=== PATIENT | male | born 1960 | race Caucasian/White ===

== ENCOUNTER 2017-02-01 05:24 | Inpatient (IN) | payer MEDICARE ==
[~2017-02-01] VITALS: Ht 182.9 cm; Wt 71.3 kg
[2017-02-01] VITALS (21 sets, daily range): BP systolic 111–178; BP diastolic 74–102; PULSE 88–100; RESP 16–30; TEMP 97.1–98.6; O2SAT 94–100
[~2017-02-01 05:24] MED LIST: ALBU0.086 INH; CYCL1PAK PO; DILTCD180 PO; FLUT1SPR9 NASAL; LEVA750T PO; LORA-474 PO; METO50TA PO; NORC10TA2 PO; OMEP20TA39 PO; PRED10 PO; PRED20 PO; ROPI1TAB72 PO; SPIRCAP INH; SYMB160A INH; TRAZ50TA4 PO; VENTAER INH; WARF2.5T40 PO; WARF5TAB PO
[2017-02-01] MEDS ORDERED: LORazepam 2 MG/ML VIAL ONE (05:30)
[2017-02-01] MEDS ORDERED: SODIUM CHLORIDE 0.9% FLUSH 10 ML FLUSH IVF PRN (05:30)
[2017-02-01] MEDS: RESP: ALBUTEROL 2.5 MG/IPRATROPIUM 0.5 MG NEB (SCH) INH ×5 (05:36→23:30)
[2017-02-01] MEDS ORDERED: LORazepam 2 MG/ML VIAL IV PUSH ONE ×2 (05:45→06:00)
[2017-02-01 05:47] LABS: AUTOMATED NEUTROPHIL # 12.5 TH/MM3 (1.8-7.7); BASOPHIL % 0.2 % (0.0-2.0); EOSINOPHIL % 0.2 % (0.0-4.0); HEMATOCRIT 43.1 % (39.0-51.0); HEMO FLAGS DIFF FINAL; LYMPH % 11.9 % (9.0-44.0); LYMPHOCYTE # 1.9 TH/MM3 (1.0-4.8); MEAN CELL VOLUME 92.1 FL (80.0-100.0); MEAN CORPUSCULAR HEMOGLOBIN 31.6 PG (27.0-34.0); MEAN CORPUSCULAR HGB CONC 34.3 % (32.0-36.0); MONO % 11.6 % (0.0-8.0); NEUT % 76.1 % (16.0-70.0); PLATELET COUNT 289 TH/MM3 (150-450); RED BLOOD COUNT 4.69 MIL/MM3 (4.50-5.90); RED CELL DISTRIBUTION WIDTH 13.8 % (11.6-17.2); WHITE BLOOD COUNT 16.4 TH/MM3 (4.0-11.0)
[2017-02-01 05:53] LABS: BLOOD GAS BASE EXCESS 1.1 mmol/L (-2-2); BLOOD GAS CARBOXYHEMOGLOBIN 3.7 % (0-4); BLOOD GAS HCO3 28 mmol/L (22-26); BLOOD GAS METHEMOGLOBIN 0.6 % (0-2); BLOOD GAS O2 HGB SATURATION 93 % (90-100); BLOOD GAS OXYGEN CONTENT 19.3 Vol % (12.0-20.0); BLOOD GAS PCO2 64 mmHg (38-42); BLOOD GAS PO2 102 mmHG (61-120); BLOOD GAS TOTAL HGB 14.6 G/DL (12.0-16.0); TEMP CORR TO 98.6
[2017-02-01 05:54] LABS: CRITICAL VALUE YES; OXYGEN DEVICE VENTILATOR
[2017-02-01 05:55] LABS: DRAW SITE LT RADIAL; LITER FLOW 4 L/M; STAT YES; ULNAR PULSE PRESENT
--- NOTE | 2017-02-01 05:58 | PD ---
HPI Chief Complaint: Respiratory Distress Time Seen by Provider: 05:28 Travel History International Travel<30 days: No Contact w/Intl Traveler<30days: No Traveled to known affect area: No History of Present Illness HPI Patient 56-year-old male presents emergency department for evaluation of shortness of breath worsening over the past week. Patient states he was working outside yesterday and became fairly short of breath. Patient states he has a history of COPD and feeling very anxious. He is brought in by EMS to see 125 mg Solu-Medrol and 3 albuterol treatments during transport. Patient denies any chest pain denies abdominal pain nausea vomiting diarrhea. Patient states this happened to him multiple times in the past and he requests something for his nerves. Denies any fevers. Symptoms are moderate to severe and been progressively worsening. PFSH Past Medical History Hx Anticoagulant Therapy: Yes (COUMADIN) Arthritis: Yes Asthma: Yes Anxiety: Yes Depression: Yes Heart Rhythm Problems: Yes (A-FIB) Cancer: No Cardiac Catheterization: No Cardiovascular Problems: Yes High Cholesterol: No Chest Pain: Yes Congestive Heart Failure: No COPD: Yes Cerebrovascular Accident: Yes (TIA'S X 2) Coronary Artery Disease: Yes (AFIB) Diabetes: No Diminished Hearing: No Endocrine: No Gastrointestinal Disorders: No Headaches: Yes Hiatal Hernia: Yes Hypertension: Yes Immune Disorder: No Implanted Vascular Access Dvce: No Musculoskeletal: Yes (DDD) Neurologic: Yes (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) Psychiatric: Yes Respiratory: Yes (COPD) Migraines: Yes Ulcer: Yes Tetanus Vaccination: < 5 Years Influenza Vaccination: Yes PNEUMOCCOCAL Vaccine (Year): 1 Past Surgical History Abdominal Surgery: Yes (HIATAL HERNIA REPAIR, DEVIATED SEPTUM) AICD: No Arteriovenous Shunt: No Cardiac Surgery: No Coronary Artery Bypass Graft: No Ear Surgery: No Endocrine Surgery: No Eye Surgery: No Genitourinary Surgery: No Insulin Pump: No Joint Replacement: No Neurologic Surgery: No Oral Surgery: Yes Pacemaker: No Thoracic Surgery: No Other Surgery: No Social History Alcohol Use: Yes (PT STATES "BEER EVERY NOW AND THEN") Tobacco Use: Yes (FORMER HEAVY SMOKER) Substance Use: No Allergies-Medications (Allergen,Severity, Reaction): Coded Allergies: Gabapentin (Verified Allergy, Severe, Shortness of Breath, 02/01/17) Pt states he had a bad reaction to Gabapentin. states "my throat swole and it was hard for me to breath." Penicillin (Verified Allergy, Severe, "ALL CILLINS" PER PT, 02/01/17) Amoxicillin (Verified Allergy, Unknown, 02/01/17) Uncoded Allergies: ALL CILLINS (Allergy, Unknown, 06/15/10) Reported Meds & Prescriptions Reported Meds & Active Scripts Active Reported Coumadin (Warfarin) 2.5 Mg Tab 2.5 Mg PO DAILY Coumadin (Warfarin) 5 Mg Tab 5 Mg PO 2XWEEK Trazodone (Trazodone HCl) 50 Mg Tab 50 Mg PO HS Spiriva Handihaler (Tiotropium Inh) 18 Mcg Cap 18 Mcg INH DAILY 1 capsule = 18 mcg Requip (Ropinirole) 1 Mg Tab 1 Mg PO HS Prednisone 5 Mg Tab 5 Mg PO DAILY Omeprazole 20 Mg Tab 20 Mg PO DAILY Metoprolol Tartrate 50 Mg Tab 50 Mg PO BID Ativan (Lorazepam) 1 Mg Tab 1 Mg PO Q6H PRN Cardizem (Diltiazem HCl) 120 Mg Tab 360 Mg PO DAILY Flexeril (Cyclobenzaprine HCl) 10 Mg Tab 10 Mg PO HS Symbicort Inh (Budesonide/Formoterol Fumarate) 80-4.5 Mcg/Act Aero 2 Puff INH Q12HR Ventolin Hfa 18 GM Inh (Albuterol Sulfate) 90 Mcg/Act Aer 2 Puff INH Q4H PRN Review of Systems Except as stated in HPI: all other systems reviewed are Neg Physical Exam Narrative GENERAL: Well-developed, thin tripod position notably short of breath. SKIN: Warm and dry HEAD: Atraumatic. Normocephalic. EYES: Pupils equal and round. No scleral icterus. No injection or drainage. ENT: No nasal bleeding or discharge. Mucous membranes pink and moist. NECK: Trachea midline. No JVD. CARDIOVASCULAR: Minimal tachycardia with regular rhythm. No murmur appreciated. RESPIRATORY: No significant intercostal and subcostal retractions, tripod position. Decreased aeration throughout. Speaks in short phrases only. GASTROINTESTINAL: Abdomen soft, non-tender, nondistended. Hepatic and splenic margins not palpable. MUSCULOSKELETAL: No obvious deformities. No clubbing. No cyanosis. No edema. NEUROLOGICAL: Awake and alert. No obvious cranial nerve deficits. Motor grossly within normal limits. Normal speech. PSYCHIATRIC: Appears very anxious. Data Data Last Documented VS Vital Signs Date Time Temp Pulse Resp B/P Pulse Ox O2 Delivery O2 Flow Rate FiO2 02/01/17 07:00 94 16 111/79 95 BiPAP 02/01/17 06:11 35 02/01/17 06:00 4 02/01/17 05:28 97.1 Orders Electrocardiogram (02/01/17 05:28) Arterial Blood Gas (Abg) (02/01/17 05:28) Complete Blood Count With Diff (02/01/17 05:28) Comprehensive Metabolic Panel (02/01/17 05:28) Chest, Single Ap (02/01/17 05:28) Ecg Monitoring (02/01/17 05:28) Iv Access Insert/Monitor (02/01/17 05:28) Oximetry (02/01/17 05:28) Oxygen Administration (02/01/17 05:28) Albuterol-Ipratropium Neb (Duoneb Neb) (02/01/17 05:30) Sodium Chloride 0.9% Flush (Ns Flush) (02/01/17 05:30) Troponin I (02/01/17 05:28) Lorazepam Inj (Ativan Inj) (02/01/17 05:30) Lorazepam Inj (Ativan Inj) (02/01/17 05:45) Lorazepam Inj (Ativan Inj) (02/01/17 06:00) Lorazepam Inj (Ativan Inj) (02/01/17 06:15) Arterial Blood Gas (Abg) (02/01/17 ) Admit Order (Ed Use Only) (02/01/17 ) Labs Laboratory Tests Test 02/01/17 02/01/17 05:30 05:41 White Blood Count 16.4 TH/MM3 Red Blood Count 4.69 MIL/MM3 Hemoglobin 14.8 GM/DL Hematocrit 43.1 % Mean Corpuscular Volume 92.1 FL Mean Corpuscular Hemoglobin 31.6 PG Mean Corpuscular Hemoglobin 34.3 % Concent Red Cell Distribution Width 13.8 % Platelet Count 289 TH/MM3 Mean Platelet Volume 9.4 FL Neutrophils (%) (Auto) 76.1 % Lymphocytes (%) (Auto) 11.9 % Monocytes (%) (Auto) 11.6 % Eosinophils (%) (Auto) 0.2 % Basophils (%) (Auto) 0.2 % Neutrophils # (Auto) 12.5 TH/MM3 Lymphocytes # (Auto) 1.9 TH/MM3 Monocytes # (Auto) 1.9 TH/MM3 Eosinophils # (Auto) 0.0 TH/MM3 Basophils # (Auto) 0.0 TH/MM3 CBC Comment DIFF FINAL Differential Comment Sodium Level 140 MEQ/L Potassium Level 4.5 MEQ/L Chloride Level 104 MEQ/L Carbon Dioxide Level 30.5 MEQ/L Anion Gap 6 MEQ/L Blood Urea Nitrogen 18 MG/DL Creatinine 0.88 MG/DL Estimat Glomerular Filtration 90 ML/MIN Rate Random Glucose 133 MG/DL Calcium Level 9.3 MG/DL Total Bilirubin 0.8 MG/DL Aspartate Amino Transf 35 U/L (AST/SGOT) Alanine Aminotransferase 35 U/L (ALT/SGPT) Alkaline Phosphatase 77 U/L Troponin I LESS THAN 0.02 NG/ML Total Protein 7.6 GM/DL Albumin 4.1 GM/DL Blood Gas Puncture Site LT RADIAL Blood Gas Patient Temperature 98.6 Blood Gas HCO3 28 mmol/L Blood Gas Base Excess 1.1 mmol/L Blood Gas Oxygen Saturation 93 % Arterial Blood pH 7.26 Arterial Blood Partial 64 mmHg Pressure CO2 Arterial Blood Partial 102 mmHG Pressure O2 Arterial Blood Oxygen Content 19.3 Vol % Arterial Blood 3.7 % Carboxyhemoglobin Arterial Blood Methemoglobin 0.6 % Blood Gas Hemoglobin 14.6 G/DL Oxygen Delivery Device VENTILATOR Blood Gas Liter Flow 4 L/M [facility] Medical Decision Making Medical Screen Exam Complete: Yes Emergency Medical Condition: Yes Interpretation(s) EKG shows sinus rhythm with a normal axis normal R-wave progression. Significant motion artifact limits ST segment interpretation but no obvious elevations seen. Differential Diagnosis COPD exacerbation, hypercapnia, hypoxia, pneumonia. Narrative Course Patient was roomed in the emergency department, he appears quite short of breath. Was given an additional 3 DuoNeb nebs on arrival. Chest x-ray is clear. His ABG does show acute hyper Respiratory acidosis. PH is 7.26. He was started on BiPAP therapy. He was given Ativan 2 mg IV. Orders for 3 the third milligram was withheld. Patient overall improved significantly in the emergency department. Initial troponin negative. Initial EKG is significantly limited by motion artifact but no obvious ischemia. Patient was discussed with Dr. Shearer for admission who requested a repeat ABG and will see the patient. On my revisit the patient is fairly sedate but is arousable by simple painful stimuli and is fully conversant after aroused. He is tolerating the BiPAP well. Critical Care Narrative Aggregate critical care time was [35 minutes. Time to perform other separately billable procedures was not included in the critical care time. My time did not include minutes spent treating any other patients simultaneously or on activities that did not directly contribute to the patient's treatment. The services I provided to this patient were to treat and/or prevent clinically significant deterioration that could result in: , disability, organ failure. I provided critical care services requiring my management, as noted below: Chart data review, documentation time, medication orders and management, vital sign assessments/reviewing monitor data, ordering and reviewing lab tests, ordering and interpreting/reviewing x-rays and diagnostic studies, care of the patient and discussion of the patient with the admitting physicians. Diagnosis Primary Impression: Acute hypercapnic respiratory failure Additional Impression: COPD (chronic obstructive pulmonary disease) Admitting Information Admitting Physician Requests: Admit Condition: Stable Mihai Esqueda MD February 01, 2017 05:58
[2017-02-01] MEDS ORDERED: LORazepam 2 MG/ML VIAL IM ONE (06:15)
[2017-02-01 06:19] LABS: ALKALINE PHOSPHATASE 77 U/L (45-117); TOTAL BILIRUBIN ADULT 0.8 MG/DL (0.2-1.0)
[2017-02-01 06:21] LABS: ALT (GPT) 35 U/L (12-78); ANION GAP 6 MEQ/L (5-15); AST (GOT) 35 U/L (15-37); BICARBONATE 30.5 MEQ/L (21.0-32.0); BLOOD UREA NITROGEN 18 MG/DL (7-18); CHLORIDE 104 MEQ/L (98-107); GLOMERULAR FILTRATION RATE 90 ML/MIN (>89); POTASSIUM 4.5 MEQ/L (3.5-5.1); SODIUM (NA) 140 MEQ/L (136-145)
--- NOTE | 2017-02-01 06:23 | RADRPT ---
EXAM DATE/TIME: 02/01/2017 06:08 [place] COMPARISON: CHEST SINGLE AP, July 10, 2016, 5:06. INDICATIONS : Shortness of breath. Wheezing.. MEDICAL HISTORY : None. SURGICAL HISTORY : None. ENCOUNTER: Initial ACUITY: 1 day PAIN SCORE: 0/10 LOCATION: Bilateral chest FINDINGS: 2 AP erect views of the chest were obtained again demonstrate hyperinflation of both lungs with bullo us change in the upper lobes. There are no new confluent infiltrates or effusions. The heart size is within normal limits. The bony thorax remains intact with overlying electrocardiogram leads. CONCLUSION: No significant change. Emphysema and bullous change with no evidence of pneumonia. Eduar Vidal MD on February 01, 2017 at 6:21 Board Certified Radiologist. This report was verified electronically.
[2017-02-01] MEDS ORDERED: TRAZ50TA12 PO (06:35)
[2017-02-01] MEDS ORDERED: LORA-474 PO (06:35)
[2017-02-01] MEDS ORDERED: SPIRCAP INH (06:35)
[2017-02-01] MEDS ORDERED: COUM2.5T PO (06:35)
[2017-02-01] MEDS ORDERED: METO50TA PO (06:35)
[2017-02-01] MEDS ORDERED: SYMB80AE INH (06:35)
[2017-02-01] MEDS ORDERED: VENTAER INH (06:35)
[2017-02-01] MEDS ORDERED: CARD120T4 PO (06:35)
[2017-02-01] MEDS ORDERED: PRED5TAB PO (06:35)
[2017-02-01] MEDS ORDERED: COUM5TAB PO (06:35)
[2017-02-01] MEDS ORDERED: CYCL1TAB29 PO (06:35)
[2017-02-01] MEDS ORDERED: ROPI1TAB72 PO (06:35)
[2017-02-01] MEDS ORDERED: OMEP20TA PO (06:35)
[2017-02-01 07:40] LABS: BLOOD GAS BASE EXCESS 2.2 mmol/L (-2-2); BLOOD GAS CARBOXYHEMOGLOBIN 3.4 % (0-4); BLOOD GAS HCO3 29 mmol/L (22-26); BLOOD GAS METHEMOGLOBIN 0.7 % (0-2); BLOOD GAS O2 HGB SATURATION 92 % (90-100); BLOOD GAS OXYGEN CONTENT 18.4 Vol % (12.0-20.0); BLOOD GAS PCO2 66 mmHg (38-42); BLOOD GAS PO2 87 mmHG (61-120); BLOOD GAS TOTAL HGB 14.2 G/DL (12.0-16.0); CRITICAL VALUE YES; DRAW SITE RT RADIAL; FIO2 35 %; NUMBER OF ARTERIAL PUNCTURES 1; OXYGEN DEVICE BIPAP; STAT YES; TEMP CORR TO 98.6; VENT SETTINGS IPAP12/EPAP5
[2017-02-01] MEDS ORDERED: SODIUM CHLORIDE 0.9% FLUSH 10 ML FLUSH IV FLUSH PRN (09:15)
[2017-02-01] MEDS ORDERED: MISCELLANEOUS NURSING INFORMATION XX SCH (09:15)
[2017-02-01] MEDS ORDERED: ONDANSETRON HCL 4 MG/2 ML VIAL IV PRN (09:15)
[2017-02-01] MEDS ORDERED: NALOXONE HCL 0.4 MG/ML AMP IV PRN (09:15)
[2017-02-01] MEDS ORDERED: RESP: ALBUTEROL 2.5 MG/3 ML NEB (PRN) INH (09:15)
[2017-02-01] MEDS ORDERED: CHLORHEXIDINE GLUCONATE 2 % 1 PACK (2 CLOTHS) TOP PRN (09:15)
[2017-02-01] MEDS ORDERED: SENNOSIDES 8.6 MG TAB PO PRN (09:15)
[2017-02-01] MEDS ORDERED: FLUMAZENIL 0.5 MG/5 ML VIAL IV PRN (09:15)
[2017-02-01] MEDS ORDERED: ACETAMINOPHEN 325 MG TAB PO PRN (09:15)
[2017-02-01] MEDS ORDERED: GLUCAGON 1 MG/ML VIAL OTHER PRN (10:00)
[2017-02-01] MEDS ORDERED: DEXTROSE 50% IN WATER 50 ML VIAL(D50) IV PRN (10:00)
[2017-02-01 10:07] LABS: BLOOD GAS BASE EXCESS 2.3 mmol/L (-2-2); BLOOD GAS CARBOXYHEMOGLOBIN 2.9 % (0-4); BLOOD GAS HCO3 28 mmol/L (22-26); BLOOD GAS METHEMOGLOBIN 0.8 % (0-2); BLOOD GAS O2 HGB SATURATION 94 % (90-100); BLOOD GAS OXYGEN CONTENT 18.4 Vol % (12.0-20.0); BLOOD GAS PCO2 57 mmHg (38-42); BLOOD GAS PO2 103 mmHG (61-120); BLOOD GAS TOTAL HGB 13.8 G/DL (12.0-16.0); TEMP CORR TO 98.6
[2017-02-01 10:08] LABS: CRITICAL VALUE YES; DRAW SITE LT RADIAL; FIO2 40 %; NUMBER OF ARTERIAL PUNCTURES 1; OXYGEN DEVICE BIPAP; STAT YES; VENT SETTINGS IPAP15/EPAP8
[2017-02-01] MEDS: methylPREDNISolone SOD SUCC 125 MG/2 ML VIAL IVP SCH ×3 (10:23→21:51)
--- NOTE | 2017-02-01 10:23 | EKG ---
Date Performed: 02/01/2017 Time Performed: 05:34:40 PTAGE: 56 years EKG: Sinus rhythm POSSIBLE ANTERIOR MYOCARDIAL INFARCTION ABNORMAL ECG NO PREVIOUS TRACING DOCTOR: Nicola Moy Interpretating Date/Time 02/01/2017 10:18:56
[2017-02-01] MEDS: INSULIN NovoLIN REGULAR SUPPLEMENTAL SCALE SQ SCH ×3 (10:29→21:51)
--- NOTE | 2017-02-01 11:04 | MH ---
cc: GABRIELA ENCINAS M.D. DATE OF ADMISSION 02/01/2017 DATE OF 07/01/1961 HISTORY The patient is a 56 year-old male with a past medical history of COPD, chronic atrial fibrillation on Coumadin, TIA, hypertension, anxiety and depression. The patient presented to [facility] ED for worsening shortness of breath in the last one week. The patient was given Solu-Medrol 125 mg IV and Albuterol treatments times three en route by ER. The patient denies any chest pain, cough, fever or any constitutional symptoms. In addition, he denies any abdominal pain, nausea, vomiting or diarrhea. On arrival, he was hypertension with a blood pressure 178/102, tachycardic. His initial blood gas showed acute hypercapnic respiratory acidosis with a pH of 7.26, CO2 64, paO2 102, bicarb 28. He was subsequently placed on BiPAP with two additional blood gases performed in the ER. His last ABG from 10:00 a.m. showed improvement of is respiratory acidosis with a pH of 7.31, CO2 57, paO2 103, bicarb 28 on BiPAP 15/8 with 40% FIO2. The patient was given Ativan 2 mg IV push for agitation and when seen in the ER, he was lethargic, however, he is able to open up his eyes to questions. A chest x-ray showed COPD changes with no evidence of any pneumonia. PAST MEDICAL HISTORY Significant for: 1. Atrial fibrillation on Coumadin 2. Hypertension 3. TIA 4. Anxiety, depression 5. COPD PAST SURGICAL HISTORY 1. Previous hiatal hernia repair. 2. Previous surgery for a deviated septum. SOCIAL HISTORY The patient is a social drinker, former heavy smoker. No history of substance abuse. ALLERGIES PENICILLIN, AMOXICILLIN AND GABAPENTIN. REPORTED MEDICATIONS Include: 1. Coumadin 2. Trazodone 3. Spiriva 4. Requip 5. Prednisone 6. Omeprazole 7. Lopressor 8. Ativan 9. Cardizem 10. Symbicort 11. Ventolin FAMILY HISTORY Noncontributory REVIEW OF SYSTEMS As per HPI. The rest of the review of systems is unremarkable. PHYSICAL EXAMINATION GENERAL: A [id number] lying in bed in no acute distress. VITAL SIGNS: Temperature of 97.1, blood pressure 123/85, pulse 89, saturation 100% on BiPAP 5/8 with 40% FIO2. HEENT: Atraumatic, normocephalic. Pupils equal, round, reactive to light and accommodation. Extraocular muscles intact. Conjunctivae pink. Nonicteric sclerae. Oral mucosa within normal. NECK: Supple. No JVD, adenopathy or thyromegaly. Trachea in the midline. CARDIOVASCULAR: Regular rate and rhythm. Normal S1, S2. No murmurs, rubs or gallops noted. PULMONARY: Bilateral equal air entry. No crackles or wheezing. ABDOMEN: Soft, nontender. No distention. Positive bowel sounds. EXTREMITIES: No cyanosis, clubbing or edema. NEUROLOGIC: No focal sensory deficit. LABORATORY DATA Sodium 140, potassium 4.5, chloride 104, CO2 30, BUN 18, creatinine 0.88, glucose of 133, troponin less than 0.02. WBC is 16.4, hemoglobin 14.8, hematocrit 43, platelet count is 289. ABG from 10:00 a.m. showed a pH of 7.31, CO2 57, paO2 103, bicarb 28, saturation 94%. RADIOGRAPHIC STUDIES A chest x-ray showed COPD changes. No obvious infiltrates. EKG showed a normal sinus rhythm rate of 92 beats per minute. IMPRESSION 1. Acute hypercapnic respiratory failure 2. COPD exacerbation 3. Leukocytosis 4. Hypertension 5. Atrial fibrillation on Coumadin 6. History of TIA. 7. History of anxiety and depression. RECOMMENDATIONS 1. Monitor neuro status closely and avoid any further sedatives. He was given Ativan 2 mg IV total in the ER. 2. Continue oxygen and maintain sats above 92%. 3. Bronchodilators in the form of DuoNeb q4 plus q2 as needed for shortness of breath. In addition, we will continue with the Symbicort and Spiriva. 4. Solu-Medrol 60 mg IV q6. 5. Continue with noninvasive positive pressure ventilation for respiratory distress. 6. Monitor heart rate and blood pressure closely and maintain MAP greater than [address] on Cardizem 60 mg p.o. q6. 8. Echocardiogram from March 2016 showed an EF of 40-45% with diffuse hypokinesis. 9. Monitor renal function I's and O's and electrolyte replacement as needed. 10. Keep NPO for now until respiratory status and mental status improves. 11. Place on Protonix 40 mg IV daily for GI prophylaxis. 12. Place on empiric antibiotics in the form of Levaquin for COPD exacerbation and monitor for signs of infection which include fever and WBC. Chest x-ray in the ED showed COPD changes without any obvious infiltrates. 13. We will also obtain a urinalysis with culture if indicated. 14. Monitor CBC and check baseline coagulation profile as the patient is on Coumadin at home. 15. Place on sliding scale insulin with Accu-Chek's q6h for glycemic control as the patient will be on IV steroids. 16. GI prophylaxis with Protonix 40 mg daily and DVT prophylaxis with SCD's. Start chemical anticoagulation prophylaxis if INR is subtherapeutic. 17. Further recommendations will be based on hospital course. MD BG Roberto/HIEN /10:26 AM /10:36 AM
[2017-02-01 11:22] LABS: INTERNATIONAL NORMALIZED RATIO 2.9 RATIO; PROTHROMBIN TIME - PATIENT 33.8 SEC (9.8-11.6)
[2017-02-01] MEDS: DILTIAZEM HCL 60 MG TAB PO SCH ×3 (11:36→23:16)
[2017-02-01] MEDS: LEVOFLOXACIN 500 MG PREMIX INJ 100 ML IV SCH (11:36)
[2017-02-01 11:37] LABS: MAGNESIUM 2.5 MG/DL (1.5-2.5)
[2017-02-01 13:54] LABS: BACTERIA, URINE RARE /hpf; BLOOD, URINE NEG (NEG); COMMENT (UR) CATH-CULTURE IND; CULTURE IF INDICATED CATH CULTURE IND; GLUCOSE,URINE NEG (NEG); KETONE, URINE NEG (NEG); MUCUS URINE FEW /lpf (OCC); NITRITE,URINE NEG (NEG); URINE COLOR YELLOW (YELLW/STRAW)
[2017-02-01] MEDS: BUDESONIDE-FORMOTEROL 80/4.5 MCG INHALER INH SCH (19:57)
[2017-02-01] MEDS ORDERED: METOPROLOL TARTRATE 50 MG TAB PO SCH (21:00)
[2017-02-01] MEDS: ACETAMINOPHEN/HYDROcodone 325 MG/10 MG TAB PO PRN (23:17)
[2017-02-02] VITALS (14 sets, daily range): BP systolic 108–127; BP diastolic 76–82; PULSE 72–111; RESP 13–22; TEMP 97.8–98.2; O2SAT 91–97
[2017-02-02] MEDS: RESP: ALBUTEROL 2.5 MG/IPRATROPIUM 0.5 MG NEB (SCH) INH ×5 (03:57→21:26)
[2017-02-02] MEDS: CHLORHEXIDINE GLUCONATE 2 % 1 PACK (2 CLOTHS) TOP SCH (04:00)
[2017-02-02] MEDS: INSULIN NovoLIN REGULAR SUPPLEMENTAL SCALE SQ SCH ×2 (04:00→09:52)
[2017-02-02] MEDS: methylPREDNISolone SOD SUCC 125 MG/2 ML VIAL IVP SCH ×2 (04:24→09:52)
[2017-02-02 06:16] LABS: AUTOMATED NEUTROPHIL # 10.9 TH/MM3 (1.8-7.7); HEMO FLAGS DIFF FINAL; LYMPH % 3.9 % (9.0-44.0); LYMPHOCYTE # 0.5 TH/MM3 (1.0-4.8); MEAN CORPUSCULAR HEMOGLOBIN 30.8 PG (27.0-34.0); MEAN CORPUSCULAR HGB CONC 33.5 % (32.0-36.0); MONO % 5.1 % (0.0-8.0); PLATELET COUNT 221 TH/MM3 (150-450); RED BLOOD COUNT 4.24 MIL/MM3 (4.50-5.90)
[2017-02-02 06:26] LABS: INTERNATIONAL NORMALIZED RATIO 2.8 RATIO; PROTHROMBIN TIME - PATIENT 32.3 SEC (9.8-11.6)
[2017-02-02] MEDS: DILTIAZEM HCL 60 MG TAB PO SCH ×4 (06:37→23:59)
[2017-02-02 06:46] LABS: BICARBONATE 29.1 MEQ/L (21.0-32.0); POTASSIUM 3.9 MEQ/L (3.5-5.1)
[2017-02-02] MEDS: TIOTROPIUM BROMIDE 18 MCG INH INH SCH (07:58)
[2017-02-02] MEDS: BUDESONIDE-FORMOTEROL 80/4.5 MCG INHALER INH SCH ×2 (07:59→20:40)
[2017-02-02] MEDS: PANTOPRAZOLE SOD 20 MG DELAYED RELEASE TAB PO SCH (07:59)
[2017-02-02] MEDS: ACETAMINOPHEN/HYDROcodone 325 MG/10 MG TAB PO PRN ×2 (08:01→17:35)
[2017-02-02] MEDS: LEVOFLOXACIN 500 MG PREMIX INJ 100 ML IV SCH (09:52)
--- NOTE | 2017-02-02 13:23 | HHI.PR ---
Subjective Remarks Patient states sob is much better still coughing denies cp denies fevers/chills Objective Vitals Vital Signs Date Time Temp Pulse Resp B/P Pulse Ox O2 Delivery O2 Flow Rate FiO2 02/02/17 12:00 101 02/02/17 12:00 98.0 101 22 108/76 93 02/02/17 10:00 111 02/02/17 08:00 78 02/02/17 08:00 97.8 93 20 109/82 91 02/02/17 07:53 91 Nasal Cannula 2.00 02/02/17 06:00 84 02/02/17 04:00 76 02/02/17 04:00 98.0 77 13 109/76 94 02/02/17 03:57 94 35 02/02/17 02:00 84 02/02/17 00:00 85 02/02/17 00:00 98.2 85 21 115/77 96 02/01/17 23:31 95 BiPAP 35 02/01/17 23:31 95 35 02/01/17 22:00 89 02/01/17 21:01 96 35 02/01/17 20:00 92 02/01/17 20:00 97.9 92 28 113/83 94 02/01/17 18:00 89 02/01/17 16:00 98.5 92 25 130/92 98 02/01/17 16:00 92 02/01/17 14:04 100 35 02/01/17 14:00 98.6 88 22 117/82 99 02/01/17 14:00 88 I/O 02/01/17 02/01/17 02/01/17 02/02/17 02/02/17 02/02/17 07:00 15:00 23:00 07:00 15:00 23:00 Intake Total 20 ml 20 ml Output Total 750 ml 250 ml Balance -730 ml -230 ml Intake Oral 20 ml 20 ml IV Total 0 ml 0 ml Output Urine Total 750 ml 250 ml # Bowel Movements 0 0 Result Diagram: 02/02/1751302/02/17513 Imaging Last Impressions Chest X-Ray 02/01/1728 Signed Impressions: Service Date/Time: Wednesday, February 01, 2017 06:08 - CONCLUSION: No significant change. Emphysema and bullous change with no evidence of pneumonia. Eduar Vidal MD Objective Remarks GENERAL: Awake and alert, not in respiratory distress. SKIN: Warm and dry. HEAD: Atraumatic. Normocephalic. EYES: Pupils equal and round. No scleral icterus. No injection or drainage. ENT: No nasal bleeding or discharge. Mucous membranes pink and moist. NECK: Trachea midline. No JVD. CARDIOVASCULAR: Regular rate and rhythm. RESPIRATORY: No accessory muscle use. Diffuse bilateral expiratory wheezing. GASTROINTESTINAL: Abdomen soft, non-tender, nondistended. Hepatic and splenic margins not palpable. MUSCULOSKELETAL: Extremities without clubbing, cyanosis, or edema. No obvious deformities. NEUROLOGICAL: Awake and alert. No obvious cranial nerve deficits. Motor grossly within normal limits. Five out of 5 muscle strength in the arms and legs. Normal speech. PSYCHIATRIC: Appropriate mood and affect; insight and judgment normal. Medications and IVs Current Medications Medications (Trade) Dose Ordered Sig/Dusty Route Start Time Stop Time Status Last Admin (NS Flush) 2 ml UNSCH PRN IVF 02/01/17 05:30 (SoluMEDROL INJ) 60 mg Q6H IVP 02/01/17 10:00 02/02/17 09:52 (Tylenol) 650 mg Q6H PRN PO 02/01/17 09:15 02/01/17 19:57 (Zofran Inj) 4 mg Q6H PRN IV 02/01/17 09:15 (Senokot) 17.2 mg Q12H PRN PO 02/01/17 09:15 (Romazicon Inj) 0.2 mg Q1M PRN IV 02/01/17 09:15 (Narcan Inj) 0.4 mg Q3M PRN IV 02/01/17 09:15 Miscellaneous Information 1 Q361D XX 02/01/17 09:15 (Chlorhexidine 2% Cloth) 3 pack Taper DAILY@04 TOP 02/02/17 04:00 01/29/18 03:59 02/02/17 04:00 (Chlorhexidine 2% Cloth) 3 pack UNSCH PRN TOP 02/01/17 09:15 (Symbicort 80-4.5 Mcg Inh) 2 puff Q12HR INH 02/01/17 21:00 02/02/17 07:59 (Spiriva Inh) 18 mcg DAILY INH 02/01/17 09:30 02/02/17 07:58 (Cardizem) 60 mg Q6HR PO 02/01/17 12:00 02/02/17 11:33 Pantoprazole Sodium 20 mg 20 mg DAILY PO 02/02/17 09:00 02/02/17 07:59 (Levaquin 500 Mg Premix Inj) 100 ml @ 100 mls/hr Q24H IV 02/01/17 11:00 02/02/17 09:52 ([place] 10-325 Mg) 1 tab Q6H PRN PO 02/01/17 22:30 02/02/17 08:01 (Ativan) 1 mg Q6H PRN PO 02/01/17 22:30 (Desyrel) 50 mg HS PO 02/02/17 21:00 A/P Problem List: (1) Sepsis ICD Code: A41.9 Status: Resolved Plan: Sepsis secondary to COPD exacerbation. The patient presented with leukocytosis and tachypnea. Sepsis improving with improvement on a study failure and WBC trending down. Continue IV Levaquin, will decrease Solu Medrol to 40 g IV every 8 hours, continue duo nebs and supplemental oxygen to keep an oxygen saturation more than 92%. (2) COPD exacerbation ICD Code: J44.1 Status: Acute Plan: Continue IV antibiotics, IV steroids, DuoNeb's aunt, and oxygen. COPD exacerbation improving. (3) Acute hypercapnic respiratory failure ICD Code: J96.02 Status: Acute Plan: Patient admitted to intensive care unit and and of the care of global clinical leader initially. Patient placed on BiPAP for acute hypercapnic respiratory failure. ABG on admission showed a pH of 7.26 with a PCO2 of 64 and a PO2 of 102. Recheck ABG shows a pH of 7.48 PCO2 of 35, PO2 of 69 on 2 L nasal cannula. (4) Atrial fibrillation ICD Code: I48.91 Status: Chronic Plan: EKG on admission showed sinus rhythm, reviewed by me. Patient is currently on Coumadin with a therapeutic INR. We'll continue Coumadin. (5) Leukocytosis ICD Code: D72.829 Status: Acute Plan: Leukocytosis likely secondary to sepsis secondary to COPD exacerbation. WBCs trending down from 16.4 K to 12.0 K. Continue to monitor CBC with differential Assessment and Plan GI prophylaxis: EPI. DVT prophylaxis: On Coumadin. Discharge Planning Possible discharge in 1-2 days. Problem Qualifiers (1) Sepsis: Qualified Code: A41.9 - Sepsis, due to unspecified organism (2) Atrial fibrillation: Qualified Code: I48.0 - Paroxysmal atrial fibrillation (3) Leukocytosis: Qualified Code: D72.829 - Leukocytosis, unspecified type Mook Tesfaye MD February 02, 2017 13:23
[2017-02-02 13:45] LABS: BLOOD GAS BASE EXCESS 1.9 mmol/L (-2-2); BLOOD GAS CARBOXYHEMOGLOBIN 1.3 % (0-4); BLOOD GAS HCO3 25 mmol/L (22-26); BLOOD GAS METHEMOGLOBIN 1.3 % (0-2); BLOOD GAS O2 HGB SATURATION 92 % (90-100); BLOOD GAS OXYGEN CONTENT 17.7 Vol % (12.0-20.0); BLOOD GAS PCO2 35 mmHg (38-42); BLOOD GAS PO2 69 mmHg (61-120); BLOOD GAS TOTAL HGB 13.8 G/DL (12.0-16.0); CRITICAL VALUE NO; DRAW SITE RT RADIAL; LITER FLOW 4 L/M; NUMBER OF ARTERIAL PUNCTURES 1; OXYGEN DEVICE NASAL CANNULA; STAT NO; TEMP CORR TO 98.6; ULNAR PULSE PRESENT
[2017-02-02 14:05] LABS: HEMOGLOBIN A1a 1.2 %; HEMOGLOBIN A1b 1.6 %; HEMOGLOBIN Ao 84.8 %; HEMOGLOBIN LA1C 2.3 %; HEMOGLOBIN P3 3.9 %
[2017-02-02] MEDS: methylPREDNISolone SOD SUCC 40 MG/1 ML VIAL IV PUSH SCH (20:40)
[2017-02-02] MEDS: traZODone HCL 50 MG TAB PO SCH (20:40)
[2017-02-02] MEDS ORDERED: PANTOPRAZOLE SODIUM 40 MG VIAL IV PUSH ONE (22:15)
[2017-02-03] VITALS (10 sets, daily range): BP systolic 109–128; BP diastolic 60–76; PULSE 77–96; RESP 16–20; TEMP 97.5–97.8; O2SAT 92–97
[2017-02-03] MEDS: RESP: ALBUTEROL 2.5 MG/IPRATROPIUM 0.5 MG NEB (SCH) INH ×6 (00:28→19:17)
[2017-02-03] MEDS: CHLORHEXIDINE GLUCONATE 2 % 1 PACK (2 CLOTHS) TOP SCH (03:18)
[2017-02-03] MEDS: methylPREDNISolone SOD SUCC 40 MG/1 ML VIAL IV PUSH SCH ×3 (05:19→21:27)
[2017-02-03] MEDS: DILTIAZEM HCL 60 MG TAB PO SCH ×3 (05:19→17:30)
[2017-02-03] MEDS: PANTOPRAZOLE SOD 20 MG DELAYED RELEASE TAB PO SCH (07:53)
[2017-02-03] MEDS: TIOTROPIUM BROMIDE 18 MCG INH INH SCH (07:54)
[2017-02-03] MEDS: BUDESONIDE-FORMOTEROL 80/4.5 MCG INHALER INH SCH ×2 (07:54→21:26)
[2017-02-03] MEDS: ACETAMINOPHEN/HYDROcodone 325 MG/10 MG TAB PO PRN ×3 (08:00→21:31)
[2017-02-03 08:04] LABS: AUTOMATED NEUTROPHIL # 11.6 TH/MM3 (1.8-7.7); BASOPHIL % 0.1 % (0.0-2.0); HEMATOCRIT 38.2 % (39.0-51.0); HEMO FLAGS DIFF FINAL; LYMPH % 2.2 % (9.0-44.0); LYMPHOCYTE # 0.3 TH/MM3 (1.0-4.8); MEAN CELL VOLUME 92.6 FL (80.0-100.0); MEAN CORPUSCULAR HEMOGLOBIN 30.2 PG (27.0-34.0); MEAN CORPUSCULAR HGB CONC 32.6 % (32.0-36.0); NEUT % 91.7 % (16.0-70.0); PLATELET COUNT 208 TH/MM3 (150-450); RED BLOOD COUNT 4.12 MIL/MM3 (4.50-5.90); RED CELL DISTRIBUTION WIDTH 14.2 % (11.6-17.2); WHITE BLOOD COUNT 12.7 TH/MM3 (4.0-11.0)
[2017-02-03 08:52] LABS: ALKALINE PHOSPHATASE 56 U/L (45-117); ALT (GPT) 24 U/L (12-78); ANION GAP 6 MEQ/L (5-15); AST (GOT) 23 U/L (15-37); BICARBONATE 28.8 MEQ/L (21.0-32.0); BLOOD UREA NITROGEN 24 MG/DL (7-18); CHLORIDE 105 MEQ/L (98-107); GLOMERULAR FILTRATION RATE 134 ML/MIN (>89); MAGNESIUM 2.8 MG/DL (1.5-2.5); SODIUM (NA) 140 MEQ/L (136-145); TOTAL BILIRUBIN ADULT 0.4 MG/DL (0.2-1.0)
[2017-02-03] MEDS: LEVOFLOXACIN 500 MG PREMIX INJ 100 ML IV SCH (11:39)
--- NOTE | 2017-02-03 16:13 | HHI.PR ---
Subjective Remarks Patient states feels short of breath and does not feel great Denies chest pain Denies fevers or chills Objective Vitals Vital Signs Date Time Temp Pulse Resp B/P Pulse Ox O2 Delivery O2 Flow Rate FiO2 02/03/17 15:34 Nasal Cannula 4.00 02/03/17 15:33 95 Nasal Cannula 3.00 02/03/17 15:28 18 02/03/17 12:15 3.00 02/03/17 12:00 97.6 86 20 120/70 92 02/03/17 08:50 Nasal Cannula 4.00 02/03/17 08:13 92 Nasal Cannula 3.00 02/03/17 08:00 97.5 86 20 115/69 92 02/03/17 04:00 97.7 90 16 111/72 96 02/03/17 03:43 95 Nasal Cannula 4.00 02/03/17 00:30 95 Nasal Cannula 4.00 02/03/17 00:00 97.8 96 20 109/70 97 02/02/17 21:29 96 Nasal Cannula 4.00 02/02/17 20:00 97.8 92 20 127/77 97 02/02/17 20:00 72 02/02/17 20:00 Nasal Cannula 4.00 I/O 02/02/17 02/02/17 02/02/17 02/03/17 02/03/17 02/03/17 07:00 15:00 23:00 07:00 15:00 23:00 Intake Total 20 ml 700 ml 480 ml 360 ml 540 ml Output Total 250 ml 200 ml 350 ml Balance -230 ml 500 ml 130 ml 360 ml 540 ml Intake Oral 20 ml 600 ml 480 ml 360 ml 440 ml IV Total 0 ml 100 ml 100 ml Output Urine Total 250 ml 200 ml 350 ml # Voids 0 # Bowel Movements 0 0 0 Result Diagram: 02/03/17 0731 02/03/1731 Imaging Last Impressions Chest X-Ray 02/01/17527 Signed Impressions: Service Date/Time: Wednesday, February 01, 2017 06:08 - CONCLUSION: No significant change. Emphysema and bullous change with no evidence of pneumonia. Eduar Vidal MD Objective Remarks GENERAL: Awake and alert, not in respiratory distress. SKIN: Warm and dry. HEAD: Atraumatic. Normocephalic. EYES: Pupils equal and round. No scleral icterus. No injection or drainage. ENT: No nasal bleeding or discharge. Mucous membranes pink and moist. NECK: Trachea midline. No JVD. CARDIOVASCULAR: Regular rate and rhythm. RESPIRATORY: No accessory muscle use. Diffuse bilateral expiratory wheezing. GASTROINTESTINAL: Abdomen soft, non-tender, nondistended. Hepatic and splenic margins not palpable. MUSCULOSKELETAL: Extremities without clubbing, cyanosis, or edema. No obvious deformities. NEUROLOGICAL: Awake and alert. No obvious cranial nerve deficits. Motor grossly within normal limits. Five out of 5 muscle strength in the arms and legs. Normal speech. PSYCHIATRIC: Appropriate mood and affect; insight and judgment normal. Procedures None Medications and IVs Current Medications Medications (Trade) Dose Ordered Sig/Dusty Route Start Time Stop Time Status Last Admin (NS Flush) 2 ml UNSCH PRN IVF 02/01/17 05:30 (Tylenol) 650 mg Q6H PRN PO 02/01/17 09:15 02/01/17 19:57 (Zofran Inj) 4 mg Q6H PRN IV 02/01/17 09:15 (Senokot) 17.2 mg Q12H PRN PO 02/01/17 09:15 (Romazicon Inj) 0.2 mg Q1M PRN IV 02/01/17 09:15 (Narcan Inj) 0.4 mg Q3M PRN IV 02/01/17 09:15 Miscellaneous Information 1 Q361D XX 02/01/17 09:15 (Chlorhexidine 2% Cloth) 3 pack Taper DAILY@04 TOP 02/02/17 04:00 01/29/18 03:59 02/02/17 04:00 (Chlorhexidine 2% Cloth) 3 pack UNSCH PRN TOP 02/01/17 09:15 (Symbicort 80-4.5 Mcg Inh) 2 puff Q12HR INH 02/01/17 21:00 02/03/17 07:54 (Spiriva Inh) 18 mcg DAILY INH 02/01/17 09:30 02/03/17 07:54 (Cardizem) 60 mg Q6HR PO 02/01/17 12:00 02/03/17 11:39 Pantoprazole Sodium 20 mg 20 mg DAILY PO 02/02/17 09:00 02/03/17 07:53 (Levaquin 500 Mg Premix Inj) 100 ml @ 100 mls/hr Q24H IV 02/01/17 11:00 02/03/17 11:39 ([place] 10-325 Mg) 1 tab Q6H PRN PO 02/01/17 22:30 02/03/17 14:03 (Ativan) 1 mg Q6H PRN PO 02/01/17 22:30 (Desyrel) 50 mg HS PO 02/02/17 21:00 02/02/17 20:40 (SoluMEDROL INJ) 40 mg Q8HR IV PUSH 02/02/17 22:00 02/03/17 14:03 Urinary Catheter: No Vascular Central Line Catheter: No A/P Problem List: (1) Sepsis ICD Code: A41.9 Status: Resolved Plan: Sepsis secondary to COPD exacerbation. The patient presented with leukocytosis and tachypnea. Sepsis improving with improvement on a study failure and WBC trending down. Patient's WBC stable at 12.7, however patient on steroids. Continue IV Levaquin , DuoNeb's, supplemental oxygen and IV Solu Medrol at same dose. (2) COPD exacerbation ICD Code: J44.1 Status: Acute Plan: Continue IV antibiotics, IV steroids, DuoNeb's aunt, and oxygen. COPD exacerbation improving. (3) Acute hypercapnic respiratory failure ICD Code: J96.02 Status: Acute Plan: Patient admitted to intensive care unit and and of the care of medical office assistant initially. Patient placed on BiPAP for acute hypercapnic respiratory failure. ABG on admission showed a pH of 7.26 with a PCO2 of 64 and a PO2 of 102. Recheck ABG shows a pH of 7.48 PCO2 of 35, PO2 of 69 on 2 L nasal cannula. (4) Atrial fibrillation ICD Code: I48.91 Status: Chronic Plan: EKG on admission showed sinus rhythm, reviewed by me. Patient is currently on Coumadin with a therapeutic INR. We'll continue Coumadin. (5) Leukocytosis ICD Code: D72.829 Status: Acute Assessment and Plan GI prophylaxis: EPI. DVT prophylaxis: On Coumadin. Discharge Planning Possible discharge in 1-2 days. Problem Qualifiers (1) Sepsis: Qualified Code: A41.9 - Sepsis, due to unspecified organism (2) Atrial fibrillation: Qualified Code: I48.0 - Paroxysmal atrial fibrillation (3) Leukocytosis: Qualified Code: D72.829 - Leukocytosis, unspecified type Mook Tesfaye MD February 03, 2017 16:13
[2017-02-03] MEDS: traZODone HCL 50 MG TAB PO SCH (21:31)
[2017-02-04] VITALS (10 sets, daily range): BP systolic 108–151; BP diastolic 58–82; PULSE 60–89; RESP 18–20; TEMP 97.2–98.1; O2SAT 93–99
[2017-02-04] MEDS: RESP: ALBUTEROL 2.5 MG/IPRATROPIUM 0.5 MG NEB (SCH) INH ×6 (00:36→20:45)
[2017-02-04] MEDS: DILTIAZEM HCL 60 MG TAB PO SCH ×5 (00:57→23:48)
[2017-02-04] MEDS: LORazepam 1 MG TAB PO PRN ×2 (00:58→21:13)
[2017-02-04] MEDS: CHLORHEXIDINE GLUCONATE 2 % 1 PACK (2 CLOTHS) TOP SCH (01:52)
[2017-02-04] MEDS: methylPREDNISolone SOD SUCC 40 MG/1 ML VIAL IV PUSH SCH ×3 (05:56→21:13)
[2017-02-04] MEDS: ACETAMINOPHEN/HYDROcodone 325 MG/10 MG TAB PO PRN ×3 (05:57→23:48)
[2017-02-04] MEDS: PANTOPRAZOLE SOD 20 MG DELAYED RELEASE TAB PO SCH (08:56)
[2017-02-04] MEDS: BUDESONIDE-FORMOTEROL 80/4.5 MCG INHALER INH SCH ×2 (08:57→21:12)
[2017-02-04] MEDS: TIOTROPIUM BROMIDE 18 MCG INH INH SCH (08:57)
[2017-02-04] MEDS: LEVOFLOXACIN 500 MG PREMIX INJ 100 ML IV SCH (11:42)
--- NOTE | 2017-02-04 13:52 | HHI.PR ---
Subjective Remarks sob is better however as per patient still present denies cp stable vital signs failed 02 walk test afebrile Objective Vitals Vital Signs Date Time Temp Pulse Resp B/P Pulse Ox O2 Delivery O2 Flow Rate FiO2 02/04/17 11:50 97.4 89 20 137/80 95 02/04/17 09:00 Nasal Cannula 2.50 02/04/17 08:00 65 02/04/17 08:00 Nasal Cannula 3.00 02/04/17 07:50 97.3 72 20 124/82 96 02/04/17 07:48 96 Nasal Cannula 3.00 02/04/17 04:00 97.2 72 20 127/79 97 02/04/17 04:00 Nasal Cannula 3.00 02/04/17 00:06 97.4 81 20 108/58 97 02/04/17 00:00 Nasal Cannula 3.00 02/03/17 20:00 Nasal Cannula 3.00 02/03/17 20:00 97.7 77 20 128/76 95 02/03/17 16:00 97.5 82 18 116/60 96 02/03/17 15:34 Nasal Cannula 4.00 02/03/17 15:33 95 Nasal Cannula 3.00 02/03/17 15:28 18 I/O 02/03/17 02/03/17 02/03/17 02/04/17 02/04/17 02/04/17 06:59 14:59 22:59 06:59 14:59 22:59 Intake Total 360 ml 1500 ml 240 ml 580 ml Output Total 1100 ml 300 ml 400 ml Balance 360 ml 400 ml -60 ml 180 ml Intake Oral 360 ml 1400 ml 240 ml 580 ml IV Total 100 ml Output Urine Total 1100 ml 300 ml 400 ml # Voids 0 # Bowel Movements 0 0 0 Result Diagram: 02/03/17 0731 02/03/1731 Imaging Last Impressions Chest X-Ray 02/01/1728 Signed Impressions: Service Date/Time: Wednesday, February 01, 2017 06:08 - CONCLUSION: No significant change. Emphysema and bullous change with no evidence of pneumonia. Eduar Vidal MD Objective Remarks GENERAL: Awake and alert, not in respiratory distress. SKIN: Warm and dry. HEAD: Atraumatic. Normocephalic. EYES: Pupils equal and round. No scleral icterus. No injection or drainage. ENT: No nasal bleeding or discharge. Mucous membranes pink and moist. NECK: Trachea midline. No JVD. CARDIOVASCULAR: Regular rate and rhythm. RESPIRATORY: No accessory muscle use. Clear to auscultation bilaterally with decreased breath sounds in bilateral lung pederson. No wheezing or rhonchi auscultated. GASTROINTESTINAL: Abdomen soft, non-tender, nondistended. Hepatic and splenic margins not palpable. MUSCULOSKELETAL: Extremities without clubbing, cyanosis, or edema. No obvious deformities. NEUROLOGICAL: Awake and alert. No obvious cranial nerve deficits. Motor grossly within normal limits. Five out of 5 muscle strength in the arms and legs. Normal speech. PSYCHIATRIC: Appropriate mood and affect; insight and judgment normal. Procedures None Medications and IVs Current Medications Medications (Trade) Dose Ordered Sig/Dusty Route Start Time Stop Time Status Last Admin (NS Flush) 2 ml UNSCH PRN IVF 02/01/17 05:30 (Tylenol) 650 mg Q6H PRN PO 02/01/17 09:15 02/01/17 19:57 (Zofran Inj) 4 mg Q6H PRN IV 02/01/17 09:15 (Senokot) 17.2 mg Q12H PRN PO 02/01/17 09:15 (Romazicon Inj) 0.2 mg Q1M PRN IV 02/01/17 09:15 (Narcan Inj) 0.4 mg Q3M PRN IV 02/01/17 09:15 Miscellaneous Information 1 Q361D XX 02/01/17 09:15 (Chlorhexidine 2% Cloth) 3 pack Taper DAILY@04 TOP 02/02/17 04:00 01/29/18 03:59 02/02/17 04:00 (Chlorhexidine 2% Cloth) 3 pack UNSCH PRN TOP 02/01/17 09:15 (Symbicort 80-4.5 Mcg Inh) 2 puff Q12HR INH 02/01/17 21:00 02/04/17 08:57 (Spiriva Inh) 18 mcg DAILY INH 02/01/17 09:30 02/04/17 08:57 (Cardizem) 60 mg Q6HR PO 02/01/17 12:00 02/04/17 11:42 Pantoprazole Sodium 20 mg 20 mg DAILY PO 02/02/17 09:00 02/04/17 08:56 (Levaquin 500 Mg Premix Inj) 100 ml @ 100 mls/hr Q24H IV 02/01/17 11:00 02/04/17 11:42 ([place] 10-325 Mg) 1 tab Q6H PRN PO 02/01/17 22:30 02/04/17 05:57 (Ativan) 1 mg Q6H PRN PO 02/01/17 22:30 02/04/17 00:58 (Desyrel) 50 mg HS PO 02/02/17 21:00 02/03/17 21:31 (SoluMEDROL INJ) 40 mg Q8HR IV PUSH 02/02/17 22:00 02/04/17 05:56 Urinary Catheter: No Vascular Central Line Catheter: No A/P Problem List: (1) Sepsis ICD Code: A41.9 Status: Resolved Plan: Sepsis secondary to COPD exacerbation. The patient presented with leukocytosis and tachypnea. Sepsis improving with improvement on a study failure and WBC trending down. Patient's WBC stable at 12.7, however patient on steroids. Continue IV Levaquin , DuoNeb's, supplemental oxygen and IV Solu Medrol - taper dose to every 12 hours. (2) COPD exacerbation ICD Code: J44.1 Status: Acute Plan: Continue IV antibiotics, IV steroids, DuoNeb's aunt, and oxygen. COPD exacerbation improving. (3) Acute hypercapnic respiratory failure ICD Code: J96.02 Status: Resolved Plan: Patient admitted to intensive care unit and and of the care of local company tanker driver initially. Patient placed on BiPAP for acute hypercapnic respiratory failure. ABG on admission showed a pH of 7.26 with a PCO2 of 64 and a PO2 of 102. Recheck ABG shows a pH of 7.48 PCO2 of 35, PO2 of 69 on 2 L nasal cannula. (4) Atrial fibrillation ICD Code: I48.91 Status: Chronic Plan: EKG on admission showed sinus rhythm, reviewed by me. Patient is currently on Coumadin with a therapeutic INR. Continue melena monitor INR. (5) Leukocytosis ICD Code: D72.829 Status: Acute Plan: WBC still elevated, however patient is on steroids and is currently afebrile. Continue to monitor CBC with differential. Assessment and Plan GI prophylaxis: EPI. DVT prophylaxis: On Coumadin. Discharge Planning Discharge in a.m. Will need home O2. Problem Qualifiers (1) Sepsis: Qualified Code: A41.9 - Sepsis, due to unspecified organism (2) Atrial fibrillation: Qualified Code: I48.0 - Paroxysmal atrial fibrillation (3) Leukocytosis: Qualified Code: D72.829 - Leukocytosis, unspecified type Mook Tesfaye MD February 04, 2017 13:52
[2017-02-04] MEDS ORDERED: OXYGENTANK NAS.CANULA (13:53)
[2017-02-04 15:28] LABS: INTERNATIONAL NORMALIZED RATIO 1.2 RATIO
[2017-02-04] MEDS: traZODone HCL 50 MG TAB PO SCH (21:13)
[2017-02-05] VITALS (9 sets, daily range): BP systolic 117–146; BP diastolic 74–93; PULSE 77–91; RESP 18–20; TEMP 97.3–98.2; O2SAT 92–96
[2017-02-05] MEDS: RESP: ALBUTEROL 2.5 MG/IPRATROPIUM 0.5 MG NEB (SCH) INH ×3 (00:59→09:13)
[2017-02-05] MEDS: CHLORHEXIDINE GLUCONATE 2 % 1 PACK (2 CLOTHS) TOP SCH (04:00)
[2017-02-05] MEDS: DILTIAZEM HCL 60 MG TAB PO SCH ×4 (05:30→23:32)
[2017-02-05] MEDS: ACETAMINOPHEN/HYDROcodone 325 MG/10 MG TAB PO PRN ×4 (05:30→23:32)
[2017-02-05 08:54] LABS: AUTOMATED NEUTROPHIL # 10.2 TH/MM3 (1.8-7.7); HEMATOCRIT 41.5 % (39.0-51.0); LYMPH % 3.4 % (9.0-44.0); LYMPHOCYTE # 0.4 TH/MM3 (1.0-4.8); MEAN CELL VOLUME 91.9 FL (80.0-100.0); MEAN CORPUSCULAR HEMOGLOBIN 31.5 PG (27.0-34.0); MEAN CORPUSCULAR HGB CONC 34.2 % (32.0-36.0); MONO % 6.6 % (0.0-8.0); PLATELET COUNT 213 TH/MM3 (150-450); RED BLOOD COUNT 4.51 MIL/MM3 (4.50-5.90); RED CELL DISTRIBUTION WIDTH 13.7 % (11.6-17.2); WHITE BLOOD COUNT 11.3 TH/MM3 (4.0-11.0)
[2017-02-05] MEDS: TIOTROPIUM BROMIDE 18 MCG INH INH SCH (09:00)
[2017-02-05] MEDS: BUDESONIDE-FORMOTEROL 80/4.5 MCG INHALER INH SCH ×2 (09:00→21:31)
[2017-02-05 09:01] LABS: HEMO FLAGS AUTO DIFF
[2017-02-05 09:05] LABS: PROTHROMBIN TIME - PATIENT 11.6 SEC (9.8-11.6)
[2017-02-05 09:26] LABS: ALKALINE PHOSPHATASE 62 U/L (45-117); ALT (GPT) 41 U/L (12-78); ANION GAP 8 MEQ/L (5-15); AST (GOT) 26 U/L (15-37); BICARBONATE 29.2 MEQ/L (21.0-32.0); BLOOD UREA NITROGEN 20 MG/DL (7-18); CHLORIDE 103 MEQ/L (98-107); GLOMERULAR FILTRATION RATE 127 ML/MIN (>89); POTASSIUM 4.6 MEQ/L (3.5-5.1); SODIUM (NA) 140 MEQ/L (136-145); TOTAL BILIRUBIN ADULT 0.5 MG/DL (0.2-1.0)
[2017-02-05] MEDS: PANTOPRAZOLE SOD 20 MG DELAYED RELEASE TAB PO SCH (09:33)
[2017-02-05] MEDS: methylPREDNISolone SOD SUCC 40 MG/1 ML VIAL IV PUSH SCH ×2 (09:33→21:30)
[2017-02-05 10:57] LABS: BANDS 7 % (0-6); MYELOCYTES 4 % (0-0); NEUTROPHIL # MANUAL DIFF 9.7 TH/MM3 (1.8-7.7); POLYS (SEG NEUTROPHILS) 75 % (16-70); WBC DIFF SAMPLE 100
[2017-02-05 10:58] LABS: PLATELET ESTIMATE SMEAR NORMAL (NORMAL); PLATELET MORPHOLOGY NORMAL (NORMAL); SCAN/DIFF FINAL DIFF MANUAL
[2017-02-05] MEDS: LEVOFLOXACIN 500 MG PREMIX INJ 100 ML IV SCH (11:17)
--- NOTE | 2017-02-05 18:23 | HHI.PR ---
Subjective Remarks sob improving still coughing denies fevers/chills denies cp Objective Vitals Vital Signs Date Time Temp Pulse Resp B/P Pulse Ox O2 Delivery O2 Flow Rate FiO2 02/05/17 16:00 97.6 84 18 141/89 95 02/05/17 12:00 97.3 88 20 117/76 96 02/05/17 09:13 94 Nasal Cannula 2.00 02/05/17 09:00 88 02/05/17 08:00 97.3 91 18 142/91 92 Manual Cuff/Palpation 02/05/17 08:00 Nasal Cannula 2.00 02/05/17 06:00 98.2 77 18 134/82 92 02/05/17 00:00 97.5 82 18 124/74 92 02/04/17 20:45 94 Nasal Cannula 2.00 02/04/17 20:15 Nasal Cannula 2.00 02/04/17 20:05 87 02/04/17 20:00 97.4 80 18 130/79 93 142/78 I/O 02/04/17 02/04/17 02/04/17 02/05/17 02/05/17 02/05/17 07:00 15:00 23:00 07:00 15:00 23:00 Intake Total 580 ml 938 ml 122 ml 2 ml 580 ml Output Total 400 ml 500 ml 450 ml 200 ml Balance 180 ml 438 ml 122 ml -448 ml 380 ml Intake Oral 580 ml 938 ml 120 ml 480 ml IV Total 2 ml 2 ml 100 ml Output Urine Total 400 ml 500 ml 450 ml 200 ml # Voids 2 3 # Bowel Movements 0 0 1 0 Result Diagram: 02/05/1781102/05/17816 Imaging Last Impressions Chest X-Ray 02/01/1728 Signed Impressions: Service Date/Time: Wednesday, February 01, 2017 06:08 - CONCLUSION: No significant change. Emphysema and bullous change with no evidence of pneumonia. Eduar Vidal MD Objective Remarks GENERAL: Awake and alert, not in respiratory distress. SKIN: Warm and dry. HEAD: Atraumatic. Normocephalic. EYES: Pupils equal and round. No scleral icterus. No injection or drainage. ENT: No nasal bleeding or discharge. Mucous membranes pink and moist. NECK: Trachea midline. No JVD. CARDIOVASCULAR: Regular rate and rhythm. RESPIRATORY: No accessory muscle use. Clear to auscultation bilaterally with decreased breath sounds in bilateral lung pederson. No wheezing or rhonchi auscultated. GASTROINTESTINAL: Abdomen soft, non-tender, nondistended. Hepatic and splenic margins not palpable. MUSCULOSKELETAL: Extremities without clubbing, cyanosis, or edema. No obvious deformities. NEUROLOGICAL: Awake and alert. No obvious cranial nerve deficits. Motor grossly within normal limits. Five out of 5 muscle strength in the arms and legs. Normal speech. PSYCHIATRIC: Appropriate mood and affect; insight and judgment normal. Procedures None Medications and IVs Current Medications Medications (Trade) Dose Ordered Sig/Dusty Route Start Time Stop Time Status Last Admin (NS Flush) 2 ml UNSCH PRN IVF 02/01/17 05:30 (Tylenol) 650 mg Q6H PRN PO 02/01/17 09:15 02/01/17 19:57 (Zofran Inj) 4 mg Q6H PRN IV 02/01/17 09:15 (Senokot) 17.2 mg Q12H PRN PO 02/01/17 09:15 (Romazicon Inj) 0.2 mg Q1M PRN IV 02/01/17 09:15 (Narcan Inj) 0.4 mg Q3M PRN IV 02/01/17 09:15 Miscellaneous Information 1 Q361D XX 02/01/17 09:15 (Chlorhexidine 2% Cloth) 3 pack Taper DAILY@04 TOP 02/02/17 04:00 01/29/18 03:59 02/02/17 04:00 (Chlorhexidine 2% Cloth) 3 pack UNSCH PRN TOP 02/01/17 09:15 (Symbicort 80-4.5 Mcg Inh) 2 puff Q12HR INH 02/01/17 21:00 02/05/17 09:00 (Spiriva Inh) 18 mcg DAILY INH 02/01/17 09:30 02/05/17 09:00 (Cardizem) 60 mg Q6HR PO 02/01/17 12:00 02/05/17 17:47 Pantoprazole Sodium 20 mg 20 mg DAILY PO 02/02/17 09:00 02/05/17 09:33 (Levaquin 500 Mg Premix Inj) 100 ml @ 100 mls/hr Q24H IV 02/01/17 11:00 02/05/17 11:17 ([place] 10-325 Mg) 1 tab Q6H PRN PO 02/01/17 22:30 02/05/17 17:47 (Ativan) 1 mg Q6H PRN PO 02/01/17 22:30 02/04/17 21:13 (Desyrel) 50 mg HS PO 02/02/17 21:00 02/04/17 21:13 (SoluMEDROL INJ) 40 mg Q12HR IV PUSH 02/04/17 21:00 02/05/17 09:33 A/P Problem List: (1) Sepsis ICD Code: A41.9 Status: Resolved Plan: Sepsis secondary to COPD exacerbation. The patient presented with leukocytosis and tachypnea. Sepsis improving with improvement on a study failure and WBC trending down. WBC trending down. Continue IV Levaquin, DuoNeb's, supplemental oxygen and IV Solu Medrol (2) COPD exacerbation ICD Code: J44.1 Status: Acute Plan: Continue IV antibiotics, IV steroids, DuoNeb's aunt, and oxygen. COPD exacerbation improving. Failed o2 walk test ---> needs home oxygen. (3) Acute hypercapnic respiratory failure ICD Code: J96.02 Status: Resolved Plan: Patient admitted to intensive care unit and and of the care of drawbridge operator initially. Patient placed on BiPAP for acute hypercapnic respiratory failure. ABG on admission showed a pH of 7.26 with a PCO2 of 64 and a PO2 of 102. Recheck ABG shows a pH of 7.48 PCO2 of 35, PO2 of 69 on 2 L nasal cannula. (4) Atrial fibrillation ICD Code: I48.91 Status: Chronic Plan: EKG on admission showed sinus rhythm, reviewed by me. Patient is currently on Coumadin with a therapeutic INR. Continue melena monitor INR. (5) Leukocytosis ICD Code: D72.829 Status: Acute Plan: WBC still elevated, however patient is on steroids and is currently afebrile. Continue to monitor CBC with differential. Assessment and Plan GI prophylaxis: EPI. DVT prophylaxis: On Coumadin. Discharge Planning Discharge in am once home o2 arranged. Problem Qualifiers (1) Sepsis: Qualified Code: A41.9 - Sepsis, due to unspecified organism (2) Atrial fibrillation: Qualified Code: I48.0 - Paroxysmal atrial fibrillation (3) Leukocytosis: Qualified Code: D72.829 - Leukocytosis, unspecified type Mook Tesfaye MD February 05, 2017 18:23
[2017-02-05] MEDS: traZODone HCL 50 MG TAB PO SCH (21:30)
[2017-02-05] MEDS: LORazepam 1 MG TAB PO PRN (21:30)
[2017-02-06] VITALS: BP 129/83; PULSE 71; RESP 18; TEMP 97.7; O2SAT 96
[2017-02-06] MEDS: CHLORHEXIDINE GLUCONATE 2 % 1 PACK (2 CLOTHS) TOP SCH (03:22)
[2017-02-06 04:00] VITALS: BP 152/92; PULSE 79; RESP 18; TEMP 97.5; O2SAT 92
[2017-02-06] MEDS: DILTIAZEM HCL 60 MG TAB PO SCH ×2 (04:46→12:32)
[2017-02-06] MEDS: LORazepam 1 MG TAB PO PRN (04:46)
[2017-02-06] MEDS: ACETAMINOPHEN/HYDROcodone 325 MG/10 MG TAB PO PRN (04:47)
[2017-02-06 07:16] LABS: NUMBER OF ARTERIAL PUNCTURES 1
[2017-02-06 08:00] VITALS: PULSE 75; O2SAT 94
[2017-02-06 08:03] VITALS: BP 153/84; PULSE 78; RESP 20; TEMP 97.1; O2SAT 92
[2017-02-06] MEDS: PANTOPRAZOLE SOD 20 MG DELAYED RELEASE TAB PO SCH (08:46)
[2017-02-06] MEDS: methylPREDNISolone SOD SUCC 40 MG/1 ML VIAL IV PUSH SCH (08:47)
[2017-02-06] MEDS: BUDESONIDE-FORMOTEROL 80/4.5 MCG INHALER INH SCH (08:49)
[2017-02-06] MEDS: TIOTROPIUM BROMIDE 18 MCG INH INH SCH (08:49)
[2017-02-06] MEDS ORDERED: VENTAER INH (10:26)
[2017-02-06] MEDS ORDERED: SYMB80AE INH (10:26)
[2017-02-06] MEDS ORDERED: PRED20 PO (10:26)
[2017-02-06] MEDS ORDERED: LEVO500T3 PO (10:26)
[2017-02-06] MEDS ORDERED: CARD120T4 PO (10:26)
[2017-02-06] MEDS ORDERED: SPIRCAP INH (10:26)
--- NOTE | 2017-02-06 10:26 | HHI.DCPOC ---
Discharge Care Plan Diagnosis: (1) COPD (chronic obstructive pulmonary disease) (2) Chest pain (3) History of atrial fibrillation (4) Chronic back pain (5) Anxiety (6) Acute hypercapnic respiratory failure Goals to Promote Your Health * To prevent worsening of your condition and complications * To maintain your health at the optimal level Directions to Meet Your Goals Take your medications as prescribed Follow your dietary instruction Follow activity as directed Keep your appointments as scheduled Take your immunizations and boosters as scheduled If your symptoms worsen call your PCP, if no PCP go to Urgent Care Center or Emergency Room Smoking is Dangerous to Your Health. Avoid second hand smoke Call the 24-hour hour crisis hotline for domestic abuse at Mook Tesfaye MD February 06, 2017 10:26
[2017-02-06] MEDS ORDERED: LEVOFLOXACIN 500 MG TAB PO SCH (10:30)
[2017-02-06 12:07] VITALS: BP 138/82; PULSE 90; RESP 18; TEMP 97.6; O2SAT 96
--- NOTE | 2017-02-06 12:33 | HHI.FF ---
Face to Face Verification Diagnosis: (1) Acute hypercapnic respiratory failure (2) COPD exacerbation (3) Severe sepsis (4) Chest pain (5) History of atrial fibrillation (6) Chronic back pain (7) Anxiety Physical Therapy Order: Improve ambulation, Strength and gait training Home Health Nursing Order: Nursing assessment with vital signs I have seen patient Som Goss on 02/06/17. My clinical findings support the need for the requested home health care services because: Patient has SOB Need for psychosocial assistance I certify that my clinical findings support that this patient is homebound because: Hx COPD- exertion dyspnea/weakness Unsafe to leave home unassisted Unable to use public transportation Mook Tesfaye MD February 06, 2017 12:33
--- NOTE | 2017-02-06 12:34 | HHI.DS ---
Discharge Summary Admission Date February 01, 2017 at 07:22 Discharge Date: February 06, 2017 Admitting Diagnosis Hypercapenic Respiratory failure, COPD exacerbation. (1) Sepsis ICD Code: A41.9 Diagnosis: Principal (2) COPD exacerbation ICD Code: J44.1 Diagnosis: Principal (3) Acute hypercapnic respiratory failure ICD Code: J96.02 Diagnosis: Principal (4) Atrial fibrillation ICD Code: I48.91 Diagnosis: Principal (5) Leukocytosis ICD Code: D72.829 Diagnosis: Principal Procedures None Brief History - From Admission The patient is a 56 year-old male with a past medical history of COPD, chronic atrial fibrillation on Coumadin, TIA, hypertension, anxiety and depression. The patient presented to [facility] ED for worsening shortness of breath in the last one week. The patient was given Solu-Medrol 125 mg IV and Albuterol treatments times three en route by ER. The patient denies any chest pain, cough, fever or any constitutional symptoms. In addition, he denies any abdominal pain, nausea, vomiting or diarrhea. On arrival, he was hypertension with a blood pressure 178/102, tachycardic. His initial blood gas showed acute hypercapnic respiratory acidosis with a pH of 7.26, CO2 64, paO2 102, bicarb 28. He was subsequently placed on BiPAP with two additional blood gases performed in the ER. His last ABG from 10:00 a.m. showed improvement of is respiratory acidosis with a pH of 7.31, CO2 57, paO2 103, bicarb 28 on BiPAP 15/8 with 40% FIO2. The patient was given Ativan 2 mg IV push for agitation and when seen in the ER, he was lethargic, however, he is able to open up his eyes to questions. A chest x-ray showed COPD changes with no evidence of any pneumonia. CBC/BMP: 02/05/17 0812 02/05/17 0817 Significant Findings Laboratory Tests Test 02/04/17 02/05/17 02/05/17 14:28 08:12 08:17 Prothrombin Time 13.0 SEC (9.8-11.6) White Blood Count 11.3 TH/MM3 (4.0-11.0) Neutrophils (%) (Auto) 90.0 % (16.0-70.0) Lymphocytes (%) (Auto) 3.4 % (9.0-44.0) Neutrophils # (Auto) 10.2 TH/MM3 (1.8-7.7) Lymphocytes # (Auto) 0.4 TH/MM3 (1.0-4.8) Neutrophils % (Manual) 75 % (16-70) Band Neutrophils % 7 % (0-6) Lymphocytes % 7 % (9-44) Neutrophils # (Manual) 9.7 TH/MM3 (1.8-7.7) Myelocytes 4 % (0-0) Blood Urea Nitrogen 20 MG/DL (7-18) Albumin 3.2 GM/DL (3.4-5.0) Imaging Last Impressions Chest X-Ray 02/01/17 0528 Signed Impressions: Service Date/Time: Wednesday, February 01, 2017 06:08 - CONCLUSION: No significant change. Emphysema and bullous change with no evidence of pneumonia. Eduar Vidal MD PE at Discharge GENERAL: Awake and alert, not in respiratory distress. SKIN: Warm and dry. HEAD: Atraumatic. Normocephalic. EYES: Pupils equal and round. No scleral icterus. No injection or drainage. ENT: No nasal bleeding or discharge. Mucous membranes pink and moist. NECK: Trachea midline. No JVD. CARDIOVASCULAR: Regular rate and rhythm. RESPIRATORY: No accessory muscle use. Clear to auscultation bilaterally with decreased breath sounds in bilateral lung pederson. No wheezing or rhonchi auscultated. GASTROINTESTINAL: Abdomen soft, non-tender, nondistended. Hepatic and splenic margins not palpable. MUSCULOSKELETAL: Extremities without clubbing, cyanosis, or edema. No obvious deformities. NEUROLOGICAL: Awake and alert. No obvious cranial nerve deficits. Motor grossly within normal limits. Five out of 5 muscle strength in the arms and legs. Normal speech. PSYCHIATRIC: Appropriate mood and affect; insight and judgment normal. Pt update on day of discharge patient denies cp, sob at baseline. Hospital Course (1) Sepsis Sepsis secondary to COPD exacerbation. The patient presented with leukocytosis and tachypnea. Treated with IV Levaquin, Duoneb nebs, O2 and IV steroids tapered to oral. Sepsis improving with improvement on a study failure and WBC trending down. Continue IV Levaquin, DuoNeb's, supplemental oxygen and IV Solu Medrol WBC and vital signs monitored. (2) COPD exacerbation Continue IV antibiotics, IV steroids, DuoNeb's nebulizer treatments, and oxygen. COPD exacerbation improving. Failed o2 walk test ---> needs home oxygen. (3) Acute hypercapnic respiratory failure Patient admitted to intensive care unit and and of the care of merchandise planning manager initially. Patient placed on BiPAP for acute hypercapnic respiratory failure. ABG on admission showed a pH of 7.26 with a PCO2 of 64 and a PO2 of 102. Recheck ABG shows a pH of 7.48 PCO2 of 35, PO2 of 69 on 2 L nasal cannula. (4) Atrial fibrillation EKG on admission showed sinus rhythm, reviewed by me. Patient is currently on Coumadin with a therapeutic INR. Continue to monitor INR. (5) Leukocytosis WBC still elevated at the time of DC, however patient is on steroids and is currently afebrile. No other evidence of infection - patient afebrile and stable. GI prophylaxis: EPI. DVT prophylaxis: On Coumadin. Pt Condition on Discharge: Stable Discharge Disposition: Disch w/ Home Health Serv Discharge Time: > 30 minutes Discharge Instructions DIET: Follow Instructions for: Heart Healthy Diet Activities you can perform: Regular-No Restrictions Activities to Avoid: Strenuous Activity Follow up Referrals: PCP Follow-up - 1 Week Pulmonology - 2 Weeks with Ankush Gupta MD New Medications: Levofloxacin (Levofloxacin) 500 Mg Tab 500 MG PO DAILY Infection #5 Ref 0 TAB Oxygen tank (Oxygen tank) 1 Ea Tank 2 LITER FRANK.CANULA CONTINUOUS Oxygen Concentrator Portable Gaseous 2 L/min via Nasal Cannula Continuous For 99 months HYPOXEMIA PREVENTION #2 CYLINDER Prednisone (Prednisone) 20 Mg Tab 40 MG PO DAILY Take 40 mg (2 tablets) daily for 5 days Shortness of Breath #10 Ref 0 TAB Continued Medications: Albuterol 18 GM Inh (Ventolin Hfa 18 GM Inh) 90 Mcg/Act Aer 2 PUFF INH Q4H PRN SHORTNESS OF BREATH #1 Ref 0 INHALER (This prescription has been renewed) Budesonide-Formoterol Inh (Symbicort Inh) 80-4.5 Mcg/Act Aero 2 PUFF INH Q12HR Asthma Management #1 Ref 0 INHALER (This prescription has been renewed) Cyclobenzaprine (Flexeril) 10 Mg Tab 10 MG PO HS Muscle Spasm #90 Ref 0 TAB Diltiazem (Cardizem) 120 Mg Tab 360 MG PO DAILY Angina #120 Ref 0 TAB (This prescription has been renewed) Lorazepam (Ativan) 1 Mg Tab 1 MG PO Q6H PRN ANXIETY AND/OR AGITATION Ref 0 TAB Omeprazole (Omeprazole) 20 Mg Tab 20 MG PO DAILY #30 Ref 0 TAB Ropinirole (Requip) 1 Mg Tab 1 MG PO HS #30 Ref 0 TAB Tiotropium Inh (Spiriva Handihaler) 18 Mcg Cap 18 MCG INH DAILY 1 capsule = 18 mcg COPD #30 Ref 0 CAP (This prescription has been renewed) Trazodone (Trazodone) 50 Mg Tab 50 MG PO HS Control Depression #30 Ref 0 TAB Warfarin (Coumadin) 5 Mg Tab 5 MG PO 2XWEEK Blood Clot Prevention #30 Ref 0 TAB Warfarin (Coumadin) 2.5 Mg Tab 2.5 MG PO DAILY Prevent Blood Clot #30 Ref 0 TAB Discontinued Medications: Prednisone (Prednisone) 5 Mg Tab 5 MG PO DAILY Ref 0 TAB Mook Tesfaye MD February 06, 2017 12:34
[2017-02-06] MEDS ORDERED: WARFARIN SOD 5 MG TAB PO ONE (16:00)
== END 2017-02-06 14:51 | disposition home or self-care (01) | DRG 189 ==
LOC: NEPC 05:24 → NEDA 07:22 → NEDH 11:33 → HIME 14:00 → N04B 02-02 15:18
PROVIDERS: ADMIT Hospitalist; ATTEND Hospitalist
DX: J96.02 Acute respiratory failure with hypercapnia (principal); R65.11 Systemic inflammatory response syndrome (SIRS) of non-infectious origin with acute organ dysfunction; J44.1 Chronic obstructive pulmonary disease with (acute) exacerbation; F17.210 Nicotine dependence, cigarettes, uncomplicated; I10 Essential (primary) hypertension; F41.9 Anxiety disorder, unspecified; F32.9 Major depressive disorder, single episode, unspecified; I48.0 Paroxysmal atrial fibrillation; Z79.01 Long term (current) use of anticoagulants
CPT/HCPCS: 36600; 71010; 80048; 80053; 81001; 82805; 82948; 83036; 83605; 83735; 84100; 84484; 85007; 85025; 85027; 85610; 87086; 87641; 93005; 94002; 94003; 94620; 94640; 94664; 96374; C9113; J1956; J2060; J2920; J2930

== ENCOUNTER 2017-03-04 04:38 | Inpatient (IN) | payer MEDICARE ==
[2017-03-04] VITALS (42 sets, daily range): BP systolic 77–165; BP diastolic 50–99; PULSE 63–105; RESP 16–26; TEMP 97–98.4; O2SAT 91–100
[~2017-03-04] VITALS: Ht 185.4 cm; Wt 73.1 kg
[~2017-03-04 04:38] MED LIST changes: -ALBU0.086 INH; +CARD120T4 PO; +COUM2.5T PO; +COUM5TAB PO; -CYCL1PAK PO; +CYCL1TAB29 PO; -DILTCD180 PO; -FLUT1SPR9 NASAL; -LEVA750T PO; +LEVO500T3 PO; -METO50TA PO; -NORC10TA2 PO; +OMEP20TA PO; -OMEP20TA39 PO; +OXYGENTANK NAS.CANULA; -PRED10 PO; -SYMB160A INH; +SYMB80AE INH; +TRAZ50TA12 PO; -TRAZ50TA4 PO; -WARF2.5T40 PO; -WARF5TAB PO
--- NOTE | 2017-03-04 04:57 | PD ---
HPI Chief Complaint: Respiratory Symptoms Time Seen by Provider: 04:49 Travel History International Travel<30 days: No Contact w/Intl Traveler<30days: No History of Present Illness HPI 56 year-old man, history of COPD on chronic prednisone, A. fib, on warfarin, presents emergent department via EMS for worsening trouble breathing started throughout the day today. He states he's had worsening trouble breathing similar to COPD exacerbations in the past unrelieved with his home bronchodilators. No fevers or chills. No chest pain. History is a little bit limited due to patient's marked respiratory distress. History Past Medical History Narrative Medical COPD, on chronic prednisone A. fib, on warfarin Hypertension TIA Anxiety, depression PNEUMOCCOCAL Vaccine (Year): 1 Social History Alcohol Use: Yes (PT STATES "BEER EVERY NOW AND THEN") Tobacco Use: Yes (FORMER HEAVY SMOKER) Allergies-Medications (Allergen,Severity, Reaction): Coded Allergies: Gabapentin (Verified Allergy, Severe, Shortness of Breath, 02/01/17) Pt states he had a bad reaction to Gabapentin. states "my throat swole and it was hard for me to breath." Penicillin (Verified Allergy, Severe, "ALL CILLINS" PER PT, 02/01/17) Amoxicillin (Verified Allergy, Unknown, 02/01/17) Uncoded Allergies: ALL CILLINS (Allergy, Unknown, 06/15/10) Reported Meds & Prescriptions Reported Meds & Active Scripts Active Levofloxacin 500 Mg Tab 500 Mg PO DAILY Prednisone 20 Mg Tab 40 Mg PO DAILY Take 40 mg (2 tablets) daily for 5 days Spiriva Handihaler (Tiotropium Inh) 18 Mcg Cap 18 Mcg INH DAILY 1 capsule = 18 mcg Cardizem (Diltiazem HCl) 120 Mg Tab 360 Mg PO DAILY Symbicort Inh (Budesonide/Formoterol Fumarate) 80-4.5 Mcg/Act Aero 2 Puff INH Q12HR Ventolin Hfa 18 GM Inh (Albuterol Sulfate) 90 Mcg/Act Aer 2 Puff INH Q4H PRN Oxygen tank (Oxygen) 1 Ea Tank 2 Liter FRANK.CANULA CONTINUOUS Oxygen Concentrator Portable Gaseous 2 L/min via Nasal Cannula Continuous For 99 months Reported Coumadin (Warfarin) 2.5 Mg Tab 2.5 Mg PO DAILY Coumadin (Warfarin) 5 Mg Tab 5 Mg PO 2XWEEK Trazodone (Trazodone HCl) 50 Mg Tab 50 Mg PO HS Requip (Ropinirole) 1 Mg Tab 1 Mg PO HS Omeprazole 20 Mg Tab 20 Mg PO DAILY Ativan (Lorazepam) 1 Mg Tab 1 Mg PO Q6H PRN Flexeril (Cyclobenzaprine HCl) 10 Mg Tab 10 Mg PO HS Review of Systems Except as stated in HPI: all other systems reviewed are Neg Physical Exam Narrative GENERAL: 56-year-old man, anxious appearing, tripoding, respiratory distress. SKIN: Focused skin assessment warm/dry. HEAD: Atraumatic. Normocephalic. EYES: Pupils equal and round. No scleral icterus. No injection or drainage. ENT: No nasal bleeding or discharge. Mucous membranes pink and moist. NECK: Trachea midline. No JVD. CARDIOVASCULAR: Regular rate and rhythm. No murmur appreciated. RESPIRATORY: Moderate respiratory distress. Very anxious. End expiratory wheezing with poor air entry throughout. Speaking in short rushed sentences. GASTROINTESTINAL: Abdomen soft, non-tender, nondistended. Hepatic and splenic margins not palpable. MUSCULOSKELETAL: No obvious deformities. No edema. NEUROLOGICAL: Awake and alert. No obvious cranial nerve deficits. Motor grossly within normal limits. Normal speech. PSYCHIATRIC: Anxious. Data Data Last Documented VS Vital Signs Date Time Temp Pulse Resp B/P Pulse Ox O2 Delivery O2 Flow Rate FiO2 03/04/17 05:12 95 Nasal Cannula 5.00 03/04/17 04:46 98.4 77 26 165/95 Orders Complete Blood Count With Diff (03/04/17 04:50) Comprehensive Metabolic Panel (03/04/17 04:50) B-Type Natriuretic Peptide (03/04/17 04:50) Magnesium (Mg) (03/04/17 04:50) Troponin I (03/04/17 04:50) Arterial Blood Gas (Abg) (03/04/17 04:50) Iv Access Insert/Monitor (03/04/17 04:50) Electrocardiogram (03/04/17 04:50) Ecg Monitoring (03/04/17 04:50) Oximetry (03/04/17 04:50) Oxygen Administration (03/04/17 04:50) Chest, Single Ap (03/04/17 04:50) Sodium Chloride 0.9% Flush (Ns Flush) (03/04/17 05:00) Methylprednisolone So Succ Inj (Solumedr (03/04/17 05:00) Albuterol-Ipratropium Neb (Duoneb Neb) (03/04/17 05:00) Azithromycin Inj (Zithromax Inj) (03/04/17 05:00) Act Partial Throm Time (Ptt) (03/04/17 04:58) Prothrombin Time / Inr (Pt) (03/04/17 04:58) Lorazepam Inj (Ativan Inj) (03/04/17 05:30) Lorazepam Inj (Ativan Inj) (03/04/17 05:45) Resp Bipap / Cpap Non Invas Vt (03/04/17 ) Admit Order (Ed Use Only) (03/04/17 ) Magnesium Sulfate 1 Gm Premix (Magnesium (03/04/17 06:00) Labs Laboratory Tests Test 03/04/17 03/04/17 04:05 05:05 White Blood Count 12.0 TH/MM3 Red Blood Count 4.62 MIL/MM3 Hemoglobin 14.6 GM/DL Hematocrit 42.2 % Mean Corpuscular Volume 91.3 FL Mean Corpuscular Hemoglobin 31.5 PG Mean Corpuscular Hemoglobin 34.5 % Concent Red Cell Distribution Width 13.6 % Platelet Count 328 TH/MM3 Mean Platelet Volume 9.4 FL Neutrophils (%) (Auto) 75.1 % Lymphocytes (%) (Auto) 11.7 % Monocytes (%) (Auto) 12.6 % Eosinophils (%) (Auto) 0.2 % Basophils (%) (Auto) 0.4 % Neutrophils # (Auto) 9.0 TH/MM3 Lymphocytes # (Auto) 1.4 TH/MM3 Monocytes # (Auto) 1.5 TH/MM3 Eosinophils # (Auto) 0.0 TH/MM3 Basophils # (Auto) 0.1 TH/MM3 CBC Comment DIFF FINAL Differential Comment Sodium Level 140 MEQ/L Potassium Level 4.5 MEQ/L Chloride Level 103 MEQ/L Carbon Dioxide Level 32.4 MEQ/L Anion Gap 5 MEQ/L Blood Urea Nitrogen 10 MG/DL Creatinine 0.66 MG/DL Estimat Glomerular Filtration 125 ML/MIN Rate Random Glucose 124 MG/DL Calcium Level 8.6 MG/DL Magnesium Level 2.4 MG/DL Total Bilirubin 0.6 MG/DL Aspartate Amino Transf 26 U/L (AST/SGOT) Alanine Aminotransferase 30 U/L (ALT/SGPT) Alkaline Phosphatase 74 U/L Troponin I LESS THAN 0.02 NG/ML Total Protein 7.3 GM/DL Albumin 3.5 GM/DL Prothrombin Time 41.6 SEC Prothromb Time International 3.6 RATIO Ratio Activated Partial 48.3 SEC Thromboplast Time Blood Gas Puncture Site RT RADIAL Blood Gas Patient Temperature 98.6 Blood Gas HCO3 30 mmol/L Blood Gas Base Excess 3.9 mmol/L Blood Gas Oxygen Saturation 94 % Arterial Blood pH 7.27 Arterial Blood Partial 69 mmHg Pressure CO2 Arterial Blood Partial 158 mmHG Pressure O2 Arterial Blood Oxygen Content 18.9 Vol % Arterial Blood 4.1 % Carboxyhemoglobin Arterial Blood Methemoglobin 0.9 % Blood Gas Hemoglobin 14.1 G/DL Oxygen Delivery Device NASAL CANNULA Blood Gas Liter Flow 5 L/M [facility] Medical Decision Making Medical Screen Exam Complete: Yes Emergency Medical Condition: Yes Interpretation(s) My review of EKG: Rough baseline with artifact, normal sinus rhythm at 77, no definite evidence of acute ischemia. LABS: CBC remarkable for mild leukocytosis. CMP remarkable for mildly elevated bicarbonate Troponin negative Coags: ABG: PH 7.27/69/158/30, base excess 3.9 Differential Diagnosis COPD exacerbation, pneumothorax, pneumonia, other Narrative Course Medical decision making INITIAL: 66-year-old man a moderate to severe respiratory distress with what appears to be COPD exacerbation. Appears to have a significant amount of anxiety compounding his presentation. He has symmetric breath sounds. The bronchodilators, steroids, Ativan, check x-ray, labs, EKG, likely admission. Critical Care Narrative Aggregate critical care time was 20 minutes. Time to perform other separately billable procedures was not included in the critical care time. My time did not include minutes spent treating any other patients simultaneously or on activities that did not directly contribute to the patient's treatment. The services I provided to this patient were to treat and/or prevent clinically significant deterioration that could result in: , disability, respiratory failure. I provided critical care services requiring my management, as noted below: Chart data review, documentation time, medication orders and management, vital sign assessments/reviewing monitor data, ordering and reviewing lab tests, ordering and interpreting/reviewing x-rays and diagnostic studies, care of the patient and discussion of the patient with the admitting physicians. Diagnosis Primary Impression: COPD (chronic obstructive pulmonary disease) Additional Impression: Respiratory failure Nicola Danielle MD Mar 04, 2017 04:57
[2017-03-04] MEDS ORDERED: AZITHROMYCIN INJ 500 MG in SODIUM CHLOR 0.9% 250 ML INJ 250 ML IV ONE (05:00)
[2017-03-04] MEDS ORDERED: SODIUM CHLORIDE 0.9% FLUSH 10 ML FLUSH IVF PRN (05:00)
[2017-03-04] MEDS ORDERED: methylPREDNISolone SOD SUCC 125 MG/2 ML VIAL IVP ONE (05:00)
[2017-03-04] MEDS: RESP: ALBUTEROL 2.5 MG/IPRATROPIUM 0.5 MG NEB (SCH) INH ×6 (05:04→23:39)
[2017-03-04 05:06] LABS: BASOPHIL # 0.1 TH/MM3 (0-0.2); BASOPHIL % 0.4 % (0.0-2.0); EOSINOPHIL % 0.2 % (0.0-4.0); HEMATOCRIT 42.2 % (39.0-51.0); HEMO FLAGS DIFF FINAL; LYMPH % 11.7 % (9.0-44.0); LYMPHOCYTE # 1.4 TH/MM3 (1.0-4.8); MEAN CELL VOLUME 91.3 FL (80.0-100.0); MEAN CORPUSCULAR HEMOGLOBIN 31.5 PG (27.0-34.0); MEAN CORPUSCULAR HGB CONC 34.5 % (32.0-36.0); MONO % 12.6 % (0.0-8.0); NEUT % 75.1 % (16.0-70.0); PLATELET COUNT 328 TH/MM3 (150-450); RED BLOOD COUNT 4.62 MIL/MM3 (4.50-5.90); RED CELL DISTRIBUTION WIDTH 13.6 % (11.6-17.2)
[2017-03-04 05:16] LABS: BLOOD GAS BASE EXCESS 3.9 mmol/L (-2-2); BLOOD GAS CARBOXYHEMOGLOBIN 4.1 % (0-4); BLOOD GAS HCO3 30 mmol/L (22-26); BLOOD GAS METHEMOGLOBIN 0.9 % (0-2); BLOOD GAS O2 HGB SATURATION 94 % (90-100); BLOOD GAS OXYGEN CONTENT 18.9 Vol % (12.0-20.0); BLOOD GAS PCO2 69 mmHg (38-42); BLOOD GAS PO2 158 mmHG (61-120); BLOOD GAS TOTAL HGB 14.1 G/DL (12.0-16.0); TEMP CORR TO 98.6
[2017-03-04 05:17] LABS: CRITICAL VALUE YES; DRAW SITE RT RADIAL; LITER FLOW 5 L/M; NUMBER OF ARTERIAL PUNCTURES 1; OXYGEN DEVICE NASAL CANNULA; STAT YES; ULNAR PULSE PRESENT
--- NOTE | 2017-03-04 05:26 | RADRPT ---
EXAM DATE/TIME: 03/04/2017 04:48 [facility] COMPARISON: CHEST SINGLE AP, February 01, 2017, 6:08. INDICATIONS : Pt short of breath. MEDICAL HISTORY : None. SURGICAL HISTORY : None. ENCOUNTER: Initial ACUITY: 1 day PAIN SCORE: 8/10 LOCATION: Bilateral chest FINDINGS: A single view of the chest demonstrates the lungs to be symmetrically aerated without evidence of mas s, infiltrate or effusion. The cardiomediastinal contours are unremarkable. Osseous structures are intact. CONCLUSION: 1. No acute findings. Emphysema especially in the upper lobes. Ronny Swift MD on March 04, 2017 at 5:24 Board Certified Radiologist. This report was verified electronically.
[2017-03-04 05:30] LABS: ALT (GPT) 30 U/L (12-78)
[2017-03-04] MEDS ORDERED: LORazepam 2 MG/ML VIAL IV PUSH ONE ×2 (05:30→11:15)
[2017-03-04 05:31] LABS: ANION GAP 5 MEQ/L (5-15); AST (GOT) 26 U/L (15-37); BICARBONATE 32.4 MEQ/L (21.0-32.0); BLOOD UREA NITROGEN 10 MG/DL (7-18); CHLORIDE 103 MEQ/L (98-107); GLOMERULAR FILTRATION RATE 125 ML/MIN (>89); MAGNESIUM 2.4 MG/DL (1.5-2.5); POTASSIUM 4.5 MEQ/L (3.5-5.1); SODIUM (NA) 140 MEQ/L (136-145)
[2017-03-04 05:33] LABS: APTT (PATIENT) 48.3 SEC (24.3-30.1); INTERNATIONAL NORMALIZED RATIO 3.6 RATIO; PROTHROMBIN TIME - PATIENT 41.6 SEC (9.8-11.6)
[2017-03-04 05:34] LABS: ALKALINE PHOSPHATASE 74 U/L (45-117); TOTAL BILIRUBIN ADULT 0.6 MG/DL (0.2-1.0)
[2017-03-04] MEDS: LORazepam 2 MG/ML VIAL IV PUSH ONE ×2 (05:45→08:18)
[2017-03-04] MEDS: MAGNESIUM SULFATE 1 GM PREMIX 100 ML IV SCH ×2 (05:57→06:59)
[2017-03-04 06:41] LABS: BLOOD GAS BASE EXCESS 1.3 mmol/L (-2-2); BLOOD GAS CARBOXYHEMOGLOBIN 3.8 % (0-4); BLOOD GAS HCO3 28 mmol/L (22-26); BLOOD GAS METHEMOGLOBIN 0.9 % (0-2); BLOOD GAS O2 HGB SATURATION 87 % (90-100); BLOOD GAS OXYGEN CONTENT 16.3 Vol % (12.0-20.0); BLOOD GAS PCO2 64 mmHg (38-42); BLOOD GAS PO2 66 mmHG (61-120); BLOOD GAS TOTAL HGB 13.4 G/DL (12.0-16.0); CRITICAL VALUE YES; OXYGEN DEVICE BIPAP; TEMP CORR TO 98.6
[2017-03-04 06:42] LABS: DRAW SITE RT RADIAL; FIO2 25 %; NUMBER OF ARTERIAL PUNCTURES 1; STAT YES; ULNAR PULSE PRESENT; VENT SETTINGS IPA=12 EPAP=6
--- NOTE | 2017-03-04 06:54 | HHI.HP ---
[facility] Service Critical Care Medicine Primary Care Physician Unknown Admission Diagnosis COPD exacerbation, hypercarbic respiratory failure Diagnosis: (1) COPD exacerbation Diagnosis: Principal (2) History of atrial fibrillation Diagnosis: Principal (3) Chronic back pain Diagnosis: Principal (4) Anxiety Diagnosis: Principal (5) COPD (chronic obstructive pulmonary disease) Diagnosis: Principal (6) Acute hypercapnic respiratory failure Diagnosis: Principal (7) Leukocytosis Diagnosis: Principal (8) GERD (gastroesophageal reflux disease) Diagnosis: Principal (9) Neuropathy Diagnosis: Principal (10) Cardiomyopathy Diagnosis: Principal (11) Warfarin anticoagulation Diagnosis: Principal (12) Chronic prescription benzodiazepine use Diagnosis: Principal (13) Degenerative globe disease Diagnosis: Principal (14) Arachnoid cyst Diagnosis: Principal (15) History of TIA (transient ischemic attack) Diagnosis: Principal (16) Restless leg syndrome Diagnosis: Principal (17) SIRS (systemic inflammatory response syndrome) (18) On prednisone therapy Diagnosis: Principal Chief Complaint: Shortness of breath Travel History International Travel<30 Days: No Contact w/Intl Traveler <30 Da: No Traveled to Known Affected Are: No Sepsis Criteria SIRS Criteria (2 or more): Heart rate over 90, WBC > 74268, < 4000 or > 10% bands Criteria Outcome: Meets SIRS criteria History of Present Illness 56-year-old male. Date of admission 03/04/2017. 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 Paroxysmal atrial fibrillation, underlying COPD on 2 L nasal cannula chronic, hiatal hernia, degenerative disc disease, chronic benzodiazepine use and chronic warfarin use. He states he has been intubated in the past for his underlying lung disease. He is currently being seen in C pod 25. He is somewhat lethargic after receiving 1 mg of Ativan in the ED while on BiPAP.. He presented to [facility] emergent department via EMS for progressive worsening trouble breathing started throughout the day today. He attempted to use his bronchodilators at home without success. He called EMS for further evaluation. At [facility], initial blood gas revealed significant respiratory acidosis. He is placed on BiPAP 12/6 at 25% FiO2. Not much improvement noted. Chest x-ray showed sinus changes in the upper lobes bilaterally. White cell count 12,000. Troponin 0.02. Rate controlled A. fib. Received 125 mg Solu-Medrol IV and bronchodilator therapy. He is arousable and will intermittently follow commands. Additional information is hard to obtain. He denied tobacco use but past records states he has a 40 year pack history quit 1 year ago. Girlfriend smokes. Review of Systems Constitutional: COMPLAINS OF: Fatigue, Weight loss, DENIES: Fever, Weight gain Endocrine: DENIES: Polyuria Eyes: DENIES: Blurred vision Ears, nose, mouth, throat: DENIES: Tinnitus, Sinus Pain Respiratory: COMPLAINS OF: Shortness of breath, DENIES: Apneas, Hemoptysis, Sputum production Cardiovascular: DENIES: Chest pain Gastrointestinal: DENIES: Abdominal pain Genitourinary: DENIES: Sexual dysfunction, Urgency, Hematuria Musculoskeletal: COMPLAINS OF: Joint pain, Back pain, DENIES: Joint Swelling Integumentary: DENIES: Abnormal pigmentation Hematologic/lymphatic: COMPLAINS OF: Bruising Immunologic/allergic: DENIES: Eczema Neurologic: DENIES: Abnormal gait Psychiatric: DENIES: Anxiety, Confusion Past Family Social History Allergies: Coded Allergies: Gabapentin (Verified Allergy, Severe, Shortness of Breath, 02/01/17) Pt states he had a bad reaction to Gabapentin. states "my throat swole and it was hard for me to breath." Penicillin (Verified Allergy, Severe, "ALL CILLINS" PER PT, 02/01/17) Amoxicillin (Verified Allergy, Unknown, 02/01/17) Uncoded Allergies: ALL CILLINS (Allergy, Unknown, 06/15/10) Past Medical History Restless leg syndrome Left lower extremity neuropathy TIA 2 Arachnoid cyst Gastroesophageal reflux disease Paroxysmal atrial fibrillation COPD Hiatal hernia Degenerative disc disease Chronic benzodiazepine use Chronic warfarin use Chronic prednisone use Insomnia/depression Past Surgical History Umbilical hernia repair Heart catheterization 1999 total with trivial LAD disease and irregularity the RCA. Arachnoid cyst Septal deviation repair Reported Medications Ventolin inhaler 2 puffs every 4 hours as needed Prilosec 20 mg by mouth daily Coumadin 2.5 mill grams 5 times a week. 5 mg 2 times a week. Trazodone 50 mg by mouth at bedtime Prednisone 40 mg by mouth daily Spiriva 18 inhalation daily hours when necessary Cardizem CD 360 mg by mouth daily Flexeril 10 mg by mouth at bedtime Symbicort 80/4.5 2 puffs twice a day Requip 1 mg at night 2 L oxygen Active Ordered Medications Reviewed in EMR Family History Positive for skin cancer, brain cancer and coronary artery disease Social History [id number] tobacco. Quit 1 year ago. Secondary smoke exposure at home. Occasional EtOH. No IV drug use documented Physical Exam Vital Signs Vital Signs Date Time Temp Pulse Resp B/P Pulse Ox O2 Delivery O2 Flow Rate FiO2 03/04/17 06:47 98 25 03/04/17 06:04 96 BiPAP 25 03/04/17 06:01 88 26 165/95 96 BiPAP 25 03/04/17 06:00 25 03/04/17 05:58 26 98 BiPAP 25 03/04/17 05:50 99 25 03/04/17 05:12 95 Nasal Cannula 5.00 03/04/17 04:46 98.4 77 26 165/95 95 Nasal Cannula 3 Physical Exam GENERAL: 56-year-old male, appears stated age currently resting in bed on BiPAP SKIN: Warm and dry. Multiple tattoos upper extremities HEAD: Atraumatic. Normocephalic. EYES: Pupils equal and round about 4 mm bilaterally and reactive to 3 mm. No scleral icterus. No injection or drainage. ENT: No nasal bleeding or discharge. Mucous membranes pink and moist. NECK: Trachea midline. No JVD. CARDIOVASCULAR: IRR. S1, S2. No S4. Without murmur RESPIRATORY: Diminished breath sounds throughout all lung pederson. Positive and extremity wheezing. Symmetrical excursion. GASTROINTESTINAL: Abdomen soft, non-tender, nondistended. I Porter bowel sounds are appreciated. MUSCULOSKELETAL: Extremities without significant peripheral edema. No obvious deformities. NEUROLOGICAL: Awake and arousable. Follows commands with stimulation and moves all 4 extremity spontaneously. Decreased sensation to light touch and pinprick in left lower extremity. Laboratory Laboratory Tests Test 03/04/17 03/04/17 03/04/17 04:05 05:05 06:30 White Blood Count 12.0 Red Blood Count 4.62 Hemoglobin 14.6 Hematocrit 42.2 Mean Corpuscular Volume 91.3 Mean Corpuscular Hemoglobin 31.5 Mean Corpuscular Hemoglobin 34.5 Concent Red Cell Distribution Width 13.6 Platelet Count 328 Mean Platelet Volume 9.4 Neutrophils (%) (Auto) 75.1 Lymphocytes (%) (Auto) 11.7 Monocytes (%) (Auto) 12.6 Eosinophils (%) (Auto) 0.2 Basophils (%) (Auto) 0.4 Neutrophils # (Auto) 9.0 Lymphocytes # (Auto) 1.4 Monocytes # (Auto) 1.5 Eosinophils # (Auto) 0.0 Basophils # (Auto) 0.1 CBC Comment DIFF FINAL Differential Comment Sodium Level 140 Potassium Level 4.5 Chloride Level 103 Carbon Dioxide Level 32.4 Anion Gap 5 Blood Urea Nitrogen 10 Creatinine 0.66 Estimat Glomerular Filtration 125 Rate Random Glucose 124 Calcium Level 8.6 Magnesium Level 2.4 Total Bilirubin 0.6 Aspartate Amino Transf 26 (AST/SGOT) Alanine Aminotransferase 30 (ALT/SGPT) Alkaline Phosphatase 74 Troponin I LESS THAN 0.02 Total Protein 7.3 Albumin 3.5 Prothrombin Time 41.6 Prothromb Time International 3.6 Ratio Activated Partial 48.3 Thromboplast Time Blood Gas Puncture Site RT RADIAL RT RADIAL Blood Gas Patient Temperature 98.6 98.6 Blood Gas HCO3 30 28 Blood Gas Base Excess 3.9 1.3 Blood Gas Oxygen Saturation 94 87 Arterial Blood pH 7.27 7.26 Arterial Blood Partial 69 64 Pressure CO2 Arterial Blood Partial 158 66 Pressure O2 Arterial Blood Oxygen Content 18.9 16.3 Arterial Blood 4.1 3.8 Carboxyhemoglobin Arterial Blood Methemoglobin 0.9 0.9 Blood Gas Hemoglobin 14.1 13.4 Oxygen Delivery Device NASAL CANNULA BIPAP Blood Gas Liter Flow 5 Blood Gas Ventilator Setting IPA=12 EPAP=6 Blood Gas Inspired Oxygen 25 Result Diagram: 03/04/1740403/04/17404 Imaging Last Impressions Chest X-Ray 03/04/17 0450 Signed Impressions: Service Date/Time: Saturday, March 04, 2017 04:48 - CONCLUSION: 1. No acute findings. Emphysema especially in the upper lobes. Ronny Swift MD Assessment and Plan Assessment and Plan Neuro/Psych: Restless leg syndrome Insomnia Depression Chronic benzodiazepine use Acetaminophen for fever [place]/morphine for pain management Home medication trazodone 50 mill grams by mouth discontinued for insomnia/ depression Ativan 1 mg every 6 when necessary will be continued holding Flexeril 10 mg at night for muscle relaxant Continue Requip 1 mg daily at bedtime for restless leg syndrome CV: History of paroxysmal atrial fibrillation Hypertension Chronic systolic heart failure Continue Cardizem CD 360 milligrams by mouth daily for A. fib/hypertension Currently normal saline at 84 cc an hour As needed labetalol for hypertension Troponin less than 0.02. Will check 2-D echocardiogram during this admission. Heart catheterization 2011 Dr. [place] revealed trivial LAD disease and irregular RCA. Echo 04/02 revealed EF 40-45%. Diffuse hypokinesis. Mildly decreased systolic heart failure Resp: Acute Hypercapnic respiratory failure COPD Currently on BiPAP 01/03 with FiO2 25% Chest x-ray revealed bilateral upper lobe emphysematous changes Duo nebs every 4 hours with albuterol every 2 hours when necessary breakthrough Spiriva continued Continue Symbicort 80/4.5 2 puffs twice a day Solu-Medrol 40 mg IV every 8 hours/pulmonary Follow-up chest x-ray in a.m. At high risk for intubation Regimen is Spiriva 18 mg inhalation daily, Ventolin inhaler 2+ every 4 hours as needed and Symbicort 80/4.52 puffs twice a day GI: Gastroesophageal reflux disease History of umbilical hernia repair And carefully advanced diet as tolerated On Protonix for GI prophylaxis/gastroesophageal reflux disease. On Prilosec 20 mg daily at home Flory-Colace for bowel regimen : Ly catheter only if indicated for accurate I's and O's in a critically ill patient Endo: Chronic prednisone use Sliding-scale insulin with Accu-Cheks every before meals and at bedtime to maintain euglycemia while on Solu-Medrol/low regimen On prednisone 40 mg daily at home Renal: Creatinine currently within normal limits Monitor urine output Accurate I's and O's Heme: Leukocytosis - likely steroid related Chronic warfarin use Home medications 2.5 mg 5 times a week and 5 mg 2 times a week. INR currently 3.6 Pharmacy consult to manage while hospitalized ID: Will start azithromycin as needed Noted penicillin allergy FEN: Replace electrolytes as clinically indicated per ICU electrolyte protocol MSK: DDD PT evaluate and treat pain management as above Access - Utilize peripheral IV. Central line if indicated Prophylaxis - GI - Protonix - DVT - SCD/on warfarin therapy with INR 3.6. Supratherapeutic Critical Care: The total critical care time was 55 minutes. Time to perform other separately billable procedures was not included in the critical care time. Code Status Full code Discussed Condition With Dr. GATICA/ED physician. Patient. Care plan discussed all questions answered. Critically ill high risk for oral tracheal intubation Problem Qualifiers (1) Chronic back pain: Qualified Code: M54.5 - Chronic low back pain without sciatica, unspecified back pain laterality (2) COPD (chronic obstructive pulmonary disease): Qualified Code: J44.9 - Chronic obstructive pulmonary disease, unspecified COPD type (3) Leukocytosis: Qualified Code: D72.829 - Leukocytosis, unspecified type (4) GERD (gastroesophageal reflux disease): Qualified Code: K21.9 - Gastroesophageal reflux disease without esophagitis (5) Cardiomyopathy: Qualified Code: I42.9 - Cardiomyopathy, unspecified type Kamaljit Call MD Mar 04, 2017 06:54
[2017-03-04] MEDS ORDERED: LABETALOL HCL 100 MG/20 ML VIAL IV PUSH PRN (07:00)
[2017-03-04] MEDS ORDERED: SODIUM CHLORIDE 0.9% FLUSH 10 ML FLUSH IV FLUSH PRN (07:00)
[2017-03-04] MEDS ORDERED: ONDANSETRON HCL 4 MG/2 ML VIAL IV PRN (07:00)
[2017-03-04] MEDS ORDERED: MORPHINE SULFATE 4 MG/ML INJ IV PRN (07:00)
[2017-03-04] MEDS ORDERED: SENNOSIDES 8.6 MG TAB PO PRN (07:00)
[2017-03-04] MEDS ORDERED: LACTULOSE SYRUP 20 GM/30 ML CUP PO PRN (07:00)
[2017-03-04] MEDS ORDERED: ACETAMINOPHEN 325 MG TAB PO PRN (07:00)
[2017-03-04] MEDS ORDERED: CHLORHEXIDINE GLUCONATE 2 % 1 PACK (2 CLOTHS) TOP PRN (07:00)
[2017-03-04] MEDS ORDERED: MAGNESIUM HYDROXIDE SUSP 30 ML CUP PO PRN (07:00)
[2017-03-04] MEDS ORDERED: MISCELLANEOUS NURSING INFORMATION XX SCH (07:00)
[2017-03-04] MEDS ORDERED: BISACODYL 10 MG SUPP RECTAL PRN (07:00)
[2017-03-04] MEDS: SODIUM CHLOR 0.9% 1000 ML INJ 1,000 ML IV SCH ×3 (07:22→19:55)
[2017-03-04] MEDS ORDERED: DEXTROSE 50% IN WATER 50 ML VIAL(D50) IV PRN (07:30)
[2017-03-04] MEDS ORDERED: GLUCAGON 1 MG/ML VIAL OTHER PRN (07:30)
[2017-03-04] MEDS ORDERED: POTASSIUM CHLORIDE 25 MEQ EFFERVESCENT TAB PO PRN (07:45)
[2017-03-04] MEDS ORDERED: POTASSIUM PHOSPHATE MONOBASIC 500 MG TAB PO/TUBE PRN (07:45)
[2017-03-04] MEDS ORDERED: MAGNESIUM SULFATE INJ 2 GM in SODIUM CHLORIDE 0.9% INJ 96 ML IV PRN (07:45)
[2017-03-04] MEDS ORDERED: POTASSIUM PHOSPHATE MONOBASIC 500 MG TAB PO PRN (07:45)
[2017-03-04] MEDS ORDERED: POTASSIUM CHLOR 20 MEQ PREMIX 100 ML IV PRN ×2 (07:45)
[2017-03-04] MEDS ORDERED: POTASSIUM PHOSPHATE INJ 30 MMOL in SODIUM CHLOR 0.9% 250 ML INJ 250 ML IV PRN (07:45)
[2017-03-04] MEDS ORDERED: MAGNESIUM SULFATE INJ 4 GM in SODIUM CHLORIDE 0.9% INJ 92 ML IV PRN (07:45)
[2017-03-04] MEDS ORDERED: SODIUM PHOSPHATE INJ 30 MMOL in SODIUM CHLOR 0.9% 250 ML INJ 240 ML IV PRN (07:45)
[2017-03-04] MEDS ORDERED: POTASSIUM CHLOR 40 MEQ PREMIX 100 ML IV PRN ×2 (07:45)
[2017-03-04] MEDS ORDERED: MAGNESIUM OXIDE 400 MG TAB PO PRN (07:45)
[2017-03-04] MEDS: BUDESONIDE-FORMOTEROL 80/4.5 MCG INHALER INH SCH ×2 (08:18→21:00)
[2017-03-04] MEDS: TIOTROPIUM BROMIDE 18 MCG INH INH SCH (08:18)
[2017-03-04] MEDS: DILTIAZEM HCL 90 MG TAB PO SCH ×3 (08:19→21:10)
[2017-03-04] MEDS: SODIUM CHLORIDE 0.9% FLUSH 10 ML FLUSH IV FLUSH SCH ×2 (08:19→21:11)
[2017-03-04] MEDS: DOCUSATE SODIUM 50 MG/SENNA 8.6 MG TAB PO SCH ×2 (08:19→21:10)
[2017-03-04] MEDS: PANTOPRAZOLE SOD 20 MG DELAYED RELEASE TAB PO SCH (08:19)
[2017-03-04] MEDS ORDERED: LORazepam 1 MG TAB PO PRN (10:30)
[2017-03-04] MEDS: INSULIN NovoLIN REGULAR SUPPLEMENTAL SCALE SQ SCH ×3 (11:23→21:00)
--- NOTE | 2017-03-04 13:07 | EKG ---
Date Performed: 03/04/2017 Time Performed: 04:54:22 PTAGE: 56 years EKG: Sinus rhythm NORMAL ECG PREVIOUS TRACING : 02/01/2017 05.34 Compared to prior tracing no significant change DOCTOR: Jose Guadalupe Leyva Interpretating Date/Time 03/04/2017 13:05:30
[2017-03-04 13:30] LABS: BLOOD GAS BASE EXCESS 0.8 mmol/L (-2-2); BLOOD GAS CARBOXYHEMOGLOBIN 2.8 % (0-4); BLOOD GAS HCO3 26 mmol/L (22-26); BLOOD GAS METHEMOGLOBIN 1.4 % (0-2); BLOOD GAS O2 HGB SATURATION 90 % (90-100); BLOOD GAS PCO2 54 mmHg (38-42); BLOOD GAS PO2 75 mmHg (61-120); BLOOD GAS TOTAL HGB 13.4 G/DL (12.0-16.0); TEMP CORR TO 98.6
[2017-03-04] MEDS ORDERED: PROPOFOL 1000 MG/100 ML INJ 100 ML IV SCH ×2 (13:30→13:45)
[2017-03-04] MEDS ORDERED: fentaNYL DRIP 250 ML IV SCH (13:30)
[2017-03-04 13:31] LABS: CRITICAL VALUE YES; DRAW SITE RT RADIAL; LITER FLOW 4 L/M; NUMBER OF ARTERIAL PUNCTURES 1; OXYGEN DEVICE NASAL CANNULA; STAT YES
[2017-03-04] MEDS ORDERED: ETOMIDATE 40 MG/20 ML VIAL ONE (13:35)
[2017-03-04] MEDS ORDERED: ROCURONIUM INJ 100 MG/10 ML VIAL IV ONE (13:45)
[2017-03-04] MEDS ORDERED: ETOMIDATE 40 MG/20 ML VIAL IV PUSH ONE (13:45)
[2017-03-04] MEDS ORDERED: SODIUM CHLOR 0.9% 1000 ML INJ 1,000 ML IV ONE (13:45)
--- NOTE | 2017-03-04 14:14 | PD.PROCEDR ---
Procedure Note Procedure DATE: 03/04/2017 PROCEDURE: Orotracheal intubation INDICATION: Acute respiratory failure/inability to protect airway due to altered mental status DETAILS OF PROCEDURE The patient was placed in optimal position and preoxygenated with 100% FiO2 via bag valve mask. At the start oxygen saturation was 95 %. The patient was administered 20 mg etomidate IV and 50 mg rocuronium IV. I entered the oropharynx with a size 4 GVL glidescope blade and obtained a grade 3 view of the airway. On single attempt a size 8.0 cuffed endotracheal tube was passed through the vocal cords. Correct tube location was confirmed with end tidal CO2 detector and by auscultating over bilateral lung pederson. The endotracheal tube was secured with adhesive tape at a depth of 24 cm at the lips. The patient was connected to the ventilator. The patient tolerated the procedure well without any apparent complications. Oxygen saturations were maintained greater than 95% all times. STAT chest x-ray pending at time of dictation. Kamaljit Call MD Mar 04, 2017 14:14
--- NOTE | 2017-03-04 14:16 | RADRPT ---
EXAM DATE/TIME: 03/04/2017 13:52 [facility] COMPARISON: CT THORAX W/O CONTRAST, March 29, 2016, 14:18. CHEST SINGLE AP, March 04, 2017, 4:48. INDICATIONS : Endotracheal tube placement. MEDICAL HISTORY : None. SURGICAL HISTORY : None. ENCOUNTER: Subsequent ACUITY: 2 days PAIN SCORE: Non-responsive. LOCATION: Bilateral upper chest FINDINGS: Portable AP view of the chest demonstrates a normal-sized cardiac silhouette. Endotracheal tube has b een placed with tip at the aortic knob level measuring approximately 5 cm from the rosa. Nasogastri c tube tip is in the proximal stomach the sentinel hole is in the distal esophagus. No effusion, cons olidation, or pneumothorax is visualized. There is mild lucency in the upper lung zones. CONCLUSION: 1. Endotracheal tube tip measures 5 cm from the rosa. Nasogastric tube sentinel hole is in the dist al esophagus and should be advanced. 2. Emphysema. Som Smyth MD on March 04, 2017 at 14:11 Board Certified Radiologist. This report was verified electronically.
[2017-03-04] MEDS: methylPREDNISolone SOD SUCC 40 MG/1 ML VIAL IV PUSH SCH ×2 (15:16→21:10)
[2017-03-04 15:17] LABS: BLOOD GAS BASE EXCESS 0.4 mmol/L (-2-2); BLOOD GAS CARBOXYHEMOGLOBIN 1.9 % (0-4); BLOOD GAS HCO3 26 mmol/L (22-26); BLOOD GAS METHEMOGLOBIN 1.3 % (0-2); BLOOD GAS O2 HGB SATURATION 96 % (90-100); BLOOD GAS OXYGEN CONTENT 17.2 Vol % (12.0-20.0); BLOOD GAS PCO2 51 mmHg (38-42); BLOOD GAS PO2 210 mmHg (61-120); BLOOD GAS TOTAL HGB 12.4 G/DL (12.0-16.0); TEMP CORR TO 98.6
[2017-03-04 15:18] LABS: CRITICAL VALUE YES; DRAW SITE RT RADIAL; FIO2 80 %; NUMBER OF ARTERIAL PUNCTURES 1; OXYGEN DEVICE VENTILATOR; STAT NO; VENT SETTINGS A/C18/550/PEEP5
[2017-03-04] MEDS: AZTREONAM INJ 2,000 MG in SODIUM CHLORIDE 0.9% INJ 100 ML IV SCH (17:30)
[2017-03-04] MEDS ORDERED: LACTULOSE SYRUP 20 GM/30 ML CUP PO ONE (18:15)
[2017-03-04 19:24] LABS: ALT (GPT) 22 U/L (12-78); AST (GOT) 15 U/L (15-37); MAGNESIUM 2.3 MG/DL (1.5-2.5)
[2017-03-04 19:27] LABS: ALKALINE PHOSPHATASE 61 U/L (45-117); CREATINE KINASE 70 U/L (39-308); INDIRECT BILIRUBIN 0.4 MG/DL (0.0-0.8); TOTAL BILIRUBIN ADULT 0.5 MG/DL (0.2-1.0)
[2017-03-04 19:40] LABS: BLOOD, URINE NEG (NEG); COMMENT (UR) CULT NOT INDICATED; CULTURE IF INDICATED CULT NOT INDICATED; GLUCOSE,URINE 70 mg/dL (NEG); KETONE, URINE NEG (NEG); MUCUS URINE FEW /lpf (OCC); NITRITE,URINE NEG (NEG); SQUAMOUS EPITHELIAL CELL URINE 1 /hpf (0-5); URINE COLOR YELLOW (YELLW/STRAW)
[2017-03-04] MEDS: traZODone HCL 50 MG TAB PO SCH (21:11)
[2017-03-04] MEDS: CHLORHEXIDINE 0.12% (ORAL KIT) 15 ML CUP MT SCH (21:13)
[2017-03-05] VITALS (39 sets, daily range): BP systolic 96–118; BP diastolic 62–71; PULSE 82–97; RESP 14–21; TEMP 97.7–98.8; O2SAT 90–97
[2017-03-05] MEDS: DILTIAZEM HCL 90 MG TAB PO SCH ×4 (02:19→20:42)
[2017-03-05] MEDS: RESP: ALBUTEROL 2.5 MG/IPRATROPIUM 0.5 MG NEB (SCH) INH ×6 (03:24→23:09)
[2017-03-05] MEDS: CHLORHEXIDINE GLUCONATE 2 % 1 PACK (2 CLOTHS) TOP SCH (04:00)
[2017-03-05 04:08] LABS: APTT (PATIENT) 54.3 SEC (24.3-30.1)
[2017-03-05 04:09] LABS: AUTOMATED NEUTROPHIL # 9.1 TH/MM3 (1.8-7.7); BASOPHIL % 0.1 % (0.0-2.0); HEMATOCRIT 34.6 % (39.0-51.0); HEMO FLAGS DIFF FINAL; LYMPH % 5.2 % (9.0-44.0); LYMPHOCYTE # 0.5 TH/MM3 (1.0-4.8); MEAN CELL VOLUME 91.5 FL (80.0-100.0); MEAN CORPUSCULAR HEMOGLOBIN 31.4 PG (27.0-34.0); MEAN CORPUSCULAR HGB CONC 34.3 % (32.0-36.0); MONO % 4.1 % (0.0-8.0); NEUT % 90.6 % (16.0-70.0); PLATELET COUNT 252 TH/MM3 (150-450); RED BLOOD COUNT 3.78 MIL/MM3 (4.50-5.90); RED CELL DISTRIBUTION WIDTH 13.9 % (11.6-17.2)
[2017-03-05 04:18] LABS: ALT (GPT) 22 U/L (12-78); ANION GAP 5 MEQ/L (5-15); AST (GOT) 14 U/L (15-37); BICARBONATE 29.8 MEQ/L (21.0-32.0); BLOOD UREA NITROGEN 15 MG/DL (7-18); CHLORIDE 106 MEQ/L (98-107); GLOMERULAR FILTRATION RATE 154 ML/MIN (>89); MAGNESIUM 2.5 MG/DL (1.5-2.5); POTASSIUM 4.1 MEQ/L (3.5-5.1); SODIUM (NA) 141 MEQ/L (136-145)
[2017-03-05 04:20] LABS: ALKALINE PHOSPHATASE 57 U/L (45-117); TOTAL BILIRUBIN ADULT 0.4 MG/DL (0.2-1.0)
--- NOTE | 2017-03-05 04:50 | RADRPT ---
EXAM DATE/TIME: 03/05/2017 03:07 [facility] COMPARISON: CHEST SINGLE AP, March 04, 2017, 13:52. INDICATIONS : Evaluate COPD, Respiratory failure. MEDICAL HISTORY : None. SURGICAL HISTORY : None. ENCOUNTER: Subsequent ACUITY: 3 days PAIN SCORE: Non-responsive. LOCATION: Bilateral chest FINDINGS: Single AP view of the chest. Endotracheal tube and nasogastric tube remain in place. There is evidenc e of pulmonary emphysema. Vascular crowding noted at the lung bases. No significant interval change. No evidence of pleural effusion or pneumothorax. Cardiomediastinal silhouette unchanged. CONCLUSION: Findings of pulmonary emphysema again noted. No significant interval change. Endotracheal tube and na sogastric tube remain in place. Brett Stapleton MD on March 05, 2017 at 4:47 Board Certified Radiologist. This report was verified electronically.
[2017-03-05] MEDS: SODIUM CHLOR 0.9% 1000 ML INJ 1,000 ML IV SCH ×2 (06:15→20:43)
[2017-03-05] MEDS: AZITHROMYCIN INJ 500 MG in SODIUM CHLOR 0.9% 250 ML INJ 250 ML IV SCH (06:15)
[2017-03-05] MEDS: methylPREDNISolone SOD SUCC 40 MG/1 ML VIAL IV PUSH SCH ×3 (06:16→20:44)
[2017-03-05] MEDS: AZTREONAM INJ 2,000 MG in SODIUM CHLORIDE 0.9% INJ 100 ML IV SCH ×2 (06:16→18:02)
[2017-03-05] MEDS: INSULIN NovoLIN REGULAR SUPPLEMENTAL SCALE SQ SCH ×4 (06:17→21:00)
[2017-03-05] MEDS: LACTULOSE SYRUP 20 GM/30 ML CUP PO SCH (08:06)
[2017-03-05] MEDS: CHLORHEXIDINE 0.12% (ORAL KIT) 15 ML CUP MT SCH ×2 (08:06→20:00)
[2017-03-05] MEDS: PANTOPRAZOLE SOD 20 MG DELAYED RELEASE TAB PO SCH (08:06)
[2017-03-05] MEDS: DOCUSATE SODIUM 50 MG/SENNA 8.6 MG TAB PO SCH ×2 (08:06→20:42)
[2017-03-05] MEDS: SODIUM CHLORIDE 0.9% FLUSH 10 ML FLUSH IV FLUSH SCH ×2 (08:07→20:43)
[2017-03-05] MEDS: BUDESONIDE-FORMOTEROL 80/4.5 MCG INHALER INH SCH ×2 (09:00→23:25)
[2017-03-05] MEDS: TIOTROPIUM BROMIDE 18 MCG INH INH SCH (09:00)
[2017-03-05 09:07] LABS: BLOOD GAS CARBOXYHEMOGLOBIN 1.3 % (0-4); BLOOD GAS HCO3 24 mmol/L (22-26); BLOOD GAS METHEMOGLOBIN 1.3 % (0-2); BLOOD GAS O2 HGB SATURATION 92 % (90-100); BLOOD GAS OXYGEN CONTENT 15.6 Vol % (12.0-20.0); BLOOD GAS PCO2 40 mmHg (38-42); BLOOD GAS PO2 71 mmHg (61-120); CRITICAL VALUE NO; DRAW SITE RT RADIAL; LITER FLOW 4 L/M; NUMBER OF ARTERIAL PUNCTURES 1; OXYGEN DEVICE NASAL CANNULA; STAT NO; TEMP CORR TO 98.6
--- NOTE | 2017-03-05 09:17 | HHI.CCPN ---
Subjective Remarks/Hospital Course 56-year-old male. Date of admission 03/04/2017. 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 Paroxysmal atrial fibrillation, underlying COPD on 2 L nasal cannula chronic, hiatal hernia, degenerative disc disease, chronic benzodiazepine use and chronic warfarin use. He states he has been intubated in the past for his underlying lung disease. He is currently being seen in C pod 25. He is somewhat lethargic after receiving 1 mg of Ativan in the ED while on BiPAP.. He presented to [place] emergent department via EMS for progressive worsening trouble breathing started throughout the day today. He attempted to use his bronchodilators at home without success. He called EMS for further evaluation. At [place], initial blood gas revealed significant respiratory acidosis. He is placed on BiPAP 12/6 at 25% FiO2. Not much improvement noted. Chest x-ray showed sinus changes in the upper lobes bilaterally. White cell count 12,000. Troponin 0.02. Rate controlled A. fib. Received 125 mg Solu-Medrol IV and bronchodilator therapy. He is arousable and will intermittently follow commands. Additional information is hard to obtain. He denied tobacco use but past records states he has a 40 year pack history quit 1 year ago. Girlfriend smokes. Subjective 03/05: Intubated yesterday due to for airway protection. Copious thick secretions post intubation. Self extubated this AM with RT in the room at 8: 30. Post subluxation ABG reasonable. Currently more appropriate protecting airway. Objective Vital Signs Date Time Temp Pulse Resp B/P Pulse Ox O2 Delivery O2 Flow Rate FiO2 03/05/17 07:39 95 50 03/05/17 06:00 87 03/05/17 04:00 97.7 18 98/66 03/04/17 12:35 Nasal Cannula 2.00 Intake and Output 03/04/17 03/04/17 03/05/17 08:00 16:00 00:00 Intake Total 1372 ml Output Total 1000 ml Balance 372 ml Result Diagram: 03/05/17 0351 03/05/17 0351 Other Results Microbiology Date/Time Procedure Status Source Growth 03/04/17 23:45 Influenza Types A,B Antigen (VALARIE) - Final Complete Nasal Aspirate NEGATIVE FOR FLU A AND B ANTIGEN.... 03/04/17 23:45 Gram Stain - Final Resulted Sputum Endotracheal 03/04/17 23:45 Sputum Culture Resulted Sputum Endotracheal Pending 03/04/17 23:35 Legionella Antigen - Final Complete Urine Catheterized Urine PRESUMPTIVE NEGATIVE FOR LEGIONELLA P... 03/04/17 23:35 Streptococcus pneumoniae Antigen (M - Final Complete Urine Catheterized Urine PRESUMPTIVE NEGATIVE FOR STREPTOCOCCU... 03/04/17 08:20 Aerobic Blood Culture Received Blood Peripheral Pending 03/04/17 08:20 Anaerobic Blood Culture Received Blood Peripheral Pending Imaging Last Impressions Chest X-Ray 03/05/17 0000 Signed Impressions: Service Date/Time: Sunday, March 05, 2017 03:07 - CONCLUSION: Findings of pulmonary emphysema again noted. No significant interval change. Endotracheal tube and nasogastric tube remain in place. Brett Stapleton MD Objective Remarks GENERAL: 56-year-old male, appears stated age currently resting in bed on nasal cannula SKIN: Warm and dry. Multiple tattoos upper extremities HEAD: Atraumatic. Normocephalic. EYES: Pupils equal and round about 4 mm bilaterally and reactive to 3 mm. No scleral icterus. No injection or drainage. ENT: No nasal bleeding or discharge. Mucous membranes pink and moist. NECK: Trachea midline. No JVD. CARDIOVASCULAR: RRR S1, S2. No S4. Without murmur RESPIRATORY: Diminished breath sounds throughout all lung pederson. Positive end expiratory wheezing. Symmetrical excursion. GASTROINTESTINAL: Abdomen soft, non-tender, nondistended. I Porter bowel sounds are appreciated. MUSCULOSKELETAL: Extremities without significant peripheral edema. No obvious deformities. NEUROLOGICAL: Awake and arousable. Cranial nerves II through XII grossly intact. Strength is equal and symmetric. Decreased sensation to light touch and pinprick in left lower extremity. A/P Assessment and Plan Neuro/Psych: Restless leg syndrome Insomnia Depression Chronic benzodiazepine use Acetaminophen for fever [place]/morphine for pain management Continue Requip 1 mg daily at bedtime for restless leg syndrome Ativan 1 mg every 6 when necessary will be continued holding Flexeril 10 mg at night for muscle relaxant Home medication trazodone 50 mill grams by mouth discontinued for insomnia/ depression CV: History of paroxysmal atrial fibrillation Hypertension Chronic systolic heart failure Continue Cardizem CD 360 milligrams by mouth daily for A. fib/hypertension Currently normal saline at 84 cc an hour As needed labetalol for hypertension Troponin less than 0.02. Will check 2-D echocardiogram during this admission. Heart catheterization 2011 Dr. [place] revealed trivial LAD disease and irregular RCA. Echo 04/02 revealed EF 40-45%. Diffuse hypokinesis. Mildly decreased systolic heart failure Resp: Acute Hypercapnic respiratory failure COPD Currently on BiPAP 01/03 with FiO2 25% Chest x-ray revealed bilateral upper lobe emphysematous changes Duo nebs every 4 hours with albuterol every 2 hours when necessary breakthrough Spiriva continued Continue Symbicort 80/4.5 2 puffs twice a day Solu-Medrol 40 mg IV every 8 hours/pulmonary Follow-up chest x-ray in a.m. At high risk for intubation Regimen is Spiriva 18 mg inhalation daily, Ventolin inhaler 2+ every 4 hours as needed and Symbicort 80/4.52 puffs twice a day GI: Gastroesophageal reflux disease History of umbilical hernia repair And carefully advanced diet as tolerated after swallowing evaluation On Protonix for GI prophylaxis/gastroesophageal reflux disease. On Prilosec 20 mg daily at home Flory-Colace for bowel regimen : Ly catheter only if indicated for accurate I's and O's in a critically ill patient Endo: Chronic prednisone use Sliding-scale insulin with Accu-Cheks every before meals and at bedtime to maintain euglycemia while on Solu-Medrol/low regimen On prednisone 40 mg daily at home Renal: Creatinine currently within normal limits Monitor urine output Accurate I's and O's Heme: Leukocytosis - likely steroid related Chronic warfarin use Home medications 2.5 mg 5 times a week and 5 mg 2 times a week. INR currently 3.6 Pharmacy consult to manage while hospitalized. INR currently 5.0 ID: Day 1 vancomycin, azithromycin and aztreonam Has been on cefepime in the past. Noted penicillin allergy Pancultured yesterday 03/04. Results all pending FEN: Replace electrolytes as clinically indicated per ICU electrolyte protocol MSK: DDD PT evaluate and treat pain management as above Access - Utilize peripheral IV. Central line if indicated Prophylaxis - GI - Protonix - DVT - SCD/on warfarin therapy with INR 5.0 Supratherapeutic Critical Care: The total care time was 35 minutes. Time to perform other separately billable procedures was not included in the critical care time. Kamaljit Call MD Mar 05, 2017 09:17
[2017-03-05] MEDS: ARTIFICIAL TEARS OPTH SOLN 15 ML BTL EACH EYE SCH ×2 (14:00→21:59)
--- NOTE | 2017-03-05 15:55 | ECHRPT ---
Indication: Other hypertrophic cardiomyopathy CONCLUSIONS The left ventricular systolic function is low normal with an estimated ejection fraction in the rang e of 50- 55%. Wall thickness is normal. Normal left ventricular size. BP: 165 / 95 HR: 88 Rhythm: Sinus MEASUREMENTS (Male / Female) Normal Values Technical Quality:Fair 2D ECHO LV Diastolic Diameter PLAX 4.9 cm 4.2 - 5.9 / 3.9 - 5.3 cm LV Systolic Diameter PLAX 3.8 cm IVS Diastolic Thickness 0.8 cm 0.6 - 1.0 / 0.6 - 0.9 cm LVPW Diastolic Thickness 0.8 cm 0.6 - 1.0 / 0.6 - 0.9 cm LV Relative Wall Thickness 0.3 LVOT Diameter 2.0 cm M-MODE Aortic Root Diameter MM 2.9 cm LA Systolic Diameter MM 2.8 cm LA Ao Ratio MM 1.0 AV Cusp Separation MM 1.9 cm DOPPLER AV Peak Velocity 153.0 cm/s AV Peak Gradient 9.4 mmHg LVOT Peak Velocity 109.0 cm/s LVOT Peak Gradient 4.8 mmHg AV Area Cont Eq pk 2.2 cm Mitral E Point Velocity 80.9 cm/s Mitral A Point Velocity 95.3 cm/s Mitral E to A Ratio 0.8 LV E' Lateral Velocity 13.0 cm/s Mitral E to LV E' Lateral Ratio 6.2 LV E' Septal Velocity 10.8 cm/s Mitral E to LV E' Septal Ratio 7.5 TR Peak Velocity 276.0 cm/s TR Peak Gradient 30.5 mmHg PV Peak Velocity 145.0 cm/s PV Peak Gradient 8.4 mmHg FINDINGS LEFT VENTRICLE The left ventricular systolic function is low normal with an estimated ejection fraction in the rang e of 50- 55%. Wall thickness is normal. Normal left ventricular size. Structurally normal tricuspid valve. There is moderate tricuspid regurgitation. The estimated pulmonary arterial pressure is 40 mmHg. RIGHT VENTRICLE Normal right ventricular size and systolic function. LEFT ATRIUM The left atrial size is normal. RIGHT ATRIUM The right atrial size is normal. ATRIAL SEPTUM Normal atrial septal thickness without atrial level shunting by limited color doppler interrogation. AORTA The aortic root and proximal ascending aorta are normal in size on limited imaging. MITRAL VALVE Structurally normal mitral valve. No mitral valve stenosis or regurgitation. AORTIC VALVE Trileaflet aortic valve. No aortic valve stenosis or regurgitation. TRICUSPID VALVE Structurally normal tricuspid valve. There is moderate tricuspid regurgitation. The estimated pulmonary arterial pressure is 40 mmHg. PULMONARY VALVE The pulmonary valve is not well visualized. VESSELS The inferior vena cava is normal in size. PERICARDIUM No pericardial effusion. Hakeem Grant MD, FACC, [facility] [place] (Electronically Signed) Final Date:05 March 2017 15:54
[2017-03-05] MEDS ORDERED: MULTIVITAMIN INJ 10 ML, THIAMINE INJ 100 MG, FOLIC ACID INJ 1 MG in SODIUM CHLORID 0.9%... IV ONE (16:00)
[2017-03-05] MEDS: traZODone HCL 50 MG TAB PO SCH (20:42)
[2017-03-05] MEDS ORDERED: hydrALAZINE HCL 20 MG/ML VIAL IV PUSH PRN (23:15)
[2017-03-05] MEDS ORDERED: ENALAPRILAT 1.25 MG/ML VIAL IV PUSH PRN (23:15)
[2017-03-06] VITALS (16 sets, daily range): BP systolic 98–123; BP diastolic 62–73; PULSE 83–108; RESP 16–38; TEMP 97.1–98.2; O2SAT 92–95
[2017-03-06] MEDS: DILTIAZEM HCL 90 MG TAB PO SCH ×4 (03:16→19:34)
[2017-03-06] MEDS: CHLORHEXIDINE GLUCONATE 2 % 1 PACK (2 CLOTHS) TOP SCH (03:17)
[2017-03-06] MEDS: RESP: ALBUTEROL 2.5 MG/IPRATROPIUM 0.5 MG NEB (SCH) INH ×6 (03:41→23:02)
[2017-03-06] MEDS: AZITHROMYCIN INJ 500 MG in SODIUM CHLOR 0.9% 250 ML INJ 250 ML IV SCH (05:09)
[2017-03-06] MEDS: ARTIFICIAL TEARS OPTH SOLN 15 ML BTL EACH EYE SCH ×3 (05:10→21:10)
[2017-03-06] MEDS: AZTREONAM INJ 2,000 MG in SODIUM CHLORIDE 0.9% INJ 100 ML IV SCH ×2 (05:10→17:32)
[2017-03-06] MEDS: methylPREDNISolone SOD SUCC 40 MG/1 ML VIAL IV PUSH SCH ×3 (05:49→21:10)
[2017-03-06 06:25] LABS: AUTOMATED NEUTROPHIL # 9.8 TH/MM3 (1.8-7.7); HEMATOCRIT 34.5 % (39.0-51.0); HEMO FLAGS DIFF FINAL; LYMPH % 3.8 % (9.0-44.0); LYMPHOCYTE # 0.4 TH/MM3 (1.0-4.8); MEAN CELL VOLUME 92.6 FL (80.0-100.0); MEAN CORPUSCULAR HEMOGLOBIN 30.2 PG (27.0-34.0); MEAN CORPUSCULAR HGB CONC 32.6 % (32.0-36.0); MONO % 7.1 % (0.0-8.0); NEUT % 89.1 % (16.0-70.0); PLATELET COUNT 235 TH/MM3 (150-450); RED BLOOD COUNT 3.73 MIL/MM3 (4.50-5.90); RED CELL DISTRIBUTION WIDTH 14.5 % (11.6-17.2); WHITE BLOOD COUNT 11.1 TH/MM3 (4.0-11.0)
--- NOTE | 2017-03-06 06:35 | RADRPT ---
EXAM DATE/TIME: 03/06/2017 04:16 [place] COMPARISON: No previous studies available for comparison. INDICATIONS : Shortness of breath, possible pulmonary disease. MEDICAL HISTORY : Chronic obstructive pulmonary disease. SURGICAL HISTORY : None. ENCOUNTER: Subsequent ACUITY: 4 - 6 days PAIN SCORE: Non-responsive. LOCATION: Bilateral chest FINDINGS: No acute infiltrates seen. Severe emphysema again noted. No pleural effusion or pneumothorax demonstr ated. Heart size stable, within normal limits. Nasogastric tube courses into the stomach. Endotracheal tube has been removed. CONCLUSION: 1. Severe emphysema without evidence of acute infiltrate. 2. Interim extubation. Nasogastric tube remains in place, courses below the diaphragm. Som Arriaza MD on March 06, 2017 at 6:32 Board Certified Radiologist. This report was verified electronically.
[2017-03-06 06:56] LABS: ANION GAP 8 MEQ/L (5-15); AST (GOT) 13 U/L (15-37); BICARBONATE 26.7 MEQ/L (21.0-32.0); BLOOD UREA NITROGEN 21 MG/DL (7-18); CHLORIDE 108 MEQ/L (98-107); GLOMERULAR FILTRATION RATE 164 ML/MIN (>89); INTERNATIONAL NORMALIZED RATIO 2.5 RATIO; MAGNESIUM 2.9 MG/DL (1.5-2.5); PROTHROMBIN TIME - PATIENT 28.5 SEC (9.8-11.6); SODIUM (NA) 143 MEQ/L (136-145)
[2017-03-06 06:57] LABS: ALT (GPT) 19 U/L (12-78)
[2017-03-06 06:59] LABS: ALKALINE PHOSPHATASE 53 U/L (45-117); TOTAL BILIRUBIN ADULT 0.3 MG/DL (0.2-1.0)
[2017-03-06] MEDS: INSULIN NovoLIN REGULAR SUPPLEMENTAL SCALE SQ SCH ×4 (07:00→19:34)
[2017-03-06] MEDS: SODIUM CHLOR 0.9% 1000 ML INJ 1,000 ML IV SCH (07:40)
[2017-03-06] MEDS: CHLORHEXIDINE 0.12% (ORAL KIT) 15 ML CUP MT SCH ×2 (08:00→19:35)
[2017-03-06] MEDS: SODIUM CHLORIDE 0.9% FLUSH 10 ML FLUSH IV FLUSH SCH ×2 (09:00→19:34)
[2017-03-06] MEDS: TIOTROPIUM BROMIDE 18 MCG INH INH SCH (09:33)
[2017-03-06] MEDS: PANTOPRAZOLE SOD 20 MG DELAYED RELEASE TAB PO SCH (09:33)
[2017-03-06] MEDS: LACTULOSE SYRUP 20 GM/30 ML CUP PO SCH (09:33)
[2017-03-06] MEDS: DOCUSATE SODIUM 50 MG/SENNA 8.6 MG TAB PO SCH ×2 (09:33→19:35)
[2017-03-06] MEDS: MULTIVITAMIN INJ 10 ML, THIAMINE INJ 100 MG, FOLIC ACID INJ 1 MG in SODIUM CHLORID 0.9%... IV SCH (09:35)
[2017-03-06] MEDS: BUDESONIDE-FORMOTEROL 80/4.5 MCG INHALER INH SCH ×2 (09:36→19:35)
--- NOTE | 2017-03-06 10:13 | HHI.CCPN ---
Subjective Remarks/Hospital Course 56-year-old male. Date of admission 03/04/2017. 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 Paroxysmal atrial fibrillation, underlying COPD on 2 L nasal cannula chronic, hiatal hernia, degenerative disc disease, chronic benzodiazepine use and chronic warfarin use. He states he has been intubated in the past for his underlying lung disease. He is currently being seen in [facility]. He is somewhat lethargic after receiving 1 mg of Ativan in the ED while on BiPAP.. He presented to [facility] emergent department via EMS for progressive worsening trouble breathing started throughout the day today. He attempted to use his bronchodilators at home without success. He called EMS for further evaluation. At [facility], initial blood gas revealed significant respiratory acidosis. He is placed on BiPAP 08/23 at 25% FiO2. Not much improvement noted. Chest x-ray showed sinus changes in the upper lobes bilaterally. White cell count 12,000. Troponin 0.02. Rate controlled A. fib. Received 125 mg Solu-Medrol IV and bronchodilator therapy. He is arousable and will intermittently follow commands. Additional information is hard to obtain. He denied tobacco use but past records states he has a 40 year pack history quit 1 year ago. Girlfriend smokes. Subjective 03/05: Intubated yesterday due to for airway protection. Copious thick secretions post intubation. Self extubated this AM with RT in the room at 8: 30. Post subluxation ABG reasonable. Currently more appropriate protecting airway. 03/06 Patient was self extubated yesterday on 50% VM with good sats. Afebrile. Objective Vital Signs Date Time Temp Pulse Resp B/P Pulse Ox O2 Delivery O2 Flow Rate FiO2 03/06/17 08:31 92 Venturi Mask 8.00 50 03/06/17 06:00 83 03/06/17 04:00 97.1 18 98/64 Intake and Output 03/05/17 03/05/17 03/06/17 08:00 16:00 00:00 Intake Total 908 ml 826 ml 814 ml Output Total 250 ml 360 ml 300 ml Balance 658 ml 466 ml 514 ml Result Diagram: 03/06/17 0602 03/06/17 0602 Other Results Laboratory Tests Test 03/06/17 06:02 White Blood Count 11.1 TH/MM3 Red Blood Count 3.73 MIL/MM3 Hemoglobin 11.3 GM/DL Hematocrit 34.5 % Mean Corpuscular Volume 92.6 FL Mean Corpuscular Hemoglobin 30.2 PG Mean Corpuscular Hemoglobin 32.6 % Concent Red Cell Distribution Width 14.5 % Platelet Count 235 TH/MM3 Mean Platelet Volume 9.0 FL Neutrophils (%) (Auto) 89.1 % Lymphocytes (%) (Auto) 3.8 % Monocytes (%) (Auto) 7.1 % Eosinophils (%) (Auto) 0.0 % Basophils (%) (Auto) 0.0 % Neutrophils # (Auto) 9.8 TH/MM3 Lymphocytes # (Auto) 0.4 TH/MM3 Monocytes # (Auto) 0.8 TH/MM3 Eosinophils # (Auto) 0.0 TH/MM3 Basophils # (Auto) 0.0 TH/MM3 CBC Comment DIFF FINAL Differential Comment Prothrombin Time 28.5 SEC Prothromb Time International 2.5 RATIO Ratio Sodium Level 143 MEQ/L Potassium Level 4.0 MEQ/L Chloride Level 108 MEQ/L Carbon Dioxide Level 26.7 MEQ/L Anion Gap 8 MEQ/L Blood Urea Nitrogen 21 MG/DL Creatinine 0.52 MG/DL Estimat Glomerular Filtration 164 ML/MIN Rate Random Glucose 116 MG/DL Calcium Level 8.7 MG/DL Phosphorus Level 2.9 MG/DL Magnesium Level 2.9 MG/DL Total Bilirubin 0.3 MG/DL Aspartate Amino Transf 13 U/L (AST/SGOT) Alanine Aminotransferase 19 U/L (ALT/SGPT) Alkaline Phosphatase 53 U/L Total Protein 5.9 GM/DL Albumin 2.8 GM/DL Imaging Last Impressions Chest X-Ray 03/06/17 0600 Signed Impressions: Service Date/Time: Monday, March 06, 2017 04:16 - CONCLUSION: 1. Severe emphysema without evidence of acute infiltrate. 2. Interim extubation. Nasogastric tube remains in place, courses below the diaphragm. Som Arriaza MD Objective Remarks GENERAL: Patient is 56 yo on 50%VM with good sats. SKIN: Warm and dry. HEAD: Normocephalic. EYES: No scleral icterus. No injection or drainage. NECK: Supple, trachea midline. No JVD or lymphadenopathy. CARDIOVASCULAR: Regular rate and rhythm without murmurs, gallops, or rubs. RESPIRATORY: Breath sounds equal bilaterally. No accessory muscle use. GASTROINTESTINAL: Abdomen soft, non-tender, nondistended. MUSCULOSKELETAL: No cyanosis, or edema. Neuro: Awake and alert A/P Assessment and Plan Neuro/Psych: Restless leg syndrome Insomnia Depression Chronic benzodiazepine use Acetaminophen for fever [place]/morphine for pain management Continue Requip 1 mg daily at bedtime for restless leg syndrome Ativan 1 mg every 6 when necessary will be continued CV: History of paroxysmal atrial fibrillation Hypertension Chronic systolic heart failure Continue Cardizem CD 90 mg PO Q6 for A. fib/hypertension Currently normal saline at 84 cc an hour As needed labetalol for hypertension Echo showed EF 50-55% Heart catheterization 2011 Dr. Beverly revealed trivial LAD disease and irregular RCA. Resp: Acute Hypercapnic respiratory failure COPD Wean down oxygen as shane keep sat >92% Chest x-ray revealed bilateral upper lobe emphysematous changes Duo nebs every 4 hours with albuterol every 2 hours when necessary breakthrough Spiriva, Symbicort 80/4.5 2 puffs twice a day Solu-Medrol 40 mg IV every 8 hours CXR this morning showed COPD changes with no acute infiltrate. GI: Gastroesophageal reflux disease History of umbilical hernia repair Speech eval diet per speech On Protonix for GI prophylaxis/gastroesophageal reflux disease. Flory-Colace for bowel regimen : Monitor renal function, I/O's, electrolytes replacement per protocol.. d/c IVf and diurese with Bumex 1mg x1 Endo: Chronic prednisone use Sliding-scale insulin with Accu-Cheks On prednisone 40 mg daily at home Heme: Leukocytosis - likely steroid related Chronic warfarin use Home medications 2.5 mg 5 times a week and 5 mg 2 times a week. INR currently 2.5 Coumadin dosing per pharmacy ID: On vancomycin, azithromycin and aztreonam Noted penicillin allergy 03/04 BC and sputum cx: NGTD 03/04 Strep pneumonia and Legionella urinary Ag 03/04 Nasal washing negative for Influenza MSK: DDD PT evaluate and treat pain management as above Access - Utilize peripheral IV. Prophylaxis - GI - Protonix - DVT - SCD/on warfarin therapy with INR 2.5 Will sign off and transfer care to [facility] level 3 Gabino Castillo MD Mar 06, 2017 10:13
[2017-03-06] MEDS ORDERED: BUMETANIDE INJ 1 MG/4 ML VIAL IV PUSH ONE (10:30)
[2017-03-06] MEDS: WARFARIN SOD 2.5 MG TAB PO SCH (15:28)
[2017-03-06] MEDS: traZODone HCL 50 MG TAB PO SCH (19:34)
[2017-03-06] MEDS: ACETAMINOPHEN/HYDROcodone 325 MG/5 MG TAB PO PRN (21:10)
[2017-03-07] VITALS (16 sets, daily range): BP systolic 109–120; BP diastolic 67–77; PULSE 70–93; RESP 11–21; TEMP 97.6–98.3; O2SAT 91–97
[2017-03-07] MEDS: CHLORHEXIDINE GLUCONATE 2 % 1 PACK (2 CLOTHS) TOP SCH (03:32)
[2017-03-07] MEDS: ARTIFICIAL TEARS OPTH SOLN 15 ML BTL EACH EYE SCH ×3 (04:56→21:12)
[2017-03-07] MEDS: DILTIAZEM HCL 90 MG TAB PO SCH ×4 (04:56→19:45)
[2017-03-07] MEDS: AZITHROMYCIN INJ 500 MG in SODIUM CHLOR 0.9% 250 ML INJ 250 ML IV SCH (04:56)
[2017-03-07] MEDS: methylPREDNISolone SOD SUCC 40 MG/1 ML VIAL IV PUSH SCH ×3 (04:56→21:12)
[2017-03-07] MEDS: ACETAMINOPHEN/HYDROcodone 325 MG/5 MG TAB PO PRN ×3 (04:57→18:49)
[2017-03-07] MEDS: AZTREONAM INJ 2,000 MG in SODIUM CHLORIDE 0.9% INJ 100 ML IV SCH ×2 (05:05→18:26)
[2017-03-07] MEDS: RESP: ALBUTEROL 2.5 MG/IPRATROPIUM 0.5 MG NEB (SCH) INH ×5 (05:12→20:13)
[2017-03-07 05:48] LABS: AUTOMATED NEUTROPHIL # 10.9 TH/MM3 (1.8-7.7); BASOPHIL % 0.1 % (0.0-2.0); EOSINOPHIL % 0.4 % (0.0-4.0); HEMATOCRIT 34.7 % (39.0-51.0); LYMPH % 3.6 % (9.0-44.0); LYMPHOCYTE # 0.4 TH/MM3 (1.0-4.8); MEAN CELL VOLUME 92.9 FL (80.0-100.0); MEAN CORPUSCULAR HEMOGLOBIN 30.5 PG (27.0-34.0); MEAN CORPUSCULAR HGB CONC 32.8 % (32.0-36.0); MONO % 3.8 % (0.0-8.0); NEUT % 92.1 % (16.0-70.0); PLATELET COUNT 216 TH/MM3 (150-450); RED BLOOD COUNT 3.74 MIL/MM3 (4.50-5.90); RED CELL DISTRIBUTION WIDTH 14.4 % (11.6-17.2); WHITE BLOOD COUNT 11.8 TH/MM3 (4.0-11.0)
[2017-03-07 05:51] LABS: HEMO FLAGS AUTO DIFF
[2017-03-07 05:55] LABS: INTERNATIONAL NORMALIZED RATIO 1.5 RATIO; PROTHROMBIN TIME - PATIENT 16.4 SEC (9.8-11.6)
[2017-03-07 06:07] LABS: MAGNESIUM 2.6 MG/DL (1.5-2.5)
[2017-03-07] MEDS: INSULIN NovoLIN REGULAR SUPPLEMENTAL SCALE SQ SCH ×4 (06:44→20:06)
[2017-03-07] MEDS: CHLORHEXIDINE 0.12% (ORAL KIT) 15 ML CUP MT SCH ×2 (08:00→19:45)
[2017-03-07 08:05] LABS: BANDS 5 % (0-6); METAMYELOCYTES 1 % (0-1); NEUTROPHIL # MANUAL DIFF 10.9 TH/MM3 (1.8-7.7); PLATELET ESTIMATE SMEAR NORMAL (NORMAL); PLATELET MORPHOLOGY NORMAL (NORMAL); POLYS (SEG NEUTROPHILS) 86 % (16-70); SCAN/DIFF FINAL DIFF MANUAL; WBC DIFF SAMPLE 100
[2017-03-07] MEDS: LACTULOSE SYRUP 20 GM/30 ML CUP PO SCH (09:09)
[2017-03-07] MEDS: PANTOPRAZOLE SOD 20 MG DELAYED RELEASE TAB PO SCH (09:09)
[2017-03-07] MEDS: DOCUSATE SODIUM 50 MG/SENNA 8.6 MG TAB PO SCH ×2 (09:09→19:46)
[2017-03-07] MEDS: SODIUM CHLORIDE 0.9% FLUSH 10 ML FLUSH IV FLUSH SCH ×2 (09:10→19:45)
[2017-03-07] MEDS: BUDESONIDE-FORMOTEROL 80/4.5 MCG INHALER INH SCH ×2 (09:10→19:45)
[2017-03-07] MEDS: TIOTROPIUM BROMIDE 18 MCG INH INH SCH (09:10)
[2017-03-07] MEDS: MULTIVITAMIN INJ 10 ML, THIAMINE INJ 100 MG, FOLIC ACID INJ 1 MG in SODIUM CHLORID 0.9%... IV SCH (09:40)
[2017-03-07] MEDS: WARFARIN SOD 2.5 MG TAB PO SCH (15:40)
--- NOTE | 2017-03-07 18:17 | HHI.PR ---
Subjective Remarks Patient states breathing is improved still coughing denies cp Patient with good oxygen saturation on 4 liters nasal canula Objective Vitals Vital Signs Date Time Temp Pulse Resp B/P Pulse Ox O2 Delivery O2 Flow Rate FiO2 03/07/17 16:00 97.9 81 16 120/68 93 03/07/17 16:00 81 03/07/17 15:20 94 Nasal Cannula 6.00 03/07/17 14:00 86 03/07/17 12:00 93 03/07/17 12:00 98.2 93 21 109/67 95 03/07/17 10:00 77 03/07/17 08:00 98.3 71 18 117/75 97 03/07/17 08:00 71 03/07/17 07:00 93 Nasal Cannula 4.00 03/07/17 06:00 77 03/07/17 04:00 98.2 70 11 119/77 96 03/07/17 04:00 70 03/07/17 02:00 83 03/07/17 00:00 98.1 85 18 115/69 93 03/07/17 00:00 85 03/06/17 22:10 14 03/06/17 22:00 90 03/06/17 20:00 93 03/06/17 20:00 98.2 92 17 121/71 94 03/06/17 19:41 93 Nasal Cannula 5.00 I/O 03/06/17 03/06/17 03/06/17 03/07/17 03/07/17 03/07/17 07:00 15:00 23:00 07:00 15:00 23:00 Intake Total 550 ml 1420 ml 730 ml 1741 ml Output Total 250 ml 2025 ml 350 ml 450 ml 500 ml Balance 300 ml -605 ml -350 ml 280 ml 1241 ml Intake Oral 480 ml 480 ml 1210 ml IV Total 490 ml 940 ml 250 ml 531 ml Other 60 ml Output Urine Total 250 ml 1950 ml 350 ml 450 ml 500 ml Gastric Drainage Total 75 ml Result Diagram: 03/07/1723 03/07/17 0523 Imaging Last Impressions Chest X-Ray 03/06/17 0600 Signed Impressions: Service Date/Time: Monday, March 06, 2017 04:16 - CONCLUSION: 1. Severe emphysema without evidence of acute infiltrate. 2. Interim extubation. Nasogastric tube remains in place, courses below the diaphragm. Som Arriaza MD Objective Remarks GENERAL: Patient is 56 well nourished male on nasal canula. SKIN: Warm and dry. HEAD: Normocephalic. EYES: No scleral icterus. No injection or drainage. NECK: Supple, trachea midline. No JVD or lymphadenopathy. CARDIOVASCULAR: Regular rate and rhythm without murmurs, gallops, or rubs. RESPIRATORY: Breath sounds equal bilaterally but decreased and with some diffuse rhonchi. No accessory muscle use. GASTROINTESTINAL: Abdomen soft, non-tender, nondistended. MUSCULOSKELETAL: No cyanosis, or edema. Medications and IVs Current Medications Medications (Trade) Dose Ordered Sig/Dusty Route Start Time Stop Time Status Last Admin (Symbicort 80-4.5 Mcg Inh) 2 puff Q12HR INH 03/04/17 09:00 03/07/17 09:10 (Requip) 1 mg HS PO 03/04/17 21:00 03/06/17 19:35 (Spiriva Inh) 18 mcg DAILY INH 03/04/17 09:00 03/07/17 09:10 (Desyrel) 50 mg HS PO 03/04/17 21:00 03/06/17 19:34 (Cardizem) 90 mg Q6H PO 03/04/17 09:00 03/07/17 14:41 (Protonix) 20 mg DAILY PO 03/04/17 09:00 03/07/17 09:09 (NS Flush) 2 ml UNSCH PRN IV FLUSH 03/04/17 07:00 (NS Flush) 2 ml BID IV FLUSH 03/04/17 09:00 03/07/17 09:10 (Tylenol) 650 mg Q6H PRN PO 03/04/17 07:00 ([place] 5-325 Mg) 1 tab Q4H PRN PO 03/04/17 07:00 03/07/17 18:49 (Morphine Inj) 2 mg Q2H PRN IV 03/04/17 07:00 (Zofran Inj) 4 mg Q6H PRN IV 03/04/17 07:00 Miscellaneous Information 1 Q361D XX 03/04/17 07:00 (Chlorhexidine 2% Cloth) 3 pack Taper DAILY@04 TOP 03/05/17 04:00 03/01/18 03:59 03/07/17 03:32 (Chlorhexidine 2% Cloth) 3 pack UNSCH PRN TOP 03/04/17 07:00 (Flory-Colace) 1 tab BID PO 03/04/17 09:00 03/07/17 09:09 (Milk Of Magnesia Liq) 30 ml Q12H PRN PO 03/04/17 07:00 (Senokot) 17.2 mg Q12H PRN PO 03/04/17 07:00 (Dulcolax Supp) 10 mg DAILY PRN RECTAL 03/04/17 07:00 (Lactulose Liq) 30 ml DAILY PRN PO 03/04/17 07:00 Methylprednisolone Sodium Succinate 40 mg 40 mg Q8HR IV PUSH 03/04/17 14:00 03/07/17 13:37 Azithromycin 500 mg/Sodium Chloride 250 ml @ 250 mls/hr Q24H IV 03/05/17 05:00 03/07/17 04:56 (Coumadin Consult Pharmacy) 0 ml @ 0 mls/hr UNSCH OTHER 03/04/17 07:00 (Trandate Inj) 10 mg Q1H PRN IV PUSH 03/04/17 07:00 (D50w (Vial) Inj) 50 ml UNSCH PRN IV 03/04/17 07:30 Glucagon 1 mg 1 mg UNSCH PRN OTHER 03/04/17 07:30 Potassium Chloride 100 ml @ 50 mls/hr Q2H PRN IV 03/04/17 07:45 (KCl 20 Meq Premix Inj) 100 ml @ 50 mls/hr Q2H PRN IV 03/04/17 07:45 Potassium Bicarb/ Potassium Chloride 50 meq 50 meq UNSCH PRN PO 03/04/17 07:45 Potassium Chloride 100 ml @ 25 mls/hr UNSCH PRN IV 03/04/17 07:45 Potassium Chloride 100 ml @ 50 mls/hr Q2H PRN IV 03/04/17 07:45 (Magnesium Sulfate Inj/NS Inj) 100 ml @ 50 mls/hr UNSCH PRN IV 03/04/17 07:45 Magnesium Oxide 800 mg 800 mg UNSCH PRN PO 03/04/17 07:45 (Magnesium Sulfate Inj/NS Inj) 100 ml @ 50 mls/hr UNSCH PRN IV 03/04/17 07:45 Potassium Phosphate 2000 mg 2,000 mg Q4H PRN PO 03/04/17 07:45 (Sodium Phosphate Inj/NS 250 ml Inj) 250 ml @ 42 mls/hr UNSCH PRN IV 03/04/17 07:45 Potassium Phosphate 2000 mg 2,000 mg UNSCH PRN PO/TUBE 03/04/17 07:45 (Potassium Phosphate Inj/NS 250 ml Inj) 260 ml @ 42 mls/hr UNSCH PRN IV 03/04/17 07:45 (Ativan) 1 mg Q6H PRN PO 03/04/17 10:30 03/05/17 20:42 Chlorhexidine Gluconate 15 ml 15 ml BID@08,20 MT 03/04/17 20:00 03/05/17 08:06 (Azactam Inj/NS Inj) 100 ml @ 200 mls/hr Q12H IV 03/04/17 18:00 03/07/17 18:26 (Lactulose Liq) 30 ml DAILY PO 03/05/17 09:00 03/07/17 09:09 Artificial Tears 1 drop 1 drop Q8HR EACH EYE 03/05/17 14:00 03/07/17 13:39 (Mvi-12 Inj/ Thiamine Inj/ Folvite Inj/NS 500 ml Inj) 511.2 ml @ 125 mls/hr DAILY IV 03/06/17 09:00 03/08/17 08:59 03/07/17 09:40 (Vasotec Inj) 1.25 mg Q6H PRN IV PUSH 03/05/17 23:15 (Apresoline Inj) 20 mg Q4H PRN IV PUSH 03/05/17 23:15 (Coumadin) 2.5 mg DAILY@16 PO 03/06/17 16:00 03/07/17 15:40 Urinary Catheter: Yes Assessment to: Remove Vascular Central Line Catheter: No A/P Problem List: (1) COPD exacerbation ICD Code: J44.1 Status: Acute (2) History of atrial fibrillation ICD Code: Z86.79 Status: Chronic (3) Chronic back pain ICD Code: M54.9 Status: Acute (4) Anxiety ICD Code: F41.9 Status: Chronic (5) COPD (chronic obstructive pulmonary disease) ICD Code: J44.9 Status: Chronic (6) Acute hypercapnic respiratory failure ICD Code: J96.02 Status: Resolved (7) Leukocytosis ICD Code: D72.829 Status: Acute (8) GERD (gastroesophageal reflux disease) ICD Code: K21.9 Status: Acute (9) Neuropathy ICD Code: G62.9 Status: Chronic (10) Cardiomyopathy ICD Code: I42.9 Status: Chronic (11) Warfarin anticoagulation ICD Code: Z79.01 Status: Chronic (12) Chronic prescription benzodiazepine use ICD Code: Z79.899 Status: Chronic (13) Degenerative globe disease ICD Code: H44.30 Status: Chronic (14) Arachnoid cyst ICD Code: G93.0 Status: Acute (15) History of TIA (transient ischemic attack) ICD Code: Z86.73 Status: Chronic (16) Restless leg syndrome ICD Code: G25.81 Status: Chronic (17) SIRS (systemic inflammatory response syndrome) ICD Code: R65.10 Status: Acute Assessment and Plan Neuro/Psych: Restless leg syndrome Insomnia Depression Chronic benzodiazepine use Acetaminophen for fever [place]/morphine for pain management Continue Requip 1 mg daily at bedtime for restless leg syndrome Ativan 1 mg every 6 when necessary will be continued CV: History of paroxysmal atrial fibrillation Hypertension Chronic systolic heart failure Continue Cardizem CD 90 mg PO Q6 for A. fib/hypertension Currently normal saline at 84 cc an hour As needed labetalol for hypertension Echo showed EF 50-55% Heart catheterization 2011 Dr. Beverly revealed trivial LAD disease and irregular RCA. Resp: Acute Hypercapnic respiratory failure COPD Wean down oxygen as shane keep sat >92% Chest x-ray revealed bilateral upper lobe emphysematous changes Duo nebs every 4 hours with albuterol every 2 hours when necessary breakthrough Spiriva, Symbicort 80/4.5 2 puffs twice a day CXR 03/06 showed COPD changes with no acute infiltrate. 03/07 Continue Solumedrol 40 mg IV Q 8 hrs. Will need walk test once out of the unit. GI: Gastroesophageal reflux disease History of umbilical hernia repair Speech eval diet per speech On Protonix for GI prophylaxis/gastroesophageal reflux disease. Flory-Colace for bowel regimen : Monitor renal function, I/O's, electrolytes replacement per protocol.. d/c IVf and diurese with Bumex 1mg x1 Endo: Chronic prednisone use Sliding-scale insulin with Accu-Cheks On prednisone 40 mg daily at home Heme: Leukocytosis - likely steroid related Chronic warfarin use Home medications 2.5 mg 5 times a week and 5 mg 2 times a week. INR currently 2.5 Coumadin dosing per pharmacy ID: On vancomycin, azithromycin and aztreonam Noted penicillin allergy 03/04 BC and sputum cx: NGTD 03/04 Strep pneumonia and Legionella urinary Ag 03/04 Nasal washing negative for Influenza MSK: DDD PT evaluate and treat pain management as above Access - Utilize peripheral IV. Prophylaxis - GI - Protonix - DVT - SCD/on warfarin therapy with INR 2.5 Discharge Planning ok to transfer to medical floor. Problem Qualifiers (1) Chronic back pain: Qualified Code: M54.5 - Chronic low back pain without sciatica, unspecified back pain laterality (2) COPD (chronic obstructive pulmonary disease): Qualified Code: J44.9 - Chronic obstructive pulmonary disease, unspecified COPD type (3) Leukocytosis: Qualified Code: D72.829 - Leukocytosis, unspecified type (4) GERD (gastroesophageal reflux disease): Qualified Code: K21.9 - Gastroesophageal reflux disease without esophagitis (5) Cardiomyopathy: Qualified Code: I42.9 - Cardiomyopathy, unspecified type Mook Tesfaye MD Mar 07, 2017 18:17
[2017-03-07] MEDS: traZODone HCL 50 MG TAB PO SCH (19:46)
[2017-03-08] VITALS (9 sets, daily range): BP systolic 113–126; BP diastolic 60–85; PULSE 70–85; RESP 18–20; TEMP 97.4–98; O2SAT 94–98
[2017-03-08] MEDS: RESP: ALBUTEROL 2.5 MG/IPRATROPIUM 0.5 MG NEB (SCH) INH ×2 (00:36→04:17)
[2017-03-08] MEDS: DILTIAZEM HCL 90 MG TAB PO SCH ×4 (02:29→20:28)
[2017-03-08] MEDS: CHLORHEXIDINE GLUCONATE 2 % 1 PACK (2 CLOTHS) TOP SCH (04:00)
[2017-03-08] MEDS: AZTREONAM INJ 2,000 MG in SODIUM CHLORIDE 0.9% INJ 100 ML IV SCH ×2 (05:07→16:21)
[2017-03-08] MEDS: AZITHROMYCIN INJ 500 MG in SODIUM CHLOR 0.9% 250 ML INJ 250 ML IV SCH (05:08)
[2017-03-08] MEDS: methylPREDNISolone SOD SUCC 40 MG/1 ML VIAL IV PUSH SCH ×3 (05:13→20:29)
[2017-03-08] MEDS: ARTIFICIAL TEARS OPTH SOLN 15 ML BTL EACH EYE SCH ×3 (05:15→20:31)
[2017-03-08] MEDS: INSULIN NovoLIN REGULAR SUPPLEMENTAL SCALE SQ SCH ×4 (06:02→20:28)
[2017-03-08 07:11] LABS: INTERNATIONAL NORMALIZED RATIO 1.4 RATIO; PROTHROMBIN TIME - PATIENT 15.3 SEC (9.8-11.6)
[2017-03-08 07:15] LABS: AUTOMATED NEUTROPHIL # 11.4 TH/MM3 (1.8-7.7); BASOPHIL % 0.1 % (0.0-2.0); HEMATOCRIT 36.2 % (39.0-51.0); LYMPH % 5.1 % (9.0-44.0); LYMPHOCYTE # 0.7 TH/MM3 (1.0-4.8); MEAN CORPUSCULAR HGB CONC 33.7 % (32.0-36.0); NEUT % 88.8 % (16.0-70.0); PLATELET COUNT 238 TH/MM3 (150-450); RED BLOOD COUNT 3.93 MIL/MM3 (4.50-5.90); WHITE BLOOD COUNT 12.9 TH/MM3 (4.0-11.0)
[2017-03-08 07:17] LABS: HEMO FLAGS AUTO DIFF
[2017-03-08 07:28] LABS: ALKALINE PHOSPHATASE 66 U/L (45-117); ALT (GPT) 43 U/L (12-78); ANION GAP 4 MEQ/L (5-15); AST (GOT) 30 U/L (15-37); BICARBONATE 31.4 MEQ/L (21.0-32.0); BLOOD UREA NITROGEN 23 MG/DL (7-18); CHLORIDE 106 MEQ/L (98-107); GLOMERULAR FILTRATION RATE 185 ML/MIN (>89); POTASSIUM 4.3 MEQ/L (3.5-5.1); SODIUM (NA) 141 MEQ/L (136-145); TOTAL BILIRUBIN ADULT 0.3 MG/DL (0.2-1.0)
[2017-03-08] MEDS: CHLORHEXIDINE 0.12% (ORAL KIT) 15 ML CUP MT SCH ×2 (08:00→19:34)
[2017-03-08] MEDS: LACTULOSE SYRUP 20 GM/30 ML CUP PO SCH (08:37)
[2017-03-08] MEDS: TIOTROPIUM BROMIDE 18 MCG INH INH SCH (08:37)
[2017-03-08] MEDS: SODIUM CHLORIDE 0.9% FLUSH 10 ML FLUSH IV FLUSH SCH ×2 (08:37→20:30)
[2017-03-08] MEDS: PANTOPRAZOLE SOD 20 MG DELAYED RELEASE TAB PO SCH (08:37)
[2017-03-08] MEDS: BUDESONIDE-FORMOTEROL 80/4.5 MCG INHALER INH SCH ×2 (08:37→20:30)
[2017-03-08] MEDS: DOCUSATE SODIUM 50 MG/SENNA 8.6 MG TAB PO SCH ×2 (08:37→20:29)
[2017-03-08] MEDS: RESP: ALBUTEROL 2.5 MG/3 ML NEB (PRN) INH ×2 (09:31→13:57)
[2017-03-08 10:01] LABS: BANDS 4 % (0-6); MYELOCYTES 3 % (0-0); POLYS (SEG NEUTROPHILS) 78 % (16-70); WBC DIFF SAMPLE 100
[2017-03-08 10:02] LABS: PLATELET ESTIMATE SMEAR NORMAL (NORMAL); PLATELET MORPHOLOGY NORMAL (NORMAL); SCAN/DIFF FINAL DIFF MANUAL
[2017-03-08] MEDS: ACETAMINOPHEN/HYDROcodone 325 MG/5 MG TAB PO PRN (12:41)
[2017-03-08] MEDS ORDERED: RESP: ALBUTEROL 2.5 MG/IPRATROPIUM 0.5 MG NEB (PRN) NEB (14:15)
--- NOTE | 2017-03-08 15:40 | HHI.PR ---
Subjective Remarks Pt states today, he is feeling better. Family state that he does look better. Pt feels he will need home oxygen especially at night. denies any chest pain, nausea or vomiting. decreased coughing. Pt tells me that he sees a PCP at the [facility] but has medicare and should be able to see pulm outside of [facility] however he doesn't know any one. Family very concerned as his last admission to hospital was about 1 month ago and per son he has had multiple admissions this past year. Objective Vitals Vital Signs Date Time Temp Pulse Resp B/P Pulse Ox O2 Delivery O2 Flow Rate FiO2 03/08/17 12:00 Nasal Cannula 3.00 03/08/17 12:00 97.7 81 20 114/72 95 03/08/17 09:33 94 Nasal Cannula 3.00 03/08/17 08:00 98.0 75 20 116/81 94 03/08/17 08:00 Nasal Cannula 4.00 03/08/17 08:00 75 03/08/17 04:00 97.4 75 20 120/74 96 03/08/17 00:00 97.6 70 19 113/77 98 03/08/17 00:00 Nasal Cannula 4.00 03/07/17 22:57 73 03/07/17 22:42 97.6 76 18 120/75 97 03/07/17 22:00 75 03/07/17 20:15 95 Nasal Cannula 5.00 03/07/17 20:09 20 03/07/17 20:00 98.3 75 16 115/77 91 03/07/17 20:00 75 03/07/17 19:00 91 Nasal Cannula 4.00 03/07/17 18:00 88 03/07/17 16:00 97.9 81 16 120/68 93 03/07/17 16:00 81 I/O 03/07/17 03/07/17 03/07/17 03/08/17 03/08/17 03/08/17 07:00 15:00 23:00 07:00 15:00 23:00 Intake Total 730 ml 1741 ml 120 ml Output Total 450 ml 500 ml 500 ml 450 ml Balance 280 ml 1241 ml -500 ml -330 ml Intake Oral 480 ml 1210 ml 120 ml IV Total 250 ml 531 ml Output Urine Total 450 ml 500 ml 500 ml 450 ml # Bowel Movements 1 Result Diagram: 03/08/17 0553 03/08/17 0553 Imaging Last Impressions Chest X-Ray 03/06/17 0600 Signed Impressions: Service Date/Time: Monday, March 06, 2017 04:16 - CONCLUSION: 1. Severe emphysema without evidence of acute infiltrate. 2. Interim extubation. Nasogastric tube remains in place, courses below the diaphragm. Som Arriaza MD Objective Remarks GENERAL: Patient is 56 well nourished male on nasal canula. CARDIOVASCULAR: Regular rate and rhythm without murmurs RESPIRATORY: breath sounds somewhat distant. no wheezing at this time. pt able to speak in full sentences GASTROINTESTINAL: Abdomen soft, non-tender, nondistended. MUSCULOSKELETAL: No cyanosis, or edema. A/P Problem List: (1) COPD exacerbation ICD Code: J44.1 Status: Acute (2) History of atrial fibrillation ICD Code: Z86.79 Status: Chronic (3) Chronic back pain ICD Code: M54.9 Status: Acute (4) Anxiety ICD Code: F41.9 Status: Chronic (5) COPD (chronic obstructive pulmonary disease) ICD Code: J44.9 Status: Chronic (6) Acute hypercapnic respiratory failure ICD Code: J96.02 Status: Resolved (7) Leukocytosis ICD Code: D72.829 Status: Acute (8) GERD (gastroesophageal reflux disease) ICD Code: K21.9 Status: Acute (9) Neuropathy ICD Code: G62.9 Status: Chronic (10) Cardiomyopathy ICD Code: I42.9 Status: Chronic (11) Warfarin anticoagulation ICD Code: Z79.01 Status: Chronic (12) Chronic prescription benzodiazepine use ICD Code: Z79.899 Status: Chronic (13) Degenerative globe disease ICD Code: H44.30 Status: Chronic (14) Arachnoid cyst ICD Code: G93.0 Status: Acute (15) History of TIA (transient ischemic attack) ICD Code: Z86.73 Status: Chronic (16) Restless leg syndrome ICD Code: G25.81 Status: Chronic (17) SIRS (systemic inflammatory response syndrome) ICD Code: R65.10 Status: Acute Assessment and Plan Restless leg syndrome Insomnia Depression Chronic benzodiazepine use Acetaminophen for fever [facility] prn for pain management Continue Requip 1 mg daily at bedtime for restless leg syndrome Ativan 1 mg every 6 when necessary will be continued History of paroxysmal atrial fibrillation Hypertension Chronic systolic heart failure Continue Cardizem CD 90 mg PO Q6 for A. fib/hypertension As needed labetalol for hypertension Echo showed EF 50-55% Heart catheterization 2011 Dr. Beverly revealed trivial LAD disease and irregular RCA. Acute Hypercapnic respiratory failure COPD Wean down oxygen as shane keep sat 89-92% Chest x-ray revealed bilateral upper lobe emphysematous changes Duo nebs every 4 hours with albuterol every 2 hours when necessary breakthrough Spiriva, Symbicort 80/4.5 2 puffs twice a day CXR 03/06 showed COPD changes with no acute infiltrate. 03/08 decrease Solumedrol 40 mg IV Q 12 hrs. will order walk test pulmonology consult- pt w multiple re-admission and doesn't see pulm as an outpatient Gastroesophageal reflux disease History of umbilical hernia repair Speech therapy recommends regular diet w thin liquids On Protonix for GI prophylaxis/gastroesophageal reflux disease. Flory-Colace for bowel regimen : Monitor renal function, I/O's, electrolytes replacement per protocol.. off IVFs s/p bumex x 1 Chronic prednisone use Sliding-scale insulin with Accu-Cheks On prednisone 5 mg daily at home Leukocytosis - likely steroid related Chronic warfarin use Home medications 2.5 mg 5 times a week and 5 mg 2 times a week. INR currently 2.5 Coumadin dosing per pharmacy On azithromycin and aztreonam Noted penicillin allergy 03/04 BC and sputum cx: NGTD 03/04 Strep pneumonia and Legionella urinary Ag neg 03/04 Nasal washing negative for Influenza Prophylaxis - GI - Protonix - DVT - SCD/on warfarin therapy with INR 1.4 Discharge Planning walk test ordered continue to wean steroids pulm consult in place pt counseled to avoid smoking- quit 1 month ago Problem Qualifiers (1) Chronic back pain: Qualified Code: M54.5 - Chronic low back pain without sciatica, unspecified back pain laterality (2) COPD (chronic obstructive pulmonary disease): Qualified Code: J44.9 - Chronic obstructive pulmonary disease, unspecified COPD type (3) Leukocytosis: Qualified Code: D72.829 - Leukocytosis, unspecified type (4) GERD (gastroesophageal reflux disease): Qualified Code: K21.9 - Gastroesophageal reflux disease without esophagitis (5) Cardiomyopathy: Qualified Code: I42.9 - Cardiomyopathy, unspecified type Julia Cross MD Mar 08, 2017 15:40
[2017-03-08] MEDS ORDERED: RESP: ALBUTEROL 2.5 MG/IPRATROPIUM 0.5 MG NEB (SCH) NEB (16:00)
[2017-03-08] MEDS: WARFARIN SOD 3 MG TAB PO SCH (16:16)
[2017-03-08] MEDS: ACETAMINOPHEN/HYDROcodone 325 MG/10 MG TAB PO PRN ×2 (18:41→23:40)
[2017-03-08] MEDS: RESP: ALBUTEROL 2.5 MG/IPRATROPIUM 0.5 MG NEB (SCH) NEB (19:19)
[2017-03-08] MEDS: traZODone HCL 50 MG TAB PO SCH (20:29)
--- NOTE | 2017-03-08 20:42 | MB ---
cc: Michael CALABRESE DATE OF CONSULTATION: 03/08/2017 HISTORY Mr. Goss is a 56-year-old white male with severe emphysema who presented in respiratory failure on 03/04. He required intubation, mechanical ventilatory support and was followed in the Intensive Care Unit, has subsequently been transferred to the floor and is now on 3 liters of nasal oxygen stable. Looking back through his record, he has been hospitalized now about seven times in the last nine months but this is the first time he has been on ventilator support. His outpatient care is at the [facility] and he does have Symbicort and Spiriva at home, has a nebulizer but does not use it consistently and has not been on oxygen. He quit smoking about six months ago but admits that he smokes on and off. He smoked at least 40-50 pack-years. He lives with his girlfriend and apparently she does not smoke. He does not complain of chest pain, no purulent sputum or hemoptysis, and his admission chest x-rays did not reveal any evidence of pneumonia. He does however have extensive emphysematous changes particularly in the upper lobes. The original diagnosis of COPD was reported to him about two or three years ago. PAST MEDICAL HISTORY 1. Recent onset of atrial fibrillation. 2. Hypertension. 3. History of anxiety and depression. 4. Previous hernia repair. 5. Deviated septum repair. 6. He is on permanent disability for lumbosacral degenerative arthritis. SOCIAL HISTORY He lives with his girlfriend. He has one son. 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 Drinks an occasional beer. Denies excessive alcohol use and no drug use. REVIEW OF SYSTEMS Other than that noted above, he has had no chronic edema, no recent abdominal complaints, no prior history of thromboembolic disease. He has not previously been seen by a analytical chemistry teacher through the [facility]. PHYSICAL EXAMINATION VITAL SIGNS: 97 degrees, 114/72, pulse is 80, respirations 18, and sat is 95-97% on 3 liters. HEENT: Sclerae anicteric. Mucous membranes are moist. NECK: No adenopathy in the neck or supraclavicular region. CHEST: Chest is actually quite clear, very diminished but no wheezes or congestion, no basilar rales. CARDIOVASCULAR: Regular rhythm. No harsh murmur. No audible S3. EXTREMITIES: No pitting edema or cyanosis, no clubbing. LABORATORY DATA Cultures have all been negative. White count is 12,000. Blood gas on 03/05 on 4 liters: His pO2 was 71, pH 7.4, pCO2 40, his pCO2 was 70 on arrival. PT/INR was therapeutic on presentation, it is low now, Coumadin is being adjusted. BUN and creatinine are normal. DISCUSSION Mr. Goss has significant emphysema at least based on his CT scan and chest x-rays but I have ordered a spirometry. Arterial blood gases actually normalized during this admission, his pCO2 at rest now is normal. He is on a very good bronchodilator regimen at present and we will continue that, if he is stable tomorrow we could switch him over to oral prednisone. I have explained to the patient that we will stabilize things here and then he needs careful followup at the [facility]. He has had very frequent readmissions and he should be in rehabilitation as well. He admits that at times he is not that consistent with his medical therapy, and I have explained to him that that will be essential going forward as well as not having any exposure to tobacco smoke. Thank you for asking me to see him with you in consultation. R. MD PING Bee/TINO /5:35 PM /8:26 PM
[2017-03-09] VITALS (10 sets, daily range): BP systolic 107–132; BP diastolic 69–80; PULSE 57–90; RESP 16–20; TEMP 97.3–97.7; O2SAT 92–99
[2017-03-09] MEDS: DILTIAZEM HCL 90 MG TAB PO SCH ×4 (02:52→20:13)
[2017-03-09] MEDS: CHLORHEXIDINE GLUCONATE 2 % 1 PACK (2 CLOTHS) TOP SCH (04:00)
[2017-03-09] MEDS: AZITHROMYCIN INJ 500 MG in SODIUM CHLOR 0.9% 250 ML INJ 250 ML IV SCH (04:27)
[2017-03-09] MEDS: AZTREONAM INJ 2,000 MG in SODIUM CHLORIDE 0.9% INJ 100 ML IV SCH ×2 (05:43→17:31)
[2017-03-09] MEDS: ARTIFICIAL TEARS OPTH SOLN 15 ML BTL EACH EYE SCH ×3 (05:43→20:17)
[2017-03-09] MEDS: ACETAMINOPHEN/HYDROcodone 325 MG/10 MG TAB PO PRN ×3 (05:50→20:14)
[2017-03-09] MEDS: INSULIN NovoLIN REGULAR SUPPLEMENTAL SCALE SQ SCH ×4 (06:03→20:17)
[2017-03-09] MEDS: CHLORHEXIDINE 0.12% (ORAL KIT) 15 ML CUP MT SCH ×2 (07:28→20:00)
[2017-03-09] MEDS: RESP: ALBUTEROL 2.5 MG/IPRATROPIUM 0.5 MG NEB (SCH) NEB ×4 (08:00→21:26)
[2017-03-09 08:54] LABS: INTERNATIONAL NORMALIZED RATIO 1.5 RATIO; PROTHROMBIN TIME - PATIENT 16.9 SEC (9.8-11.6)
[2017-03-09] MEDS: TIOTROPIUM BROMIDE 18 MCG INH INH SCH (09:00)
[2017-03-09] MEDS: SODIUM CHLORIDE 0.9% FLUSH 10 ML FLUSH IV FLUSH SCH ×2 (09:00→20:15)
[2017-03-09] MEDS: BUDESONIDE-FORMOTEROL 80/4.5 MCG INHALER INH SCH ×2 (09:00→20:16)
[2017-03-09] MEDS: methylPREDNISolone SOD SUCC 40 MG/1 ML VIAL IV PUSH SCH (10:00)
[2017-03-09] MEDS: DOCUSATE SODIUM 50 MG/SENNA 8.6 MG TAB PO SCH ×2 (10:00→20:14)
[2017-03-09] MEDS: LACTULOSE SYRUP 20 GM/30 ML CUP PO SCH (10:00)
[2017-03-09] MEDS: PANTOPRAZOLE SOD 20 MG DELAYED RELEASE TAB PO SCH (10:00)
--- NOTE | 2017-03-09 10:57 | RSPPFT ---
DATE OF PROCEDURE: 03/09/17 COMMENTS: VOLUMES DYNAMIC: FVC and FEV1 severely reduced. FLOWS: FEV1% and FEF 25-75 severely reduced. IMPRESSION: Severe obstructive ventilatory defect with improvement in the FVC post-bronchodilator.
[2017-03-09] MEDS ORDERED: OXYGENDME NAS.CANULA (13:03)
--- NOTE | 2017-03-09 13:12 | HHI.PR ---
Subjective Remarks Pt is feeling a bit improved compared to yesterday, however, pt still "winded" whenever he moves around. denies any CP/N/V Objective Vitals Vital Signs Date Time Temp Pulse Resp B/P Pulse Ox O2 Delivery O2 Flow Rate FiO2 03/09/17 10:48 3.00 03/09/17 09:03 92 Nasal Cannula 2.00 03/09/17 04:00 97.3 57 18 122/80 96 03/09/17 00:00 97.6 68 20 107/70 96 03/08/17 20:15 Nasal Cannula 3.00 03/08/17 20:05 77 03/08/17 20:00 97.9 81 20 126/85 96 03/08/17 16:13 97 Nasal Cannula 3.00 03/08/17 16:00 97.9 85 18 123/60 95 I/O 03/08/17 03/08/17 03/08/17 03/09/17 03/09/17 03/09/17 07:00 15:00 23:00 07:00 15:00 23:00 Intake Total 120 ml 360 ml 480 ml 240 ml Output Total 450 ml 400 ml 300 ml 850 ml Balance -330 ml -40 ml 180 ml -610 ml Intake Oral 120 ml 360 ml 480 ml 240 ml IV Total 0 ml Output Urine Total 450 ml 400 ml 300 ml 850 ml # Bowel Movements 2 0 1 Result Diagram: 03/08/17 0553 03/08/17 0553 Imaging Last Impressions Chest X-Ray 03/06/17 0600 Signed Impressions: Service Date/Time: Monday, March 06, 2017 04:16 - CONCLUSION: 1. Severe emphysema without evidence of acute infiltrate. 2. Interim extubation. Nasogastric tube remains in place, courses below the diaphragm. Som Arriaza MD Objective Remarks GENERAL: Patient is 56 well nourished male on nasal canula. CARDIOVASCULAR: Regular rate and rhythm without murmurs RESPIRATORY: breath sounds somewhat distant. no wheezing at this time. pt able to speak in full sentences GASTROINTESTINAL: Abdomen soft, non-tender, nondistended. MUSCULOSKELETAL: No cyanosis, or edema. A/P Problem List: (1) COPD exacerbation ICD Code: J44.1 Status: Acute (2) History of atrial fibrillation ICD Code: Z86.79 Status: Chronic (3) Chronic back pain ICD Code: M54.9 Status: Acute (4) Anxiety ICD Code: F41.9 Status: Chronic (5) COPD (chronic obstructive pulmonary disease) ICD Code: J44.9 Status: Chronic (6) Acute hypercapnic respiratory failure ICD Code: J96.02 Status: Resolved (7) Leukocytosis ICD Code: D72.829 Status: Acute (8) GERD (gastroesophageal reflux disease) ICD Code: K21.9 Status: Acute (9) Neuropathy ICD Code: G62.9 Status: Chronic (10) Cardiomyopathy ICD Code: I42.9 Status: Chronic (11) Warfarin anticoagulation ICD Code: Z79.01 Status: Chronic (12) Chronic prescription benzodiazepine use ICD Code: Z79.899 Status: Chronic (13) Degenerative globe disease ICD Code: 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.30 Status: Chronic (14) Arachnoid cyst ICD Code: G93.0 Status: Acute (15) History of TIA (transient ischemic attack) ICD Code: Z86.73 Status: Chronic (16) Restless leg syndrome ICD Code: G25.81 Status: Chronic (17) SIRS (systemic inflammatory response syndrome) ICD Code: R65.10 Status: Acute Assessment and Plan Restless leg syndrome Insomnia Depression Chronic benzodiazepine use Acetaminophen for fever [facility] prn for pain management Continue Requip 1 mg daily at bedtime for restless leg syndrome Ativan 1 mg every 6 when necessary will be continued History of paroxysmal atrial fibrillation Hypertension Chronic systolic heart failure Continue Cardizem CD 90 mg PO Q6 for A. fib/hypertension As needed labetalol for hypertension Echo showed EF 50-55% Heart catheterization 2011 Dr. Beverly revealed trivial LAD disease and irregular RCA. Acute Hypercapnic respiratory failure COPD Wean down oxygen as shane keep sat 89-92% Chest x-ray revealed bilateral upper lobe emphysematous changes Duo nebs every 4 hours with albuterol every 2 hours when necessary breakthrough Spiriva, Symbicort 80/4.5 2 puffs twice a day CXR 03/06 showed COPD changes with no acute infiltrate. 03/09 pulm evaluate pt and has transitioned him to prednisone and performed PFTs which showed severe COPD. walk test was done and pt will require home oxygen 3L continuous. Gastroesophageal reflux disease History of umbilical hernia repair Speech therapy recommends regular diet w thin liquids On Protonix for GI prophylaxis/gastroesophageal reflux disease. Flory-Colace for bowel regimen : Monitor renal function, I/O's, electrolytes replacement per protocol.. off IVFs s/p bumex x 1 Chronic prednisone use Sliding-scale insulin with Accu-Cheks On prednisone 5 mg daily at home Leukocytosis - likely steroid related Chronic warfarin use Home medications 2.5 mg 5 times a week and 5 mg 2 times a week. INR currently 1.5 Coumadin dosing per pharmacy On azithromycin and aztreonam Noted penicillin allergy 03/04 BC and sputum cx: NGTD 03/04 Strep pneumonia and Legionella urinary Ag neg 03/04 Nasal washing negative for Influenza Prophylaxis - GI - Protonix - DVT - SCD/on warfarin therapy Discharge Planning pt counseled to avoid smoking- quit 1 month ago monitor pt on po prednisone, anticipate discharge in am Problem Qualifiers (1) Chronic back pain: Qualified Code: M54.5 - Chronic low back pain without sciatica, unspecified back pain laterality (2) COPD (chronic obstructive pulmonary disease): Qualified Code: J44.9 - Chronic obstructive pulmonary disease, unspecified COPD type (3) Leukocytosis: Qualified Code: D72.829 - Leukocytosis, unspecified type (4) GERD (gastroesophageal reflux disease): Qualified Code: K21.9 - Gastroesophageal reflux disease without esophagitis (5) Cardiomyopathy: Qualified Code: I42.9 - Cardiomyopathy, unspecified type Julia Cross MD Mar 09, 2017 13:12
[2017-03-09] MEDS: predniSONE 10 MG TAB PO SCH (14:19)
[2017-03-09] MEDS: WARFARIN SOD 3 MG TAB PO SCH (16:44)
[2017-03-09] MEDS: traZODone HCL 50 MG TAB PO SCH (20:14)
[2017-03-10 00:18] VITALS: BP 113/70; PULSE 65; RESP 16; TEMP 97.4; O2SAT 96
[2017-03-10 04:00] VITALS: BP 118/78; PULSE 64; RESP 16; TEMP 97.4; O2SAT 97
[2017-03-10] MEDS: CHLORHEXIDINE GLUCONATE 2 % 1 PACK (2 CLOTHS) TOP SCH (04:00)
[2017-03-10] MEDS: DILTIAZEM HCL 90 MG TAB PO SCH ×3 (04:34→14:28)
[2017-03-10] MEDS: AZITHROMYCIN INJ 500 MG in SODIUM CHLOR 0.9% 250 ML INJ 250 ML IV SCH (04:35)
[2017-03-10] MEDS: ARTIFICIAL TEARS OPTH SOLN 15 ML BTL EACH EYE SCH ×2 (05:35→14:00)
[2017-03-10] MEDS: AZTREONAM INJ 2,000 MG in SODIUM CHLORIDE 0.9% INJ 100 ML IV SCH (05:35)
[2017-03-10] MEDS: ACETAMINOPHEN/HYDROcodone 325 MG/10 MG TAB PO PRN ×2 (05:36→12:05)
[2017-03-10] MEDS: INSULIN NovoLIN REGULAR SUPPLEMENTAL SCALE SQ SCH ×2 (06:02→11:00)
[2017-03-10 08:00] VITALS: BP 125/69; PULSE 68; RESP 18; TEMP 96.6; O2SAT 94
[2017-03-10] MEDS: CHLORHEXIDINE 0.12% (ORAL KIT) 15 ML CUP MT SCH (08:00)
[2017-03-10 08:23] LABS: INTERNATIONAL NORMALIZED RATIO 1.8 RATIO; PROTHROMBIN TIME - PATIENT 20.3 SEC (9.8-11.6)
[2017-03-10] MEDS: LACTULOSE SYRUP 20 GM/30 ML CUP PO SCH (08:58)
[2017-03-10] MEDS: DOCUSATE SODIUM 50 MG/SENNA 8.6 MG TAB PO SCH (08:59)
[2017-03-10] MEDS: PANTOPRAZOLE SOD 20 MG DELAYED RELEASE TAB PO SCH (08:59)
[2017-03-10] MEDS: predniSONE 10 MG TAB PO SCH (08:59)
[2017-03-10] MEDS: SODIUM CHLORIDE 0.9% FLUSH 10 ML FLUSH IV FLUSH SCH (08:59)
[2017-03-10] MEDS: TIOTROPIUM BROMIDE 18 MCG INH INH SCH (09:00)
[2017-03-10] MEDS: BUDESONIDE-FORMOTEROL 80/4.5 MCG INHALER INH SCH (09:00)
[2017-03-10] MEDS: RESP: ALBUTEROL 2.5 MG/IPRATROPIUM 0.5 MG NEB (SCH) NEB ×2 (09:49→12:54)
[2017-03-10 09:53] VITALS: O2SAT 94
[2017-03-10] MEDS ORDERED: SYMB80AE INH (10:36)
[2017-03-10] MEDS ORDERED: SPIRCAP INH (10:36)
[2017-03-10] MEDS ORDERED: PRED10 PO (10:36)
[2017-03-10] MEDS ORDERED: NEBULIZER1 MI1 (10:37)
[2017-03-10] MEDS ORDERED: IPRASOL INH (10:37)
--- NOTE | 2017-03-10 10:38 | HHI.DS ---
Discharge Summary Admission Date Mar 04, 2017 at 05:50 Discharge Date: Mar 10, 2017 Admitting Diagnosis COPD exacerbation, hypercarbic respiratory failure (1) COPD exacerbation ICD Code: J44.1 Diagnosis: Principal (2) History of atrial fibrillation ICD Code: Z86.79 Diagnosis: Secondary (3) Chronic back pain ICD Code: M54.9 Diagnosis: Secondary (4) Anxiety ICD Code: F41.9 Diagnosis: Secondary (5) Acute hypercapnic respiratory failure ICD Code: J96.02 Diagnosis: Principal (6) Leukocytosis ICD Code: D72.829 Diagnosis: Principal (7) GERD (gastroesophageal reflux disease) ICD Code: K21.9 Diagnosis: Secondary (8) Neuropathy ICD Code: G62.9 Diagnosis: Secondary (9) Cardiomyopathy ICD Code: I42.9 Diagnosis: Secondary (10) Warfarin anticoagulation ICD Code: Z79.01 Diagnosis: Principal (11) Restless leg syndrome ICD Code: G25.81 Diagnosis: Secondary (12) SIRS (systemic inflammatory response syndrome) ICD Code: R65.10 Diagnosis: Principal Procedures intubation/extubation Brief History - From Admission 56-year-old male. Date of admission 03/04/2017. 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 Paroxysmal atrial fibrillation, underlying COPD on 2 L nasal cannula chronic, hiatal hernia, degenerative disc disease, chronic benzodiazepine use and chronic warfarin use. He states he has been intubated in the past for his underlying lung disease. He is currently being seen in [facility]. He is somewhat lethargic after receiving 1 mg of Ativan in the ED while on BiPAP.. He presented to [facility] emergent department via EMS for progressive worsening trouble breathing started throughout the day today. He attempted to use his bronchodilators at home without success. He called EMS for further evaluation. At [facility], initial blood gas revealed significant respiratory acidosis. He is placed on BiPAP 12/6 at 25% FiO2. Not much improvement noted. Chest x-ray showed sinus changes in the upper lobes bilaterally. White cell count 12,000. Troponin 0.02. Rate controlled A. fib. Received 125 mg Solu-Medrol IV and bronchodilator therapy. He is arousable and will intermittently follow commands. Additional information is hard to obtain. He denied tobacco use but past records states he has a 40 year pack history quit 1 year ago. Girlfriend smokes. CBC/BMP: 03/08/17 0553 03/08/17 0553 Significant Findings Laboratory Tests Test 03/08/17 03/09/17 03/10/17 05:53 07:07 07:52 White Blood Count 12.9 TH/MM3 (4.0-11.0) Red Blood Count 3.93 MIL/MM3 (4.50-5.90) Hemoglobin 12.2 GM/DL (13.0-17.0) Hematocrit 36.2 % (39.0-51.0) Neutrophils (%) (Auto) 88.8 % (16.0-70.0) Lymphocytes (%) (Auto) 5.1 % (9.0-44.0) Neutrophils # (Auto) 11.4 TH/MM3 (1.8-7.7) Lymphocytes # (Auto) 0.7 TH/MM3 (1.0-4.8) Neutrophils % (Manual) 78 % (16-70) Lymphocytes % 7 % (9-44) Neutrophils # (Manual) 11.0 TH/MM3 (1.8-7.7) Myelocytes 3 % (0-0) Prothrombin Time 15.3 SEC 16.9 SEC 20.3 SEC (9.8-11.6) (9.8-11.6) (9.8-11.6) Anion Gap 4 MEQ/L (5-15) Blood Urea Nitrogen 23 MG/DL (7-18) Creatinine 0.47 MG/DL (0.60-1.30) Random Glucose 111 MG/DL (74-106) Total Protein 6.1 GM/DL (6.4-8.2) Albumin 2.7 GM/DL (3.4-5.0) Imaging Last Impressions Chest X-Ray 03/06/17 0600 Signed Impressions: Service Date/Time: Monday, March 06, 2017 04:16 - CONCLUSION: 1. Severe emphysema without evidence of acute infiltrate. 2. Interim extubation. Nasogastric tube remains in place, courses below the diaphragm. Som Arriaza MD PE at Discharge GENERAL: Patient is 56 well nourished male on nasal canula. CARDIOVASCULAR: Regular rate and rhythm without murmurs RESPIRATORY: breath sounds somewhat distant. no wheezing at this time. pt able to speak in full sentences GASTROINTESTINAL: Abdomen soft, non-tender, nondistended. MUSCULOSKELETAL: No cyanosis, or edema. Pt update on day of discharge pt states he continues to feel better, does get SOB w exertion but he has improved. Excited to go home today. denies any CP/N/v Hospital Course Acute Hypercapnic respiratory failure severe COPD exacerbation s/p intubation/extubation. pt requires home oxygen 3L continuous. Wean down oxygen as shane keep sat 89-92% Chest x-ray revealed bilateral upper lobe emphysematous changes and PFTs showed severe obstructive ventilatory defect script Duo nebs every 6 hours scripts for Spiriva, Symbicort in chart Pt was treated w Aztreonam/azithromycin 03/09 slot operations director evaluated the pt and transitioned him to prednisone (from IV solumedrol) w strong recommendations that he f/u w pulm as an outpatient at the [facility] Leukocytosis - likely steroid related Chronic warfarin use Home medications 2.5 mg 5 times a week and 5 mg 2 times a week. INR currently 1.5 Coumadin dosing per pharmacy 03/04 BC and sputum cx: NGTD 03/04 Strep pneumonia and Legionella urinary Ag neg 03/04 Nasal washing negative for Influenza Pt Condition on Discharge: Stable Discharge Disposition: Disch w/ Home Health Serv Discharge Time: > 30 minutes Discharge Instructions DIET: Follow Instructions for: Heart Healthy Diet Activities you can perform: Regular-No Restrictions Follow up Referrals: PCP Follow-up - 03/13/17 Pulmonology - 1 Week SNF/[facility]/ with [facility] New Medications: Ipratropium-Albuterol Neb (Duoneb) 0.5-2.5 Mg/3 Ml Neb 1 NEBULE INH Q6HR NEB Breathing Treatment #120 Ref 0 NEBULE Nebulizer (Nebulizer) 1 Mis Mis 1 EA .ROUTE DIRECTED Breathing Treatment #1 Ref 0 EA Oxygen (O2) (Oxygen (O2)) Device 2 LITER FRANK.CANULA CONTINUOUS Oxygen Concentrator Portable Gaseous 2 L/min via Nasal Canula Continuous For 99 months Prevent Hypoxemia #3 CYLINDER Walker with Front Wheels (Walker with Front Wheels) 1 Mis Mis 1 EA .ROUTE DIRECTED #1 Ref 0 EA Prednisone (Prednisone) 10 Mg Tab 30 MG PO DAILY 30mg po daily x 3 days then 20mg po daily x 3 days then 10mg po daily x 3 days. Days 9 TAB Continued Medications: Albuterol 18 GM Inh (Ventolin Hfa 18 GM Inh) 90 Mcg/Act Aer 2 PUFF INH Q4H PRN SHORTNESS OF BREATH #1 Ref 0 INHALER Budesonide-Formoterol Inh (Symbicort Inh) 80-4.5 Mcg/Act Aero 2 PUFF INH Q12HR Asthma Management #1 Ref 0 INHALER (This prescription has been renewed) Cyclobenzaprine (Flexeril) 10 Mg Tab 10 MG PO HS Muscle Spasm #90 Ref 0 TAB Diltiazem (Cardizem) 120 Mg Tab 360 MG PO DAILY Angina #120 Ref 0 TAB Lorazepam (Ativan) 1 Mg Tab 1 MG PO Q6H PRN ANXIETY AND/OR AGITATION Ref 0 TAB Omeprazole (Omeprazole) 20 Mg Tab 20 MG PO DAILY #30 Ref 0 TAB Ropinirole (Requip) 1 Mg Tab 1 MG PO HS #30 Ref 0 TAB Tiotropium Inh (Spiriva Handihaler) 18 Mcg Cap 18 MCG INH DAILY 1 capsule = 18 mcg COPD #30 Ref 0 CAP (This prescription has been renewed) Trazodone (Trazodone) 50 Mg Tab 50 MG PO HS Control Depression #30 Ref 0 TAB Warfarin (Coumadin) 5 Mg Tab 5 MG PO 2XWEEK Blood Clot Prevention #30 Ref 0 TAB Warfarin (Coumadin) 2.5 Mg Tab 2.5 MG PO DAILY Prevent Blood Clot #30 Ref 0 TAB Discontinued Medications: Levofloxacin (Levofloxacin) 500 Mg Tab 500 MG PO DAILY Infection #5 Ref 0 TAB Oxygen tank (Oxygen tank) 1 Ea Tank 2 LITER FRANK.CANULA CONTINUOUS Oxygen Concentrator Portable Gaseous 2 L/min via Nasal Cannula Continuous For 99 months HYPOXEMIA PREVENTION #2 CYLINDER Prednisone (Prednisone) 20 Mg Tab 40 MG PO DAILY Take 40 mg (2 tablets) daily for 5 days Shortness of Breath #10 Ref 0 TAB Julia Cross MD Mar 10, 2017 10:38
[2017-03-10 12:00] VITALS: BP 122/61; PULSE 69; RESP 18; TEMP 97.9; O2SAT 91
[2017-03-10] MEDS ORDERED: WALKER WHEELS/F1 MIS (15:13)
--- NOTE | 2017-03-10 15:16 | HHI.FF ---
Face to Face Verification Diagnosis: (1) COPD exacerbation (2) Hypoxia (3) Chronic back pain Physical Therapy Order: Evaluate and Treat Home Health Nursing Order: Medical education Signs/symptoms of disease process Oxygen administration education Nursing assessment with vital signs I have seen patient Som Goss on 03/10/17. My clinical findings support the need for the requested home health care services because: Pt requiring home oxygen and PT evaluated pt and needs home PT Patient has SOB Deconditioned w/ increased weakness Limited ability to care for self I certify that my clinical findings support that this patient is homebound because: Pt requiring home oxygen and PT evaluated pt and needs home PT Hx COPD- exertion dyspnea/weakness Unsteady gait/balance Julia Cross MD Mar 10, 2017 15:16
== END 2017-03-10 15:55 | disposition home or self-care (01) | DRG 208 ==
LOC: NEPC 04:38 → NEDA 05:50 → HIMN 11:35 → N04B 03-07 22:43
PROVIDERS: ADMIT Hospitalist; ATTEND Hospitalist
PROC: 5A09357 Assistance with Respiratory Ventilation, Less than 24 Consecutive Hours, Continuous Positive Airway Pressure (ICD-10-PCS; principal; 2017-03-04)
PROC: 5A1945Z Respiratory Ventilation, 24-96 Consecutive Hours (ICD-10-PCS; 2017-03-04)
PROC: 0BH17EZ Insertion of Endotracheal Airway into Trachea, Via Natural or Artificial Opening (ICD-10-PCS; 2017-03-04)
DX: J44.1 Chronic obstructive pulmonary disease with (acute) exacerbation (principal); J96.02 Acute respiratory failure with hypercapnia; E87.2 Acidosis; I42.9 Cardiomyopathy, unspecified; I48.0 Paroxysmal atrial fibrillation; G25.81 Restless legs syndrome; I50.22 Chronic systolic (congestive) heart failure; I11.0 Hypertensive heart disease with heart failure; Z79.52 Long term (current) use of systemic steroids; Z79.01 Long term (current) use of anticoagulants; F32.9 Major depressive disorder, single episode, unspecified; F41.9 Anxiety disorder, unspecified; Z86.73 Personal history of transient ischemic attack (TIA), and cerebral infarction without residual deficits; Z88.0 Allergy status to penicillin; Z88.8 Allergy status to other drugs, medicaments and biological substances; M47.9 Spondylosis, unspecified; K21.9 Gastro-esophageal reflux disease without esophagitis; K44.9 Diaphragmatic hernia without obstruction or gangrene; G47.00 Insomnia, unspecified; Z79.899 Other long term (current) drug therapy; G89.29 Other chronic pain; M54.5 Low back pain; G93.0 Cerebral cysts; G57.92 Unspecified mononeuropathy of left lower limb; Z80.8 Family history of malignant neoplasm of other organs or systems; Z82.49 Family history of ischemic heart disease and other diseases of the circulatory system; Z99.81 Dependence on supplemental oxygen
CPT/HCPCS: 31500; 36600; 71010; 80048; 80053; 80076; 81001; 82140; 82550; 82805; 82948; 83605; 83735; 83880; 84100; 84484; 85007; 85025; 85027; 85610; 85730; 87040; 87070; 87205; 87449; 87641; 87804; 93005; 93306; 94002; 94003; 94060; 94150; 94620; 94640; 94664; 96365; 96375; J0456; J2060; J2270; J2405; J2920; J2930; J3010; J3411; J3475; J7030; J7040; J7050; J7512; J7613

== ENCOUNTER 2017-03-14 16:30 | Emergency (ER) | payer MEDICARE ==
[~2017-03-14] VITALS: Ht 182.9 cm; Wt 76.0 kg
[~2017-03-14 16:30] MED LIST changes: +IPRASOL INH; -LEVO500T3 PO; +NEBULIZER1 MI1; +OXYGENDME NAS.CANULA; -OXYGENTANK NAS.CANULA; +PRED10 PO; -PRED20 PO; +WALKER WHEELS/F1 MIS
[2017-03-14 16:32] VITALS: BP 131/78; PULSE 89; RESP 17; TEMP 97.8; O2SAT 95
--- NOTE | 2017-03-14 16:52 | PD ---
Physical Exam Date Seen by Provider: Mar 14, 2017 Time Seen by Provider: 16:49 Data Data Last Documented VS Vital Signs Date Time Temp Pulse Resp B/P Pulse Ox O2 Delivery O2 Flow Rate FiO2 03/14/17 16:32 97.8 89 17 131/78 95 Nasal Cannula 3 MDM Supervised Visit with CONNIE: No Narrative Course 56 YO M with complaint of painful swelling of BLE upon waking today. Dc'd 03/10 from hospital, tx'd for CHF and respiratory failure. Vitals reviewed. Patient seen in triage, awaiting bed placement. Gloria Tellez Mar 14, 2017 16:52
[2017-03-15] MEDS ORDERED: ALLE4TAB28 PO (09:08)
[2017-03-15] MEDS ORDERED: HYDR-3583 PO (09:08)
[2017-03-15] MEDS ORDERED: RANI150T PO (09:08)
[2017-03-15] MEDS ORDERED: FURO1TAB62 PO (11:15)
== END 2017-03-14 18:50 | disposition left against medical advice (07) ==
LOC: NED 16:30
DX: R22.43 Localized swelling, mass and lump, lower limb, bilateral (principal); M79.604 Pain in right leg; M79.605 Pain in left leg
CPT/HCPCS: 99281

== ENCOUNTER 2017-03-15 08:44 | Emergency (ER) | payer MEDICARE ==
[~2017-03-15] VITALS: Ht 182.9 cm; Wt 70.0 kg
[2017-03-15 08:45] VITALS: BP 117/92; PULSE 62; RESP 24; TEMP 98.1; O2SAT 97
[2017-03-15 09:05] VITALS: BP 144/86; PULSE 62; RESP 18; O2SAT 98
[2017-03-15] MEDS ORDERED: RANI150T PO (09:08)
[2017-03-15] MEDS ORDERED: HYDR-3583 PO (09:08)
[2017-03-15] MEDS ORDERED: ALLE4TAB28 PO (09:08)
[2017-03-15] MEDS ORDERED: FUROSEMIDE 40 MG/4 ML VIAL IV PUSH ONE (09:30)
[2017-03-15] MEDS ORDERED: SODIUM CHLORIDE 0.9% FLUSH 10 ML FLUSH IVF PRN (09:30)
[2017-03-15 09:38] LABS: AUTOMATED NEUTROPHIL # 18.4 TH/MM3 (1.8-7.7); BASOPHIL % 0.1 % (0.0-2.0); EOSINOPHIL # 0.1 TH/MM3 (0-0.4); EOSINOPHIL % 0.3 % (0.0-4.0); HEMATOCRIT 38.7 % (39.0-51.0); HEMO FLAGS DIFF FINAL; LYMPH % 6.2 % (9.0-44.0); LYMPHOCYTE # 1.3 TH/MM3 (1.0-4.8); MEAN CORPUSCULAR HEMOGLOBIN 30.2 PG (27.0-34.0); MEAN CORPUSCULAR HGB CONC 33.2 % (32.0-36.0); MONO % 3.2 % (0.0-8.0); NEUT % 90.2 % (16.0-70.0); PLATELET COUNT 229 TH/MM3 (150-450); RED BLOOD COUNT 4.25 MIL/MM3 (4.50-5.90); RED CELL DISTRIBUTION WIDTH 13.9 % (11.6-17.2); WHITE BLOOD COUNT 20.3 TH/MM3 (4.0-11.0)
--- NOTE | 2017-03-15 09:45 | RADRPT ---
EXAM DATE/TIME: 03/15/2017 09:47 [facility] COMPARISON: CHEST SINGLE AP, March 06, 2017, 4:16. INDICATIONS : Cough and shortness of breath. MEDICAL HISTORY : Chronic obstructive pulmonary disease. SURGICAL HISTORY : None. ENCOUNTER: Initial ACUITY: 1 day PAIN SCORE: 0/10 LOCATION: Bilateral chest FINDINGS: Emphysema and basilar interstitial thickening which appears similar to prior. No evidence of airspace consolidation or pleural effusion. There are contours are unchanged. Thoracic skeleton is intact. CONCLUSION: Emphysema and grossly stable interstitial changes. Som Smith MD on March 15, 2017 at 9:42 Board Certified Radiologist. This report was verified electronically.
[2017-03-15 09:46] LABS: APTT (PATIENT) 34.5 SEC (24.3-30.1); INTERNATIONAL NORMALIZED RATIO 1.9 RATIO; PROTHROMBIN TIME - PATIENT 21.1 SEC (9.8-11.6)
--- NOTE | 2017-03-15 09:58 | PD ---
HPI Chief Complaint: Cardiac Complaint Time Seen by Provider: 09:06 Travel History International Travel<30 days: No Contact w/Intl Traveler<30days: No Traveled to known affect area: No History of Present Illness HPI Patient is a 56-year-old male with a history of COPD and CHF presents emergency department for evaluation of lower extremity edema. Patient has notable history of being on 3 L of oxygen all times at home. He was recently admitted and discharged this hospital for shortness of breath and hypercapnic respiratory failure was diagnosed with some mild CHF that time. The patient states that he tried to follow-up with his physicians at the [place] however apparently his physicians were fired and they're currently looking for new physicians for him. Patient states that his home health care nurse noticed the extremity swelling on his legs and recommended that he come to the hospital yesterday, he came in yesterday and ultimately left prior to being roomed in the emergency department. No chest pain denies any shortness of breath abdominal pain nausea vomiting diarrhea PFSH Past Medical History Hx Anticoagulant Therapy: Yes Arthritis: No Asthma: Yes Anxiety: Yes Depression: Yes Heart Rhythm Problems: Yes (A-FIB) Cancer: Yes (FAMILY HISTORY ) Cardiac Catheterization: No Cardiovascular Problems: Yes (afib,chf) High Cholesterol: No Chest Pain: Yes Congestive Heart Failure: No COPD: Yes Cerebrovascular Accident: Yes (2 "mini") Coronary Artery Disease: Yes (AFIB) Diabetes: No Diminished Hearing: No Endocrine: No Gastrointestinal Disorders: No Headaches: Yes Hiatal Hernia: Yes Hypertension: Yes Immune Disorder: No Implanted Vascular Access Dvce: No Musculoskeletal: Yes (NERVE DAMAGE) Neurologic: Yes (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) Psychiatric: Yes Respiratory: Yes Migraines: Yes Sickle Cell Disease: No Thyroid Disease: No Ulcer: Yes PNEUMOCCOCAL Vaccine (Year): 1 Past Surgical History Abdominal Surgery: Yes (HIATAL HERNIA REPAIR, DEVIATED SEPTUM) AICD: No Arteriovenous Shunt: No Cardiac Surgery: No Coronary Artery Bypass Graft: No Ear Surgery: No Endocrine Surgery: No Eye Surgery: No Genitourinary Surgery: No Insulin Pump: No Joint Replacement: No Neurologic Surgery: No Oral Surgery: Yes Pacemaker: No Thoracic Surgery: No Other Surgery: No Social History Alcohol Use: Yes (PT STATES "BEER EVERY NOW AND THEN") Tobacco Use: Yes (FORMER HEAVY SMOKER) Substance Use: No Allergies-Medications (Allergen,Severity, Reaction): Coded Allergies: Gabapentin (Verified Allergy, Severe, Shortness of Breath, 03/15/17) Pt states he had a bad reaction to Gabapentin. states "my throat swole and it was hard for me to breath." Penicillin (Verified Allergy, Severe, "ALL CILLINS" PER PT, 03/15/17) Amoxicillin (Verified Allergy, Unknown, 03/15/17) Uncoded Allergies: ALL CILLINS (Allergy, Unknown, 06/15/10) Reported Meds & Prescriptions Reported Meds & Active Scripts Active Lasix (Furosemide) 20 Mg Tab 20 Mg PO DAILY Walker with Front Wheels (Device) 1 Mis Mis 1 Ea .ROUTE DIRECTED Nebulizer 1 Mis Mis 1 Ea .ROUTE DIRECTED Duoneb (Ipratropium-Albuterol Neb) 0.5-2.5 Mg/3 Ml Neb 1 Nebule INH Q6HR NEB Prednisone 10 Mg Tab 30 Mg PO DAILY 9 Days 30mg po daily x 3 days then 20mg po daily x 3 days then 10mg po daily x 3 days. Spiriva Handihaler (Tiotropium Inh) 18 Mcg Cap 18 Mcg INH DAILY 1 capsule = 18 mcg Symbicort Inh (Budesonide/Formoterol Fumarate) 80-4.5 Mcg/Act Aero 2 Puff INH Q12HR Oxygen (O2) Device 2 Liter FRANK.CANULA CONTINUOUS Oxygen Concentrator Portable Gaseous 2 L/min via Nasal Canula Continuous For 99 months Cardizem (Diltiazem HCl) 120 Mg Tab 360 Mg PO DAILY Ventolin Hfa 18 GM Inh (Albuterol Sulfate) 90 Mcg/Act Aer 2 Puff INH Q4H PRN Reported Allergy Relief (Chlorpheniramine Maleate) 4 Mg Tab Unknown Dose PO DAILY PRN Ranitidine (Ranitidine HCl) 150 Mg Tab Unknown Dose PO BID Hydrocodone-Acetaminophen 10-325 mg Tab 1 Tab PO Q4H PRN Coumadin (Warfarin) 2.5 Mg Tab 2.5 Mg PO DAILY Coumadin (Warfarin) 5 Mg Tab 5 Mg PO 2XWEEK M AND MON Trazodone (Trazodone HCl) 50 Mg Tab 50 Mg PO HS Requip (Ropinirole) 1 Mg Tab 1 Mg PO HS Ativan (Lorazepam) 1 Mg Tab 1 Mg PO Q6H PRN Flexeril (Cyclobenzaprine HCl) 10 Mg Tab 10 Mg PO HS Review of Systems Except as stated in HPI: all other systems reviewed are Neg Physical Exam Narrative GENERAL: Well-developed well-nourished no apparent distress SKIN: Focused skin assessment warm/dry. HEAD: Atraumatic. Normocephalic. EYES: Pupils equal and round. No scleral icterus. No injection or drainage. ENT: No nasal bleeding or discharge. Mucous membranes pink and moist. NECK: Trachea midline. No JVD. CARDIOVASCULAR: Regular rate and rhythm. No murmur appreciated. RESPIRATORY: No accessory muscle use. Clear to auscultation. Breath sounds equal bilaterally. GASTROINTESTINAL: Abdomen soft, non-tender, nondistended. Hepatic and splenic margins not palpable. MUSCULOSKELETAL: No obvious deformities. No clubbing. No cyanosis. Patient has pitting edema quite deep of bilateral feet without extension proximally to the ankle. Pulses are 2+ bilaterally equal in all 4 extremity's. Signs of adequate perfusion. No erythema. Homans sign negative. NEUROLOGICAL: Awake and alert. No obvious cranial nerve deficits. Motor grossly within normal limits. Normal speech. PSYCHIATRIC: Appropriate mood and affect; insight and judgment normal. Data Data Last Documented VS Vital Signs Date Time Temp Pulse Resp B/P Pulse Ox O2 Delivery O2 Flow Rate FiO2 03/15/17 09:20 98 Nasal Cannula 3 03/15/17 09:11 59 19 03/15/17 09:05 144/86 03/15/17 08:45 98.1 Orders Electrocardiogram (03/15/17 09:20) B-Type Natriuretic Peptide (03/15/17 09:20) Ckmb (Isoenzyme) Profile (03/15/17 09:20) Complete Blood Count With Diff (03/15/17 09:20) Comprehensive Metabolic Panel (03/15/17 09:20) Magnesium (Mg) (03/15/17 09:20) Prothrombin Time / Inr (Pt) (03/15/17 09:20) Act Partial Throm Time (Ptt) (03/15/17 09:20) Troponin I (03/15/17 09:20) Ecg Monitoring (03/15/17 09:20) Iv Access Insert/Monitor (03/15/17 09:20) Oximetry (03/15/17 09:20) Oxygen Administration (03/15/17 09:20) Sodium Chloride 0.9% Flush (Ns Flush) (03/15/17 09:30) Chest, Pa & Lat (03/15/17 09:20) Furosemide Inj (Lasix Inj) (03/15/17 09:30) Labs Laboratory Tests Test 03/15/17 09:25 White Blood Count 20.3 TH/MM3 Red Blood Count 4.25 MIL/MM3 Hemoglobin 12.8 GM/DL Hematocrit 38.7 % Mean Corpuscular Volume 91.0 FL Mean Corpuscular Hemoglobin 30.2 PG Mean Corpuscular Hemoglobin 33.2 % Concent Red Cell Distribution Width 13.9 % Platelet Count 229 TH/MM3 Mean Platelet Volume 9.2 FL Neutrophils (%) (Auto) 90.2 % Lymphocytes (%) (Auto) 6.2 % Monocytes (%) (Auto) 3.2 % Eosinophils (%) (Auto) 0.3 % Basophils (%) (Auto) 0.1 % Neutrophils # (Auto) 18.4 TH/MM3 Lymphocytes # (Auto) 1.3 TH/MM3 Monocytes # (Auto) 0.6 TH/MM3 Eosinophils # (Auto) 0.1 TH/MM3 Basophils # (Auto) 0.0 TH/MM3 CBC Comment DIFF FINAL Differential Comment Prothrombin Time 21.1 SEC Prothromb Time International 1.9 RATIO Ratio Activated Partial 34.5 SEC Thromboplast Time Sodium Level 135 MEQ/L Potassium Level 4.9 MEQ/L Chloride Level 100 MEQ/L Carbon Dioxide Level 29.0 MEQ/L Anion Gap 6 MEQ/L Blood Urea Nitrogen 14 MG/DL Creatinine 0.62 MG/DL Estimat Glomerular Filtration 134 ML/MIN Rate Random Glucose 97 MG/DL Calcium Level 8.8 MG/DL Magnesium Level 2.4 MG/DL Total Bilirubin 0.6 MG/DL Aspartate Amino Transf 35 U/L (AST/SGOT) Alanine Aminotransferase 50 U/L (ALT/SGPT) Alkaline Phosphatase 76 U/L Total Creatine Kinase 83 U/L Troponin I LESS THAN 0.02 NG/ML B-Type Natriuretic Peptide 49 PG/ML Total Protein 6.8 GM/DL Albumin 3.3 GM/DL [facility] Medical Decision Making Medical Screen Exam Complete: Yes Emergency Medical Condition: Yes Interpretation(s) EKG shows sinus bradycardia rate of 55, normal axis normal R-wave progression. No concerning ST segment changes intervals within normal limits. This normal EKG except for rate. Differential Diagnosis Acute on chronic CHF, pedal edema, DVT was considered and highly unlikely, pulmonary edema unlikely. Narrative Course Patient was roomed in the emergency department, he appears well in no obvious distress. Does have some pedal edema which appears not infectious in nature. Signs of adequate perfusion. I highly doubt DVT is that the edema is quite limited to the feet alone and is bilaterally equal. Basic labs are reassuring. The patient was given Lasix in the ER and is diuresing well. Patient states that he is going to get a financial director later this week would like to follow-up with his financial director think this is very reasonable. The patient has no pulmonary edema on his chest x-ray is been saturating well on his home 3 L of oxygen. He is stable for discharge at this time. We'll place on some Lasix for the time being. Discussed return to ED criteria. Diagnosis Primary Impression: Pedal edema Referrals: [facility]Other Pt SpecificInfo: Prescription(s) given Scripts Furosemide (Lasix)20 Mg Tab20 Mg PO DAILY #30 TAB Ref 0 Prov:Mihai Esqueda MD 03/15/17 Disposition: 01 DISCHARGE HOME Condition: Stable Mihai Esqueda MD Mar 15, 2017 09:58
[2017-03-15 10:22] LABS: ALKALINE PHOSPHATASE 76 U/L (45-117); ALT (GPT) 50 U/L (12-78); ANION GAP 6 MEQ/L (5-15); AST (GOT) 35 U/L (15-37); BLOOD UREA NITROGEN 14 MG/DL (7-18); CHLORIDE 100 MEQ/L (98-107); GLOMERULAR FILTRATION RATE 134 ML/MIN (>89); MAGNESIUM 2.4 MG/DL (1.5-2.5); POTASSIUM 4.9 MEQ/L (3.5-5.1); SODIUM (NA) 135 MEQ/L (136-145); TOTAL BILIRUBIN ADULT 0.6 MG/DL (0.2-1.0)
[2017-03-15 10:24] LABS: CREATINE KINASE 83 U/L (39-308)
[2017-03-15] MEDS ORDERED: FURO1TAB62 PO (11:15)
--- NOTE | 2017-03-16 08:13 | EKG ---
Date Performed: 03/15/2017 Time Performed: 09:47:18 PTAGE: 56 years EKG: SINUS BRADYCARDIA BORDERLINE ECG PREVIOUS TRACING : 03/04/2017 04.54 DOCTOR: Jose Carlos Galan Interpretating Date/Time 03/16/2017 08:06:00
== END 2017-03-15 11:48 | disposition home or self-care (01) ==
LOC: NEPE 08:44
DX: R60.9 Edema, unspecified (principal); R00.1 Bradycardia, unspecified; J44.9 Chronic obstructive pulmonary disease, unspecified; I50.9 Heart failure, unspecified; J45.909 Unspecified asthma, uncomplicated; F41.9 Anxiety disorder, unspecified; F32.9 Major depressive disorder, single episode, unspecified; I25.10 Atherosclerotic heart disease of native coronary artery without angina pectoris; I10 Essential (primary) hypertension
CPT/HCPCS: 71020; 80053; 82550; 83735; 83880; 84484; 85025; 85610; 85730; 93005; 96374; 99285; J1940

== ENCOUNTER 2017-06-24 18:31 | Emergency (ER) | payer OTHER, MEDICARE ==
[~2017-06-24 18:31] MED LIST changes: +ALLE4TAB28 PO; +FURO1TAB62 PO; +HYDR-3583 PO; -OMEP20TA PO; +RANI150T PO
[2017-06-24 18:34] VITALS: BP 128/74; PULSE 71; RESP 13; TEMP 98.8
--- NOTE | 2017-06-24 20:07 | PD ---
HPI . Left index finger injury Chief Complaint: Laceration/Skin Injury Time Seen by Provider: 19:27 Travel History International Travel<30 days: No Contact w/Intl Traveler<30days: No Traveled to known affect area: No History of Present Illness HPI Patient presents complaining with an injury to his left index finger. He was doing yard work using a facing grinder when the facing grinder kicked back and struck him in the left index finger. He reports that he is on a blood thinner and has had difficulty controlling the bleeding. He subsequently presented here for treatment. He states that his tetanus is up-to-date. He is complaining of pain in the index finger which he rates 7/10. No modifying factors. PFSH Past Medical History Hx Anticoagulant Therapy: Yes Arthritis: No Asthma: Yes Anxiety: Yes Depression: Yes Heart Rhythm Problems: Yes (A-FIB) Cancer: Yes (FAMILY HISTORY ) Cardiac Catheterization: No Cardiovascular Problems: Yes (afib,chf) High Cholesterol: No Chest Pain: Yes Congestive Heart Failure: No COPD: Yes Cerebrovascular Accident: Yes (2 "mini") Coronary Artery Disease: Yes (AFIB) Diabetes: No Diminished Hearing: No Endocrine: No Gastrointestinal Disorders: No Headaches: Yes Hiatal Hernia: Yes Hypertension: Yes Immune Disorder: No Implanted Vascular Access Dvce: No Musculoskeletal: Yes (NERVE DAMAGE) Neurologic: Yes (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) Psychiatric: Yes Respiratory: Yes Migraines: Yes Sickle Cell Disease: No Thyroid Disease: No Ulcer: Yes PNEUMOCCOCAL Vaccine (Year): 1 ?: Not Past Surgical History Abdominal Surgery: Yes (HIATAL HERNIA REPAIR, DEVIATED SEPTUM) AICD: No Arteriovenous Shunt: No Cardiac Surgery: No Coronary Artery Bypass Graft: No Ear Surgery: No Endocrine Surgery: No Eye Surgery: No Genitourinary Surgery: No Insulin Pump: No Joint Replacement: No Neurologic Surgery: No Oral Surgery: Yes Pacemaker: No Thoracic Surgery: No Other Surgery: No Social History Alcohol Use: Yes (PT STATES "BEER EVERY NOW AND THEN") Tobacco Use: Yes (FORMER HEAVY SMOKER) Substance Use: No Allergies-Medications (Allergen,Severity, Reaction): Coded Allergies: gabapentin (Unverified Allergy, Severe, Shortness of Breath, 05/02/17) Pt states he had a bad reaction to Gabapentin. states "my throat swole and it was hard for me to breath." penicillin G (Unverified Allergy, Severe, "ALL CILLINS" PER PT, 05/02/17) amoxicillin (Unverified Allergy, Unknown, 05/02/17) Uncoded Allergies: ALL CILLINS (Allergy, Unknown, 06/15/10) Reported Meds & Prescriptions Reported Meds & Active Scripts Active Lasix (Furosemide) 20 Mg Tab 20 Mg PO DAILY Walker with Front Wheels (Device) 1 Mis Mis 1 Ea .ROUTE DIRECTED Nebulizer 1 Mis Mis 1 Ea .ROUTE DIRECTED Duoneb (Ipratropium-Albuterol Neb) 0.5-2.5 Mg/3 Ml Neb 1 Nebule INH Q6HR NEB Prednisone 10 Mg Tab 30 Mg PO DAILY 9 Days 30mg po daily x 3 days then 20mg po daily x 3 days then 10mg po daily x 3 days. Spiriva Handihaler (Tiotropium Inh) 18 Mcg Cap 18 Mcg INH DAILY 1 capsule = 18 mcg Symbicort Inh (Budesonide/Formoterol Fumarate) 80-4.5 Mcg/Act Aero 2 Puff INH Q12HR Oxygen (O2) Device 2 Liter FRANK.CANULA CONTINUOUS Oxygen Concentrator Portable Gaseous 2 L/min via Nasal Canula Continuous For 99 months Cardizem (Diltiazem HCl) 120 Mg Tab 360 Mg PO DAILY Ventolin Hfa 18 GM Inh (Albuterol Sulfate) 90 Mcg/Act Aer 2 Puff INH Q4H PRN Reported Allergy Relief (Chlorpheniramine Maleate) 4 Mg Tab Unknown Dose PO DAILY PRN Ranitidine (Ranitidine HCl) 150 Mg Tab Unknown Dose PO BID Hydrocodone-Acetaminophen 10-325 mg Tab 1 Tab PO Q4H PRN Coumadin (Warfarin) 2.5 Mg Tab 2.5 Mg PO DAILY Coumadin (Warfarin) 5 Mg Tab 5 Mg PO 2XWEEK M AND MON Trazodone (Trazodone HCl) 50 Mg Tab 50 Mg PO HS Requip (Ropinirole) 1 Mg Tab 1 Mg PO HS Ativan (Lorazepam) 1 Mg Tab 1 Mg PO Q6H PRN Flexeril (Cyclobenzaprine HCl) 10 Mg Tab 10 Mg PO HS Review of Systems Except as stated in HPI: all other systems reviewed are Neg Musculoskeletal: Positive: Pain Skin: Positive Other Physical Exam Narrative GENERAL: Awake and alert and in no acute distress. SKIN: He has an abrasion on the dorsal aspect of the left index finger. Bleeding is now controlled. He does have a lot of dried blood on his hand compatible with previous bleeding. HEAD: Normocephalic/atraumatic. EYES: Pupils are equal. Extraocular movements are intact. NECK: Full range of motion with no apparent pain. CARDIOVASCULAR: Normal rate. RESPIRATORY: Nonlabored. MUSCULOSKELETAL: Atraumatic. NEUROLOGICAL: Nonfocal. PSYCHIATRIC: Appropriate mood and affect. Data Data Last Documented VS Vital Signs Date Time Temp Pulse Resp B/P (MAP) Pulse Ox O2 Delivery O2 Flow Rate FiO2 06/24/17 18:34 98.8 71 13 128/74 (92) Nasal Cannula 2.00 94 Orders Orders Wound Care (06/24/17 19:27) MDM Medical Decision Making Medical Screen Exam Complete: Yes Emergency Medical Condition: Yes Differential Diagnosis Differential diagnosis includes but is not limited to skin laceration, muscular laceration, tendon laceration, neurovascular laceration. Narrative Course This patient presents because of a laceration on his left index finger. He states that he is on a blood thinner and could not control the bleeding at home. Bleeding is now controlled. Diagnosis Primary Impression: Abrasion of left index finger Qualified Codes: S60.411A - Abrasion of left index finger, initial encounter Patient Instructions: Abrasion (ED), General Instructions, Narcotic given in the ED Med/Other Pt SpecificInfo: Wound Care Disposition: 01 DISCHARGE HOME Condition: Stable Kaylin Guerrero MD Jun 24, 2017 20:07
[2017-06-24] MEDS ORDERED: ACETAMINOPHEN/HYDROcodone 325 MG/5 MG TAB PO ONE (20:15)
== END 2017-06-24 20:20 | disposition home or self-care (01) ==
LOC: NEPD 18:31
DX: S60.411A Abrasion of left index finger, initial encounter (principal); W31.1XXA Contact with metalworking machines, initial encounter; Y93.89 Activity, other specified; J45.909 Unspecified asthma, uncomplicated; I48.91 Unspecified atrial fibrillation; Z79.01 Long term (current) use of anticoagulants
CPT/HCPCS: 99283

== ENCOUNTER 2017-08-23 07:23 | Observation (INO) | payer OTHER, MEDICARE ==
[2017-08-23] VITALS (9 sets, daily range): BP systolic 99–148; BP diastolic 63–71; PULSE 48–76; RESP 12–24; TEMP 97.6–98.1; O2SAT 93–100
[~2017-08-23] VITALS: Ht 182.9 cm; Wt 84.0 kg
[~2017-08-23 07:23] MED LIST changes: +CYCL10TA PO; -CYCL1TAB29 PO
[2017-08-23] MEDS ORDERED: methylPREDNISolone SOD SUCC 125 MG/2 ML VIAL IV PUSH ONE (07:45)
[2017-08-23] MEDS ORDERED: ASPIRIN 325 MG TAB PO ONE (07:45)
[2017-08-23] MEDS ORDERED: SODIUM CHLORIDE 0.9% FLUSH 10 ML FLUSH IVF PRN (07:45)
--- NOTE | 2017-08-23 07:54 | PD ---
HPI Chief Complaint: Chest Pain Time Seen by Provider: 07:43 Travel History International Travel<30 days: No Contact w/Intl Traveler<30days: No Traveled to known affect area: No History of Present Illness HPI 56-year-old male presents by ambulance with note of chest pain that started last evening. He states he also feels short of breath. He states he wears oxygen at home for his COPD. He was given nitroglycerin and an albuterol treatment and he states the nitroglycerin helped him more. 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 He states he had a chemical stress test 2 years ago which she thinks was normal. He states he had a heart catheter test about a year ago which she thinks was normal. He denies other specific complaints. Quality is pressure. Severity is now 5 out of 10. Pain was 10 out of 10. He denies other modifying factors. PFSH Past Medical History Hx Anticoagulant Therapy: Yes Arthritis: No Asthma: Yes Anxiety: Yes Depression: Yes Heart Rhythm Problems: Yes (A-FIB) Cancer: Yes (FAMILY HISTORY ) Cardiac Catheterization: No Cardiovascular Problems: Yes (AFIB, CHF) High Cholesterol: No Chest Pain: Yes Congestive Heart Failure: Yes COPD: Yes Cerebrovascular Accident: Yes (2 "mini") Coronary Artery Disease: Yes (AFIB) Diabetes: No Diminished Hearing: No Endocrine: No Gastrointestinal Disorders: No Headaches: Yes Hiatal Hernia: Yes Hypertension: Yes Immune Disorder: No Implanted Vascular Access Dvce: No Musculoskeletal: Yes (NERVE DAMAGE, DJD) Neurologic: Yes (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) Psychiatric: Yes Respiratory: Yes (COPD) Migraines: Yes Sickle Cell Disease: No Thyroid Disease: No Ulcer: Yes PNEUMOCCOCAL Vaccine (Year): 1 Past Surgical History Abdominal Surgery: Yes (HIATAL HERNIA REPAIR, DEVIATED SEPTUM) AICD: No Arteriovenous Shunt: No Cardiac Surgery: No Coronary Artery Bypass Graft: No Ear Surgery: No Endocrine Surgery: No Eye Surgery: No Genitourinary Surgery: No Insulin Pump: No Joint Replacement: No Neurologic Surgery: No Oral Surgery: Yes Pacemaker: No Thoracic Surgery: No Other Surgery: No Social History Alcohol Use: Yes (PT STATES "BEER EVERY NOW AND THEN") Tobacco Use: Yes (FORMER HEAVY SMOKER) Substance Use: No Allergies-Medications (Allergen,Severity, Reaction): Coded Allergies: gabapentin (Unverified Allergy, Severe, Shortness of Breath, 8/15/17) Pt states he had a bad reaction to Gabapentin. states "my throat swole and it was hard for me to breath." penicillin G (Unverified Allergy, Severe, "ALL CILLINS" PER PT, 05/02/17) amoxicillin (Unverified Allergy, Unknown, 05/02/17) Uncoded Allergies: ALL CILLINS (Allergy, Unknown, 06/15/10) Reported Meds & Prescriptions Reported Meds & Active Scripts Active Lasix (Furosemide) 20 Mg Tab 20 Mg PO DAILY Walker with Front Wheels (Device) 1 Mis Mis 1 Ea .ROUTE DIRECTED Nebulizer 1 Mis Mis 1 Ea .ROUTE DIRECTED Duoneb (Ipratropium-Albuterol Neb) 0.5-2.5 Mg/3 Ml Neb 1 Nebule INH Q6HR NEB Prednisone 10 Mg Tab 30 Mg PO DAILY 9 Days 30mg po daily x 3 days then 20mg po daily x 3 days then 10mg po daily x 3 days. Spiriva Handihaler (Tiotropium Inh) 18 Mcg Cap 18 Mcg INH DAILY 1 capsule = 18 mcg Symbicort Inh (Budesonide/Formoterol Fumarate) 80-4.5 Mcg/Act Aero 2 Puff INH Q12HR Oxygen (O2) Device 2 Liter FRANK.CANULA CONTINUOUS Oxygen Concentrator Portable Gaseous 2 L/min via Nasal Canula Continuous For 99 months Cardizem (Diltiazem HCl) 120 Mg Tab 360 Mg PO DAILY Ventolin Hfa 18 GM Inh (Albuterol Sulfate) 90 Mcg/Act Aer 2 Puff INH Q4H PRN Reported Allergy Relief (Chlorpheniramine Maleate) 4 Mg Tab Unknown Dose PO DAILY PRN Ranitidine (Ranitidine HCl) 150 Mg Tab Unknown Dose PO BID Hydrocodone-Acetaminophen 10-325 mg Tab 1 Tab PO Q4H PRN Coumadin (Warfarin) 2.5 Mg Tab 2.5 Mg PO DAILY Coumadin (Warfarin) 5 Mg Tab 5 Mg PO 2XWEEK M AND MON Trazodone (Trazodone HCl) 50 Mg Tab 50 Mg PO HS Requip (Ropinirole) 1 Mg Tab 1 Mg PO HS Ativan (Lorazepam) 1 Mg Tab 1 Mg PO Q6H PRN Flexeril (Cyclobenzaprine HCl) 10 Mg Tab 10 Mg PO HS Review of Systems Except as stated in HPI: all other systems reviewed are Neg Physical Exam Narrative GENERAL: Well-nourished, well-developed patient. SKIN: Warm and dry. HEAD: Normocephalic and atraumatic. EYES: No injection or drainage. ENT: No nasal drainage noted. NECK: Supple, trachea midline. CARDIOVASCULAR: Bradycardic rate and regular rhythm RESPIRATORY: Decreased aeration bilaterally at apices. No accessory muscle use. GASTROINTESTINAL: Abdomen soft, non-tender, nondistended. NEUROLOGICAL: Awake and alert. Moves all extremities and sensory grossly within normal limits. Normal speech. Data Data Last Documented VS Vital Signs Date Time Temp Pulse Resp B/P (MAP) Pulse Ox O2 Delivery O2 Flow Rate FiO2 08/23/17 08:10 100 Nasal Cannula 2.00 08/23/17 07:37 98.1 55 12 100/71 (81) Orders Orders Complete Blood Count With Diff (08/23/17 07:43) Comprehensive Metabolic Panel (08/23/17 07:43) B-Type Natriuretic Peptide (08/23/17 07:43) Act Partial Throm Time (Ptt) (08/23/17 07:43) Prothrombin Time / Inr (Pt) (08/23/17 07:43) Magnesium (Mg) (08/23/17 07:43) Ckmb (Isoenzyme) Profile (08/23/17 07:43) Troponin I (08/23/17 07:43) Iv Access Insert/Monitor (08/23/17 07:43) Electrocardiogram (08/23/17 07:43) Ecg Monitoring (08/23/17 07:43) Oximetry (08/23/17 07:43) Oxygen Administration (08/23/17 07:43) Chest, Single Ap (08/23/17 07:43) Sodium Chloride 0.9% Flush (Ns Flush) (08/23/17 07:45) Methylprednisolone So Succ Inj (Solumedr (08/23/17 07:45) Albuterol-Ipratropium Neb (Duoneb Neb) (08/23/17 07:45) Aspirin (Aspirin) (08/23/17 07:45) CKMB (08/23/17 07:45) CKMB% (08/23/17 07:45) Place In Observation (08/23/17 ) Vital Signs (Adult) Q4H (08/23/17 09:03) Activity Bed Rest (08/23/17 09:03) Diet Npo (08/23/17 Breakfast) Admit Order (Ed Use Only) (08/23/17 09:21) Labs Laboratory Tests Test 08/23/17 07:45 White Blood Count 6.3 TH/MM3 Red Blood Count 4.30 MIL/MM3 Hemoglobin 13.0 GM/DL Hematocrit 38.1 % Mean Corpuscular Volume 88.6 FL Mean Corpuscular Hemoglobin 30.3 PG Mean Corpuscular Hemoglobin Concent 34.2 % Red Cell Distribution Width 14.0 % Platelet Count 208 TH/MM3 Mean Platelet Volume 9.0 FL Neutrophils (%) (Auto) 54.8 % Lymphocytes (%) (Auto) 29.4 % Monocytes (%) (Auto) 12.2 % Eosinophils (%) (Auto) 2.7 % Basophils (%) (Auto) 0.9 % Neutrophils # (Auto) 3.4 TH/MM3 Lymphocytes # (Auto) 1.8 TH/MM3 Monocytes # (Auto) 0.8 TH/MM3 Eosinophils # (Auto) 0.2 TH/MM3 Basophils # (Auto) 0.1 TH/MM3 CBC Comment DIFF FINAL Differential Comment Prothrombin Time 19.1 SEC Prothromb Time International Ratio 1.9 RATIO Activated Partial Thromboplast Time 36.0 SEC Blood Urea Nitrogen 12 MG/DL Creatinine 0.81 MG/DL Random Glucose 101 MG/DL Total Protein 6.8 GM/DL Albumin 3.5 GM/DL Calcium Level 8.7 MG/DL Magnesium Level 2.3 MG/DL Alkaline Phosphatase 74 U/L Aspartate Amino Transf (AST/SGOT) 25 U/L Alanine Aminotransferase (ALT/SGPT) 28 U/L Total Bilirubin 0.6 MG/DL Sodium Level 137 MEQ/L Potassium Level 4.0 MEQ/L Chloride Level 103 MEQ/L Carbon Dioxide Level 28.9 MEQ/L Anion Gap 5 MEQ/L Estimat Glomerular Filtration Rate 99 ML/MIN Total Creatine Kinase 115 U/L Creatine Kinase MB 2.6 NG/ML Troponin I LESS THAN 0.02 NG/ML B-Type Natriuretic Peptide 42 PG/ML MDM Medical Decision Making Medical Screen Exam Complete: Yes Emergency Medical Condition: Yes Medical Record Reviewed: Yes (past history confirmed) Interpretation(s) EKG is sinus bradycardia without STEMI criteria CBC & BMP Diagram 08/23/17 07:45 Total Protein 6.8, Albumin 3.5, Calcium Level 8.7, Magnesium Level 2.3, Alkaline Phosphatase 74, Aspartate Amino Transf (AST/SGOT) 25, Alanine Aminotransferase (ALT/SGPT) 28, Total Bilirubin 0.6 Last 24 hours Impressions Chest X-Ray 08/23/17 0743 Signed Impressions: Service Date/Time: Wednesday, August 23, 2017 08:02 - CONCLUSION: 1. COPD 2. No acute infiltrates. No significant change compared to the prior studies. Kevin Gabriel MD Differential Diagnosis CHF, anemia, renal failure, COPD, OK Narrative Course Will check blood work, chest x-ray, EKG and dose with aspirin, Solu-Medrol, DuoNeb's and reevaluate labs, cxr no emergent findings, agrees to observation Physician Communication Physician Communication resident team agree to admit Diagnosis Primary Impression: Chest pain Qualified Codes: R07.9 - Chest pain, unspecified Additional Impression: COPD (chronic obstructive pulmonary disease) Qualified Codes: J44.1 - Chronic obstructive pulmonary disease with (acute) exacerbation Admitting Information Admitting Physician Requests: Observation Kristin Herrera MD Aug 23, 2017 07:54
[2017-08-23 08:04] LABS: AUTOMATED NEUTROPHIL # 3.4 TH/MM3 (1.8-7.7); BASOPHIL # 0.1 TH/MM3 (0-0.2); BASOPHIL % 0.9 % (0.0-2.0); EOSINOPHIL # 0.2 TH/MM3 (0-0.4); EOSINOPHIL % 2.7 % (0.0-4.0); HEMATOCRIT 38.1 % (39.0-51.0); HEMO FLAGS DIFF FINAL; LYMPH % 29.4 % (9.0-44.0); LYMPHOCYTE # 1.8 TH/MM3 (1.0-4.8); MEAN CELL VOLUME 88.6 FL (80.0-100.0); MEAN CORPUSCULAR HEMOGLOBIN 30.3 PG (27.0-34.0); MEAN CORPUSCULAR HGB CONC 34.2 % (32.0-36.0); MONO % 12.2 % (0.0-8.0); NEUT % 54.8 % (16.0-70.0); PLATELET COUNT 208 TH/MM3 (150-450); WHITE BLOOD COUNT 6.3 TH/MM3 (4.0-11.0)
--- NOTE | 2017-08-23 08:10 | RADRPT ---
EXAM DATE/TIME: 08/23/2017 08:02 [facility] COMPARISON: CHEST PA & LAT, March 15, 2017, 9:47. CHEST SINGLE AP, March 06, 2017, 4:16. INDICATIONS : Chest pain. MEDICAL HISTORY : Chronic obstructive pulmonary disease. SURGICAL HISTORY : None. ENCOUNTER: Initial ACUITY: 2 days PAIN SCORE: 8/10 LOCATION: Left upper chest FINDINGS: A single view of the chest demonstrates severe bullous emphysema with hyperaeration of both lung fiel ds. No new or significant changes are seen compared to the prior studies. The heart size is stable. T here are no pleural effusions or pulmonary edema. No evidence of pneumothorax. The bony structures ar e stable.. CONCLUSION: 1. COPD 2. No acute infiltrates. No significant change compared to the prior studies. Kevin Gabriel MD on August 23, 2017 at 8:07 Board Certified Radiologist. This report was verified electronically.
[2017-08-23] MEDS: RESP: ALBUTEROL 2.5 MG/IPRATROPIUM 0.5 MG NEB (SCH) INH (08:12)
[2017-08-23 08:14] LABS: INTERNATIONAL NORMALIZED RATIO 1.9 RATIO; PROTHROMBIN TIME - PATIENT 19.1 SEC (9.8-11.6)
[2017-08-23 08:21] LABS: ALT (GPT) 28 U/L (12-78); ANION GAP 5 MEQ/L (5-15); AST (GOT) 25 U/L (15-37); BICARBONATE 28.9 MEQ/L (21.0-32.0); BLOOD UREA NITROGEN 12 MG/DL (7-18); CHLORIDE 103 MEQ/L (98-107); GLOMERULAR FILTRATION RATE 99 ML/MIN (>89); MAGNESIUM 2.3 MG/DL (1.5-2.5); SODIUM (NA) 137 MEQ/L (136-145)
[2017-08-23 08:25] LABS: ALKALINE PHOSPHATASE 74 U/L (45-117); CREATINE KINASE 115 U/L (39-308); TOTAL BILIRUBIN ADULT 0.6 MG/DL (0.2-1.0)
[2017-08-23 08:37] LABS: CKMB 2.6 NG/ML (0.5-3.6)
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
[2017-08-23] MEDS ORDERED: METO100T PO (10:29)
[2017-08-23] MEDS ORDERED: PRED5TAB PO (10:29)
[2017-08-23] MEDS ORDERED: PRAM1TAB PO (10:30)
[2017-08-23] MEDS ORDERED: PRAMIPEXOLE DIHYDROCHLORIDE 1 MG TAB PO SCH ×2 (10:45→21:00)
[2017-08-23] MEDS ORDERED: MAGNESIUM HYDROXIDE SUSP 30 ML CUP PO PRN (11:00)
[2017-08-23] MEDS ORDERED: LACTULOSE SYRUP 20 GM/30 ML CUP PO PRN (11:00)
[2017-08-23] MEDS ORDERED: SENNOSIDES 8.6 MG TAB PO PRN (11:00)
[2017-08-23] MEDS ORDERED: SODIUM CHLORIDE 0.9% FLUSH 10 ML FLUSH IV FLUSH PRN (11:00)
[2017-08-23] MEDS ORDERED: NALOXONE HCL 0.4 MG/ML AMP IV PUSH PRN (11:00)
[2017-08-23] MEDS ORDERED: BISACODYL 10 MG SUPP RECTAL PRN (11:00)
[2017-08-23] MEDS ORDERED: ONDANSETRON HCL 4 MG/2 ML VIAL IVP PRN (11:00)
[2017-08-23] MEDS ORDERED: HYDR-3583 PO (11:13)
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
[2017-08-23] MEDS: SODIUM CHLOR 0.9% 1000 ML INJ 1,000 ML IV SCH ×2 (12:09→22:41)
[2017-08-23] MEDS: DOCUSATE SODIUM 50 MG/SENNA 8.6 MG TAB PO SCH ×2 (12:09→22:40)
[2017-08-23] MEDS: SODIUM CHLORIDE 0.9% FLUSH 10 ML FLUSH IV FLUSH SCH ×2 (12:09→21:00)
[2017-08-23] MEDS: PANTOPRAZOLE SOD 40 MG DELAYED RELEASE TAB PO SCH (12:09)
[2017-08-23] MEDS: ACETAMINOPHEN/HYDROcodone 325 MG/5 MG TAB PO SCH ×2 (15:34→22:40)
[2017-08-23] MEDS ORDERED: WARFARIN SOD 5 MG TAB PO SCH (16:00)
[2017-08-23] MEDS: RESP: ALBUTEROL 2.5 MG/IPRATROPIUM 0.5 MG NEB (SCH) NEB ×2 (16:06→21:31)
[2017-08-23] MEDS ORDERED: ARTIFICIAL TEARS OPTH SOLN 15 ML BTL EACH EYE PRN (21:45)
[2017-08-24] VITALS: PULSE 65
[2017-08-24 00:09] VITALS: BP 111/68; PULSE 70; RESP 18; TEMP 97.7; O2SAT 95
[2017-08-24 03:59] VITALS: PULSE 65
[2017-08-24 04:00] VITALS: BP 111/69; PULSE 76; RESP 18; TEMP 98.7; O2SAT 97
[2017-08-24 05:04] LABS: AUTOMATED NEUTROPHIL # 10.7 TH/MM3 (1.8-7.7); BASOPHIL % 0.1 % (0.0-2.0); HEMATOCRIT 36.7 % (39.0-51.0); HEMO FLAGS DIFF FINAL; LYMPH % 4.8 % (9.0-44.0); LYMPHOCYTE # 0.6 TH/MM3 (1.0-4.8); MEAN CELL VOLUME 88.3 FL (80.0-100.0); MEAN CORPUSCULAR HEMOGLOBIN 29.2 PG (27.0-34.0); MEAN CORPUSCULAR HGB CONC 33.1 % (32.0-36.0); MONO % 3.5 % (0.0-8.0); NEUT % 91.6 % (16.0-70.0); PLATELET COUNT 213 TH/MM3 (150-450); RED BLOOD COUNT 4.16 MIL/MM3 (4.50-5.90); RED CELL DISTRIBUTION WIDTH 13.9 % (11.6-17.2); WHITE BLOOD COUNT 11.7 TH/MM3 (4.0-11.0)
[2017-08-24 05:17] LABS: BICARBONATE 25.1 MEQ/L (21.0-32.0)
[2017-08-24] MEDS: ACETAMINOPHEN/HYDROcodone 325 MG/5 MG TAB PO SCH (05:48)
[2017-08-24] MEDS: SODIUM CHLOR 0.9% 1000 ML INJ 1,000 ML IV SCH (05:51)
[2017-08-24 07:38] VITALS: BP 115/70; PULSE 63; PULSE 65; RESP 22; TEMP 97.5; O2SAT 95
[2017-08-24] MEDS: RESP: ALBUTEROL 2.5 MG/IPRATROPIUM 0.5 MG NEB (SCH) NEB (07:43)
[2017-08-24] MEDS: SODIUM CHLORIDE 0.9% FLUSH 10 ML FLUSH IV FLUSH SCH (09:00)
[2017-08-24] MEDS ORDERED: predniSONE 20 MG TAB PO SCH (09:00)
[2017-08-24] MEDS: DOCUSATE SODIUM 50 MG/SENNA 8.6 MG TAB PO SCH (09:43)
[2017-08-24] MEDS: PANTOPRAZOLE SOD 40 MG DELAYED RELEASE TAB PO SCH (09:43)
--- NOTE | 2017-08-24 10:32 | EKG ---
Date Performed: 08/23/2017 Time Performed: 07:45:54 PTAGE: 56 years EKG: SINUS BRADYCARDIA BORDERLINE ECG PREVIOUS TRACING : 03/15/2017 09.47 Compared to prior tracing no significant change DOCTOR: Olvin Kidd Interpretating Date/Time 08/24/2017 10:31:51
--- NOTE | 2017-08-24 11:04 | HHI.DCPOC ---
Discharge Care Plan Diagnosis: (1) COPD exacerbation Goals to Promote Your Health * To prevent worsening of your condition and complications, follow-up with your primary care physician within one week after hospital discharge. Directions to Meet Your Goals Take your medications as prescribed Follow your dietary instruction Follow activity as directed Keep your appointments as scheduled Take your immunizations and boosters as scheduled If your symptoms worsen call your PCP, if no PCP go to Urgent Care Center or Emergency Room Smoking is Dangerous to Your Health. Avoid second hand smoke Call the 24-hour hour crisis hotline for domestic abuse at Gage Loya MD R2 Aug 24, 2017 11:04
--- NOTE | 2017-08-24 11:20 | HHI.FPPN ---
Subjective Remarks No acute events overnight. Afebrile, vitals stable. Patient seen and examined this morning. Patient states he is feeling well overall. Denies shortness of breath, cough, chest pain, fevers. (Gage Loya MD R2) Objective Vitals Vital Signs Date Time Temp Pulse Resp B/P (MAP) Pulse Ox O2 Delivery O2 Flow Rate FiO2 08/24/17 07:38 65 08/24/17 07:38 97.5 63 22 115/70 (85) 95 08/24/17 06:57 15 08/24/17 04:37 Nasal Cannula 2.00 08/24/17 04:00 98.7 76 18 111/69 (83) 97 08/24/17 03:59 65 08/24/17 00:09 97.7 70 18 111/68 (82) 95 08/24/17 00:00 65 08/23/17 21:32 96 Nasal Cannula 2.00 08/23/17 20:05 68 08/23/17 19:40 97.9 73 22 114/63 (80) 96 08/23/17 15:44 98.0 68 22 148/67 (94) 93 08/23/17 15:00 76 08/23/17 11:25 I/O 08/23/17 08/23/17 08/23/17 08/24/17 08/24/17 08/24/17 07:00 15:00 23:00 07:00 15:00 23:00 Intake Total 1225 ml 1897 ml Output Total 460 ml 1250 ml 1000 ml 500 ml Balance -460 ml -25 ml 897 ml -500 ml Intake Oral 750 ml IV Total 475 ml 1897 ml Output Urine Total 460 ml 1250 ml 1000 ml 500 ml (Gage Loya MD R2) Result Diagram: 08/24/1742408/24/17424 Objective Remarks GENERAL: pleasant, NAD SKIN: No rashes, ecchymoses or lesions. Cool and dry. HEAD: AT/NC EYES: EOMI. No injection or drainage. ENT: MMM. NECK: Supple. No JVD. CARDIOVASCULAR: RRR, no m/r/g RESPIRATORY: Clear to auscultation. Breath sounds equal bilaterally. No wheezes , rales, or rhonchi. GASTROINTESTINAL: Abdomen soft, non-tender, nondistended. MUSCULOSKELETAL: 2+ edema in lower extremities up to mid-tibia b/l, pedal pulses 2+, sensation intact NEUROLOGICAL: Awake and alert. oriented x3 (Gage Loya MD R2) A/P Assessment and Plan 56 year old man with h/o a-fib on warfarin and COPD on 2L of O2 via NC at home admitted for ACS r/o and COPD exacerbation. (Gage Loya MD R2) Attending Attestation Patient seen and examined. Case reviewed and discussed with the resident team. Agree with plan of care as discussed with me and documented in the resident note. (Starr Dolan MD) Problem List: (1) COPD exacerbation ICD Codes: J44.1 - Chronic obstructive pulmonary disease with (acute) exacerbation Status: Acute Plan: CXR on admission consistent with COPD findings, no acute infiltrates Patient on 2L home O2, 3L on exertion as needed. Given Solumedrol 125mg IV in ED Titrate oxygen to maintain saturations between 88%-94% DuoNeb q6h while awake Prednisone 40 mg PO this AM Resume home PO prednisone dose on discharge (2) Chest pain ICD Codes: R07.9 - Chest pain, unspecified Status: Resolved Plan: -Troponin < 0.02 x3 -EKGs with no significant ST changes, NSR (3) Lower extremity edema ICD Codes: R60.0 - Localized edema Plan: Resume home lasix, BP improved (4) History of atrial fibrillation ICD Codes: Z86.79 - Personal history of other diseases of the circulatory system Status: Chronic Plan: Continue home Warfarin - INR 1.9 on admission - 5 mg MWF - 2.5 mg every other day (5) Chronic back pain ICD Codes: M54.9 - Dorsalgia, unspecified; G89.29 - Other chronic pain Status: Chronic Plan: - Maple 5/325 1 tab po q8h (6) Nutrition, metabolism, and development symptoms ICD Codes: R63.8 - Other symptoms and signs concerning food and fluid intake Plan: Fluids: PO Diet: Heart Healthy GI ppx: Protonix 40 mg po daily DVT ppx: SCDs (Gage Loya MD R2) Problem Qualifiers (1) Chest pain: Qualified Codes: R07.9 - Chest pain, unspecified Gage Loya MD R2 Aug 24, 2017 11:20 Starr Dolan MD Aug 24, 2017 12:21
[2017-08-24] MEDS ORDERED: WARFARIN SOD 2.5 MG TAB PO SCH (16:00)
--- NOTE | 2017-08-24 16:05 | EKG ---
Date Performed: 08/23/2017 Time Performed: 14:12:02 PTAGE: 56 years EKG: Sinus rhythm BORDERLINE LEFT AXIS DEVIATION BORDERLINE ECG Since PREVIOUS TRACING , no significant change noted PREVIOUS TRACIN08/23/2017 07.45 DOCTOR: Hakeem Grant Interpretating Date/Time 08/24/2017 16:04:30
--- NOTE | 2017-08-24 16:05 | EKG ---
Date Performed: 08/23/2017 Time Performed: 19:51:36 PTAGE: 56 years EKG: Sinus rhythm NORMAL ECG Since PREVIOUS TRACING , no significant change noted PREVIOUS TRACIN08/23/2017 14.12 DOCTOR: Hakeem Grant Interpretating Date/Time 08/24/2017 16:13:40
== END 2017-08-24 12:04 | disposition home or self-care (01) ==
LOC: NEPC 07:23 → NEDA 09:23 → NEPGCP 11:04
PROVIDERS: ADMIT Family Medicine; ATTEND Family Medicine
DX: J44.1 Chronic obstructive pulmonary disease with (acute) exacerbation (principal); I48.91 Unspecified atrial fibrillation; I11.0 Hypertensive heart disease with heart failure; I50.9 Heart failure, unspecified; G25.81 Restless legs syndrome; Z86.73 Personal history of transient ischemic attack (TIA), and cerebral infarction without residual deficits; Z87.891 Personal history of nicotine dependence; Z79.01 Long term (current) use of anticoagulants; Z99.81 Dependence on supplemental oxygen
CPT/HCPCS: 71010; 80048; 80053; 82550; 82552; 83735; 83880; 84484; 85025; 85610; 85730; 93005; 94640; 94664; 96360; 96361; 99285; G0378; J2930; J7030; J7512

== ENCOUNTER 2018-02-09 08:21 | Observation (INO) | payer OTHER, MEDICARE ==
[2018-02-09] VITALS (8 sets, daily range): BP systolic 98–113; BP diastolic 65–77; PULSE 68–79; RESP 16–22; TEMP 97.5–97.7; O2SAT 92–95
[~2018-02-09] VITALS: Ht 182.9 cm; Wt 80.0 kg
[~2018-02-09 08:21] MED LIST changes: -ALLE4TAB28 PO; -CYCL10TA PO; -LORA-474 PO; +METO100T PO; +PRAM1TAB PO; -PRED10 PO; +PRED5TAB PO; -ROPI1TAB72 PO; -TRAZ50TA12 PO
[2018-02-09] MEDS ORDERED: WARF-18 PO ×2 (08:41)
[2018-02-09] MEDS ORDERED: WARF-23 PO (08:41)
--- NOTE | 2018-02-09 08:57 | PD ---
HPI Chief Complaint: Respiratory Symptoms Time Seen by Provider: 08:39 Travel History International Travel<30 days: No Contact w/Intl Traveler<30days: No Traveled to known affect area: No History of Present Illness HPI This patient complains of shortness of breath. Duration is gradual worsening over 2 days. He has history of severe COPD. He wears oxygen 3 L at home. He has a nebulizer and 10 mg prednisone daily. Paramedics brought him in after giving him 3 nebulizer treatments and IV Solu-Medrol. Symptoms are severe. Partially alleviated with nebulizer treatments. Likely exacerbated by recurrent smoking. He is got a cough bringing up some phlegm. No fever. PFSH Past Medical History Hx Anticoagulant Therapy: Yes (WARFARIN ) Arthritis: No Asthma: Yes Blood Disorders: No Anxiety: Yes Depression: Yes Heart Rhythm Problems: Yes (A-FIB) Cancer: Yes (FAMILY HISTORY ) Cardiac Catheterization: No Cardiovascular Problems: Yes High Cholesterol: No Chemotherapy: No Chest Pain: Yes Congestive Heart Failure: Yes COPD: Yes Cerebrovascular Accident: Yes (2 "mini") Coronary Artery Disease: Yes Diabetes: No Diminished Hearing: No Endocrine: No Gastrointestinal Disorders: No GERD: No Glaucoma: No Genitourinary: No Headaches: Yes Hiatal Hernia: Yes Hypertension: Yes Immune Disorder: No Implanted Vascular Access Dvce: No Musculoskeletal: Yes (NERVE DAMAGE, DJD) Neurologic: Yes (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) Psychiatric: Yes Reproductive: No Respiratory: Yes Immunizations Current: Yes Migraines: Yes Pneumonia: Yes Radiation Therapy: No Sickle Cell Disease: No Sleep Apnea: No Thyroid Disease: No Ulcer: Yes Tetanus Vaccination: < 5 Years Influenza Vaccination: Yes PNEUMOCCOCAL Vaccine (Year): 1 Past Surgical History Abdominal Surgery: Yes (HIATAL HERNIA REPAIR, DEVIATED SEPTUM) AICD: No Arteriovenous Shunt: No Cardiac Surgery: No Coronary Artery Bypass Graft: No Ear Surgery: No Endocrine Surgery: No Eye Surgery: No Genitourinary Surgery: No Insulin Pump: No Joint Replacement: No Neurologic Surgery: No Oral Surgery: Yes Pacemaker: No Thoracic Surgery: No Other Surgery: No Social History Alcohol Use: Yes (PT STATES "BEER EVERY NOW AND THEN") Tobacco Use: Yes (FORMER HEAVY SMOKER) Substance Use: No Allergies-Medications (Allergen,Severity, Reaction): Coded Allergies: gabapentin (Unverified Allergy, Severe, Shortness of Breath, 02/09/18) Pt states he had a bad reaction to Gabapentin. states "my throat swole and it was hard for me to breath." penicillin G (Unverified Allergy, Severe, "ALL CILLINS" PER PT, 02/09/18) amoxicillin (Unverified Allergy, Unknown, 02/09/18) Uncoded Allergies: ALL CILLINS (Allergy, Unknown, 06/15/10) Reported Meds & Prescriptions Reported Meds & Active Scripts Active Lasix (Furosemide) 20 Mg Tab 20 Mg PO DAILY Walker with Front Wheels (Device) 1 Mis Mis 1 Ea .ROUTE DIRECTED Nebulizer 1 Mis Mis 1 Ea .ROUTE DIRECTED Duoneb (Ipratropium-Albuterol Neb) 0.5-2.5 Mg/3 Ml Neb 1 Nebule INH Q6HR NEB Spiriva Handihaler (Tiotropium Inh) 18 Mcg Cap 18 Mcg INH DAILY 1 capsule = 18 mcg Symbicort Inh (Budesonide/Formoterol Fumarate) 80-4.5 Mcg/Act Aero 2 Puff INH Q12HR Oxygen (O2) Device 2 Liter FRANK.CANULA CONTINUOUS Oxygen Concentrator Portable Gaseous 2 L/min via Nasal Canula Continuous For 99 months Cardizem (Diltiazem HCl) 120 Mg Tab 360 Mg PO DAILY Ventolin Hfa 18 GM Inh (Albuterol Sulfate) 90 Mcg/Act Aer 2 Puff INH Q4H PRN Reported Warfarin 5 Mg Tab 5 Mg PO EVERY TTHSS Warfarin 2.5 Mg Tab 2.5 Mg PO EVERY MWF Warfarin 2.5 Mg Tab 2.5 Mg PO DAILY Hydrocodone-Acetaminophen 10-325 mg Tab 1 Tab PO TID PRN Pramipexole (Pramipexole Dihydrochloride) 1 Mg Tab 1 Mg PO DAILY Prednisone 5 Mg Tab 5 Mg PO DAILY Metoprolol Tartrate 100 Mg Tab 100 Mg PO BID Ranitidine (Ranitidine HCl) 150 Mg Tab Unknown Dose PO BID Review of Systems General / Constitutional: No: Fever Eyes: No: Visual changes HENT: Positive: Congestion, No: Headaches Cardiovascular: Positive: Irregular Rhythm, No: Palpitations Respiratory: Positive: Cough, Shortness of Breath, Wheezing Gastrointestinal: No: Abdominal Pain Genitourinary: No: Dysuria Musculoskeletal: No: Pain Skin: No Rash Neurologic: No: Weakness Psychiatric: No: Depression Endocrine: No: Polydipsia Hematologic/Lymphatic: No: Easy Bruising Physical Exam Narrative GENERAL: Well-nourished, well-developed patient in prominent respiratory distress. SKIN: Focused skin assessment reveals no rash and nodules. Skin is Warm and dry. HEAD: Atraumatic. Normocephalic. EYES: Pupils equal and round. No scleral icterus. No injection or drainage. ENT: No nasal bleeding or discharge. Mucous membranes pink and moist. NECK: Trachea midline. No JVD. CARDIOVASCULAR: Regular rate and rhythm. No murmur appreciated. RESPIRATORY: Positive accessory muscle use. Diminished breath sounds throughout with some expiratory wheeze and rhonchi. Breath sounds equal bilaterally. GASTROINTESTINAL: Abdomen soft, non-tender, nondistended. Hepatic and splenic margins not palpable. MUSCULOSKELETAL: No obvious deformities. No clubbing. No cyanosis. No edema. NEUROLOGICAL: Awake and alert. No obvious cranial nerve deficits. Motor grossly within normal limits. Normal speech. PSYCHIATRIC: Appropriate mood and affect; insight and judgment reduced . Data Data Last Documented VS Vital Signs Date Time Temp Pulse Resp B/P (MAP) Pulse Ox O2 Delivery O2 Flow Rate FiO2 02/09/18 08:25 92 Room Air 02/09/18 08:25 97.5 79 16 106/73 (84) Orders Orders Complete Blood Count With Diff (02/09/18 08:50) Basic Metabolic Panel (Bmp) (02/09/18 08:50) Ckmb (Isoenzyme) Profile (02/09/18 08:50) Troponin I (02/09/18 08:50) Influenzae A/B Antigen (02/09/18 08:50) Iv Access Insert/Monitor (02/09/18 08:50) Electrocardiogram (02/09/18 08:50) Ecg Monitoring (02/09/18 08:50) Oximetry (02/09/18 08:50) Oxygen Administration (02/09/18 08:50) Chest, Single Ap (02/09/18 08:50) Sodium Chloride 0.9% Flush (Ns Flush) (02/09/18 09:00) Albuterol-Ipratropium Neb (Duoneb Neb) (02/09/18 09:00) CKMB (02/09/18 08:30) CKMB% (02/09/18 08:30) Admit To Inpatient (02/09/18 ) Code Status (02/09/18 11:26) Vital Signs (Adult) VANCE.Q4H (02/09/18 11:26) Resp Oxygen Frank C Titrat 1-4 L (02/09/18 ) Sodium Chloride 0.9% Flush (Ns Flush) (02/09/18 11:30) Sodium Chloride 0.9% Flush (Ns Flush) (02/09/18 21:00) Inpatient Certification (02/09/18 ) Labs Laboratory Tests Test 02/09/18 08:30 White Blood Count 8.7 TH/MM3 Red Blood Count 4.55 MIL/MM3 Hemoglobin 13.5 GM/DL Hematocrit 41.1 % Mean Corpuscular Volume 90.3 FL Mean Corpuscular Hemoglobin 29.7 PG Mean Corpuscular Hemoglobin Concent 32.8 % Red Cell Distribution Width 14.0 % Platelet Count 238 TH/MM3 Mean Platelet Volume 9.1 FL Neutrophils (%) (Auto) 60.7 % Lymphocytes (%) (Auto) 27.1 % Monocytes (%) (Auto) 10.4 % Eosinophils (%) (Auto) 1.2 % Basophils (%) (Auto) 0.6 % Neutrophils # (Auto) 5.3 TH/MM3 Lymphocytes # (Auto) 2.4 TH/MM3 Monocytes # (Auto) 0.9 TH/MM3 Eosinophils # (Auto) 0.1 TH/MM3 Basophils # (Auto) 0.1 TH/MM3 CBC Comment DIFF FINAL Differential Comment Blood Urea Nitrogen 15 MG/DL Creatinine 0.87 MG/DL Random Glucose 104 MG/DL Calcium Level 8.7 MG/DL Sodium Level 143 MEQ/L Potassium Level 3.5 MEQ/L Chloride Level 108 MEQ/L Carbon Dioxide Level 28.2 MEQ/L Anion Gap 7 MEQ/L Estimat Glomerular Filtration Rate 90 ML/MIN Total Creatine Kinase 150 U/L Creatine Kinase MB 3.2 NG/ML Troponin I LESS THAN 0.02 NG/ML MDM Medical Decision Making Medical Screen Exam Complete: Yes Emergency Medical Condition: Yes Medical Record Reviewed: Yes Differential Diagnosis COPD, pneumonia, pulmonary edema Narrative Course I have reviewed the patient's electronic medical record. Patient is a frequent visitor for COPD Patient presents in profound respiratory distress. He has acute hypoxic respiratory failure. IV placed and labs sent I give him additional nebulizer treatments He has received Solu-Medrol I reviewed his chest x-ray which is normal His lab studies are normal Patient arrived critically ill and quite distressed. He is much improved after 5 nebulizer treatments However he is not stable for discharge. He is still dyspneic and breathing 30- 40 times a minute while resting in bed. I reviewed with the medical residents who will hospitalize him and try to optimize his lung function Critical Care Narrative Aggregate critical care time was 35 minutes. Time to perform other separately billable procedures was not included in the critical care time. My time did not include minutes spent treating any other patients simultaneously or on activities that did not directly contribute to the patient's treatment. The services I provided to this patient were to treat and/or prevent clinically significant deterioration that could result in: Cardiopulmonary arrest, respiratory collapse, cardiac arrhythmia I provided critical care services requiring my management, as noted below: Chart data review, documentation time, medication orders and management, vital sign assessments/reviewing monitor data, ordering and reviewing lab tests, ordering and interpreting/reviewing x-rays and diagnostic studies, care of the patient and discussion of the patient with the admitting physicians. Diagnosis Primary Impression: Acute respiratory failure with hypoxia Additional Impression: COPD exacerbation Admitting Information Admitting Physician Requests: Observation Magdiel Espinoza MD February 09, 2018 08:56
[2018-02-09] MEDS ORDERED: SODIUM CHLORIDE 0.9% FLUSH 10 ML FLUSH IVF PRN (09:00)
[2018-02-09 09:21] LABS: AUTOMATED NEUTROPHIL # 5.3 TH/MM3 (1.8-7.7); BASOPHIL # 0.1 TH/MM3 (0-0.2); BASOPHIL % 0.6 % (0.0-2.0); EOSINOPHIL # 0.1 TH/MM3 (0-0.4); EOSINOPHIL % 1.2 % (0.0-4.0); HEMATOCRIT 41.1 % (39.0-51.0); HEMOGLOBIN 13.5 GM/DL (13.0-17.0); LYMPH % 27.1 % (9.0-44.0); LYMPHOCYTE # 2.4 TH/MM3 (1.0-4.8); MEAN CELL VOLUME 90.3 FL (80.0-100.0); MEAN CORPUSCULAR HEMOGLOBIN 29.7 PG (27.0-34.0); MEAN CORPUSCULAR HGB CONC 32.8 % (32.0-36.0); MEAN PLATELET VOLUME 9.1 FL (7.0-11.0); MONO % 10.4 % (0.0-8.0); MONOCYTE # 0.9 TH/MM3 (0-0.9); NEUT % 60.7 % (16.0-70.0); PLATELET COUNT 238 TH/MM3 (150-450); RED BLOOD COUNT 4.55 MIL/MM3 (4.50-5.90); WHITE BLOOD COUNT 8.7 TH/MM3 (4.0-11.0)
[2018-02-09] MEDS: RESP: ALBUTEROL 2.5 MG/IPRATROPIUM 0.5 MG NEB (SCH) INH ×4 (09:23→23:22)
--- NOTE | 2018-02-09 09:27 | RADRPT ---
EXAM DATE: 02/09/2018 9:13 AM EDT AGE/SEX: 57 years / Male INDICATIONS: Short of breath. CLINICAL DATA: This is the patient's initial encounter. Patient reports that signs and symptoms have been present for 1 day and indicates a pain score of 0/10. MEDICAL/SURGICAL HISTORY: Chronic obstructive pulmonary disease. Congestive heart failure. hea rt attack, chf None. COMPARISON: [facility] [place], 08/23/[place]. . FINDINGS: Lungs are hyperinflated. There is mild perihilar and basilar interstitial prominence which is similar to prior. No evidence of alveolar consolidation. Cardiac contours are grossly unchanged. CONCLUSION: Stable chest appearance. Electronically signed by: Som Smith MD 02/09/2018 9:25 AM EDT
[2018-02-09 09:35] LABS: BICARBONATE 28.2 MEQ/L (21.0-32.0); BLOOD UREA NITROGEN 15 MG/DL (7-18); CALCIUM 8.7 MG/DL (8.5-10.1); CHLORIDE 108 MEQ/L (98-107); CREATININE 0.87 MG/DL (0.60-1.30); GLOMERULAR FILTRATION RATE 90 ML/MIN (>89); GLUCOSE,RANDOM 104 MG/DL (74-106); SODIUM (NA) 143 MEQ/L (136-145)
[2018-02-09 09:39] LABS: TROPONIN I LESS THAN 0.02 NG/ML (0.02-0.05)
[2018-02-09] MEDS ORDERED: SODIUM CHLORIDE 0.9% FLUSH 10 ML FLUSH IV FLUSH PRN ×2 (11:30→12:30)
[2018-02-09] MEDS ORDERED: RESP: ALBUTEROL 2.5 MG/3 ML NEB (PRN) INH (12:30)
--- NOTE | 2018-02-09 12:58 | HHI.HP ---
[facility] Service Family Medicine Primary Care Physician [facility] Admission Diagnosis acute hypoxic resp failure, COPD exac Diagnoses: Chief Complaint: Shortness of breath International Travel<30 Days: No Contact w/Intl Traveler<30days: No Known Affected Area: No History of Present Illness Mr. Goss is a 57-year-old male with history of COPD who presented to the ER via [facility] with severe "shortness of breath" that began this morning. He reports waking up with shortness of breath and subsequent soreness in his chest like he was punched there, and increased thick yellow sputum production. He walked to the kitchen to take his meds but was unable to do so. He decided to call 911. By the time [facility] arrived he had given himself a breathing treatments. Reports receiving another treatment in the ambulance along with a Solu Medrol injection. Admits to smoking 5 cigarettes over the last 2 days after having quit for the past 6 months because of difficulty coping with his mother's recent . Admits to increased use of inhalers during this relapse. Baseline function is oxygen 2 L/m via NC and 3 L/m with exertion. Reports he can walk a block normally, and is currently only able to walk to the bathroom before expansion dyspnea on exertion. Denies changes in weight, night sweats, suicidal ideation, fever, chills, racing heart, bloody sputum, abdominal pain, N /V, diarrhea, muscle weakness/numbness/tingling. (Eduar Valencia MD R2) Review of Systems Constitutional: DENIES: Fever, Weight gain, Weight loss, Chills, Change in appetite, Night Sweats Eyes: DENIES: Blurred vision Ears, nose, mouth, throat: DENIES: Tinnitus, Hearing loss, Nasal discharge, Throat pain, Ear Pain, Sinus Pain, Toothache, Odynophagia Respiratory: COMPLAINS OF: Wheezing, Sputum production, Shortness of breath, DENIES: Hemoptysis Cardiovascular: COMPLAINS OF: Chest pain, Dyspnea on Exertion, DENIES: Syncope , Lower Extremity Edema Gastrointestinal: DENIES: Abdominal pain, Black stools, Bloody stools, Constipation, Diarrhea, Nausea, Vomiting, Difficulty Swallowing, Anorexia Genitourinary: DENIES: Hematuria, Dysuria Musculoskeletal: DENIES: Joint pain, Muscle aches, Stiffness, Joint Swelling, Neck pain Hematologic/lymphatic: DENIES: Lymphadenopathy Neurologic: DENIES: Headache, Localized weakness, Paresthesias Psychiatric: COMPLAINS OF: Mood changes, DENIES: Anxiety, Suicidal Ideation Other Denies fever or chills No polyuria, polydipsia Denies vision changes, eye pain, hearing changes, rhinorrhea, sore throat Denies sore throat, runny nose No palpitations No abdominal pain Denies constipation, diarrhea, nausea, vomiting, black or bloody stools No dysuria, hematuria Denies muscle/joint pain, weakness, headache No rashes, itching (Eduar Valencia MD R2) Past Family Social History Past Medical History COPD Atrial fibrillation on anticoagulation with warfarin Degenerative disc disease in his spine Restless leg syndrome TIA 2 Multiple traumas Past Surgical History Abdominal hernia 10 years prior Deviated septum 5 years prior Reported Medications Reported Meds & Active Scripts Active Lasix (Furosemide) 20 Mg Tab 20 Mg PO DAILY Duoneb (Ipratropium-Albuterol Neb) 0.5-2.5 Mg/3 Ml Neb 1 Nebule INH Q6HR NEB Spiriva Handihaler (Tiotropium Inh) 18 Mcg Cap 18 Mcg INH DAILY 1 capsule = 18 mcg Symbicort Inh (Budesonide/Formoterol Fumarate) 80-4.5 Mcg/Act Aero 2 Puff INH Q12HR Oxygen (O2) Device 2 Liter FRANK.CANULA CONTINUOUS Oxygen Concentrator Portable Gaseous 2 L/min via Nasal Canula Continuous For 99 months Cardizem (Diltiazem HCl) 120 Mg Tab 360 Mg PO DAILY Ventolin Hfa 18 GM Inh (Albuterol Sulfate) 90 Mcg/Act Aer 2 Puff INH Q4H PRN Reported Warfarin 5 Mg Tab 5 Mg PO EVERY TTHSS Warfarin 2.5 Mg Tab 2.5 Mg PO EVERY MWF Warfarin 2.5 Mg Tab 2.5 Mg PO DAILY Hydrocodone-Acetaminophen 10-325 mg Tab 1 Tab PO TID PRN Pramipexole (Pramipexole Dihydrochloride) 1 Mg Tab 1 Mg PO DAILY Prednisone 5 Mg Tab 5 Mg PO DAILY Metoprolol Tartrate 100 Mg Tab 100 Mg PO BID Ranitidine (Ranitidine HCl) 150 Mg Tab Unknown Dose PO BID (Eduar Valencia MD R2) Allergies: Coded Allergies: gabapentin (Unverified Allergy, Severe, Shortness of Breath, 02/09/18) Pt states he had a bad reaction to Gabapentin. states "my throat swole and it was hard for me to breath." penicillin G (Unverified Allergy, Severe, "ALL CILLINS" PER PT, 02/09/18) amoxicillin (Unverified Allergy, Unknown, 02/09/18) Uncoded Allergies: ALL CILLINS (Allergy, Unknown, 06/15/10) Active Ordered Medications Current Medications Medications (Trade) Dose Ordered Sig/Dusty Route Start Time Stop Time Status Last Admin (NS Flush) 2 ml BID IV FLUSH 02/09/18 21:00 (NS Flush) 2 ml UNSCH PRN IV FLUSH 02/09/18 12:30 (Duoneb Neb) 1 ampule Q4HR NEB INH 02/09/18 16:00 (Albuterol Neb) 2.5 mg Q2HR NEB PRN INH 02/09/18 12:30 (Deltasone) 40 mg DAILY PO 02/10/18 09:00 (Levaquin) 750 mg Q24H PO 02/09/18 13:00 (Lovenox Inj) 40 mg Q24H SQ 02/09/18 13:00 (Symbicort 80-4.5 Mcg Inh) 2 puff Q12HR INH 02/09/18 21:00 (Lasix) 20 mg DAILY PO 02/09/18 13:00 (Stuart 10-325 Mg) 1 tab TID PRN PO 02/09/18 12:30 (Lopressor) 100 mg BID PO 02/09/18 13:30 (Mirapex) 1 mg HS PO 02/09/18 21:00 (Coumadin) 2.5 mg DAILY PO 02/09/18 12:30 UNV (Coumadin) 5 mg DAILY PO 02/10/18 09:00 UNV (Cardizem Cd) 360 mg DAILY PO 02/09/18 14:00 (ZyrTEC) 10 mg DAILY PO 02/09/18 13:30 (Pepcid) 20 mg BID PO 02/09/18 13:30 (Mycostatin Liq) 5 ml QID SWISH-SWAL 02/09/18 13:30 Family History Multiple relatives with unknown "cancer in the skull" Skin cancer in his father Social History [id number] smoking history 1-2 beers/day; 4 pack/day on weekend, denies symptoms of withdrawal On disability due to various work-related injuries (Eduar Valencia MD R2) Physical Exam Vital Signs Vital Signs Date Time Temp Pulse Resp B/P (MAP) Pulse Ox O2 Delivery O2 Flow Rate FiO2 02/09/18 08:25 92 Room Air 02/09/18 08:25 97.5 79 16 106/73 (84) 92 Physical Exam GENERAL: This is a well-nourished, well-developed patient, in no apparent distress, on oxygen by nasal cannula, speaking in full sentences. SKIN: No rashes, ecchymoses or lesions. Cool and dry. HEAD: Atraumatic. Normocephalic. EYES: Pupils equal round and reactive. Extraocular motions intact. No scleral icterus. No injection or drainage. ENT: Nose without bleeding, purulent drainage or septal hematoma. Erythematous posterior oropharynx with milky white plaques. Dentures on the top. uvula midline. Airway patent. NECK: Trachea midline. No lymphadenopathy. Supple, nontender, no meningeal signs. CARDIOVASCULAR: Regular rate and rhythm without murmurs, gallops, or rubs. RESPIRATORY: No chest tenderness. Decreased breath sounds bilaterally with faint expiratory wheezes. No rales or rhonchi. GASTROINTESTINAL: Abdomen soft, non-tender, nondistended. No guarding. MUSCULOSKELETAL: Extremities without cyanosis, or edema. No joint tenderness, effusion, or edema noted. No calf tenderness NEUROLOGICAL: Awake and alert. Cranial nerves II through XII grossly intact. Motor and sensory grossly within normal limits. Normal speech. Laboratory Laboratory Tests Test 02/09/18 08:30 White Blood Count 8.7 Red Blood Count 4.55 Hemoglobin 13.5 Hematocrit 41.1 Mean Corpuscular Volume 90.3 Mean Corpuscular Hemoglobin 29.7 Mean Corpuscular Hemoglobin Concent 32.8 Red Cell Distribution Width 14.0 Platelet Count 238 Mean Platelet Volume 9.1 Neutrophils (%) (Auto) 60.7 Lymphocytes (%) (Auto) 27.1 Monocytes (%) (Auto) 10.4 Eosinophils (%) (Auto) 1.2 Basophils (%) (Auto) 0.6 Neutrophils # (Auto) 5.3 Lymphocytes # (Auto) 2.4 Monocytes # (Auto) 0.9 Eosinophils # (Auto) 0.1 Basophils # (Auto) 0.1 CBC Comment DIFF FINAL Differential Comment Blood Urea Nitrogen 15 Creatinine 0.87 Random Glucose 104 Calcium Level 8.7 Sodium Level 143 Potassium Level 3.5 Chloride Level 108 Carbon Dioxide Level 28.2 Anion Gap 7 Estimat Glomerular Filtration Rate 90 Total Creatine Kinase 150 Creatine Kinase MB 3.2 Troponin I LESS THAN 0.02 Date/Time Source Procedure Growth Status 02/09/18 09:05 Nasal Washing Influenza Types A,B Antigen (VALARIE) - Final NEGATIVE FOR FLU A AND B ANTIGEN.... Complete (Eduar Valencia MD R2) Result Diagram: 02/09/18 0830 02/09/18 0830 Imaging Last 72 hours Impressions Chest X-Ray 02/09/18 0850 Signed Impressions: CONCLUSION: Stable chest appearance. Course Patient with history of COPD exacerbation and Afib brought to the ER by [facility] for shortness of breath. Received breathing treatment and Solu-Medrol en route. Continuing nasal cannula, DuoNeb, steroid treatments. Levaquin was added for COPD exacerbation with 3 out of 3 cardinal symptoms. (Eduar Valencia MD R2) Caprini VTE Risk Assessment Caprini VTE Risk Assessment: Mod/High Risk (score >= 2) Caprini Risk Assessment Model Point Value = 1 Point Value = 2 Point Value = 3 Point Value = 5 Age 41-60 Minor surgery BMI > 25 kg/m2 Swollen legs Varicose veins or History of unexplained or recurrent spontaneous Oral contraceptives or hormone replacement Sepsis (< 1 month) Serious lung disease, including pneumonia (< 1 month) Abnormal pulmonary function Acute myocardial infarction Congestive heart failure (< 1 month) History of inflammatory bowel disease Medical patient at bed rest Age 61-74 Arthroscopic surgery Major open surgery (> 45 min) Laparoscopic surgery (> 45 min) Malignancy Confined to bed (> 72 hours) Immobilizing plaster cast Central venous access Age >= 75 History of VTE Family history of VTE Factor V Leiden Prothrombin 42050L Lupus anticoagulant Anticardiolipin antibodies Elevated serum homocysteine Heparin-induced thrombocytopenia Other congenital or acquired thrombophilia Stroke (< 1 month) Elective arthroplasty Hip, pelvis, or leg fracture Acute spinal cord injury (< 1 month) Prophylaxis Regimen Total Risk Factor Score Risk Level Prophylaxis Regimen 0-1 Low Early ambulation 2 Moderate Order ONE of the following: *Sequential Compression Device (SCD) *Heparin 5000 units SQ BID 3-4 Higher Order ONE of the following medications: *Heparin 5000 units SQ TID *Enoxaparin/Lovenox 40 mg SQ daily (WT < 150 kg, CrCl > 30 mL/min) *Enoxaparin/Lovenox 30 mg SQ daily (WT < 150 kg, CrCl > 10-29 mL/min) *Enoxaparin/Lovenox 30 mg SQ BID (WT < 150 kg, CrCl > 30 mL/min) AND/OR *Sequential Compression Device (SCD) 5 or more Highest Order ONE of the following medications: *Heparin 5000 units SQ TID (Preferred with Epidurals) *Enoxaparin/Lovenox 40 mg SQ daily (WT < 150 kg, CrCl > 30 mL/min) *Enoxaparin/Lovenox 30 mg SQ daily (WT < 150 kg, CrCl > 10-29 mL/min) *Enoxaparin/Lovenox 30 mg SQ BID (WT < 150 kg, CrCl > 30 mL/min) AND *Sequential Compression Device (SCD) (Eduar Valencia MD R2) Assessment and Plan Assessment and Plan 57-year-old male with history of COPD on 2 L nasal cannula at rest and 3 L nasal cannula with exertion and A. fib on anticoagulation with warfarin presents to the emergency department via [facility] complaining of shortness of breath. Admits to recent relapse of smoking tobacco. Reports new onset shortness of breath, increased sputum production, transition from white to yellow sputum production. Started on oxygen, steroids, DuoNeb, Levaquin. O2 sats stabilized at 93-94 on oxygen by nasal cannula. Continue current treatment plan and reassess tomorrow with potential for discharge when less symptomatic. Code Status Full code Discussed Condition With Discussed plan with patient. Expressed understanding. (Eduar Valencia MD R2) Attending Attestation Patient seen, examined, and discussed with Roger Valencia and Melonie. I agree with assessment and management as documented and discussed with me. The patient has been seen and examined. The chart and all resident notes have been reviewed. I agree that inpatient care is appropriate and that a two midnight stay is expected for the reasons documented in the resident history and physical. I have discussed this with the resident and certify the resident s order for inpatient admission. Som Goss is a 57yo gentleman with oxygen-dependent COPD admitted for worsening SOB and increasing oxygen requirement. At home, he typically uses 2lpm at rest, and 3lpm by nasal cannula for exertion. However, he has needed 3lpm around the clock for the last 3 days. 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 He denies chest pain, calf pain, leg edema. On exam, decreased air movement. Bilateral end exp wheeze. No accessory muscle use. Talks in complete sentences. Additional diagnosis: supratherapeutic INR: Pt takes coumadin for a fib. INR 4.3 at admission; coumadin held until therapeutic INR. Check PT/INR in AM. (Nissa Reed MD) Problem List: (1) COPD exacerbation ICD Codes: J44.1 - Chronic obstructive pulmonary disease with (acute) exacerbation Status: Acute Plan: Patient presented to the ER via [facility] with shortness of breath Received nebulizer treatment and Solu-Medrol during transit Continue home medication of Symbicort, DuoNeb every 4 hours, albuterol neb every 2 hours as needed Prednisone 40 mg begin 02/10 Levaquin 750 mg p.o. every 24 hours (2) Oral thrush ICD Codes: B37.0 - Candidal stomatitis Status: Acute Plan: Patient admits to using inhaled steroid frequently over the past few days Counseled patient to use medications as prescribed Nystatin swish and swallow therapy started (3) History of atrial fibrillation ICD Codes: Z86.79 - Personal history of other diseases of the circulatory system Status: Chronic Plan: History of A. fib well-controlled with home medications Continue home meds including metoprolol, diltiazem, warfarin He takes 2.5 mg of warfarin on Monday, Monday, Monday. He takes 5 mg of warfarin on Monday, , Monday, Monday. (4) History of TIA (transient ischemic attack) ICD Codes: Z86.73 - Personal history of transient ischemic attack (TIA), and cerebral infarction without residual deficits Status: Chronic Plan: History of "mini strokes" 2 Continue warfarin as prescribed for home use (5) Restless leg syndrome ICD Codes: G25.81 - Restless legs syndrome Status: Chronic Plan: Continue home medication Mirapex (6) Smoking addiction ICD Codes: F17.200 - Nicotine dependence, unspecified, uncomplicated Status: Chronic Plan: Significant smoking history, patient has tried to quit multiple times. Recently relapsed due to stresses associated with mother's Expresses confidence and desire to quit. States he does not need any assistance with medication or counseling (7) No contraindication to deep vein thrombosis (DVT) prophylaxis ICD Codes: Z78.9 - Other specified health status Plan: Patient already on anticoagulation with warfarin. Pt currently supratherapeutic. Holding warfarin. Will repeat INR tomorrow morning. (8) Nutrition, metabolism, and development symptoms ICD Codes: R63.8 - Other symptoms and signs concerning food and fluid intake Plan: Fluids: Not currently indicated Electrolytes: Monitor and replete Nutrition: Regular basic diet GI prophylaxis: Not currently indicated (Eduar Valencia MD R2) Physician Certification 2 Midnight Certification Type: Admission for Inpatient Services Order for Inpatient Services The services are ordered in accordance with Medicare regulations or non- Medicare payer requirements, as applicable. In the case of services not specified as inpatient-only, they are appropriately provided as inpatient services in accordance with the 2-midnight benchmark. Estimated LOS (days): 2 2 days is the estimated time the patient will need to remain in the hospital, assuming treatment plan goals are met and no additional complications. Post-Hospital Plan: Home (Eduar Valencia MD R2) Eduar Valencia MD R2 February 09, 2018 12:58 Nissa Reed MD February 09, 2018 21:15
[2018-02-09] MEDS ORDERED: ENOXAPARIN SODIUM 40 MG/0.4 ML SYRINGE SQ SCH (13:00)
[2018-02-09] MEDS: ACETAMINOPHEN/HYDROcodone 325 MG/10 MG TAB PO PRN (15:20)
[2018-02-09] MEDS: METOPROLOL TARTRATE 100 MG TAB PO SCH ×2 (15:21→22:41)
[2018-02-09] MEDS: LEVOFLOXACIN 750 MG TAB PO SCH (15:21)
[2018-02-09] MEDS: FAMOTIDINE 20 MG TAB PO SCH ×2 (15:21→22:41)
[2018-02-09] MEDS: FUROSEMIDE 20 MG TAB PO SCH (15:22)
[2018-02-09] MEDS: DILTIAZEM-CD 180 MG CAP ER PO SCH (16:15)
[2018-02-09] MEDS: CETIRIZINE HCL 10 MG TAB PO SCH (16:15)
[2018-02-09] MEDS: NYSTATIN SUSP 500,000 U/5 ML CUP SWISH-SWAL SCH ×3 (16:15→23:04)
[2018-02-09 16:39] LABS: INTERNATIONAL NORMALIZED RATIO 4.3 RATIO
--- NOTE | 2018-02-09 18:10 | EKG ---
Date Performed: 02/09/2018 Time Performed: 09:29:04 PTAGE: 57 years EKG: Sinus rhythm NORMAL ECG Since the PREVIOUS TRACING , no significant change noted PREVIOUS TRACIN08/23/2017 19.51 DOCTOR: Gerda Reddy Interpretating Date/Time 02/09/2018 18:02:15
[2018-02-09] MEDS ORDERED: SODIUM CHLORIDE 0.9% FLUSH 10 ML FLUSH IV FLUSH SCH (21:00)
[2018-02-09] MEDS: SODIUM CHLORIDE 0.9% FLUSH 10 ML FLUSH IV FLUSH SCH (22:45)
[2018-02-09] MEDS: PRAMIPEXOLE DIHYDROCHLORIDE 1 MG TAB PO SCH (23:03)
[2018-02-09] MEDS: BUDESONIDE-FORMOTEROL 80/4.5 MCG INHALER INH SCH (23:04)
[2018-02-10] VITALS (9 sets, daily range): BP systolic 98–126; BP diastolic 59–75; PULSE 61–76; RESP 16–20; TEMP 97.6–98.4; O2SAT 92–98
[2018-02-10] MEDS: RESP: ALBUTEROL 2.5 MG/IPRATROPIUM 0.5 MG NEB (SCH) INH ×6 (03:19→23:23)
[2018-02-10] MEDS: ACETAMINOPHEN/HYDROcodone 325 MG/10 MG TAB PO PRN ×2 (06:33→21:51)
[2018-02-10 08:54] LABS: AUTOMATED NEUTROPHIL # 12.2 TH/MM3 (1.8-7.7); BASOPHIL % 0.1 % (0.0-2.0); HEMATOCRIT 41.1 % (39.0-51.0); HEMOGLOBIN 13.6 GM/DL (13.0-17.0); LYMPH % 5.1 % (9.0-44.0); LYMPHOCYTE # 0.7 TH/MM3 (1.0-4.8); MEAN CELL VOLUME 89.8 FL (80.0-100.0); MEAN CORPUSCULAR HEMOGLOBIN 29.6 PG (27.0-34.0); MEAN PLATELET VOLUME 8.9 FL (7.0-11.0); MONO % 4.8 % (0.0-8.0); MONOCYTE # 0.6 TH/MM3 (0-0.9); PLATELET COUNT 245 TH/MM3 (150-450); RED BLOOD COUNT 4.58 MIL/MM3 (4.50-5.90); RED CELL DISTRIBUTION WIDTH 14.4 % (11.6-17.2); WHITE BLOOD COUNT 13.6 TH/MM3 (4.0-11.0)
[2018-02-10] MEDS: METOPROLOL TARTRATE 100 MG TAB PO SCH ×2 (09:00→21:48)
[2018-02-10] MEDS: DILTIAZEM-CD 180 MG CAP ER PO SCH (09:00)
[2018-02-10 09:03] LABS: INTERNATIONAL NORMALIZED RATIO 3.6 RATIO; PROTHROMBIN TIME - PATIENT 35.9 SEC (9.8-11.6)
--- NOTE | 2018-02-10 09:11 | HHI.FPPN ---
Subjective Remarks No acute issues overnight. Vitals are stable, patient remains afebrile. He is starting to feel better today, but states that he has no stamina. He continues to have some shortness of breath. He denies any chest pain, fever, chills, nausea or vomiting. (Wendy Wong MD R3) Objective Vitals Vital Signs Date Time Temp Pulse Resp B/P (MAP) Pulse Ox O2 Delivery O2 Flow Rate FiO2 02/10/18 08:57 98.4 66 18 102/65 (77) 98 02/10/18 04:18 97.6 61 16 109/75 (86) 95 02/10/18 00:18 98.0 63 16 98/61 (73) 92 02/09/18 23:04 95 Nasal Cannula 2.00 02/09/18 21:10 97.7 68 16 98/65 (76) 95 02/09/18 13:00 76 16 113/77 (89) 95 Nasal Cannula 2.00 02/09/18 12:00 76 17 109/77 (88) 95 Nasal Cannula 2.00 02/09/18 11:00 72 19 107/76 (86) 95 Nasal Cannula 2.00 02/09/18 10:00 70 16 93 Nasal Cannula 2.00 I/O 02/09/18 02/09/18 02/09/18 02/10/18 02/10/18 02/10/18 06:59 14:59 22:59 06:59 14:59 22:59 Intake Total 240 ml Balance 240 ml Intake Oral 240 ml (Wendy Wong MD R3) Result Diagram: 02/10/18 0827 02/09/18 0830 Imaging Last Impressions Chest X-Ray 02/09/18 0850 Signed Impressions: CONCLUSION: Stable chest appearance. Objective Remarks GENERAL: Well-nourished, well-developed male in no acute distress. SKIN: Warm and dry. HEAD: Normocephalic. EYES: No scleral icterus. No injection or drainage. NECK: Supple, trachea midline. No JVD or lymphadenopathy. CARDIOVASCULAR: Regular rate and rhythm without murmurs, gallops, or rubs. RESPIRATORY: Breath sounds equal bilaterally. No accessory muscle use. No wheezes.NC in place. Speaking in complete sentences without shortness of breath. GASTROINTESTINAL: Abdomen soft, non-tender, nondistended. MUSCULOSKELETAL: No cyanosis, or edema. BACK: Nontender without obvious deformity. (Wendy Wong MD R3) A/P Assessment and Plan 57-year-old male with history of COPD on 2 L nasal cannula at rest and 3 L nasal cannula with exertion and A. fib on anticoagulation with warfarin presented to the emergency department via [facility] complaining of shortness of breath and was admitted for COPD exacerbation. Discharge Planning Anticipate discharge home tomorrow. (Wendy Wong MD R3) Attending Attestation Patient seen, examined, and discussed with resident team. I agree with assessment and management as documented and discussed with me. Pt reports his breathing is a bit improved, but he continues to be extremely winded with minimal exertion. On exam, lungs with better air movement, although still somewhat diminished. No wheezing today (last breathing treatment one hour prior to exam) Anticipate discharge in 1-2 days, when pt is clinically improved. (Nissa Reed MD) Problem List: (1) COPD exacerbation ICD Codes: J44.1 - Chronic obstructive pulmonary disease with (acute) exacerbation Status: Acute Plan: Clinically improving. Continue home medication of Symbicort, DuoNeb every 4 hours, albuterol neb every 2 hours as needed Prednisone 40 mg (started 02/10) Levaquin 750 mg p.o. every 24 hours (started 02/10) Continue supplemental O2 to maintain O2 sat >92% (2) Oral thrush ICD Codes: B37.0 - Candidal stomatitis Status: Acute Plan: Patient admits to using inhaled steroid frequently over the past few days Counseled patient to use medications as prescribed Nystatin swish and swallow therapy started (3) History of atrial fibrillation ICD Codes: Z86.79 - Personal history of other diseases of the circulatory system Status: Chronic Plan: History of A. fib well-controlled with home medications Continue home meds including metoprolol, diltiazem, warfarin He takes 2.5 mg of warfarin on Monday, Monday, Monday. He takes 5 mg of warfarin on Monday, , Monday, Monday. INR elevated on admission at 4.3, Coumadin held. INR improved to 3.6 this AM. Will hold Coumadin again today and repeat INR tomorrow. (4) History of TIA (transient ischemic attack) ICD Codes: Z86.73 - Personal history of transient ischemic attack (TIA), and cerebral infarction without residual deficits Status: Chronic Plan: History of "mini strokes" 2 Continue warfarin (5) Restless leg syndrome ICD Codes: G25.81 - Restless legs syndrome Status: Chronic Plan: Continue home medication Mirapex (6) Smoking addiction ICD Codes: F17.200 - Nicotine dependence, unspecified, uncomplicated Status: Chronic Plan: Significant smoking history, patient has tried to quit multiple times. Recently relapsed due to stresses associated with mother's Expresses confidence and desire to quit. States he does not need any assistance with medication or counseling (7) No contraindication to deep vein thrombosis (DVT) prophylaxis ICD Codes: Z78.9 - Other specified health status Status: Acute Plan: Patient already on anticoagulation with warfarin. Pt currently supratherapeutic. Holding warfarin. Continue monitoring INR. (8) Nutrition, metabolism, and development symptoms ICD Codes: R63.8 - Other symptoms and signs concerning food and fluid intake Plan: Fluids: Not currently indicated Electrolytes: Monitor and replete Nutrition: Regular basic diet (Wendy Wong MD R3) Wendy Wong MD R3 February 10, 2018 09:11 Nissa Reed MD February 10, 2018 11:00
--- NOTE | 2018-02-10 09:11 | HHI.DCPOC ---
Discharge Care Plan Diagnosis: (1) COPD exacerbation Goals to Promote Your Health * To prevent worsening of your condition and complications * To maintain your health at the optimal level Directions to Meet Your Goals Take your medications as prescribed Follow your dietary instruction Follow activity as directed Keep your appointments as scheduled Take your immunizations and boosters as scheduled If your symptoms worsen call your PCP, if no PCP go to Urgent Care Center or Emergency Room Smoking is Dangerous to Your Health. Avoid second hand smoke Call the 24-hour hour crisis hotline for domestic abuse at Wendy Wong MD R3 February 10, 2018 09:11
[2018-02-10] MEDS: BUDESONIDE-FORMOTEROL 80/4.5 MCG INHALER INH SCH ×2 (09:14→21:47)
[2018-02-10] MEDS: NYSTATIN SUSP 500,000 U/5 ML CUP SWISH-SWAL SCH ×4 (09:15→21:48)
[2018-02-10] MEDS: FAMOTIDINE 20 MG TAB PO SCH ×2 (09:15→21:48)
[2018-02-10] MEDS: predniSONE 20 MG TAB PO SCH (09:15)
[2018-02-10] MEDS: CETIRIZINE HCL 10 MG TAB PO SCH (09:15)
[2018-02-10] MEDS: SODIUM CHLORIDE 0.9% FLUSH 10 ML FLUSH IV FLUSH SCH ×2 (09:16→21:50)
[2018-02-10] MEDS: FUROSEMIDE 20 MG TAB PO SCH (09:16)
[2018-02-10 09:18] LABS: BICARBONATE 25.9 MEQ/L (21.0-32.0); CALCIUM 8.7 MG/DL (8.5-10.1); CREATININE 0.83 MG/DL (0.60-1.30)
[2018-02-10] MEDS: LEVOFLOXACIN 750 MG TAB PO SCH (13:28)
[2018-02-10] MEDS ORDERED: WARFARIN SOD 5 MG TAB PO SCH (16:00)
[2018-02-10] MEDS: PRAMIPEXOLE DIHYDROCHLORIDE 1 MG TAB PO SCH (21:47)
[2018-02-11] MEDS: RESP: ALBUTEROL 2.5 MG/IPRATROPIUM 0.5 MG NEB (SCH) INH ×3 (03:28→13:42)
[2018-02-11 03:32] VITALS: BP 107/71; PULSE 53; RESP 18; TEMP 97.4; O2SAT 100
[2018-02-11 07:16] VITALS: BP 113/78; PULSE 56; RESP 18; TEMP 97.4; O2SAT 100
[2018-02-11 07:53] LABS: HEMATOCRIT 41.3 % (39.0-51.0); HEMOGLOBIN 13.5 GM/DL (13.0-17.0); MEAN CELL VOLUME 90.9 FL (80.0-100.0); MEAN CORPUSCULAR HEMOGLOBIN 29.8 PG (27.0-34.0); MEAN CORPUSCULAR HGB CONC 32.8 % (32.0-36.0); MEAN PLATELET VOLUME 9.4 FL (7.0-11.0); PLATELET COUNT 204 TH/MM3 (150-450); RED BLOOD COUNT 4.54 MIL/MM3 (4.50-5.90); RED CELL DISTRIBUTION WIDTH 14.2 % (11.6-17.2); WHITE BLOOD COUNT 10.8 TH/MM3 (4.0-11.0)
[2018-02-11 08:17] VITALS: O2SAT 98
[2018-02-11] MEDS: METOPROLOL TARTRATE 100 MG TAB PO SCH ×2 (09:00→09:32)
[2018-02-11] MEDS: DILTIAZEM-CD 180 MG CAP ER PO SCH ×2 (09:00→09:32)
[2018-02-11] MEDS: BUDESONIDE-FORMOTEROL 80/4.5 MCG INHALER INH SCH (09:30)
[2018-02-11] MEDS: ACETAMINOPHEN/HYDROcodone 325 MG/10 MG TAB PO PRN (09:30)
[2018-02-11] MEDS: NYSTATIN SUSP 500,000 U/5 ML CUP SWISH-SWAL SCH ×2 (09:31→13:31)
[2018-02-11] MEDS: SODIUM CHLORIDE 0.9% FLUSH 10 ML FLUSH IV FLUSH SCH (09:31)
[2018-02-11] MEDS: predniSONE 20 MG TAB PO SCH (09:32)
[2018-02-11] MEDS: FUROSEMIDE 20 MG TAB PO SCH (09:32)
[2018-02-11] MEDS: FAMOTIDINE 20 MG TAB PO SCH (09:32)
[2018-02-11] MEDS: CETIRIZINE HCL 10 MG TAB PO SCH (09:32)
--- NOTE | 2018-02-11 10:17 | HHI.FPPN ---
Subjective Remarks Patient seen and examined today. Reports that his shortness of breath has improved, he can "move more air." He states he was dizzy when walking the days before, and has not walked today yet. Otherwise he is feeling overall better. No new acute complaints. (Eduar Wilhelm MD R1) Objective Vitals Vital Signs Date Time Temp Pulse Resp B/P (MAP) Pulse Ox O2 Delivery O2 Flow Rate FiO2 02/11/18 08:17 98 Nasal Cannula 2.00 02/11/18 07:16 97.4 56 18 113/78 (90) 100 02/11/18 03:32 97.4 53 18 107/71 (83) 100 02/10/18 23:55 97.6 62 16 102/65 (77) 97 02/10/18 23:00 16 02/10/18 20:30 98.2 73 18 100/64 (76) 97 02/10/18 19:29 96 Nasal Cannula 2.00 02/10/18 17:17 97.9 76 18 126/62 (83) 96 02/10/18 14:36 97.9 76 20 104/59 (74) 94 (Eduar Wilhelm MD R1) Result Diagram: 02/11/18 0708 02/10/18 0827 Objective Remarks GENERAL: Well-nourished, well-developed male in no acute distress. SKIN: Warm and dry. HEAD: Normocephalic. EYES: No scleral icterus. No injection or drainage. NECK: Supple, trachea midline. No JVD or lymphadenopathy. CARDIOVASCULAR: Regular rate and rhythm without murmurs, gallops, or rubs. RESPIRATORY: Breath sounds equal bilaterally. No accessory muscle use. Mild wheeze. NC in place. Speaking in complete sentences without shortness of breath. GASTROINTESTINAL: Abdomen soft, non-tender, nondistended. MUSCULOSKELETAL: No cyanosis, or edema. BACK: Nontender without obvious deformity. (Eduar Wilhelm MD R1) A/P Assessment and Plan 57-year-old male with history of COPD on 2 L nasal cannula at rest and 3 L nasal cannula with exertion and A. fib on anticoagulation with warfarin presented to the emergency department via [facility] complaining of shortness of breath and was admitted for COPD exacerbation. Discharge Planning Anticipate discharge home today or tomorrow. (Eduar Wilhelm MD R1) Attending Attestation Patient seen and examined, discussed with Dr Wilhelm. I agree with assessment and management as documented and discussed with me. Pt reports air movement is better. He is concerned about dizziness when getting out of bed (seen prior to working with PT). He has a walker at home he uses from time to time. Discharge home today, if stable when out of bed with PT. (Nissa Reed MD) Problem List: (1) COPD exacerbation ICD Codes: J44.1 - Chronic obstructive pulmonary disease with (acute) exacerbation Status: Acute Plan: Clinically improving. Continue home medication of Symbicort, DuoNeb every 4 hours, albuterol neb every 2 hours as needed Prednisone 40 mg (started 02/10) Levaquin 750 mg p.o. every 24 hours (started 02/10) Continue supplemental O2 to maintain O2 sat >92% (2) Oral thrush ICD Codes: B37.0 - Candidal stomatitis Status: Acute Plan: Patient admits to using inhaled steroid frequently over the past few days Counseled patient to use medications as prescribed Nystatin swish and swallow therapy started (3) History of atrial fibrillation ICD Codes: Z86.79 - Personal history of other diseases of the circulatory system Status: Chronic Plan: History of A. fib well-controlled with home medications Continue home meds including metoprolol, diltiazem, warfarin He takes 2.5 mg of warfarin on Monday, Monday, Monday. He takes 5 mg of warfarin on Monday, , Monday, Monday. INR elevated on admission at 4.3, Coumadin held. INR improved to 3.6 this AM. Will hold Coumadin again today and repeat INR tomorrow. (4) History of TIA (transient ischemic attack) ICD Codes: Z86.73 - Personal history of transient ischemic attack (TIA), and cerebral infarction without residual deficits Status: Chronic Plan: History of "mini strokes" 2 Continue warfarin (5) Restless leg syndrome ICD Codes: G25.81 - Restless legs syndrome Status: Chronic Plan: Continue home medication Mirapex (6) Smoking addiction ICD Codes: F17.200 - Nicotine dependence, unspecified, uncomplicated Status: Chronic Plan: Significant smoking history, patient has tried to quit multiple times. Recently relapsed due to stresses associated with mother's Expresses confidence and desire to quit. States he does not need any assistance with medication or counseling (7) No contraindication to deep vein thrombosis (DVT) prophylaxis ICD Codes: Z78.9 - Other specified health status Status: Acute Plan: Patient already on anticoagulation with warfarin. Pt currently supratherapeutic. Holding warfarin. Continue monitoring INR. (8) Nutrition, metabolism, and development symptoms ICD Codes: R63.8 - Other symptoms and signs concerning food and fluid intake Plan: Fluids: Not currently indicated Electrolytes: Monitor and replete Nutrition: Regular basic diet (Eduar Wilhelm MD R1) Eduar Wilhelm MD R1 February 11, 2018 10:17 Nissa Reed MD February 11, 2018 13:48
--- NOTE | 2018-02-11 10:50 | HHI.DS ---
Discharge Summary Admission Date February 09, 2018 at 11:35 Admitting Diagnosis acute hypoxic resp failure, COPD exac (1) COPD exacerbation Diagnosis: Principal Plan: Clinically improving. Continue home medication of Symbicort, DuoNeb every 4 hours, albuterol neb every 2 hours as needed Prednisone 40 mg (started 02/10) Levaquin 750 mg p.o. every 24 hours (started 02/10) Continue supplemental O2 to maintain O2 sat >92% ICD Codes: J44.1 - Chronic obstructive pulmonary disease with (acute) exacerbation Status: Acute (2) Oral thrush Diagnosis: Secondary Plan: Patient admits to using inhaled steroid frequently over the past few days Counseled patient to use medications as prescribed Nystatin swish and swallow therapy started ICD Codes: B37.0 - Candidal stomatitis Status: Acute (3) History of atrial fibrillation Diagnosis: Secondary Plan: History of A. fib well-controlled with home medications Continue home meds including metoprolol, diltiazem, warfarin He takes 2.5 mg of warfarin on Monday, Monday, Monday. He takes 5 mg of warfarin on Monday, , Monday, Monday. INR elevated on admission at 4.3, Coumadin held. INR improved to 3.6 this AM. Will hold Coumadin again today and repeat INR tomorrow. ICD Codes: Z86.79 - Personal history of other diseases of the circulatory system Status: Chronic (4) History of TIA (transient ischemic attack) Diagnosis: Secondary Plan: History of "mini strokes" 2 Continue warfarin ICD Codes: Z86.73 - Personal history of transient ischemic attack (TIA), and cerebral infarction without residual deficits Status: Chronic (5) Restless leg syndrome Diagnosis: Secondary Plan: Continue home medication Mirapex ICD Codes: G25.81 - Restless legs syndrome Status: Chronic (6) Smoking addiction Diagnosis: Secondary Plan: Significant smoking history, patient has tried to quit multiple times. Recently relapsed due to stresses associated with mother's Expresses confidence and desire to quit. States he does not need any assistance with medication or counseling ICD Codes: F17.200 - Nicotine dependence, unspecified, uncomplicated Status: Chronic (7) No contraindication to deep vein thrombosis (DVT) prophylaxis Diagnosis: Secondary Plan: Patient already on anticoagulation with warfarin. Pt currently supratherapeutic. Holding warfarin. Continue monitoring INR. ICD Codes: Z78.9 - Other specified health status Status: Acute (8) Nutrition, metabolism, and development symptoms Plan: Fluids: Not currently indicated Electrolytes: Monitor and replete Nutrition: Regular basic diet ICD Codes: R63.8 - Other symptoms and signs concerning food and fluid intake Brief History Mr. Goss is a 57-year-old male with history of COPD who presented to the ER via [facility] with severe "shortness of breath" that began this morning. He reports waking up with shortness of breath and subsequent soreness in his chest like he was punched there, and increased thick yellow sputum production. He walked to the kitchen to take his meds but was unable to do so. He decided to call 911. By the time [facility] arrived he had given himself a breathing treatments. Reports receiving another treatment in the ambulance along with a Solu Medrol injection. Admits to smoking 5 cigarettes over the last 2 days after having quit for the past 6 months because of difficulty coping with his mother's recent . Admits to increased use of inhalers during this relapse. Baseline function is oxygen 2 L/m via NC and 3 L/m with exertion. Reports he can walk a block normally, and is currently only able to walk to the bathroom before expansion dyspnea on exertion. Denies changes in weight, night sweats, suicidal ideation, fever, chills, racing heart, bloody sputum, abdominal pain, N /V, diarrhea, muscle weakness/numbness/tingling. CBC/BMP: 02/11/18 0708 02/10/18 0827 Significant Findings Laboratory Tests Test 02/09/18 08:30 02/09/18 16:00 02/10/18 08:27 02/11/18 07:08 Monocytes (%) (Auto) 10.4 % (0.0-8.0) Chloride Level 108 MEQ/L (98-107) 108 MEQ/L (98-107) Troponin I LESS THAN 0.02 NG/ML Prothrombin Time 43.0 SEC (9.8-11.6) 35.9 SEC (9.8-11.6) White Blood Count 13.6 TH/MM3 (4.0-11.0) Neutrophils (%) (Auto) 90.0 % (16.0-70.0) Lymphocytes (%) (Auto) 5.1 % (9.0-44.0) Neutrophils # (Auto) 12.2 TH/MM3 (1.8-7.7) Lymphocytes # (Auto) 0.7 TH/MM3 (1.0-4.8) Blood Urea Nitrogen 19 MG/DL (7-18) Random Glucose 119 MG/DL (74-106) PE at Discharge GENERAL: Well-nourished, well-developed male in no acute distress. SKIN: Warm and dry. HEAD: Normocephalic. EYES: No scleral icterus. No injection or drainage. NECK: Supple, trachea midline. No JVD or lymphadenopathy. CARDIOVASCULAR: Regular rate and rhythm without murmurs, gallops, or rubs. RESPIRATORY: Breath sounds equal bilaterally. No accessory muscle use. Mild wheeze. NC in place. Speaking in complete sentences without shortness of breath. GASTROINTESTINAL: Abdomen soft, non-tender, nondistended. MUSCULOSKELETAL: No cyanosis, or edema. BACK: Nontender without obvious deformity. Hospital Course Patient admitted on 02/09 for COPD exacerbation. Treated with Solu-Medrol, Symbicort, DuoNeb's, prednisone, Levaquin. Patient gradually improved until , the day of discharge. INR initially supratherapeutic, subtherapeutic on day of discharge. Warfarin restarted prior to discharge. Pt Condition on Discharge: Stable Discharge Disposition: Discharge Home Eduar Wilhelm MD R1 February 11, 2018 10:50
[2018-02-11 11:07] VITALS: BP 107/75; PULSE 61; RESP 18; TEMP 97.7; O2SAT 98
[2018-02-11 13:05] LABS: INTERNATIONAL NORMALIZED RATIO 1.8 RATIO; PROTHROMBIN TIME - PATIENT 18.7 SEC (9.8-11.6)
[2018-02-11] MEDS: LEVOFLOXACIN 750 MG TAB PO SCH (13:31)
[2018-02-12] MEDS ORDERED: WARFARIN SOD 2.5 MG TAB PO SCH (16:00)
== END 2018-02-11 15:34 | disposition home or self-care (01) ==
LOC: NEPC 08:21 → INTOOBSV 11:35 → NEDA 11:35 → NEPHCDU 19:53 → UNDODISIN 02-11 15:34
PROVIDERS: ADMIT Family Medicine; ATTEND Family Medicine
DX: J96.01 Acute respiratory failure with hypoxia (principal); J44.1 Chronic obstructive pulmonary disease with (acute) exacerbation; B37.0 Candidal stomatitis; Z79.01 Long term (current) use of anticoagulants; I48.91 Unspecified atrial fibrillation; I11.0 Hypertensive heart disease with heart failure; R51 Headache
CPT/HCPCS: 71045; 80048; 82550; 82552; 84484; 85025; 85027; 85610; 87804; 93005; 94150; 94640; 94664; 97110; 97116; 97161; 99291; G0378; G8987; G8988; J1650; J7512

== ENCOUNTER 2018-02-21 08:17 | Observation (INO) | payer OTHER, MEDICARE ==
[~2018-02-21] VITALS: Ht 182.9 cm; Wt 78.0 kg
[~2018-02-21 08:17] MED LIST changes: -COUM2.5T PO; -COUM5TAB PO; -NEBULIZER1 MI1; -PRED5TAB PO; -WALKER WHEELS/F1 MIS; +WARF-18 PO; +WARF-23 PO
[2018-02-21 08:20] VITALS: BP 155/86; PULSE 73; RESP 20; TEMP 98.8; O2SAT 100
[2018-02-21 08:26] VITALS: RESP 18; O2SAT 100
[2018-02-21] MEDS ORDERED: SODIUM CHLORIDE 0.9% FLUSH 10 ML FLUSH IVF PRN (08:30)
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
[2018-02-21] MEDS: RESP: ALBUTEROL 2.5 MG/IPRATROPIUM 0.5 MG NEB (SCH) INH ×5 (08:34→20:00)
[2018-02-21 08:39] LABS: AUTOMATED NEUTROPHIL # 6.9 TH/MM3 (1.8-7.7); BASOPHIL % 0.4 % (0.0-2.0); EOSINOPHIL # 0.1 TH/MM3 (0-0.4); EOSINOPHIL % 0.9 % (0.0-4.0); HEMOGLOBIN 14.4 GM/DL (13.0-17.0); LYMPH % 25.7 % (9.0-44.0); LYMPHOCYTE # 2.8 TH/MM3 (1.0-4.8); MEAN CORPUSCULAR HEMOGLOBIN 30.2 PG (27.0-34.0); MEAN CORPUSCULAR HGB CONC 33.6 % (32.0-36.0); MEAN PLATELET VOLUME 8.8 FL (7.0-11.0); MONO % 9.3 % (0.0-8.0); NEUT % 63.7 % (16.0-70.0); PLATELET COUNT 231 TH/MM3 (150-450); RED BLOOD COUNT 4.78 MIL/MM3 (4.50-5.90); WHITE BLOOD COUNT 10.9 TH/MM3 (4.0-11.0)
[2018-02-21 08:55] LABS: ALBUMIN 3.8 GM/DL (3.4-5.0); ALT (GPT) 29 U/L (12-78); AST (GOT) 22 U/L (15-37); BICARBONATE 29.8 MEQ/L (21.0-32.0); BLOOD UREA NITROGEN 15 MG/DL (7-18); CALCIUM 8.8 MG/DL (8.5-10.1); CHLORIDE 105 MEQ/L (98-107); CREATININE 0.77 MG/DL (0.60-1.30); GLOMERULAR FILTRATION RATE 104 ML/MIN (>89); GLUCOSE,RANDOM 103 MG/DL (74-106); SODIUM (NA) 140 MEQ/L (136-145)
[2018-02-21 08:57] LABS: ALKALINE PHOSPHATASE 73 U/L (45-117); TOTAL BILIRUBIN ADULT 0.8 MG/DL (0.2-1.0); TOTAL PROTEIN 7.3 GM/DL (6.4-8.2)
[2018-02-21] MEDS ORDERED: LORazepam 2 MG/ML VIAL IV PUSH ONE (09:00)
[2018-02-21 09:25] VITALS: BP 113/81; PULSE 76; RESP 18; O2SAT 100
--- NOTE | 2018-02-21 11:59 | RADRPT ---
EXAM DATE: 02/21/2018 8:48 AM EDT AGE/SEX: 57 years / Male INDICATIONS: Shortness of breath for two days. CLINICAL DATA: This is the patient's initial encounter. Patient reports that signs and symptoms have been present for 2 days and indicates a pain score of 0/10. MEDICAL/SURGICAL HISTORY: Chronic obstructive pulmonary disease. None. COMPAR[place] [facility] [place]. . FINDINGS: The lungs are clear without infiltrate, nodule, or mass. There is no appreciable pleural effusion for technique. Heart and mediastinum are unremarkable. Extensive COPD is again seen with la rge blebs not significantly changed. CONCLUSION: No acute cardiopulmonary disease. Electronically signed by: Estella Canales MD 02/21/2018 11:57 AM EDT
[2018-02-21] MEDS ORDERED: RESP: ALBUTEROL 2.5 MG/3 ML NEB (PRN) INH (12:30)
[2018-02-21 13:32] VITALS: BP 106/81; PULSE 104; RESP 18; O2SAT 98
[2018-02-21] MEDS: methylPREDNISolone SOD SUCC 125 MG/2 ML VIAL IV PUSH SCH ×2 (14:10→21:30)
--- NOTE | 2018-02-21 15:28 | HHI.HP ---
HPI Service [facility] Hospitalists Primary Care Physician [facility] Admission Diagnosis COPD exacerbation Diagnoses: Chief Complaint: Dyspnea COPD exacerbation Travel History International Travel<30 Days: No Contact w/Intl Traveler <30 Da: No Traveled to Known Affected Are: No History of Present Illness Written by Jessenia Faulkner, acting as scribe for Dr. Bernardo on 02/21/18 at 15: 22. This is a 57yo male with a past medical history of COPD, atrial fibrillation anticoagulated on Warfarin and hx of TIAs who presents to [facility] ED with complaints of shortness of breath. Patient was recently admitted 2017 with COPD exacerbation. Patient reports feeling short of breath while working outside yesterday but improved after he came inside to the air conditioning to rest. He woke up in the middle of the night and put his oxygen on. When he woke up this morning, he felt really tight in his chest with difficulty breathing and did several breathing treatments without any relief. He states he began sweating and felt like his throat was closing up and decided to call EMS. Per EMS, he was initially hypoxic and was given Solu-Medrol and nebulizers with improvement in his breathing. In the ED, CXR was unremarkable for any acute pulmonary process. Patient was found to be satting at 99%. He denies any chest pain but reports right sided rib pain since getting hit in the side by a pipe 2 days ago. He endorses headache. He uses oxygen at home continuously, 2L when at rest and 3L with any exertion. He denies any fever or chills. He denies any nausea, vomiting or abdominal pain. He denies any urinary difficulties, diarrhea or constipation. Review of Systems Except as stated in HPI: all other systems reviewed are Neg Past Family Social History Past Medical History COPD Atrial fibrillation on anticoagulation with warfarin Degenerative disc disease lumbar spine LLE neuropathy Restless leg syndrome TIA 2 Multiple traumas Past Surgical History Hiatal hernia repair Deviated septum Cataract surgery Reported Medications Lasix (Furosemide) 20 Mg Tab 20 Mg PO DAILY Duoneb (Ipratropium-Albuterol Neb) 0.5-2.5 Mg/3 Ml Neb 1 Nebule INH Q6HR NEB Spiriva Handihaler (Tiotropium Inh) 18 Mcg Cap 18 Mcg INH DAILY 1 capsule = 18 mcg Symbicort Inh (Budesonide/Formoterol Fumarate) 80-4.5 Mcg/Act Aero 2 Puff INH Q12HR Oxygen (O2) Device 2 Liter FRANK.CANULA CONTINUOUS Oxygen Concentrator Portable Gaseous 2 L/min via Nasal Canula Continuous For 99 months Cardizem (Diltiazem HCl) 120 Mg Tab 360 Mg PO DAILY Ventolin Hfa 18 GM Inh (Albuterol Sulfate) 90 Mcg/Act Aer 2 Puff INH Q4H PRN Warfarin 5 Mg Tab 5 Mg PO EVERY TTHSS Warfarin 2.5 Mg Tab 2.5 Mg PO EVERY MWF Hydrocodone-Acetaminophen 10-325 mg Tab 1 Tab PO TID PRN Pramipexole (Pramipexole Dihydrochloride) 1 Mg Tab 1 Mg PO DAILY Metoprolol Tartrate 100 Mg Tab 100 Mg PO BID Ranitidine (Ranitidine HCl) 150 Mg Tab Unknown Dose PO BID Allergies: Coded Allergies: gabapentin (Unverified Allergy, Severe, Shortness of Breath, 02/21/18) Pt states he had a bad reaction to Gabapentin. states "my throat swole and it was hard for me to breath." penicillin G (Unverified Allergy, Severe, "ALL CILLINS" PER PT, 02/21/18) amoxicillin (Unverified Allergy, Unknown, 02/21/18) Uncoded Allergies: ALL CILLINS (Allergy, Unknown, 06/15/10) Active Ordered Medications Current Medications Medications (Trade) Dose Ordered Sig/Dusty Route Start Time Stop Time Status Last Admin (NS Flush) 2 ml UNSCH PRN IVF 02/21/18 08:30 (NS Flush) 2 ml BID IV FLUSH 02/21/18 21:00 (NS Flush) 2 ml UNSCH PRN IV FLUSH 02/21/18 12:30 (Duoneb Neb) 1 ampule QID NEB INH 02/21/18 16:00 (Albuterol Neb) 2.5 mg Q2HR NEB PRN INH 02/21/18 12:30 (SoluMEDROL INJ) 60 mg Q6H IV PUSH 02/21/18 14:00 02/21/18 14:10 (Symbicort 80-4.5 Mcg Inh) 2 puff Q12HR INH 02/21/18 21:00 (Lasix) 20 mg DAILY PO 02/22/18 09:00 (Lopressor) 100 mg BID PO 02/21/18 21:00 (Mirapex) 1 mg DAILY PO 02/22/18 09:00 (Spiriva Inh) 18 mcg DAILY INH 02/22/18 09:00 (Cardizem Cd) 360 mg DAILY PO 02/22/18 09:00 (Coumadin) 2.5 mg MoWeFr@16 PO 02/21/18 16:00 UNV (Coumadin) 5 mg SuTuThSa@16 PO 02/22/18 16:00 UNV Family History Mother - brain cancer, Father - skin cancer, living Social History [id number] smoking history but patient quit 11 mos ago He drinks 1-2 beers/day. He denies any illicit drug use. Physical Exam Vital Signs Vital Signs Date Time Temp Pulse Resp B/P (MAP) Pulse Ox O2 Delivery O2 Flow Rate FiO2 02/21/18 13:32 104 18 106/81 (89) 98 Room Air 02/21/18 09:25 76 18 113/81 (92) 100 Nasal Cannula 3.00 02/21/18 08:26 18 100 Simple Mask 6.00 02/21/18 08:26 100 Simple Mask 6.00 02/21/18 08:25 100 Simple Mask 6.00 02/21/18 08:20 98.8 73 20 155/86 (109) 100 Physical Exam GENERAL: This is a well-nourished, well-developed male patient, in no apparent distress. Awake and alert. SKIN: Cool and dry. Mild ecchymosis noted on right-sided flank area. Multiple small open sores on RUE secondary to cactus injury ppr, no e/o infection. HEAD: Atraumatic. Normocephalic. No temporal or scalp tenderness. EYES: Pupils equal round and reactive. Extraocular motions intact. No scleral icterus. No injection or drainage. ENT: Nose without bleeding or purulent drainage. Throat without erythema, tonsillar hypertrophy or exudate. Uvula midline. Airway patent. NECK: Trachea midline. No JVD or lymphadenopathy. Supple, nontender, no meningeal signs. CARDIOVASCULAR: Regular rate and rhythm without murmurs, gallops, or rubs. RESPIRATORY: No accessory muscle use. Poor air entry throughout with diffuse expiratory wheezing noted. Breath sounds equal bilaterally. GASTROINTESTINAL: Abdomen soft, non-tender, nondistended. No hepato-splenomegaly , or palpable masses. No guarding. MUSCULOSKELETAL: Extremities without clubbing, cyanosis, or edema. No joint tenderness, effusion, or edema noted. No calf tenderness. Mild tenderness to palpation over right sided flank area. NEUROLOGICAL: Awake and alert. Cranial nerves II through XII grossly intact. Motor and sensory grossly within normal limits. Able to move all extremities spontaneously. Normal speech. Laboratory Laboratory Tests Test 02/21/18 08:28 02/21/18 14:50 White Blood Count 10.9 Red Blood Count 4.78 Hemoglobin 14.4 Hematocrit 43.0 Mean Corpuscular Volume 90.0 Mean Corpuscular Hemoglobin 30.2 Mean Corpuscular Hemoglobin Concent 33.6 Red Cell Distribution Width 14.0 Platelet Count 231 Mean Platelet Volume 8.8 Neutrophils (%) (Auto) 63.7 Lymphocytes (%) (Auto) 25.7 Monocytes (%) (Auto) 9.3 Eosinophils (%) (Auto) 0.9 Basophils (%) (Auto) 0.4 Neutrophils # (Auto) 6.9 Lymphocytes # (Auto) 2.8 Monocytes # (Auto) 1.0 Eosinophils # (Auto) 0.1 Basophils # (Auto) 0.0 CBC Comment DIFF FINAL Differential Comment Blood Urea Nitrogen 15 Creatinine 0.77 Random Glucose 103 Total Protein 7.3 Albumin 3.8 Calcium Level 8.8 Alkaline Phosphatase 73 Aspartate Amino Transf (AST/SGOT) 22 Alanine Aminotransferase (ALT/SGPT) 29 Total Bilirubin 0.8 Sodium Level 140 Potassium Level 4.2 Chloride Level 105 Carbon Dioxide Level 29.8 Anion Gap 5 Estimat Glomerular Filtration Rate 104 B-Type Natriuretic Peptide 13 Result Diagram: 02/21/1882702/21/18827 Imaging Last Impressions Chest X-Ray 02/21/18823 Signed Impressions: CONCLUSION: No acute cardiopulmonary disease. Caprini VTE Risk Assessment Caprini VTE Risk Assessment: No/Low Risk (score <= 1) Caprini Risk Assessment Model Point Value = 1 Point Value = 2 Point Value = 3 Point Value = 5 Age 41-60 Minor surgery BMI > 25 kg/m2 Swollen legs Varicose veins or History of unexplained or recurrent spontaneous Oral contraceptives or hormone replacement Sepsis (< 1 month) Serious lung disease, including pneumonia (< 1 month) Abnormal pulmonary function Acute myocardial infarction Congestive heart failure (< 1 month) History of inflammatory bowel disease Medical patient at bed rest Age 61-74 Arthroscopic surgery Major open surgery (> 45 min) Laparoscopic surgery (> 45 min) Malignancy Confined to bed (> 72 hours) Immobilizing plaster cast Central venous access Age >= 75 History of VTE Family history of VTE Factor V Leiden Prothrombin [id number] Lupus anticoagulant Anticardiolipin antibodies Elevated serum homocysteine Heparin-induced thrombocytopenia Other congenital or acquired thrombophilia Stroke (< 1 month) Elective arthroplasty Hip, pelvis, or leg fracture Acute spinal cord injury (< 1 month) Prophylaxis Regimen Total Risk Factor Score Risk Level Prophylaxis Regimen 0-1 Low Early ambulation 2 Moderate Order ONE of the following: *Sequential Compression Device (SCD) *Heparin 5000 units SQ BID 3-4 Higher Order ONE of the following medications: *Heparin 5000 units SQ TID *Enoxaparin/Lovenox 40 mg SQ daily (WT < 150 kg, CrCl > 30 mL/min) *Enoxaparin/Lovenox 30 mg SQ daily (WT < 150 kg, CrCl > 10-29 mL/min) *Enoxaparin/Lovenox 30 mg SQ BID (WT < 150 kg, CrCl > 30 mL/min) AND/OR *Sequential Compression Device (SCD) 5 or more Highest Order ONE of the following medications: *Heparin 5000 units SQ TID (Preferred with Epidurals) *Enoxaparin/Lovenox 40 mg SQ daily (WT < 150 kg, CrCl > 30 mL/min) *Enoxaparin/Lovenox 30 mg SQ daily (WT < 150 kg, CrCl > 10-29 mL/min) *Enoxaparin/Lovenox 30 mg SQ BID (WT < 150 kg, CrCl > 30 mL/min) AND *Sequential Compression Device (SCD) Assessment and Plan Assessment and Plan 1. AECOPD, Acute on chronic hypoxic respiratory failure: IV Solumedrol 60mg IV q6h, Duonebs scheduled and as needed. Continue on home dose of Spiriva and Symbicort. Consult COPD educator. Monitor respiratory status. Supplemental oxygen as needed to maintain O2 sats >92%. 2. Atrial fibrillation on anticoagulation with Warfarin, rate controlled: INR therapeutic at 2.3. Continue on home dose of Warfarin, pharmacy to dose. Continue on rate limiting medications per home regimen of Metoprolol and Diltiazem CD. Monitor HR. 3. Right sided flank pain/ecchymosis after "running into a pipe" several days ago: Tylenol prn pain. Monitor. 4. RUE sores secondary to cactus injury: Apply Bactroban BID. Monitor for improvement. 5. Hx of TIA, stable: Continue on Warfarin 6. DVT prophylaxis: Bilateral SCD/MELISSA hose This note was transcribed by toño Faulkner. I, Dr. Magdiel Bernardo personally performed the history, physical exam, and medical decision making; and confirmed the accuracy of the information in the transcribed note. Authenticated by Dr. Magdiel Bernardo on 02/21/18 at 17:43. Discussed Condition With Patient, nursing staff Jessenia Faulkner Feb 21, 2018 15:28 Magdiel Bernardo MD Feb 21, 2018 17:43
[2018-02-21 15:42] LABS: INTERNATIONAL NORMALIZED RATIO 2.3 RATIO; PROTHROMBIN TIME - PATIENT 23.1 SEC (9.8-11.6)
[2018-02-21] MEDS ORDERED: WARFARIN SOD 2.5 MG TAB PO SCH (16:00)
[2018-02-21 16:36] VITALS: BP 105/72; PULSE 87; RESP 18; TEMP 97.7; O2SAT 99
--- NOTE | 2018-02-21 18:22 | EKG ---
Date Performed: 02/21/2018 Time Performed: 08:22:33 PTAGE: 57 years EKG: Sinus rhythm NORMAL ECG PREVIOUS TRACING : 02/09/2018 09.29 Since the previous tracing, no significant change noted DOCTOR: Olvin Kidd Interpretating Date/Time 02/21/2018 18:20:31
[2018-02-21 21:02] VITALS: BP 117/77; PULSE 88; RESP 16; TEMP 98; O2SAT 96
[2018-02-21] MEDS: SODIUM CHLORIDE 0.9% FLUSH 10 ML FLUSH IV FLUSH SCH (21:30)
[2018-02-21] MEDS: METOPROLOL TARTRATE 100 MG TAB PO SCH (21:30)
[2018-02-21] MEDS: PRAMIPEXOLE DIHYDROCHLORIDE 1 MG TAB PO SCH (21:30)
[2018-02-21] MEDS: MUPIROCIN 2% CREAM 15 GM TOPICAL SCH (21:31)
[2018-02-21] MEDS: ACETAMINOPHEN/HYDROcodone 325 MG/10 MG TAB PO PRN (21:31)
[2018-02-21] MEDS: BUDESONIDE-FORMOTEROL 80/4.5 MCG INHALER INH SCH (21:31)
[2018-02-22] VITALS (9 sets, daily range): BP systolic 101–113; BP diastolic 65–76; PULSE 65–102; RESP 16–20; TEMP 97.7–98.9; O2SAT 94–99
[2018-02-22] MEDS: SODIUM CHLORIDE 0.9% FLUSH 10 ML FLUSH IV FLUSH PRN (01:25)
[2018-02-22] MEDS: methylPREDNISolone SOD SUCC 125 MG/2 ML VIAL IV PUSH SCH ×4 (01:25→21:47)
[2018-02-22] MEDS: RESP: ALBUTEROL 2.5 MG/IPRATROPIUM 0.5 MG NEB (SCH) INH ×4 (08:45→19:22)
[2018-02-22] MEDS ORDERED: PRAMIPEXOLE DIHYDROCHLORIDE 1 MG TAB PO SCH (09:00)
[2018-02-22] MEDS: MUPIROCIN 2% CREAM 15 GM TOPICAL SCH ×2 (09:39→21:48)
[2018-02-22] MEDS: BUDESONIDE-FORMOTEROL 80/4.5 MCG INHALER INH SCH ×2 (09:39→21:48)
[2018-02-22] MEDS: FUROSEMIDE 20 MG TAB PO SCH (09:40)
[2018-02-22] MEDS: DILTIAZEM-CD 180 MG CAP ER PO SCH (09:40)
[2018-02-22] MEDS: METOPROLOL TARTRATE 100 MG TAB PO SCH ×2 (09:40→21:48)
[2018-02-22] MEDS: SODIUM CHLORIDE 0.9% FLUSH 10 ML FLUSH IV FLUSH SCH ×2 (09:40→21:47)
[2018-02-22] MEDS: TIOTROPIUM BROMIDE 18 MCG INH INH SCH (09:40)
[2018-02-22] MEDS: ACETAMINOPHEN/HYDROcodone 325 MG/10 MG TAB PO PRN ×2 (09:43→21:48)
--- NOTE | 2018-02-22 11:16 | HHI.PR ---
Subjective Remarks Follow up COPD exacerbation. Patient still having dyspnea, cough, wheeze. No chest pain. Ribcage pain improving. Objective Vitals Vital Signs Date Time Temp Pulse Resp B/P (MAP) Pulse Ox O2 Delivery O2 Flow Rate FiO2 02/22/18 08:48 99 Nasal Cannula 2.00 02/22/18 07:36 97.8 102 18 111/74 (86) 98 02/22/18 04:50 97.7 71 16 101/73 (82) 96 02/22/18 00:34 97.9 74 16 107/76 (86) 95 02/21/18 22:31 15 02/21/18 21:02 98.0 88 16 117/77 (90) 96 02/21/18 16:36 97.7 87 18 105/72 (83) 99 02/21/18 13:32 104 18 106/81 (89) 98 Room Air I/O 02/21/18 02/21/18 02/21/18 02/22/18 02/22/18 02/22/18 07:00 15:00 23:00 07:00 15:00 23:00 Intake Total 480 ml Balance 480 ml Intake Oral 480 ml Result Diagram: 02/21/1882702/21/18827 Imaging Last Impressions Chest X-Ray 02/21/18 0824 Signed Impressions: CONCLUSION: No acute cardiopulmonary disease. Objective Remarks General: No acute distress. Heart: Regular rate and rhythm. No murmur. Lungs: Diminished breath sounds throughout. Expiratory wheezing. Breathing is nonlabored. Abdomen: Soft, nontender, nondistended. Extremities: No lower extremity edema. Psych: Alert and oriented. Neuro: Normal speech. No focal deficits noted. Procedures None Urinary Catheter: No Vascular Central Line Catheter: No A/P Assessment and Plan 1. COPD exacerbation, acute on chronic hypoxic respiratory failure: Patient still with significantly diminished breath sounds and expiratory wheezing. Continue IV Solu-Medrol. Continue scheduled and as needed bronchodilators. Continue Spiriva, Symbicort. Continue supplemental oxygen. 2. Atrial fibrillation: On anticoagulation with warfarin. Rate controlled. INR is therapeutic. Continue metoprolol, diltiazem CD. 3. Right-sided flank/rib cage pain with ecchymosis: Patient sustained the injury by "running into a pipe" a few days prior to admission. Continue Tylenol as needed. Patient states the pain is improving. 4. Right upper extremity sores secondary to cactus injury: Bactroban ointment. 5. History of TIA: Stable. Continue anticoagulation with warfarin. 6. DVT prophylaxis: SCDs, MELISSA lerma, Coumadin. Discharge Planning Plan for discharge home tomorrow pending further clinical improvement. Magdiel Bernardo MD Feb 22, 2018 11:16
[2018-02-22] MEDS ORDERED: WARFARIN SOD 5 MG TAB PO SCH (16:00)
[2018-02-22] MEDS: PRAMIPEXOLE DIHYDROCHLORIDE 1 MG TAB PO SCH (21:48)
[2018-02-23] MEDS: methylPREDNISolone SOD SUCC 125 MG/2 ML VIAL IV PUSH SCH ×2 (02:46→09:52)
[2018-02-23] MEDS: SODIUM CHLORIDE 0.9% FLUSH 10 ML FLUSH IV FLUSH PRN (02:46)
[2018-02-23 04:31] VITALS: BP 100/66; PULSE 58; RESP 17; TEMP 98.4; O2SAT 97
[2018-02-23 07:39] VITALS: BP 115/81; PULSE 63; RESP 20; TEMP 97.4; O2SAT 98
[2018-02-23 08:11] VITALS: O2SAT 96
[2018-02-23] MEDS: RESP: ALBUTEROL 2.5 MG/IPRATROPIUM 0.5 MG NEB (SCH) INH (08:11)
[2018-02-23] MEDS ORDERED: VENTAER INH (09:29)
[2018-02-23] MEDS ORDERED: PRED20 PO (09:29)
--- NOTE | 2018-02-23 09:31 | HHI.DCPOC ---
Discharge Care Plan Diagnosis: (1) COPD exacerbation (2) Atrial fibrillation Goals to Promote Your Health * To prevent worsening of your condition and complications * To maintain your health at the optimal level Directions to Meet Your Goals Take your medications as prescribed Follow your dietary instruction Follow activity as directed Keep your appointments as scheduled Take your immunizations and boosters as scheduled If your symptoms worsen call your PCP, if no PCP go to Urgent Care Center or Emergency Room Smoking is Dangerous to Your Health. Avoid second hand smoke Call the 24-hour hour crisis hotline for domestic abuse at Magdiel Bernardo MD Feb 23, 2018 09:31
--- NOTE | 2018-02-23 09:35 | HHI.PR ---
Subjective Remarks Follow up COPD exacerbation. Patient states that he feels much better today. Still having dyspnea with exertion, but less than yesterday. Feels ready to go home. Objective Vitals Vital Signs Date Time Temp Pulse Resp B/P (MAP) Pulse Ox O2 Delivery O2 Flow Rate FiO2 02/23/18 08:11 96 Nasal Cannula 3.00 02/23/18 07:39 97.4 63 20 115/81 (92) 98 02/23/18 04:31 98.4 58 17 100/66 (77) 97 02/22/18 23:56 98.2 65 17 101/65 (77) 97 02/22/18 22:48 15 02/22/18 19:33 73 17 108/67 (81) 98 02/22/18 19:23 97 Nasal Cannula 2.00 02/22/18 16:02 98.2 80 20 107/67 (80) 94 02/22/18 12:24 98.9 79 20 113/75 (88) 97 Result Diagram: 02/21/1882702/21/18827 Imaging Last Impressions Chest X-Ray 02/21/18 0824 Signed Impressions: CONCLUSION: No acute cardiopulmonary disease. Objective Remarks General: No acute distress. Heart: Regular rate and rhythm. No murmur. Lungs: Diminished breath sounds throughout. No wheezes noted. Breathing is nonlabored. Abdomen: Soft, nontender, nondistended. Extremities: No lower extremity edema. Psych: Alert and oriented. Neuro: Normal speech. No focal deficits noted. Procedures None Urinary Catheter: No Vascular Central Line Catheter: No A/P Assessment and Plan 1. COPD exacerbation, acute on chronic hypoxic respiratory failure: Improved. Transition to prednisone. Continue scheduled and as needed bronchodilators. Continue Spiriva, Symbicort. Continue supplemental oxygen. 2. Atrial fibrillation: On anticoagulation with warfarin. Rate controlled. INR is therapeutic. Continue metoprolol, diltiazem CD. 3. Right-sided flank/rib cage pain with ecchymosis: Patient sustained the injury by "running into a pipe" a few days prior to admission. Continue Tylenol as needed. Patient states the pain is improving. 4. Right upper extremity sores secondary to cactus injury: Bactroban ointment. 5. History of TIA: Stable. Continue anticoagulation with warfarin. 6. DVT prophylaxis: SCDs, MELISSA josseilne, Coumadin. Discharge Planning Discharge home in stable condition. Heart healthy diet. Activity as tolerated. Patient advised to rest for a few days and to avoid strenuous activity. Magdiel Bernardo MD Feb 23, 2018 09:35
[2018-02-23] MEDS: BUDESONIDE-FORMOTEROL 80/4.5 MCG INHALER INH SCH (09:53)
[2018-02-23] MEDS: DILTIAZEM-CD 180 MG CAP ER PO SCH (09:53)
[2018-02-23] MEDS: MUPIROCIN 2% CREAM 15 GM TOPICAL SCH (09:53)
[2018-02-23] MEDS: METOPROLOL TARTRATE 100 MG TAB PO SCH (09:53)
[2018-02-23] MEDS: FUROSEMIDE 20 MG TAB PO SCH (09:53)
[2018-02-23] MEDS: SODIUM CHLORIDE 0.9% FLUSH 10 ML FLUSH IV FLUSH SCH (09:54)
[2018-02-23] MEDS: TIOTROPIUM BROMIDE 18 MCG INH INH SCH (09:54)
== END 2018-02-23 11:18 | disposition home or self-care (01) ==
LOC: NEPC 08:17 → NEDA 12:25 → NEPFCDU 14:09
PROVIDERS: ADMIT Family Medicine; ATTEND Family Medicine
DX: J44.1 Chronic obstructive pulmonary disease with (acute) exacerbation (principal); J96.21 Acute and chronic respiratory failure with hypoxia; I48.91 Unspecified atrial fibrillation; R10.9 Unspecified abdominal pain; R51 Headache; G25.81 Restless legs syndrome; G62.9 Polyneuropathy, unspecified; Z99.81 Dependence on supplemental oxygen; Z79.01 Long term (current) use of anticoagulants; Z79.899 Other long term (current) drug therapy; Z87.891 Personal history of nicotine dependence; Z86.73 Personal history of transient ischemic attack (TIA), and cerebral infarction without residual deficits
CPT/HCPCS: 71045; 80053; 83880; 85025; 85610; 93005; 94150; 94640; 94664; 96374; 96375; 96376; 99285; G0378; J2060; J2930

== ENCOUNTER 2018-03-01 07:39 | Emergency (ER) | payer OTHER, MEDICARE ==
[~2018-03-01] VITALS: Ht 182.9 cm; Wt 80.0 kg
[~2018-03-01 07:39] MED LIST changes: +PRED20 PO
[2018-03-01 07:49] VITALS: BP 120/81; PULSE 78; RESP 18; O2SAT 96
[2018-03-01 08:00] VITALS: O2SAT 95
[2018-03-01] MEDS ORDERED: SODIUM CHLORIDE 0.9% FLUSH 10 ML FLUSH IVF PRN (08:00)
[2018-03-01] MEDS ORDERED: methylPREDNISolone SOD SUCC 125 MG/2 ML VIAL IV PUSH ONE (08:00)
[2018-03-01 08:12] VITALS: BP 123/69; PULSE 73; RESP 20; O2SAT 94
[2018-03-01] MEDS: RESP: ALBUTEROL 2.5 MG/IPRATROPIUM 0.5 MG NEB (SCH) INH (08:13)
[2018-03-01 08:19] LABS: BASOPHIL % 0.1 % (0.0-2.0); EOSINOPHIL # 0.1 TH/MM3 (0-0.4); EOSINOPHIL % 0.6 % (0.0-4.0); HEMATOCRIT 43.8 % (39.0-51.0); HEMOGLOBIN 14.5 GM/DL (13.0-17.0); LYMPH % 18.4 % (9.0-44.0); LYMPHOCYTE # 2.8 TH/MM3 (1.0-4.8); MEAN CELL VOLUME 89.1 FL (80.0-100.0); MEAN CORPUSCULAR HEMOGLOBIN 29.4 PG (27.0-34.0); MEAN PLATELET VOLUME 9.2 FL (7.0-11.0); MONO % 9.6 % (0.0-8.0); MONOCYTE # 1.5 TH/MM3 (0-0.9); NEUT % 71.3 % (16.0-70.0); PLATELET COUNT 244 TH/MM3 (150-450); RED BLOOD COUNT 4.91 MIL/MM3 (4.50-5.90); RED CELL DISTRIBUTION WIDTH 14.1 % (11.6-17.2); WHITE BLOOD COUNT 15.4 TH/MM3 (4.0-11.0)
--- NOTE | 2018-03-01 08:19 | RADRPT ---
EXAM DATE: 03/01/2018 8:12 AM EDT AGE/SEX: 57 years / Male INDICATIONS: Shortness of breath and midchest pain. CLINICAL DATA: This is the patient's initial encounter. Patient reports that signs and symptoms have been present for 1 day and indicates a pain score of 7/10. MEDICAL/SURGICAL HISTORY: Chronic obstructive pulmonary disease. Hypotension. None. COMPARISON: [facility] [place], CHEST SINGLE AP, 02/21/2018. . FINDINGS: Extensive emphysematous changes are noted bilaterally. No focal infiltrate or pulmonary vascular roxana estion is noted. The heart is stable. CONCLUSION: 1. Extensive emphysematous changes bilaterally. 2. No acute focal infiltrate or pulmonary vascular congestion. Electronically signed by: Mihai Lobato MD 03/01/2018 8:18 AM EDT
[2018-03-01] MEDS ORDERED: PRED5TAB PO (08:22)
[2018-03-01] MEDS ORDERED: CARD180C5 PO (08:22)
[2018-03-01] MEDS ORDERED: FLUT50SP EACH NARE (08:22)
[2018-03-01] MEDS ORDERED: CYCL10TA PO (08:22)
[2018-03-01] MEDS ORDERED: METO100T PO (08:22)
[2018-03-01 08:28] LABS: INTERNATIONAL NORMALIZED RATIO 4.4 RATIO; PROTHROMBIN TIME - PATIENT 44.2 SEC (9.8-11.6)
[2018-03-01 08:41] LABS: ALKALINE PHOSPHATASE 92 U/L (45-117); TOTAL BILIRUBIN ADULT 0.7 MG/DL (0.2-1.0); TOTAL PROTEIN 7.1 GM/DL (6.4-8.2)
[2018-03-01 08:51] LABS: ALBUMIN 3.7 GM/DL (3.4-5.0); ALT (GPT) 31 U/L (12-78); AST (GOT) 23 U/L (15-37); BLOOD UREA NITROGEN 19 MG/DL (7-18); CALCIUM 8.7 MG/DL (8.5-10.1); CHLORIDE 102 MEQ/L (98-107); CREATININE 0.81 MG/DL (0.60-1.30); GLOMERULAR FILTRATION RATE 98 ML/MIN (>89); GLUCOSE,RANDOM 104 MG/DL (74-106); SODIUM (NA) 140 MEQ/L (136-145)
--- NOTE | 2018-03-01 08:56 | PD ---
HPI Chief Complaint: Respiratory Distress Time Seen by Provider: 07:46 Travel History International Travel<30 days: No Contact w/Intl Traveler<30days: No Traveled to known affect area: No History of Present Illness HPI 57-year-old male complains of shortness of breath. Patient states that his symptoms started this morning. Patient has history of COPD. Patient is on home O2 at home. Patient denies any coughing congestion fever chills. Patient denies any chest pain. Patient was admitted to [facility] February 21 and discharged February 23 for acute exacerbation COPD. Patient also has history of atrial ablation on Coumadin. Patient has history of TIA also. EMS was called this morning. Patient was given Lasix 70 mg IV [address] the way to the ED. PFSH Past Medical History Hx Anticoagulant Therapy: Yes (WARFARIN ) Arthritis: No Asthma: Yes Blood Disorders: No Anxiety: Yes Depression: Yes Heart Rhythm Problems: Yes (A-FIB) Cancer: Yes (FAMILY HISTORY ) Cardiac Catheterization: No Cardiovascular Problems: Yes High Cholesterol: No Chemotherapy: No Chest Pain: Yes Congestive Heart Failure: Yes COPD: Yes Cerebrovascular Accident: Yes Coronary Artery Disease: Yes Diabetes: No Diminished Hearing: No Endocrine: No Gastrointestinal Disorders: No GERD: No Glaucoma: No Genitourinary: No Headaches: Yes Hiatal Hernia: Yes Hypertension: Yes Immune Disorder: No Implanted Vascular Access Dvce: No Musculoskeletal: Yes (NERVE DAMAGE, DJD) Neurologic: Yes (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) Psychiatric: Yes Reproductive: No Respiratory: Yes Immunizations Current: Yes Migraines: Yes Pneumonia: Yes Radiation Therapy: No Sickle Cell Disease: No Sleep Apnea: No Thyroid Disease: No Ulcer: Yes PNEUMOCCOCAL Vaccine (Year): 1 ?: Not Past Surgical History Abdominal Surgery: Yes (HIATAL HERNIA REPAIR, DEVIATED SEPTUM) AICD: No Arteriovenous Shunt: No Cardiac Surgery: No Coronary Artery Bypass Graft: No Ear Surgery: No Endocrine Surgery: No Eye Surgery: No Genitourinary Surgery: No Insulin Pump: No Joint Replacement: No Neurologic Surgery: No Oral Surgery: Yes Pacemaker: No Thoracic Surgery: No Other Surgery: No Social History Alcohol Use: Yes Tobacco Use: No Substance Use: No Allergies-Medications (Allergen,Severity, Reaction): Coded Allergies: gabapentin (Unverified Allergy, Severe, Shortness of Breath, 02/21/18) Pt states he had a bad reaction to Gabapentin. states "my throat swole and it was hard for me to breath." penicillin G (Unverified Allergy, Severe, "ALL CILLINS" PER PT, 02/21/18) amoxicillin (Unverified Allergy, Unknown, 02/21/18) Uncoded Allergies: ALL CILLINS (Allergy, Unknown, 06/15/10) Reported Meds & Prescriptions Reported Meds & Active Scripts Active Ventolin Hfa 18 GM Inh (Albuterol Sulfate) 90 Mcg/Act Aer 2 Puff INH Q4H PRN Lasix (Furosemide) 20 Mg Tab 20 Mg PO DAILY Duoneb (Ipratropium-Albuterol Neb) 0.5-2.5 Mg/3 Ml Neb 1 Nebule INH Q6HR NEB Spiriva Handihaler (Tiotropium Inh) 18 Mcg Cap 18 Mcg INH DAILY 1 capsule = 18 mcg Symbicort Inh (Budesonide/Formoterol Fumarate) 80-4.5 Mcg/Act Aero 2 Puff INH Q12HR Oxygen (O2) Device 2 Liter FRANK.CANULA CONTINUOUS Oxygen Concentrator Portable Gaseous 2 L/min via Nasal [place] Continuous For 99 months Reported Metoprolol Tartrate 100 Mg Tab 50 Mg PO BID Prednisone 5 Mg Tab 5 Mg PO DAILY Fluticasone Nasal [place] 50 Mcg/Act Naspr 50 Mcg EACH NARE BID 50 mcg/spray Cardizem CD 24 HR (Diltiazem CD 24 HR) 180 Mg Caper 180 Mg PO DAILY Flexeril (Cyclobenzaprine HCl) 10 Mg Tab 10 Mg PO BID Warfarin 5 Mg Tab 5 Mg PO EVERY TTHSS Warfarin 2.5 Mg Tab 2.5 Mg PO EVERY MWF Hydrocodone-Acetaminophen 10-325 mg Tab 1 Tab PO TID PRN Pramipexole (Pramipexole Dihydrochloride) 1 Mg Tab 1 Mg PO DAILY Ranitidine (Ranitidine HCl) 150 Mg Tab Unknown Dose PO BID Review of Systems General / Constitutional: No: Fever Eyes: No: Visual changes HENT: No: Headaches Cardiovascular: No: Chest Pain or Discomfort Respiratory: Positive: Shortness of Breath Gastrointestinal: No: Abdominal Pain Genitourinary: No: Dysuria Musculoskeletal: No: Pain Skin: No Rash Neurologic: No: Weakness Psychiatric: No: Depression Endocrine: No: Polydipsia Hematologic/Lymphatic: No: Easy Bruising Physical Exam Narrative GENERAL: Well-nourished, well-developed patient. SKIN: Focused skin assessment warm/dry. HEAD: Normocephalic. EYES: No scleral icterus. No injection or drainage. NECK: Supple, trachea midline. No JVD or lymphadenopathy. CARDIOVASCULAR: Regular rate and rhythm without murmurs, gallops, or rubs. RESPIRATORY: Patient had diminished breath sounds bilaterally with moderate amount expiratory wheezes bilaterally. Few rhonchi at the bases. GASTROINTESTINAL: Abdomen soft, non-tender, nondistended. MUSCULOSKELETAL: No cyanosis, or edema. BACK: Nontender without obvious deformity. No CVA tenderness. Neurologic exam normal. Data Data Last Documented VS Vital Signs Date Time Temp Pulse Resp B/P (MAP) Pulse Ox O2 Delivery O2 Flow Rate FiO2 03/01/18 09:16 75 22 99/65 (76) 96 Nasal Cannula 2.00 Orders Orders Complete Blood Count With Diff (03/01/18 07:55) Comprehensive Metabolic Panel (03/01/18 07:55) B-Type Natriuretic Peptide (03/01/18 07:55) Act Partial Throm Time (Ptt) (03/01/18 07:55) Prothrombin Time / Inr (Pt) (03/01/18 07:55) Iv Access Insert/Monitor (03/01/18 07:55) Ecg Monitoring (03/01/18 07:55) Oximetry (03/01/18 07:55) Oxygen Administration (03/01/18 07:55) Chest, Single Ap (03/01/18 07:55) Sodium Chloride 0.9% Flush (Ns Flush) (03/01/18 08:00) Methylprednisolone So Succ Inj (Solumedr (03/01/18 08:00) Albuterol-Ipratropium Neb (Duoneb Neb) (03/01/18 08:00) Labs Laboratory Tests Test 03/01/18 08:05 White Blood Count 15.4 TH/MM3 Red Blood Count 4.91 MIL/MM3 Hemoglobin 14.5 GM/DL Hematocrit 43.8 % Mean Corpuscular Volume 89.1 FL Mean Corpuscular Hemoglobin 29.4 PG Mean Corpuscular Hemoglobin Concent 33.0 % Red Cell Distribution Width 14.1 % Platelet Count 244 TH/MM3 Mean Platelet Volume 9.2 FL Neutrophils (%) (Auto) 71.3 % Lymphocytes (%) (Auto) 18.4 % Monocytes (%) (Auto) 9.6 % Eosinophils (%) (Auto) 0.6 % Basophils (%) (Auto) 0.1 % Neutrophils # (Auto) 11.0 TH/MM3 Lymphocytes # (Auto) 2.8 TH/MM3 Monocytes # (Auto) 1.5 TH/MM3 Eosinophils # (Auto) 0.1 TH/MM3 Basophils # (Auto) 0.0 TH/MM3 CBC Comment AUTO DIFF Differential Total Cells Counted 100 Neutrophils % (Manual) 70 % Band Neutrophils % 2 % Lymphocytes % 20 % Monocytes % 6 % Neutrophils # (Manual) 11.4 TH/MM3 Metamyelocytes 1 % Myelocytes 1 % Differential Comment FINAL DIFF MANUAL Platelet Estimate NORMAL Platelet Morphology Comment NORMAL Red Cell Morphology Comment NORMAL Prothrombin Time 44.2 SEC Prothromb Time International Ratio 4.4 RATIO Activated Partial Thromboplast Time 39.0 SEC Blood Urea Nitrogen 19 MG/DL Creatinine 0.81 MG/DL Random Glucose 104 MG/DL Total Protein 7.1 GM/DL Albumin 3.7 GM/DL Calcium Level 8.7 MG/DL Alkaline Phosphatase 92 U/L Aspartate Amino Transf (AST/SGOT) 23 U/L Alanine Aminotransferase (ALT/SGPT) 31 U/L Total Bilirubin 0.7 MG/DL Sodium Level 140 MEQ/L Potassium Level 3.9 MEQ/L Chloride Level 102 MEQ/L Carbon Dioxide Level 30.0 MEQ/L Anion Gap 8 MEQ/L Estimat Glomerular Filtration Rate 98 ML/MIN B-Type Natriuretic Peptide 19 PG/ML MDM Medical Decision Making Medical Screen Exam Complete: Yes Emergency Medical Condition: Yes Interpretation(s) Last Impressions Chest X-Ray 03/01/18 0755 Signed Impressions: CONCLUSION: 1. Extensive emphysematous changes bilaterally. 2. No acute focal infiltrate or pulmonary vascular congestion. 11:22 AM. CBC WBC 15.4. 71 neutrophil. CMP within normal limits. BMP 19. INR 4.4. Differential Diagnosis Differential diagnosis including acute exacerbation of COPD, bronchitis, pneumonia, PE, pneumothorax. Narrative Course 57-year-old male with shortness of breath. History of COPD on home O2. Solu- Medrol 125 mg IV. Albuterol with Atrovent unit dose treatment x3. 11:30 AM. Reexamination patient still has moderate to mild wheezes and decreased breath sounds bilaterally. Patient was advised to be admitted. Patient refused admission. Patient wants to go home. Diagnosis Primary Impression: COPD with acute exacerbation Patient Instructions: General Instructions Additional Instructions: Continue with nebulizer treatment. Prednisone as directed. Follow-up with personal physician. Return if worse. Med/Other Pt SpecificInfo: Prescription(s) given Scripts Ipratropium Neb (Ipratropium Neb) 0.5 Mg/2.5 Ml Amp 0.5 MG NEB Q4HR NEB for Breathing Treatment, #60 NEBULE 0 Refills Prov: Ismael Jesus MD 03/01/18 Prednisone (Prednisone) 20 Mg Tab 20 MG PO BID, #10 TAB 0 Refills Prov: Ismael Jesus MD 03/01/18 Disposition: 01 DISCHARGE HOME Condition: Stable Ismael Jesus MD Mar 01, 2018 08:56
[2018-03-01 09:07] LABS: BANDS 2 % (0-6); LYMPHOCYTES 20 % (9-44); METAMYELOCYTES 1 % (0-1); MONOCYTES 6 % (0-8); MYELOCYTES 1 % (0-0); NEUTROPHIL # MANUAL DIFF 11.4 TH/MM3 (1.8-7.7); POLYS (SEG NEUTROPHILS) 70 % (16-70)
[2018-03-01 09:16] VITALS: BP 99/65; PULSE 75; RESP 22; O2SAT 96
[2018-03-01] MEDS ORDERED: PRED20 PO (11:34)
[2018-03-01] MEDS ORDERED: IPRA0.02 NEB (11:34)
[2018-03-01 11:58] VITALS: BP 105/66
--- NOTE | 2018-03-01 15:41 | EKG ---
Date Performed: 03/01/2018 Time Performed: 08:28:44 PTAGE: 57 years EKG: Sinus rhythm NORMAL ECG PREVIOUS TRACING : 02/21/2018 08.22 No significant change from previous tracing noted. DOCTOR: Petr Servin Interpretating Date/Time 03/01/2018 15:41:10
== END 2018-03-01 12:26 | disposition home or self-care (01) ==
LOC: NEPC 07:39
DX: J44.1 Chronic obstructive pulmonary disease with (acute) exacerbation (principal); I11.0 Hypertensive heart disease with heart failure; I25.10 Atherosclerotic heart disease of native coronary artery without angina pectoris; I50.9 Heart failure, unspecified; I48.91 Unspecified atrial fibrillation; F32.9 Major depressive disorder, single episode, unspecified; Z99.81 Dependence on supplemental oxygen; Z86.73 Personal history of transient ischemic attack (TIA), and cerebral infarction without residual deficits; Z88.0 Allergy status to penicillin; Z79.01 Long term (current) use of anticoagulants; Z79.899 Other long term (current) drug therapy
CPT/HCPCS: 71045; 80053; 83880; 85007; 85027; 85610; 85730; 93005; 94640; 94664; 96374; 99285; J2930

== ENCOUNTER 2018-03-22 01:55 | Observation (INO) ==
[2018-03-22 02:42] LABS: Baso % (Auto) 0.6 % (0.0-2.0); Eos # (Auto) 0.1 th/mm3 (0.0-0.4); Eos % (Auto) 1.2 % (0.0-4.0); Hematocrit 36.5 % (39.0-51.0); Hemoglobin 12.3 gm/dL (13.0-17.0); Lymph # (Auto) 1.5 th/mm3 (1.0-4.8); Lymph % (Auto) 17.8 % (9.0-44.0); Mean Corpuscular HGB Conc 33.6 % (32.0-36.0); Mean Corpuscular Hemoglobin 29.7 pg (27.0-34.0); Mean Corpuscular Volume 88.3 fL (80.0-100.0); Mean Platelet Volume 8.6 fL (7.0-11.0); Mono # (Auto) 0.5 th/mm3 (0.0-0.9); Mono % (Auto) 6.2 % (0.0-8.0); Neut # (Auto) 6.3 th/mm3 (1.8-7.7); Neut % (Auto) 74.2 % (16.0-70.0); Platelet Count 244 th/mm3 (150-450); Red Blood Count 4.13 mil/mm3 (4.50-5.90); Red Cell Distribution Width 14.6 % (11.6-17.2); White Blood Count 8.5 th/mm3 (4.0-11.0)
[2018-03-22 02:53] LABS: Activated Partial Thrombo Time 52.5 sec (24.3-30.1); Prothrombin Time 81.4 sec (9.8-11.6)
--- NOTE | 2018-03-22 03:00 | XR ---
EXAM DATE: 03/22/2018 2:55 AM EDT AGE/SEX: 57 years / Male INDICATIONS: Chest pain, cough. CLINICAL DATA: This is the patient's initial encounter. Patient reports that signs and symptoms have been present for 1 day and indicates a pain score of Nonresponsive. MEDICAL/SURGICAL HISTORY: Non-responsive. Non-responsive. [place] [facility] [place]. . FINDINGS: A single AP view of the chest demonstrates the lungs to be symmetrically aerated without evidence of mass, infiltrate or effusion. Stable hyperaeration of the upper lungs. No evidence of pneumothorax. The cardiomediastinal contours are unremarkable. Osseous structures are intact. CONCLUSION: No acute findings. Hyper aerated upper lungs. Electronically signed by: Sohail Jim MD 03/22/2018 2:59 AM EDT
[2018-03-22 03:05] LABS: INR 8.2 Ratio
[2018-03-22 03:26] LABS: Anion Gap 5 meq/L (5-15); Blood Urea Nitrogen 17 mg/dL (7-18); Calcium 8.5 mg/dL (8.5-10.1); Carbon Dioxide 33.8 meq/L (21.0-32.0); Chloride 106 meq/L (98-107); Glomerular Filtration Rate 81 mL/min (>89); Glucose,Random 110 mg/dL (74-106); Magnesium 2.4 mg/dL (1.5-2.5); Potassium 3.9 meq/L (3.5-5.1); Sodium 145 meq/L (136-145)
[2018-03-22 03:27] LABS: Creatine Kinase 99 U/L (39-308)
--- NOTE | 2018-03-22 03:58 | ED ---
HPI General Chief Complaint: Chest Pain Stated Complaint: Chest Pains, EVAC Time Seen by Provider: 03/22/18 02:21 History of Present Illness HPI narrative: 57-year-old male with history of atrial fibrillation prescribed Cardizem and warfarin with history of COPD presents to the emergency department for complaint of retrosternal chest pain. Patient has been out of his Cardizem 1 week. Patient was experiencing some intermittent palpitations. Upon EMS arrival patient was reportedly in atrial fibrillation with RVR and was administered nitroglycerin spray 1 along with aspirin. Patient's chest pain resolved after sublingual nitroglycerin spray. Upon arrival to the emergency department patient is in sinus rhythm with occasional PAC. Patient states chest pain has resolved after nitroglycerin. Patient was also given dose of Solu-Medrol for exacerbation of his COPD. Patient states no tightness or wheezing at this time. Patient's had no recent febrile illness. Patient states that he thinks he is atrial fibrillation is not controlled as he has been out of his Cardizem 1 week. Complete Quality Measures for STEMI Alert Patients Related Data Home Medications Medication Instructions Recorded Confirmed albuterol sulfate 2 puff INHALATION Q4H PRN 03/22/18 03/22/18 budesonide-formoterol [Symbicort] 2 puff INHALATION Q12H 03/22/18 03/22/18 cyclobenzaprine 10 mg PO BID 03/22/18 03/22/18 diltiazem HCl [DILT-XR] 180 mg PO DAILY 03/22/18 03/22/18 fluticasone 1 spray INTRANASAL BID 03/22/18 03/22/18 furosemide 20 mg PO DAILY 03/22/18 03/22/18 hydrocodone-acetaminophen [[place]] 1 tab PO TID PRN 03/22/18 03/22/18 ipratropium bromide 0.5 mg INHALATION Q4H PRN 03/22/18 03/22/18 ipratropium-albuterol 3 ml INHALATION Q6H 03/22/18 03/22/18 metoprolol tartrate 50 mg PO BID 03/22/18 03/22/18 pramipexole 1 mg PO DAILY 03/22/18 03/22/18 prednisone 5 mg PO DAILY 03/22/18 03/22/18 ranitidine HCl 150 mg PO BID 03/22/18 03/22/18 tiotropium bromide 1 cap INHALATION DAILY 03/22/18 03/22/18 warfarin 2.5 mg PO 3XW 03/22/18 03/22/18 warfarin 5 mg PO QTUTHSASU 03/22/18 03/22/18 Allergies Allergy/AdvReac Type Severity Reaction Status Date / Time gabapentin Allergy Severe Shortness Verified 03/22/18 07:24 of Breath penicillin G Allergy Severe "ALL Verified 03/22/18 07:24 CILLINS" PER PT amoxicillin Allergy Unknown unknown Verified 03/22/18 07:24 ALL CILLINS Allergy Unknown unknown Uncoded 03/22/18 02:25 Review of Systems Except as stated in HPI: all other systems reviewed are negative [facility] Medical History Medical History COPD (chronic obstructive pulmonary disease) (Acute) Chronic atrial fibrillation with RVR (Acute) DDD (degenerative disc disease) (Acute) Social History Social History Substance History: No History of Abuse Second Hand Smoke Exposure: Yes Smoking Status: Former smoker Tobacco Type: Cigarettes How Often Do You Have a Drink Containing Alcohol: 4 or more times a week Immunization History Tetanus Immunization: <5 Years Hx Influenza Vaccine This Season: Yes Exam Narrative Exam Narrative: GENERAL: Well-nourished, well-developed patient. SKIN: Focused skin assessment warm/dry. HEAD: Normocephalic. EYES: No scleral icterus. No injection or drainage. NECK: Supple, trachea midline. No JVD or lymphadenopathy. CARDIOVASCULAR: Regular rate and rhythm without murmurs, gallops, or rubs. RESPIRATORY: Breath sounds equal bilaterally. No accessory muscle use. GASTROINTESTINAL: Abdomen soft, non-tender, nondistended. MUSCULOSKELETAL: No cyanosis, or edema. BACK: Nontender without obvious deformity. No CVA tenderness. Course Initial Documented Vital Signs Temperature 98.6 F 03/22/18 02:00 Pulse Rate 88 03/22/18 02:00 Respiratory Rate 16 03/22/18 02:00 Blood Pressure 121/88 03/22/18 02:00 Pulse Oximetry 99 03/22/18 02:00 Last Documented Vital Signs Temperature 98.6 F 03/22/18 02:00 Pulse Rate 79 03/22/18 07:08 Respiratory Rate 20 03/22/18 07:08 Blood Pressure 116/83 03/22/18 07:08 Pulse Oximetry 99 03/22/18 07:08 Medical Decision Making MDM Narrative Medical decision making narrative: 57-year-old male with known history of atrial fibrillation and COPD presented with complaint of chest pain responsive to sublingual nitroglycerin. Positive tobacco use. Out of medication for atrial fibrillation control Cardizem 1 week. Patient placed on clinical research monitor IV access obtained specimens collected and sent for resulting. Patient does take warfarin for history of atrial fibrillation. No report of fall injury epistaxis, bleeding hemoptysis hematemesis coffee-ground emesis melena hematochezia or hematuria at this time but reports 1 week ago was experiencing hematuria. Patient identified to have elevated INR of 8.2. Patient denies any active bleeding at this time but did have hematuria last week reportedly; urinalysis pending. Patient had chest pain responsive to sublingual nitroglycerin was history of tobacco use atrial fibrillation and hypertension as well as COPD patient is 57-year-old male with hypertension and tobacco use with chest pain responsive to sublingual nitroglycerin will place and chest pain center per protocol and due to supratherapeutic INR will hold warfarin at this time. Patient discussed with Dr Rushing --will admit to OBS for serial enzymes --will hold coumadin Differential Diagnosis Differential Diagnosis: Chest pain, ACS, [place], uncontrolled atrial fibrillation with RVR, Medical Records Medical records reviewed: Yes I reviewed the patient's medical records. Lab Data Result diagrams: 03/22/18 02:20 03/22/18 02:20 Lab Results 03/22/18 03/22/18 03/22/18 Range/Units 02:20 02:20 02:20 WBC 8.5 (4.0-11.0) th/mm3 RBC 4.13 L (4.50-5.90) mil/mm3 Hgb 12.3 L (13.0-17.0) gm/dL Hct 36.5 L (39.0-51.0) % MCV 88.3 (80.0-100.0) fL MCH 29.7 (27.0-34.0) pg MCHC 33.6 (32.0-36.0) % RDW 14.6 (11.6-17.2) % Plt Count 244 (150-450) th/mm3 MPV 8.6 (7.0-11.0) fL Neut % (Auto) 74.2 H (16.0-70.0) % Lymph % (Auto) 17.8 (9.0-44.0) % [place] % (Auto) 6.2 (0.0-8.0) % Eos % (Auto) 1.2 (0.0-4.0) % Baso % (Auto) 0.6 (0.0-2.0) % Neut # (Auto) 6.3 (1.8-7.7) th/mm3 Lymph # (Auto) 1.5 (1.0-4.8) th/mm3 [place] # (Auto) 0.5 (0.0-0.9) th/mm3 Eos # (Auto) 0.1 (0.0-0.4) th/mm3 Baso # (Auto) 0.0 (0.0-0.2) th/mm3 WBC Differential . Differential Comment Auto diff final PT 81.4 H (9.8-11.6) sec INR 8.2 H* Ratio APTT 52.5 H (24.3-30.1) sec Sodium 145 (136-145) meq/L Potassium 3.9 (3.5-5.1) meq/L Chloride 106 (98-107) meq/L Carbon Dioxide 33.8 H (21.0-32.0) meq/L Anion Gap 5 (5-15) meq/L BUN 17 (7-18) mg/dL Creatinine 0.96 (0.60-1.30) mg/dL Estimated GFR 81 L (>89) mL/min Random Glucose 110 H (74-106) mg/dL Calcium 8.5 (8.5-10.1) mg/dL Magnesium 2.4 (1.5-2.5) mg/dL Total Creatine Kinase 99 (39-308) U/L Troponin I Less than 0.02 L (0.02-0.05) ng/mL B-Natriuretic Peptide (0-100) pg/mL Urine Color (Yellw/Straw) Urine Clarity (Clear) Urine pH (5.0-8.5) Ur Specific [place] (1.002-1.035) Urine Protein (Neg-Trace) mg/dL Urine Glucose (UA) (Negative) mg/dL Urine Ketones (Negative) mg/dL Urine Occult Blood (Negative) Urine Nitrate (Negative) Urine Bilirubin (Negative) Urine Urobilinogen (Less than 2) mg/dL Ur Leukocyte Esterase (Negative) Urine RBC (0-3) /hpf Urine WBC (0-5) /hpf Amorphous Sediment (None) /hpf Urine Bacteria (None) /hpf Micro UA Comment Urine Culture Comments Serum Alcohol Less than 3 (0-5) mg/dL 03/22/18 03/22/18 Range/Units 02:20 05:15 WBC (4.0-11.0) th/mm3 RBC (4.50-5.90) mil/mm3 Hgb (13.0-17.0) gm/dL Hct (39.0-51.0) % MCV (80.0-100.0) fL MCH (27.0-34.0) pg MCHC (32.0-36.0) % RDW (11.6-17.2) % Plt Count (150-450) th/mm3 MPV (7.0-11.0) fL Neut % (Auto) (16.0-70.0) % Lymph % (Auto) (9.0-44.0) % [place] % (Auto) (0.0-8.0) % Eos % (Auto) (0.0-4.0) % Baso % (Auto) (0.0-2.0) % Neut # (Auto) (1.8-7.7) th/mm3 Lymph # (Auto) (1.0-4.8) th/mm3 [place] # (Auto) (0.0-0.9) th/mm3 Eos # (Auto) (0.0-0.4) th/mm3 Baso # (Auto) (0.0-0.2) th/mm3 WBC Differential Differential Comment PT (9.8-11.6) sec INR Ratio APTT (24.3-30.1) sec Sodium (136-145) meq/L Potassium (3.5-5.1) meq/L Chloride (98-107) meq/L Carbon Dioxide (21.0-32.0) meq/L Anion Gap (5-15) meq/L BUN (7-18) mg/dL Creatinine (0.60-1.30) mg/dL Estimated GFR (>89) mL/min Random Glucose (74-106) mg/dL Calcium (8.5-10.1) mg/dL Magnesium (1.5-2.5) mg/dL Total Creatine Kinase (39-308) U/L Troponin I (0.02-0.05) ng/mL B-Natriuretic Peptide 47 (0-100) pg/mL Urine Color Yellow (Yellw/Straw) Urine Clarity Cloudy H (Clear) Urine pH 7.0 (5.0-8.5) Ur Specific [place] 1.015 (1.002-1.035) Urine Protein 30 H (Neg-Trace) mg/dL Urine Glucose (UA) Negative (Negative) mg/dL Urine Ketones Negative (Negative) mg/dL Urine Occult Blood Large H (Negative) Urine Nitrate Negative (Negative) Urine Bilirubin Negative (Negative) Urine Urobilinogen Less than 2 (Less than 2) mg/dL Ur Leukocyte Esterase Negative (Negative) Urine RBC (0-3) /hpf Urine WBC 45 H (0-5) /hpf Amorphous Sediment Rare H (None) /hpf Urine Bacteria Rare H (None) /hpf Micro UA Comment Culture indicated Urine Culture Comments Culture indicated Serum Alcohol (0-5) mg/dL Patient identified to have elevated INR of 8.0 without active bleeding Imaging Data Radiologist's impression: ITS Impressions Chest X-Ray 03/22/18 02:21 CONCLUSION: No acute findings. Hyper aerated upper lungs. ECG Data EKG Prior to Arrival: Yes Attestation: I personally reviewed and interpreted this ECG as follows: Interpretation: EKG sinus rhythm with frequent PACs rate [address] elevation or injury pattern change Discharge Plan Discharge Disposition Patient Disposition: 30 Still Patient Discharge Details Discharge Problem: Chest pain, Coumadin toxicity, H/O atrial fibrillation without current medication, Hematuria Physicians Team ED Provider: Latanya Reid Primary Care Provider: [facility] [place] Attending Provider: Julia Cross Status ED Status: Admitted Observation Patient
[2018-03-22] MEDS ORDERED: Sodium Chlor 0.9% Inj 500 ML IV.SIG ONE (04:04)
[2018-03-22 06:06] LABS: Amorphous Sediment,Urine Rare /hpf; Bacteria,Urine Rare /hpf; Bilirubin,Urine Negative (Negative); Clarity,Urine Cloudy (Clear); Color,Urine Yellow (Yellw/Straw); Glucose,Urine (UA) Negative (Negative); Leukocyte Esterase,Urine Negative (Negative); Nitrite,Urine Negative (Negative); Specific Gravity,Urine 1.015 (1.002-1.035)
[2018-03-22] MEDS: Sod Chloride 0.9% Inj 1,000 ML IV.CONT SCH ×2 (07:20→18:03)
[2018-03-22] MEDS ORDERED: Phytonadione 5 MG/SWFI 5 ML Oral Syringe PO ONE (08:00)
[2018-03-22] MEDS ORDERED: Bisacodyl 10 MG Supp RECTAL PRN (09:00)
--- NOTE | 2018-03-22 14:45 | ECG ---
Date Performed: 03/22/2018 Time Performed: 09:03:18 PTAGE: 57 years EKG: Sinus rhythm WITH SHORT WY INTERVAL WITH OCCASIONAL SUPRAVENTRICULAR PREMATURE COMPLEXES BORDERLINE ECG No signif icant change from prior electrocardiogram. PREVIOUS TRACING : 03/22/2018 02.07 DOCTOR: Sherif Arguello Interpretating Date/Time 03/22/2018 14:44:50
--- NOTE | 2018-03-22 14:45 | P.HP ---
History of Present Illness Primary Care Physician: [facility] History of Present Illness: Patient is a 57-year-old male with past medical history of COPD on home oxygen, atrial fibrillation on Coumadin, hypertension, DJD, left lower extremity neuropathy, restless leg syndrome, TIA 2 presented to the emergency room because he woke up last night with midsternal chest pain with no radiation. Patient tells me he was out of his Cardizem for the past week. [facility]. Apparently there was no one to give it to him at the [facility]. His chest pain is worse with ambulation. He does not have a avionics supervisor and is currently managed by his PCP at the [facility]. He is on Coumadin. He also notes hematuria for the past 2 weeks however he never had a chance to mention this to his primary care doctor. He admits to lightheadedness, pounding headache last night and dry mouth. He denied any nausea or vomiting. Yesterday he was outside in his yard and at that time did not feel that. All his symptoms started last night. He tells me he is oxygen dependent on 2 L at home. He denies any shortness of breath, wheezing. His baseline is sleeping on his recliner at night. Per ER documentation, upon EMS arrival patient was reportedly in atrial fibrillation with RVR and was administered nitroglycerin spray 1 along with aspirin. Patient is chest pain resolved after the nitro was given. When he arrived in the emergency room he was already in sinus rhythm with occasional PACs. Currently patient is chest pain-free. He states that if he gets out of the bed and walks he will get the chest pain. Otherwise he feels well. Past medical history: COPD, atrial fibrillation, hypertension, DJD, left lower extremity neuropathy, restless leg syndrome, TIA 2 Past surgical history: Hiatal hernia repair, deviated septum, bilateral cataract surgery, optical implants. Family history: Mother of brain cancer last month. Father is in his 90s, has a history of skin cancer, hypertension Social history: Quit smoking a year ago. He used to smoke a pack a day for the past 35-40 years. Admits to drinking 1 beer to a 4 pack a day. He denies any withdrawal symptoms whenever he quits. He denies illegal drug use CODE STATUS: Full code - Inpatient Certification If this patient has been admitted as an Inpatient: I certify that the inpatient services were ordered in accordance with Medicare regulations governing the order. 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 / EMT - Medical History Medical History: Medical History (Last Reviewed 03/22/18 @ 04:01 by Latanya Reid MD) COPD (chronic obstructive pulmonary disease) Chronic atrial fibrillation with RVR DDD (degenerative disc disease) - Tobacco History Second Hand Smoke Exposure: Yes Tobacco Use In Past 30 Days: No Smoking Status: Former smoker Tobacco Type: Cigarettes - Alcohol History How Often Do You Have a Drink Containing Alcohol: 4 or more times a week - Substance Use History Substance History: No History of Abuse - Immunization History Tetanus Immunization: <5 Years Hx Influenza Vaccine This Season: Yes Medications and Allergies Active Medications: Active Medications Al Hydroxide/Mg Hydroxide (Milk Of Magnesia Liq) 30 ml PO Q12HR PRN PRN Reason: Mild Constipation Bisacodyl (Dulcolax Supp) 10 mg RECTAL DAILY PRN PRN Reason: SEVERE CONSITIPATION Sodium Chloride (Ns Inj) 1,000 mls @ 100 mls/hr IV.CONT .Q10H JAROD Last Admin: 03/22/18 07:20 Dose: 100 mls/hr Lactulose (Lactulose Liq) 30 ml PO DAILY PRN PRN Reason: SEVERE CONSITIPATION Sennosides (Senokot) 17.2 mg PO Q12HR PRN PRN Reason: Moderate Constipation Sodium Chloride (Ns Flush) 2 ml IV.FLUSH UNSCH PRN PRN Reason: FLUSH AFTER USING IV ACCESS Temazepam (Restoril) 15 mg PO HS PRN PRN Reason: INSOMNIA Allergies Allergy/AdvReac Type Severity Reaction Status Date / Time gabapentin Allergy Severe Shortness Verified 03/22/18 07:24 of Breath penicillin G Allergy Severe "ALL Verified 03/22/18 07:24 CILLINS" PER PT amoxicillin Allergy Unknown unknown Verified 03/22/18 07:24 ALL CILLINS Allergy Unknown unknown Uncoded 03/22/18 02:25 Home Medications Medication Instructions Recorded Confirmed Type albuterol sulfate 2 puff INHALATION Q4H PRN 03/22/18 03/22/18 History budesonide-formoterol [Symbicort] 2 puff INHALATION Q12H 03/22/18 03/22/18 History cyclobenzaprine 10 mg PO BID 03/22/18 03/22/18 History diltiazem HCl [DILT-XR] 180 mg PO DAILY 03/22/18 03/22/18 History fluticasone 1 spray INTRANASAL BID 03/22/18 03/22/18 History furosemide 20 mg PO DAILY 03/22/18 03/22/18 History hydrocodone-acetaminophen [[place]] 1 tab PO TID PRN 03/22/18 03/22/18 History ipratropium bromide 0.5 mg INHALATION Q4H PRN 03/22/18 03/22/18 History ipratropium-albuterol 3 ml INHALATION Q6H 03/22/18 03/22/18 History metoprolol tartrate 50 mg PO BID 03/22/18 03/22/18 History pramipexole 1 mg PO DAILY 03/22/18 03/22/18 History prednisone 5 mg PO DAILY 03/22/18 03/22/18 History ranitidine HCl 150 mg PO BID 03/22/18 03/22/18 History tiotropium bromide 1 cap INHALATION DAILY 03/22/18 03/22/18 History warfarin 2.5 mg PO 3XW 03/22/18 03/22/18 History warfarin 5 mg PO [id number] 03/22/18 03/22/18 History Exam Vital signs: Vital Signs 03/22/18 02:00 03/22/18 03:55 03/22/18 04:00 Temperature 98.6 F Pulse Rate 88 74 80 Respiratory Rate 16 17 18 Blood Pressure 121/88 122/80 122/80 Pulse Oximetry 99 99 100 03/22/18 06:10 03/22/18 07:08 Temperature Pulse Rate 80 79 Respiratory Rate 18 20 Blood Pressure 114/78 116/83 Pulse Oximetry 100 99 Intake & Output 03/21/18 03/22/18 03/22/18 18:59 06:59 18:59 Weight 77.111 kg Narrative: GENERAL: Sitting up in bed, nasal cannula in place, SKIN: Warm and dry. HEAD: Atraumatic. Normocephalic. EYES: Extraocular motion intact. No scleral icterus. No injection or drainage. ENT: No nasal discharge. Mucous membranes pink and moist. NECK: Trachea midline. CARDIOVASCULAR: Regular rate and rhythm. RESPIRATORY: Decreased breath sounds, no wheezing. No use of accessory muscles. GASTROINTESTINAL: Abdomen soft, non-tender, nondistended. MUSCULOSKELETAL: Extremities without edema. No obvious deformities. NEUROLOGICAL: Awake and alert. Motor grossly within normal limits. Normal speech. PSYCHIATRIC: Appropriate mood and affect; insight and judgment normal. Results - Labs CBC & Chem 7: 03/22/18 02:20 03/22/18 02:20 Labs: Laboratory Results - last 24 hr 03/22/18 03/22/18 03/22/18 02:20 02:20 02:20 WBC 8.5 RBC 4.13 L Hgb 12.3 L Hct 36.5 L MCV 88.3 MCH 29.7 MCHC 33.6 RDW 14.6 Plt Count 244 MPV 8.6 Neut % (Auto) 74.2 H Lymph % (Auto) 17.8 Moody % (Auto) 6.2 Eos % (Auto) 1.2 Baso % (Auto) 0.6 Neut # (Auto) 6.3 Lymph # (Auto) 1.5 Moody # (Auto) 0.5 Eos # (Auto) 0.1 Baso # (Auto) 0.0 WBC Differential . Differential Comment Auto diff final PT 81.4 H INR 8.2 H* APTT 52.5 H Sodium 145 Potassium 3.9 Chloride 106 Carbon Dioxide 33.8 H Anion Gap 5 BUN 17 Creatinine 0.96 Estimated GFR 81 L Random Glucose 110 H Calcium 8.5 Magnesium 2.4 Total Creatine Kinase 99 Troponin I Less than 0.02 L B-Natriuretic Peptide Urine Color Urine Clarity Urine pH Ur Specific [place] Urine Protein Urine Glucose (UA) Urine Ketones Urine Occult Blood Urine Nitrate Urine Bilirubin Urine Urobilinogen Ur Leukocyte Esterase Urine RBC Urine WBC Amorphous Sediment Urine Bacteria Micro UA Comment Urine Culture Comments Serum Alcohol Less than 3 03/22/18 03/22/18 03/22/18 02:20 05:15 09:00 WBC RBC Hgb Hct MCV MCH MCHC RDW Plt Count MPV Neut % (Auto) Lymph % (Auto) Moody % (Auto) Eos % (Auto) Baso % (Auto) Neut # (Auto) Lymph # (Auto) Moody # (Auto) Eos # (Auto) Baso # (Auto) WBC Differential Differential Comment PT INR APTT Sodium Potassium Chloride Carbon Dioxide Anion Gap BUN Creatinine Estimated GFR Random Glucose Calcium Magnesium Total Creatine Kinase Troponin I Less than 0.02 L B-Natriuretic Peptide 47 Urine Color Yellow Urine Clarity Cloudy H Urine pH 7.0 Ur Specific [place] 1.015 Urine Protein 30 H Urine Glucose (UA) Negative Urine Ketones Negative Urine Occult Blood Large H Urine Nitrate Negative Urine Bilirubin Negative Urine Urobilinogen Less than 2 Ur Leukocyte Esterase Negative Urine RBC Urine WBC 45 H Amorphous Sediment Rare H Urine Bacteria Rare H Micro UA Comment Culture indicated Urine Culture Comments Culture indicated Serum Alcohol 03/22/18 13:10 WBC RBC Hgb Hct MCV MCH MCHC RDW Plt Count MPV Neut % (Auto) Lymph % (Auto) Moody % (Auto) Eos % (Auto) Baso % (Auto) Neut # (Auto) Lymph # (Auto) Moody # (Auto) Eos # (Auto) Baso # (Auto) WBC Differential Differential Comment PT INR APTT Sodium Potassium Chloride Carbon Dioxide Anion Gap BUN Creatinine Estimated GFR Random Glucose Calcium Magnesium Total Creatine Kinase Troponin I Less than 0.02 L B-Natriuretic Peptide Urine Color Urine Clarity Urine pH Ur Specific [place] Urine Protein Urine Glucose (UA) Urine Ketones Urine Occult Blood Urine Nitrate Urine Bilirubin Urine Urobilinogen Ur Leukocyte Esterase Urine RBC Urine WBC Amorphous Sediment Urine Bacteria Micro UA Comment Urine Culture Comments Serum Alcohol - Imaging Impressions Chest X-Ray 03/22/18 02:21 CONCLUSION: No acute findings. Hyper aerated upper lungs. Caprini VTE Risk Assessment Caprini VTE Risk Assessment: Moderate/High Risk (score >= 2) Caprini Risk Assessment Model: Point Value = 1 Point Value = 2 Point Value = 3 Point Value = 5 Age 41-60 Minor surgery BMI > 25 kg/m2 Swollen legs Varicose veins or History of unexplained or recurrent spontaneous Oral contraceptives or hormone replacement Sepsis (< 1 month) Serious lung disease, including pneumonia (< 1 month) Abnormal pulmonary function Acute myocardial infarction Congestive heart failure (< 1 month) History of inflammatory bowel disease Medical patient at bed rest Age 61-74 Arthroscopic surgery Major open surgery (> 45 min) Laparoscopic surgery (> 45 min) Malignancy Confined to bed (> 72 hours) Immobilizing plaster cast Central venous access Age >= 75 History of VTE Family history of VTE Factor V Leiden Prothrombin [id number] Lupus anticoagulant Anticardiolipin antibodies Elevated serum homocysteine Heparin-induced thrombocytopenia Other congenital or acquired thrombophilia Stroke (< 1 month) Elective arthroplasty Hip, pelvis, or leg fracture Acute spinal cord injury (< 1 month) Prophylaxis Regimen: Total Risk Factor Score Risk Level Prophylaxis Regimen 0-1 Low Early ambulation 2 Moderate Order ONE of the following: *Sequential Compression Device (SCD) *Heparin 5000 units SQ BID 3-4 Higher Order ONE of the following medications: *Heparin 5000 units SQ TID *Enoxaparin/Lovenox 40 mg SQ daily (WT < 150 kg, CrCl > 30 mL/min) *Enoxaparin/Lovenox 30 mg SQ daily (WT < 150 kg, CrCl > 10-29 mL/min) *Enoxaparin/Lovenox 30 mg SQ BID (WT < 150 kg, CrCl > 30 mL/min) AND/OR *Sequential Compression Device (SCD) 5 or more Highest Order ONE of the following medications: *Heparin 5000 units SQ TID (Preferred with Epidurals) *Enoxaparin/Lovenox 40 mg SQ daily (WT < 150 kg, CrCl > 30 mL/min) *Enoxaparin/Lovenox 30 mg SQ daily (WT < 150 kg, CrCl > 10-29 mL/min) *Enoxaparin/Lovenox 30 mg SQ BID (WT < 150 kg, CrCl > 30 mL/min) AND *Sequential Compression Device (SCD) Assessment and Plan - Plan Chest pain: Patient presented with chest pain which started last night. Currently chest pain has resolved. It does recur with ambulation. Location is [facility] with no radiation. Troponin 3 has been negative. EKG on admission showed sinus rhythm with no ST changes. Patient does not have a avionics supervisor that he sees on a regular basis. Cards consult has been placed. Morphine, sublingual nitro as needed chest pain. Patient is oxygen dependent. Resume patient beta-cheryl and Cardizem. Received dose of aspirin per ER note. Continue aspirin Atrial fibrillation: When EMS arrived at his place he was in A. fib with RVR. Apparently upon arrival in the emergency room, he had converted to sinus rhythm. resume home cardizem. Pt ran out of his meds x 1 week. he is on coumadin however his INR was 8.5 upon arrival. hold coumadin Supratherapeutic INR: hold coumadin. Monitor INR closely. Resume coumadin when INR<3. Will consult pharmacy COPD: O2 dependent. continue. ipratropium neb prn. resumed home meds hematuria: x 2 weeks. bladder u/s ordered, urology consult in place other chronic medical conditions: stable and meds have been resumed DVT proph: scd, hold chemical anticoag due to supratherapeutic INR
[2018-03-22] MEDS ORDERED: Morphine Inj 4 MG/ML Vial IV.PUSH PRN (14:59)
[2018-03-22] MEDS ORDERED: Metoprolol Tartrate 50 MG Tablet PO SCH (15:00)
[2018-03-22] MEDS ORDERED: Warfarin Consult Pharmacy 1 EACH OTHER SCH (15:06)
[2018-03-22] MEDS ORDERED: dilTIAZem CD 180 MG Capsule PO ONE (15:16)
--- NOTE | 2018-03-22 15:59 | MB ---
cc: Doug Mcrae MD DATE: 03/22/2018 REASON FOR CONSULTATION: Evaluation of chest pain. HISTORY OF PRESENT ILLNESS: Som Goss is a 57-year-old man with horrible COPD on continuous oxygen. He has paroxysmal atrial fibrillation for which he is on Warfarin, diltiazem and metoprolol. He has severe problems with the COPD with multiple trips to the hospital for COPD. He has had 2 nuclear stress tests in the past, one in 2010, which was abnormal and one in 2015 that was normal. He had a catheterization 09/23/[address] Leyva that showed normal coronaries. The patient has been out of diltiazem for 1 week. It is not clear to me why he ran out but he has trouble getting it filled due to the holiday. He developed chest pain last night and when [facility] picked him up, apparently he was in atrial fibrillation with RVR. He converted to sinus rhythm by the time he was here. He, however, is mentioning, however, that he does get chest pain with activity. Initially I did not get that history from him, but he now confesses that he gets chest pain also with activity. Activity is severely restricted by chronic dyspnea. PAST MEDICAL HISTORY: Includes paroxysmal atrial fibrillation, hypertension, degenerative joint disease, neuropathy, restless leg syndrome, previous TIAs degenerative disk disease. SOCIAL HISTORY: He is an ex-smoker, did not quit until a year ago, however. ALLERGIES: INCLUDE GABAPENTIN, PENICILLIN, AND ALL THE CILLIN'S. MEDICATIONS: Include: 1. Diltiazem 180 daily. 2. Metoprolol 50 b.i.d. REVIEW OF SYSTEMS: Notable for having severe intermittent hematuria for the past 2 weeks. INR is markedly elevated this admission. Remaining review of systems negative. PHYSICAL EXAMINATION: GENERAL: Reveals a well-developed, well-nourished man who appears older than his stated age. VITAL SIGNS: Charted. He is in sinus rhythm with PACs on telemetry. HEENT: Unremarkable. NECK: Shows no JVD or bruits. CHEST: Shows severely diminished breath sounds throughout. CARDIAC: Nonpalpable PMI. First and second heart sounds normal. Regular rate and rhythm. ABDOMEN: Soft, nontender. EXTREMITIES: Reveal no clubbing, cyanosis or edema. Pulses are intact. DIAGNOSTIC STUDIES: EKG here shows sinus with PACs without ischemic changes. Troponins are negative. IMPRESSION: Chest pain, some of it is undoubtedly related to rapid atrial fibrillation, but he is not in atrial fibrillation currently. He has chronic obstructive pulmonary disease that is severe. He has had intermittent chest pain, which I cannot attribute all of necessarily to chronic obstructive pulmonary disease. He has normal coronaries from a catheterization 6 years ago and a normal stress test 2 years ago. He is having hematuria which complicates any type of interventional management. RECOMMENDATIONS: I am ordering a Lexiscan nuclear test and a 2D echo for further risk assessment. We will then decide further management depending what those tests show. MD DEBORAH Anthony/SAMSON , 03:40 PM , 03:57 PM
[2018-03-22] MEDS: Ciprofloxacin 400 MG/200 ML 400 MG/200 ML PIGGYBACK IV.SIG SCH (16:48)
--- NOTE | 2018-03-22 17:25 | ECHRPT ---
Indication: Chest pain, unspecified CONCLUSIONS Normal left ventricular size and wall thickness. The left ventricular systolic function is normal wi th an estimated ejection fraction in the range of 60-65%. Left ventricular diastolic function parameters a re normal. There is trace tricuspid valve regurgitation. The estimated pulmonary arterial pressure is 32.1 mmHg. BP: / HR: Rhythm: MEASUREMENTS (Male / Female) Normal Values Technical Quality:Good 2D ECHO LV Diastolic Diameter PLAX 3.8 cm 4.2 - 5.9 / 3.9 - 5.3 cm LV Systolic Diameter PLAX 2.7 cm IVS Diastolic Thickness 1.1 cm 0.6 - 1.0 / 0.6 - 0.9 cm LVPW Diastolic Thickness 1.2 cm 0.6 - 1.0 / 0.6 - 0.9 cm LV Relative Wall Thickness 0.6 RV Internal Dim ED PLAX 2.7 cm M-MODE Aortic Root Diameter MM 3.3 cm LA Systolic Diameter MM 4.1 cm LA Ao Ratio MM 1.2 AV Cusp Separation MM 1.8 cm DOPPLER Mitral E Point Velocity 80.1 cm/s Mitral A Point Velocity 114.0 cm/s Mitral E to A Ratio 0.7 LV E' Lateral Velocity 12.7 cm/s Mitral E to LV E' Lateral Ratio 6.3 TR Peak Velocity 235.0 cm/s TR Peak Gradient 22.1 mmHg Right Atrial Pressure 10.0 mmHg Pulmonary Artery Systolic Pressu 32.1 mmHg Right Ventricular Systolic Press 32.1 mmHg FINDINGS LEFT VENTRICLE Normal left ventricular size and wall thickness. The left ventricular systolic function is normal wi th an estimated ejection fraction in the range of 60-65%. Left ventricular diastolic function parameters a re normal. RIGHT VENTRICLE Normal right ventricular size and systolic function. LEFT ATRIUM The left atrial size is normal. RIGHT ATRIUM The right atrial size is normal. ATRIAL SEPTUM Normal atrial septal thickness without atrial level shunting by limited color doppler interrogation. AORTA The aortic root and proximal ascending aorta are not well visualized. MITRAL VALVE Structurally normal mitral valve. No mitral valve stenosis or regurgitation. AORTIC VALVE Trileaflet aortic valve. No aortic valve stenosis or regurgitation. TRICUSPID VALVE Structurally normal tricuspid valve. There is trace tricuspid valve regurgitation. The estimated pulmonary arterial pressure is 32.1 mmHg. PULMONARY VALVE No pulmonary valve regurgitation or stenosis. VESSELS The inferior vena cava is normal in size. PERICARDIUM No pericardial effusion. Doug Mcrae MD (Electronically Signed) Final Date:22 March 2018 17:23
--- NOTE | 2018-03-22 17:34 | ECG ---
Date Performed: 03/22/2018 Time Performed: 02:07:33 PTAGE: 57 years EKG: Sinus rhythm WITH OCCASIONAL SUPRAVENTRICULAR PREMATURE COMPLEXES BORDERLINE ECG PREVIOUS TRACING : 03/01/2018 @08.28 Since the previous tracing, no significant change noted DOCTOR: Mariza Magana Interpretating Date/Time 03/22/2018 17:52:21
[2018-03-22] MEDS: Budesonide-Formoterol 80/4.5 MCG 6.9 GM Inhaler INH SCH (18:28)
--- NOTE | 2018-03-22 19:01 | US ---
EXAM DATE: 03/22/2018 6:54 PM EDT AGE/SEX: 57 years / Male INDICATIONS: Hematuria. CLINICAL DATA: This is the patient's initial encounter. Patient reports that signs and symptoms have been present for 1 day and indicates a pain score of 0/10. MEDICAL/SURGICAL HISTORY: . Chronic atrial fibrillation with RVR. Degenerative disc disease. CO PD. None. COMPARISON: No prior exams available for comparison. MEASUREMENTS: Right Kidney:__12.3 x 5.8 x 5.4 cm Left Kidney:__13.1 x 5.7 x 6.7 cm FINDINGS: Right Kidney: 1 cm hyperechoic focus in the lower pole cortex of the right kidney may be parenchymal calcification or small hyperechoic mass such as lipoma or angiomyolipoma Left Kidney: Normal echotexture and cortical thickness. No mass or hydronephrosis. Bladder: Within normal limits given the degree of distension. Other: None. CONCLUSION: Tiny hyperechoic process in the lower pole of the right kidney. No evidence of hydronephrosis. Electronically signed by: Som Smith MD 03/22/2018 7:00 PM EDT
--- NOTE | 2018-03-22 19:47 | MB ---
cc: Dwight Saucedan Ector DO DATE: 03/22/2018 HISTORY OF PRESENT ILLNESS: Mr. Goss is a pleasant 57-year-old male who was admitted to the emergency room with chest pain. He has also noted history of gross hematuria for the last 2-3 weeks. Initially, it was bright red and now has cleared to a dark maroon color. He presently denies any clots or difficulty with urination. He is on Coumadin for his history of atrial fibrillation and upon presentation to the emergency room, his INR was noted to be supratherapeutic at 8.2. He does have a long history of smoking, approximately 1 pack per day for 30 years, but denies any prior history of any gross hematuria. He notes nocturia 1-2 times at night and denies any urinary tract infections. There is no family history of prostate cancer or kidney or bladder cancer. PAST MEDICAL HISTORY: Notable for COPD, atrial fibrillation, hypertension, DJD, neuropathy, restless leg syndrome, TIA x 2 in the past. PAST SURGICAL HISTORY: Hiatal hernia, deviated septum, bilateral cataract surgery with implants. FAMILY HISTORY: Noted for brain cancer on his mother's side. Father with history of skin cancer and hypertension. SOCIAL HISTORY: A pack a day of smoking was noted for approximately 30 years. He quit 1 year ago. He drinks beer regularly. He denies any drug use. REVIEW OF SYSTEMS: Chest pain has presently resolved at the bedside. Denies headache or gait disturbances. Notes hematuria and nocturia x 2. Denies abdominal pain. Presently notes a history shortness of breath, presently on oxygen. Denies skin lesions, other than some bruising, which is noted on his upper extremities. Remaining review of systems were reviewed and were negative. PHYSICAL EXAMINATION: VITAL SIGNS: Temperature 97.8, heart rate 103, respiratory rate 16, blood pressure 116/79, 98% on room air. GENERAL: He is a well-developed, well-nourished 57-year-old male in no acute distress. HEENT: Normocephalic, atraumatic. Pupils equal, round, regular and reactive to light. Extraocular movements intact. NECK: Supple. HEART: Rate is sinus tachycardia. LUNGS: Breath sounds bilaterally. ABDOMEN: Soft, nontender, nondistended. GENITOURINARY: Uncircumcised phallus. Testes are descended. EXTREMITIES: Show no evidence of cyanosis, clubbing or edema. NEUROLOGIC: Cranial nerves 2-12 are intact. LABORATORY DATA: White count 8.5, hemoglobin 12.3, hematocrit 36.5, platelet count of 244. Sodium 145, potassium 3.9, chloride 106, CO2 of 33.8, BUN of 17, creatinine 0.96, glucose of 110. PT is 81.4, INR is 8.2 and PTT is 52.5. Urinalysis shows numerous red cells and 45 white cells. Culture is currently pending. IMAGING STUDIES: Show renal bladder ultrasound was performed showing possible 1 cm right lower pole angiomyolipoma versus parenchymal calcification is noted. There is no hydronephrosis. Bladder was unremarkable. ASSESSMENT AND PLAN: This is a 57-year-old male admitted with acute onset of chest pain with history of atrial fibrillation, supratherapeutic on Coumadin with an INR of 8.2, with gross hematuria last 2-3 weeks. Renal ultrasound shows no evidence of any acute bleeding or bladder mass. Recommend correction of supratherapeutic INR and hold Coumadin. Restart IV fluids to help clear the urine. Once urine has cleared, would recommend followup with [facility] urologist and repeat urinalysis in 6 weeks. Once INR is in the correct range. Thank you for the consult and allowing us to participate in the care of this patient. DO YRN Escobar/SAMSON , 07:22 PM , 07:45 PM
[2018-03-22] MEDS ORDERED: Temazepam 15 MG Capsule PO PRN (21:00)
[2018-03-22] MEDS: Sodium Chloride 0.45 % Inj 1,000 ML IV.CONT SCH (21:21)
[2018-03-22] MEDS: Famotidine 20 MG Tablet PO SCH (21:21)
[2018-03-23] MEDS: Sod Chloride 0.9% Inj 1,000 ML IV.CONT SCH ×2 (02:20→12:41)
[2018-03-23] MEDS: Ciprofloxacin 400 MG/200 ML 400 MG/200 ML PIGGYBACK IV.SIG SCH (03:13)
[2018-03-23] MEDS: Budesonide-Formoterol 80/4.5 MCG 6.9 GM Inhaler INH SCH ×2 (03:13→17:53)
[2018-03-23 06:50] LABS: INR 1.4 Ratio; Prothrombin Time 14.3 sec (9.8-11.6)
[2018-03-23 06:59] LABS: Baso % (Auto) 0.1 % (0.0-2.0); Eos % (Auto) 0.3 % (0.0-4.0); Hematocrit 36.4 % (39.0-51.0); Hemoglobin 12.1 gm/dL (13.0-17.0); Lymph # (Auto) 1.8 th/mm3 (1.0-4.8); Mean Corpuscular HGB Conc 33.3 % (32.0-36.0); Mean Corpuscular Hemoglobin 30.1 pg (27.0-34.0); Mean Corpuscular Volume 90.3 fL (80.0-100.0); Mean Platelet Volume 8.8 fL (7.0-11.0); Mono # (Auto) 0.8 th/mm3 (0.0-0.9); Mono % (Auto) 9.4 % (0.0-8.0); Neut # (Auto) 5.8 th/mm3 (1.8-7.7); Neut % (Auto) 69.2 % (16.0-70.0); Platelet Count 196 th/mm3 (150-450); Red Blood Count 4.03 mil/mm3 (4.50-5.90); Red Cell Distribution Width 14.4 % (11.6-17.2); White Blood Count 8.3 th/mm3 (4.0-11.0)
[2018-03-23 07:14] LABS: Anion Gap 6 meq/L (5-15); Blood Urea Nitrogen 13 mg/dL (7-18); Calcium 8.3 mg/dL (8.5-10.1); Carbon Dioxide 30.6 meq/L (21.0-32.0); Chloride 107 meq/L (98-107); Glomerular Filtration Rate Greater Than 89 mL/min (>89); Glucose,Random 82 mg/dL (74-106); Potassium 3.8 meq/L (3.5-5.1); Sodium 144 meq/L (136-145)
[2018-03-23] MEDS: Sodium Chloride 0.45 % Inj 1,000 ML IV.CONT SCH ×2 (08:23→23:42)
--- NOTE | 2018-03-23 08:43 | P.PNURO ---
Subjective Patient symptoms today: Pt seen and examined. Urine clearing now on IVF. Objective Vital Signs: Vital Signs 03/22/18 14:00 03/22/18 16:00 03/22/18 16:47 Temperature 98.5 F 97.8 F Pulse Rate 106 H 103 H Respiratory Rate 18 20 16 Blood Pressure 133/82 116/79 Pulse Oximetry 97 98 03/22/18 20:00 03/22/18 22:03 03/22/18 23:52 Temperature 99.3 F 97.4 F L Pulse Rate 106 H 78 Respiratory Rate 18 16 Blood Pressure 140/74 119/76 Pulse Oximetry 97 99 98 03/23/18 04:00 03/23/18 08:00 Temperature 98.6 F 97.5 F L Pulse Rate 79 81 Respiratory Rate 18 18 Blood Pressure 125/84 122/80 Pulse Oximetry 95 94 L Intake & Output 03/22/18 03/23/18 03/23/18 18:59 06:59 18:59 Intake Total 1400 / 1400 823 / 823 Balance 1400 / 1400 823 / 823 Intake: IV 1400 / 1400 823 / 823 NS Inj 1,000 ML @ 100 mls/hr IV 1000 / 1000 .CONT .Q10H JAROD Rx#:[id number] 1/2 Normal Saline Inj 1,000 ML 823 / 823 @ 84 mls/hr IV.CONT .[id number] JAROD Rx#:[id number] Cipro 400 MG/200 ML Inj 400 mg 400 / 400 In 200 ml @ 200 mls/hr IV.SIG Q12H JAROD Rx#:[id number] Other: Date of Last Bowel Movement 03/21/18 03/21/18 Result Diagrams: 03/23/18 06:14 03/23/18 06:14 Imaging: Impressions Abdomen/Bladder Ultrasound 03/22/18 00:00 CONCLUSION: Tiny hyperechoic process in the lower pole of the right kidney. No evidence of hydronephrosis. Medications and IVs: Active Medications Generic Name Dose Route Start Last Admin Trade Name Freq PRN Reason Stop Dose Admin Hydrocodone Bitart/Acetaminophen 1 tab 03/22/18 14:55 03/23/18 03:[address] [place] 10/325 PO 1 tab TID PRN Administration PAIN 1-10 Al Hydroxide/Mg Hydroxide 30 ml 03/22/18 09:00 Milk Of Magnesia Liq PO Q12HR PRN Mild Constipation Aspirin 81 mg 03/23/18 09:00 Ecotrin PO DAILY [facility] Bisacodyl 10 mg 03/22/18 09:00 Dulcolax Supp RECTAL DAILY PRN SEVERE CONSITIPATION Budesonide/Formoterol Fumarate 2 puff 03/22/18 15:00 03/23/18 03:13 Symbicort 80/4.5 Mcg Inh INH 2 puff Q12H JAROD Administration Cyclobenzaprine HCl 10 mg 03/22/18 21:00 03/22/18 21:21 Flexeril PO 10 mg BID JAROD Administration Diltiazem HCl 180 mg 03/23/18 09:00 Cardizem Cd 24hr PO DAILY [facility] Famotidine 20 mg 03/22/18 21:00 03/22/18 21:21 Pepcid PO 20 mg BID [facility] Administration Fluticasone Propionate 1 spray 03/22/18 21:00 03/22/18 21:21 Flonase Nasal Sneads EACH NARE 1 spray BID [facility] Administration Furosemide 20 mg 03/23/18 09:00 Lasix PO DAILY [facility] Sodium Chloride 1,000 mls @ 100 mls/hr 03/22/18 06:15 03/23/18 02:20 Ns Inj IV.CONT Not Given .Q10H [facility] Pharmacy Profile Note 0 mls @ 0 mls/hr 03/22/18 15:06 Coumadin Consult Pharmacy OTHER UNSCH [facility] As Directed Ciprofloxacin/Dextrose 400 mg in 200 mls @ 200 mls/hr 03/22/18 16:00 04:49 Cipro 400 Mg/200 Ml Inj IV.SIG Infused Q12H [facility] Infusion Sodium Chloride 1,000 mls @ 84 mls/hr 03/22/18 19:30 03/23/18 08:23 1/2 Normal Saline Inj IV.CONT 84 mls/hr .[id number] [facility] Administration Ipratropium [place] 0.5 mg 03/22/18 14:57 Atrovent Neb NEB Q6HR NEB PRN SHORTNESS OF BREATH/WHEEZING Lactulose 30 ml 03/22/18 06:10 Lactulose Liq PO DAILY PRN SEVERE CONSITIPATION Morphine Sulfate 2 mg 03/22/18 14:59 Morphine Inj IV.PUSH Q4H PRN CHEST PAIN Nitroglycerin 0.4 mg 03/22/18 15:00 Nitrostat Sl SL Q5M PRN CHEST PAIN Pramipexole Dihydrochloride 1 mg 03/23/18 09:00 Mirapex PO DAILY [facility] Prednisone 5 mg 03/23/18 09:00 Deltasone PO DAILY [facility] Sennosides 17.2 mg 03/22/18 09:00 Senokot PO Q12HR PRN Moderate Constipation Sodium Chloride 2 ml 03/22/18 02:21 Ns Flush IV.FLUSH UNSCH PRN FLUSH AFTER USING IV ACCESS Temazepam 15 mg 03/22/18 21:00 03/22/18 23:06 Restoril PO 15 mg HS PRN Administration INSOMNIA Tiotropium [place] 18 mcg 03/23/18 09:00 Spiriva 18 Mcg Inh INH DAILY [facility] Objective Remarks: Abd:soft,nt,nd Voiding clear urine now. Assessment and Plan - Plan 57 y.o male with supertherapeutic INR with gross hematuria Hematuria now resolving [facility] and repeat U/A when INR has normalized.
[2018-03-23] MEDS: dilTIAZem CD 180 MG Capsule PO SCH (09:41)
[2018-03-23] MEDS: Famotidine 20 MG Tablet PO SCH ×2 (09:41→23:43)
[2018-03-23] MEDS: predniSONE 5 MG Tablet PO SCH (09:41)
[2018-03-23] MEDS: Furosemide 20 MG Tablet PO SCH (09:41)
--- NOTE | 2018-03-23 09:42 | P.PNCA ---
Subjective Interval history: No new complaints. No chest pain Physical Exam Vital signs: Vital Signs 03/22/18 14:00 03/22/18 16:00 03/22/18 16:47 Temperature 98.5 F 97.8 F Pulse Rate 106 H 103 H Respiratory Rate 18 20 16 Blood Pressure 133/82 116/79 Pulse Oximetry 97 98 03/22/18 20:00 03/22/18 22:03 03/22/18 23:52 Temperature 99.3 F 97.4 F L Pulse Rate 106 H 78 Respiratory Rate 18 16 Blood Pressure 140/74 119/76 Pulse Oximetry 97 99 98 03/23/18 04:00 03/23/18 08:00 Temperature 98.6 F 97.5 F L Pulse Rate 79 81 Respiratory Rate 18 18 Blood Pressure 125/84 122/80 Pulse Oximetry 95 94 L Intake & Output 03/22/18 03/23/18 03/23/18 18:59 06:59 18:59 Intake Total 1400 / 1400 823 / 823 Balance 1400 / 1400 823 / 823 Intake: IV 1400 / 1400 823 / 823 NS Inj 1,000 ML @ 100 mls/hr IV 1000 / 1000 .CONT .Q10H JAROD Rx#:[id number] 1/2 Normal Saline Inj 1,000 ML 823 / 823 @ 84 mls/hr IV.CONT .[id number] JAROD Rx#:[id number] Cipro 400 MG/200 ML Inj 400 mg 400 / 400 In 200 ml @ 200 mls/hr IV.SIG Q12H JAROD Rx#:[id number] Other: Date of Last Bowel Movement 03/21/18 03/21/18 Narrative: Alert No JVD Chest diminished BS CV S1S2 RRR Tele NSR Ext: no edema Assessment and Plan - Assessment (1) Paroxysmal atrial fibrillation with rapid ventricular response Code(s): I48.0 - Paroxysmal atrial fibrillation Status: Acute Plan: Has converted to NSR (2) Chest pain Code(s): R07.9 - Chest pain, unspecified Status: Acute Plan: No evidence of TN. Nl cath 2011. SPECT ordered for today. If negative OK to DC (3) Coumadin toxicity Code(s): T45.511A - Poisoning by anticoagulants, accidental (unintentional), initial encounter Status: Acute (4) Hematuria Code(s): R31.9 - Hematuria, unspecified Status: Acute (2) Chest pain Qualifiers: Chest pain type: precordial pain Qualified Code(s): R07.2 - Precordial pain (3) Coumadin toxicity Qualifiers: Encounter type: initial encounter Injury intent: accidental or unintentional Qualified Code(s): T45.511A - Poisoning by anticoagulants, accidental ( unintentional), initial encounter (4) Hematuria Qualifiers: Hematuria type: unspecified type Qualified Code(s): R31.9 - Hematuria, unspecified
[2018-03-23] MEDS: Tiotropium Bromide 18 MCG/ACT Inhaler INH SCH (09:44)
[2018-03-23] MEDS ORDERED: Regadenoson Inj 0.4 MG/5 ML Syringe IV.PUSH ONE (11:12)
--- NOTE | 2018-03-23 11:50 | P.PNIM ---
Subjective Interval history: Patient reports feeling okay today. Hematuria has completely resolved. No chest pain. Currently on 2 L nasal cannula. Physical Exam Vital signs: Vital Signs 03/22/18 14:00 03/22/18 16:00 03/22/18 16:47 Temperature 98.5 F 97.8 F Pulse Rate 106 H 103 H Respiratory Rate 18 20 16 Blood Pressure 133/82 116/79 Pulse Oximetry 97 98 03/22/18 20:00 03/22/18 22:03 03/22/18 23:52 Temperature 99.3 F 97.4 F L Pulse Rate 106 H 78 Respiratory Rate 18 16 Blood Pressure 140/74 119/76 Pulse Oximetry 97 99 98 03/23/18 04:00 03/23/18 08:00 Temperature 98.6 F 97.5 F L Pulse Rate 79 81 Respiratory Rate 18 18 Blood Pressure 125/84 122/80 Pulse Oximetry 95 94 L Intake & Output 03/22/18 03/23/18 03/23/18 18:59 06:59 18:59 Intake Total 1400 / 1400 823 / 823 Balance 1400 / 1400 823 / 823 Intake: IV 1400 / 1400 823 / 823 NS Inj 1,000 ML @ 100 mls/hr IV 1000 / 1000 .CONT .Q10H JAROD Rx#:[id number] 1/2 Normal Saline Inj 1,000 ML 823 / 823 @ 84 mls/hr IV.CONT .[id number] JAROD Rx#:[id number] Cipro 400 MG/200 ML Inj 400 mg 400 / 400 In 200 ml @ 200 mls/hr IV.SIG Q12H JAROD Rx#:[id number] Other: Date of Last Bowel Movement 03/21/18 03/21/18 Narrative: GENERAL: Obese male in no apparent distress. CARDIOVASCULAR: Normal rate and regular rhythm without murmurs, gallops, or rubs. RESPIRATORY: Good respiratory efforts. Breath sounds equal and clear to auscultation bilaterally. GASTROINTESTINAL: Abdomen soft, non-tender, non-distended. Normal active bowel sounds MUSCULOSKELETAL: Extremities without cyanosis, or edema. NEURO: Alert & Oriented x4 to person, place, time, situation. Moves all ext x4 PSYCH: Appropriate mood and affect. Results - Labs CBC & Chem 7: 03/23/18 06:14 03/23/18 06:14 Laboratory Results - last 24 hr 03/22/18 03/23/18 03/23/18 13:10 06:14 06:14 WBC 8.3 RBC 4.03 L Hgb 12.1 L Hct 36.4 L MCV 90.3 MCH 30.1 MCHC 33.3 RDW 14.4 Plt Count 196 MPV 8.8 Neut % (Auto) 69.2 Lymph % (Auto) 21.0 [place] % (Auto) 9.4 H Eos % (Auto) 0.3 Baso % (Auto) 0.1 Neut # (Auto) 5.8 Lymph # (Auto) 1.8 [place] # (Auto) 0.8 Eos # (Auto) 0.0 Baso # (Auto) 0.0 WBC Differential . Differential Comment Auto diff final PT INR Sodium 144 Potassium 3.8 Chloride 107 Carbon Dioxide 30.6 Anion Gap 6 BUN 13 Creatinine 0.58 L Estimated GFR Greater than 89 Random Glucose 82 Calcium 8.3 L Troponin I Less than 0.02 L 03/23/18 06:14 WBC RBC Hgb Hct MCV MCH MCHC RDW Plt Count MPV Neut % (Auto) Lymph % (Auto) [place] % (Auto) Eos % (Auto) Baso % (Auto) Neut # (Auto) Lymph # (Auto) [place] # (Auto) Eos # (Auto) Baso # (Auto) WBC Differential Differential Comment PT 14.3 H D INR 1.4 Sodium Potassium Chloride Carbon Dioxide Anion Gap BUN Creatinine Estimated GFR Random Glucose Calcium Troponin I Microbiology 03/22/18 05:15 Clean Catch Urine Urine Culture - Final 10-50,000 cfu/mL mixed gram positive tanika (probable contaminants) - Imaging Impressions Abdomen/Bladder Ultrasound 03/22/18 00:00 CONCLUSION: Tiny hyperechoic process in the lower pole of the right kidney. No evidence of hydronephrosis. Assessment and Plan - Assessment (1) Chest pain Code(s): R07.9 - Chest pain, unspecified Status: Acute (2) Coumadin toxicity Code(s): T45.511A - Poisoning by anticoagulants, accidental (unintentional), initial encounter Status: Acute (3) Hematuria Code(s): R31.9 - Hematuria, unspecified Status: Acute (4) Paroxysmal atrial fibrillation with rapid ventricular response Code(s): I48.0 - Paroxysmal atrial fibrillation Status: Acute (5) Hypoxemia Code(s): R09.02 - Hypoxemia Status: Acute - Plan 57-year-old male with: Chest pain: Patient presented with chest pain which started last night. Currently chest pain has resolved. -Appreciate cardiology following. Resume patient beta-cheryl and Cardizem. Continue aspirin Atrial fibrillation: When EMS arrived at his place he was in A. fib with RVR. Apparently upon arrival in the emergency room, he had converted to sinus rhythm. resume home Cardizem. Pt ran out of his meds x 1 week. he is on Coumadin however his INR was 8.5 upon arrival. INR down to 1.4. Resume Coumadin -Nuclear stress tests and 2D echocardiogram pending. Supratherapeutic INR: INR down to 1.4 after holding Coumadin. Resume at 4 mg daily. Follow INR. COPD: O2 dependent. continue. ipratropium neb prn. resumed home meds hematuria: x 2 weeks. Suspect this was related to supratherapeutic INR. Bladder u/s unremarkable. Urology consulted on the patient and advised correction of coagulopathy, and outpatient follow-up other chronic medical conditions: stable and meds have been resumed DVT proph: scds (1) Chest pain Qualifiers: Chest pain type: precordial pain Qualified Code(s): R07.2 - Precordial pain (2) Coumadin toxicity Qualifiers: Encounter type: initial encounter Injury intent: accidental or unintentional Qualified Code(s): T45.511A - Poisoning by anticoagulants, accidental ( unintentional), initial encounter (3) Hematuria Qualifiers: Hematuria type: unspecified type Qualified Code(s): R31.9 - Hematuria, unspecified
--- NOTE | 2018-03-23 12:36 | NM ---
EXAM DATE: 03/23/2018 12:19 PM EDT AGE/SEX: 57 years / Male INDICATIONS:Angina. Atrial fibrillation Retrosternal chest pain. CLINICAL DATA: This is the patient's initial encounter. Patient reports that signs and symptoms have been present for 1 day and indicates a pain score of 5/10. MEDICAL/SURGICAL HISTORY: Chronic obstructive pulmonary disease. None. COMPARISON: No prior exams available for comparison. DOSE: 8.8 mCi Tc 99m Myoview at stress 27.3 mCi [id number] at rest 0.4 mg Lexiscan STRESS SYMPTOMS: Dyspnea. EJECTION FRACTION: 64 % TECHNIQUE: The patient underwent pharmacologic stress with infusion of prescribed dose. Continuous ECG tracing was monitored during stress. Gated SPECT imaging was performed after stress and conventi onal SPECT imaging was performed at rest. The examination was performed on a SPECT/CT scanner, both attenuation and non-corrected datasets were reviewed. FINDINGS: Distribution: The maximum perfused segment at stress is in the lateral wall. Perfusion Study: The pattern of perfusion at stress is within normal limits. Gated Study: There are intact wall motion and wall thickening without hypokinetic or dyskinetic segm ents. The ejection fraction is calculated at 64%. RISK CATEGORY: Low (<1% Annual Motality Rate) CONCLUSION: 1. No evidence of ischemic myocardial changes. Electronically signed by: Kevin Gabriel MD 03/23/2018 12:35 PM EDT
[2018-03-24] MEDS: Sod Chloride 0.9% Inj 1,000 ML IV.CONT SCH ×2 (05:44→19:24)
[2018-03-24] MEDS: Budesonide-Formoterol 80/4.5 MCG 6.9 GM Inhaler INH SCH ×2 (05:44→15:15)
[2018-03-24] MEDS: predniSONE 5 MG Tablet PO SCH (08:31)
[2018-03-24] MEDS: dilTIAZem CD 180 MG Capsule PO SCH (08:31)
[2018-03-24] MEDS: Furosemide 20 MG Tablet PO SCH (08:31)
[2018-03-24] MEDS: Famotidine 20 MG Tablet PO SCH ×2 (08:31→22:36)
[2018-03-24] MEDS: Tiotropium Bromide 18 MCG/ACT Inhaler INH SCH (08:32)
[2018-03-24 09:14] LABS: INR 1.2 Ratio
--- NOTE | 2018-03-24 15:39 | P.DCO ---
- Diagnosis (1) Chest pain (2) Coumadin toxicity - Physical Therapy Order: Evaluate and treat, Improve ambulation, Strength and gait training - Home Health Nursing Order: Medical education, Oxygen administration education - Certification I have seen patient Som Goss on 03/24/18. My clinical findings support the need for the requested home health care services because: Patient has SOB I certify that my clinical findings support that this patient is homebound because: Unsteady gait/balance (1) Chest pain Qualifiers: Chest pain type: precordial pain Qualified Code(s): R07.2 - Precordial pain (2) Coumadin toxicity Qualifiers: Encounter type: initial encounter Injury intent: accidental or unintentional Qualified Code(s): T45.511A - Poisoning by anticoagulants, accidental ( unintentional), initial encounter
--- NOTE | 2018-03-24 15:51 | P.DS ---
Date of admission: 03/22/18 06:13 Primary care physician: [facility] Brief History from admission: HPI from the admitting physician Patient is a 57-year-old male with past medical history of COPD on home oxygen, atrial fibrillation on Coumadin, hypertension, DJD, left lower extremity neuropathy, restless leg syndrome, TIA 2 presented to the emergency room because he woke up last night with midsternal chest pain with no radiation. Patient tells me he was out of his Cardizem for the past week. He states he gets them at the [facility] however it was never shipped to him. Apparently there was no one to give it to him at the [facility]. His chest pain is worse with ambulation. 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 He is on Coumadin. He also notes hematuria for the past 2 weeks however he never had a chance to mention this to his primary care doctor. He admits to lightheadedness, pounding headache last night and dry mouth. He denied any nausea or vomiting. Yesterday he was outside in his yard and at that time did not feel that. All his symptoms started last night. He tells me he is oxygen dependent on 2 L at home. He denies any shortness of breath, wheezing. His baseline is sleeping on his recliner at night. Per ER documentation, upon EMS arrival patient was reportedly in atrial fibrillation with RVR and was administered nitroglycerin spray 1 along with aspirin. Patient is chest pain resolved after the nitro was given. When he arrived in the emergency room he was already in sinus rhythm with occasional PACs. Currently patient is chest pain-free. He states that if he gets out of the bed and walks he will get the chest pain. Otherwise he feels well. Past medical history: COPD, atrial fibrillation, hypertension, DJD, left lower extremity neuropathy, restless leg syndrome, TIA 2 Past surgical history: Hiatal hernia repair, deviated septum, bilateral cataract surgery, optical implants. Family history: Mother of brain cancer last month. Father is in his 90s, has a history of skin cancer, hypertension Social history: Quit smoking a year ago. He used to smoke a pack a day for the past 35-40 years. Admits to drinking 1 beer to a 4 pack a day. He denies any withdrawal symptoms whenever he quits. He denies illegal drug use CODE STATUS: Full code DS: Diagnosis - Discharge Diagnosis (1) Chest pain Status: Acute (2) Coumadin toxicity Status: Acute (3) Paroxysmal atrial fibrillation with rapid ventricular response Status: Acute (4) Hypoxemia Status: Acute (5) Hematuria Status: Acute DS: Medications - Discharge Medications Prescriptions: diltiazem HCl [DILT-XR] 180 mg PO DAILY #30 cap metoprolol tartrate 50 mg PO BID #60 tab DS: Summary Hospital Course: 57-year-old male admitted and treated for the following: Chest pain: Patient presented with chest pain that started the night prior to admission. Chest pain has resolved. -Appreciate cardiology following. Resume patient beta-cheyrl and Cardizem. Continue aspirin -Nuclear stress test and 2D echocardiogram unremarkable. Atrial fibrillation: When EMS arrived at his place he was in A. fib with RVR. Apparently upon arrival in the emergency room, he had converted to sinus rhythm. resume home Cardizem. Pt ran out of his meds x 1 week. he is on Coumadin however his INR was 8.5 upon arrival. INR trended down to 1.2. Giving the hematuria, advised bringing up INR slowly to goal. Patient is to follow up at the [facility]. -Continue beta cheryl and cardizem Supratherapeutic INR: INR down to 1.2 after holding Coumadin. Resume at 5 mg daily. Follow up at Coumadin clinic. COPD: O2 dependent. continue. ipratropium neb prn. resumed home meds hematuria: x 2 weeks. Suspect this was related to supratherapeutic INR. Bladder u/s unremarkable. Urology consulted on the patient and advised correction of coagulopathy, and outpatient follow-up other chronic medical conditions: stable and can continue home medications. - Time Spent with Patient Total time spent providing and/or coordinating discharge services: Greater than 30 minutes - Quality: VTE Deep Vein Thrombosis/Pulmonary Embolism Present on Admission: No Exam Vital signs: Vital Signs 03/23/18 16:00 03/23/18 20:19 03/24/18 00:06 Temperature 97.9 F 98.1 F 97.6 F Pulse Rate 83 87 73 Respiratory Rate 16 18 16 Blood Pressure 91/57 L 110/70 114/77 Pulse Oximetry 93 L 95 96 03/24/18 04:36 03/24/18 08:00 03/24/18 08:30 Temperature 97.3 F L 97.3 F L Pulse Rate 70 76 Respiratory Rate 17 19 18 Blood Pressure 106/75 121/72 Pulse Oximetry 97 98 03/24/18 09:59 03/24/18 11:43 Temperature 97.4 F L Pulse Rate 80 Respiratory Rate 4 L 16 Blood Pressure 110/72 Pulse Oximetry 98 Intake & Output 03/23/18 03/24/18 03/24/18 18:59 06:59 18:59 Intake Total 1323 / 1323 1000 / 1000 Output Total 600 / 600 3600 / 3600 Balance 723 / 723 -2600 / -2600 Intake: IV 1323 / 1323 1000 / 1000 1/2 Normal Saline Inj 1,000 ML 823 / 823 1000 / 1000 @ 84 mls/hr IV.CONT .[id number] JAROD Rx#:[id number] Output: Urine 600 / 600 3600 / 3600 Other: # Voids 1 4 Narrative: GENERAL: Obese male in no apparent distress. CARDIOVASCULAR: Normal rate and regular rhythm without murmurs, gallops, or rubs. RESPIRATORY: Good respiratory efforts. Breath sounds equal and clear to auscultation bilaterally. GASTROINTESTINAL: Abdomen soft, non-tender, non-distended. Normal active bowel sounds MUSCULOSKELETAL: Extremities without cyanosis, or edema. NEURO: Alert & Oriented x4 to person, place, time, situation. Moves all ext x4 PSYCH: Appropriate mood and affect. Results Procedures completed during hospitalization: None Labs on day of discharge: Labs from last 24 hours 03/24/18 07:15 PT 12.0 H INR 1.2 - Impressions ITS Impressions Abdomen/Bladder Ultrasound 03/22/18 00:00 CONCLUSION: Tiny hyperechoic process in the lower pole of the right kidney. No evidence of hydronephrosis. Chest X-Ray 03/22/18 02:21 CONCLUSION: No acute findings. Hyper aerated upper lungs. Myocardial Perfusion Scan Nuc Med 03/23/18 00:00 CONCLUSION: 1. No evidence of ischemic myocardial changes. Discharge Plan - Discharge Disposition Patient Disposition: W/Home Health Service - Discharge Condition Condition: Good - Discharge Order Discharge Orders: Discharge Order (Routine); Ordered 03/24/18 Ordered By: Paul Cunningham Cardiology Clear for Discharge (Routine); Ordered 03/23/18 Ordered By: Doug Mcrae - Physicians Team Primary Care Provider: [facility] [place] Attending Provider: Paul Cunningham Other Providers: Doug Mcrae MD ; Nico Sauceda DO
[2018-03-24] MEDS: Sodium Chloride 0.45 % Inj 1,000 ML IV.CONT SCH ×2 (19:24→22:40)
[2018-03-25] MEDS: Budesonide-Formoterol 80/4.5 MCG 6.9 GM Inhaler INH SCH ×2 (04:22→15:30)
--- NOTE | 2018-03-25 05:18 | XR ---
EXAM DATE: 03/25/2018 5:15 AM EDT AGE/SEX: 57 years / Male INDICATIONS: Short of breath. CLINICAL DATA: This is the patient's subsequent encounter. Patient reports that signs and symptoms h ave been present for 2 days and indicates a pain score of 5/10. MEDICAL/SURGICAL HISTORY: None. None. COMPARISON: [facility] – [place], CHEST 1V SINGLE AP, 03/22/2018. . FINDINGS: Single AP view of the chest. Prominent lucency of the upper lung zones indicating emphysema again see n. Lungs otherwise clear. No evidence of pleural effusion or pneumothorax. CONCLUSION: Prominent upper lobe emphysematous findings. No acute cardiopulmonary disease identified. Electronically signed by: Brett Stapleton MD 03/25/2018 5:17 AM EDT
[2018-03-25 06:06] LABS: INR 1.4 Ratio
[2018-03-25] MEDS: Sod Chloride 0.9% Inj 1,000 ML IV.CONT SCH ×2 (06:16→17:09)
[2018-03-25] MEDS: dilTIAZem CD 180 MG Capsule PO SCH (08:30)
[2018-03-25] MEDS: predniSONE 5 MG Tablet PO SCH (08:30)
[2018-03-25] MEDS: Famotidine 20 MG Tablet PO SCH ×2 (08:31→20:27)
[2018-03-25] MEDS: Furosemide 20 MG Tablet PO SCH (08:31)
[2018-03-25] MEDS: Tiotropium Bromide 18 MCG/ACT Inhaler INH SCH (08:31)
--- NOTE | 2018-03-25 16:07 | P.PNIM ---
Subjective Interval history: Patient discharge yesterday. Awaiting authorization from the [place] for home health. No new issues. Physical Exam Vital signs: Vital Signs 03/24/18 20:00 03/24/18 20:15 03/24/18 22:51 Temperature 98.1 F Pulse Rate 86 92 H Respiratory Rate 16 21 Blood Pressure 134/74 Pulse Oximetry 97 03/24/18 23:13 03/24/18 23:45 03/25/18 00:00 Temperature 97.9 F Pulse Rate 76 94 H Respiratory Rate 21 15 Blood Pressure 126/80 Pulse Oximetry 98 03/25/18 04:00 03/25/18 04:10 03/25/18 04:23 Temperature 97.5 F L Pulse Rate 100 H 83 Respiratory Rate 15 Blood Pressure 124/84 Pulse Oximetry 98 98 03/25/18 05:55 03/25/18 06:25 03/25/18 08:00 Temperature 97.8 F Pulse Rate 86 78 Respiratory Rate 14 Blood Pressure 103/75 117/77 Pulse Oximetry 98 98 03/25/18 08:02 03/25/18 11:43 03/25/18 12:00 Temperature 97.6 F Pulse Rate 75 103 H 100 H Respiratory Rate 18 Blood Pressure 114/78 Pulse Oximetry 97 03/25/18 15:52 Temperature Pulse Rate 93 H Respiratory Rate Blood Pressure Pulse Oximetry Intake & Output 03/24/18 03/25/18 03/25/18 18:59 06:59 18:59 Intake Total 1840 / 1840 Output Total 1050 / 1050 Balance 790 / 790 Intake: IV 1000 / 1000 1/2 Normal Saline Inj 1,000 ML 1000 / 1000 @ 84 mls/hr IV.CONT .[id number] [facility] Rx#:[id number] Oral 840 / 840 Output: Urine 1050 / 1050 Other: Date of Last Bowel Movement 03/24/18 # Bowel Movements 0 Narrative: GENERAL: Obese male in no apparent distress. CARDIOVASCULAR: Normal rate and regular rhythm without murmurs, gallops, or rubs. RESPIRATORY: Good respiratory efforts. Breath sounds equal and clear to auscultation bilaterally. GASTROINTESTINAL: Abdomen soft, non-tender, non-distended. Normal active bowel sounds MUSCULOSKELETAL: Extremities without cyanosis, or edema. NEURO: Alert & Oriented x4 to person, place, time, situation. Moves all ext x4 PSYCH: Appropriate mood and affect. Results - Labs CBC & Chem 7: 03/23/18 06:14 03/23/18 06:14 Laboratory Results - last 24 hr 03/25/18 05:10 PT 14.0 H INR 1.4 - Imaging Impressions Chest X-Ray 03/25/18 04:11 CONCLUSION: Prominent upper lobe emphysematous findings. No acute cardiopulmonary disease identified. - Procedures None Assessment and Plan - Assessment (1) Chest pain Code(s): R07.9 - Chest pain, unspecified Status: Acute (2) Coumadin toxicity Code(s): T45.511A - Poisoning by anticoagulants, accidental (unintentional), initial encounter Status: Acute (3) Paroxysmal atrial fibrillation with rapid ventricular response Code(s): I48.0 - Paroxysmal atrial fibrillation Status: Acute (4) Hypoxemia Code(s): R09.02 - Hypoxemia Status: Acute (5) Hematuria Code(s): R31.9 - Hematuria, unspecified Status: Acute - Plan 57-year-old male with: Chest pain: Patient presented with chest pain that started the night prior to admission. Chest pain has resolved. -Patient was followed by cardiology. ACS ruled out. Resume patient beta- cheryl and Cardizem. Continue aspirin Atrial fibrillation: When EMS arrived at his place he was in A. fib with RVR. Apparently upon arrival in the emergency room, he had converted to sinus rhythm. resume home Cardizem. Pt ran out of his meds x 1 week. he is on Coumadin however his INR was 8.5 upon arrival. INR trended down to 1.2. Resume Coumadin -Nuclear stress tests and 2D echocardiogram unremarkable. Supratherapeutic INR: INR down to 1.2 after holding Coumadin. Coumadin resumed. INR trending up. Follow INR in a.m. Patient will need follow-up at the [facility] the [facility]. COPD: O2 dependent. continue. ipratropium neb prn. resumed home meds hematuria: x 2 weeks. Suspect this was related to supratherapeutic INR. Bladder u/s unremarkable. Urology consulted on the patient and advised correction of coagulopathy, and outpatient follow-up other chronic medical conditions: stable and meds have been resumed DVT proph: scds Discharge Planning: Patient is discharged home with home health. He can be discharged once home health is arranged. [facility] (1) Chest pain Qualifiers: Chest pain type: precordial pain Qualified Code(s): R07.2 - Precordial pain (2) Coumadin toxicity Qualifiers: Encounter type: initial encounter Injury intent: accidental or unintentional Qualified Code(s): T45.511A - Poisoning by anticoagulants, accidental ( unintentional), initial encounter (5) Hematuria Qualifiers: Hematuria type: unspecified type Qualified Code(s): R31.9 - Hematuria, unspecified
[2018-03-25] MEDS: Sodium Chloride 0.45 % Inj 1,000 ML IV.CONT SCH (17:10)
[2018-03-26] MEDS: Sod Chloride 0.9% Inj 1,000 ML IV.CONT SCH (01:47)
[2018-03-26] MEDS: Budesonide-Formoterol 80/4.5 MCG 6.9 GM Inhaler INH SCH (03:37)
[2018-03-26 05:55] LABS: INR 1.7 Ratio; Prothrombin Time 16.8 sec (9.8-11.6)
== END 2018-03-26 09:40 | disposition home health service (06) ==
LOC: NEPC 01:55 → NEDA 01:55 → NEPFCDU 01:55
PROVIDERS: ADMIT Family Medicine; ATTEND Family Medicine

== ENCOUNTER 2018-04-04 04:36 | Observation (INO) ==
[2018-04-04 05:12] LABS: Baso # (Auto) 0.1 th/mm3 (0.0-0.2); Baso % (Auto) 0.5 % (0.0-2.0); Eos # (Auto) 0.1 th/mm3 (0.0-0.4); Eos % (Auto) 0.5 % (0.0-4.0); Hematocrit 39.6 % (39.0-51.0); Hemoglobin 13.3 gm/dL (13.0-17.0); Lymph # (Auto) 3.2 th/mm3 (1.0-4.8); Lymph % (Auto) 23.8 % (9.0-44.0); Mean Corpuscular HGB Conc 33.5 % (32.0-36.0); Mean Corpuscular Volume 89.5 fL (80.0-100.0); Mean Platelet Volume 8.8 fL (7.0-11.0); Mono # (Auto) 0.9 th/mm3 (0.0-0.9); Mono % (Auto) 6.8 % (0.0-8.0); Neut % (Auto) 68.4 % (16.0-70.0); Platelet Count 255 th/mm3 (150-450); Red Blood Count 4.42 mil/mm3 (4.50-5.90); Red Cell Distribution Width 15.3 % (11.6-17.2); White Blood Count 13.2 th/mm3 (4.0-11.0)
[2018-04-04 05:22] LABS: INR 4.4 Ratio; Prothrombin Time 44.2 sec (9.8-11.6)
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
--- NOTE | 2018-04-04 05:51 | XR ---
EXAM DATE: 04/04/2018 5:12 AM EDT AGE/SEX: 57 years / Male INDICATIONS: . Shortness of breath. CLINICAL DATA: This is the patient's initial encounter. Patient reports that signs and symptoms have been present for 1 day and indicates a pain score of 0/10. MEDICAL/SURGICAL HISTORY: None. None. COMPARISON: [facility] [place] 1V SINGLE AP, 03/25/2018. . FINDINGS: A single AP view of the chest demonstrates the lungs to be symmetrically aerated without evidence of mass, infiltrate or effusion. The cardiomediastinal contours are unremarkable. Osseous structures a re intact. CONCLUSION: No active disease. Underlying emphysema. Electronically signed by: Ronny Swift MD 04/04/2018 5:50 AM EDT
[2018-04-04 06:04] LABS: Albumin 3.6 g/dL (3.4-5.0); Anion Gap 9 meq/L (5-15); Aspartate Aminotransferase 18 U/L (15-37); Blood Urea Nitrogen 20 mg/dL (7-18); Calcium 9.5 mg/dL (8.5-10.1); Chloride 104 meq/L (98-107); Glomerular Filtration Rate Greater Than 89 mL/min (>89); Glucose,Random 91 mg/dL (74-106); Magnesium 2.4 mg/dL (1.5-2.5); Potassium 3.6 meq/L (3.5-5.1); Sodium 142 meq/L (136-145)
[2018-04-04 06:05] LABS: Alanine Aminotransferase 30 U/L (12-78)
[2018-04-04 06:09] LABS: Alkaline Phosphatase 69 U/L (45-117)
[2018-04-04] MEDS ORDERED: dilTIAZem CD 180 MG Capsule PO SCH (11:15)
[2018-04-04] MEDS ORDERED: predniSONE 20 MG Tablet PO ONE (11:49)
[2018-04-04] MEDS ORDERED: Metoprolol Tartrate 50 MG Tablet PO SCH (12:00)
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
[2018-04-04] MEDS ORDERED: MethylPREDNISolone Sod Succinate Inj 40 MG/ML Vial IV.PUSH SCH (14:00)
--- NOTE | 2018-04-04 14:41 | ECG ---
Date Performed: 04/04/2018 Time Performed: 04:48:39 PTAGE: 57 years EKG: Sinus rhythm WITH SINUS ARRHYTHMIA PREMATURE COMPLEXES BORDERLINE ECG PREVIOUS TRACING : 03/22/2018 09.03 DOCTOR: Nicola Moy Interpretating Date/Time 04/04/2018 14:39:30
== END 2018-04-04 13:30 | disposition home or self-care (01) ==
LOC: NEPC 04:36 → NEDA 04:36
PROVIDERS: ADMIT Internal Medicine; ATTEND Internal Medicine

== ENCOUNTER 2018-04-15 05:23 | Inpatient (IN) ==
--- NOTE | 2018-04-15 05:58 | XR ---
EXAM DATE: 04/15/2018 5:54 AM EDT AGE/SEX: 57 years / Male INDICATIONS: Short of breath. CLINICAL DATA: This is the patient's initial encounter. Patient reports that signs and symptoms have been present for 1 day and indicates a pain score of 0/10. MEDICAL/SURGICAL HISTORY: None. None. [place] [facility] [place]. . FINDINGS: Persistent interstitial prominence in the lower lung zones with biapical bulla. No new focal pleural or parenchymal opacities. The cardiomediastinal contours are unremarkable. Osseous structures are in tact. CONCLUSION: 1. No acute abnormality or significant interval change. Electronically signed by: Hans Archer MD 04/15/2018 5:57 AM EDT
[2018-04-15 06:12] LABS: ABG Base Excess 8.1 mmol/L (-2-2); ABG PCO2 63 mmHg (38-42); ABG PO2 112 mmHg (61-120)
[2018-04-15 06:16] LABS: Baso % (Auto) 0.3 % (0.0-2.0); Eos # (Auto) 0.1 th/mm3 (0.0-0.4); Eos % (Auto) 0.6 % (0.0-4.0); Hematocrit 38.3 % (39.0-51.0); Hemoglobin 12.7 gm/dL (13.0-17.0); Lymph # (Auto) 2.4 th/mm3 (1.0-4.8); Lymph % (Auto) 20.3 % (9.0-44.0); Mean Corpuscular HGB Conc 33.2 % (32.0-36.0); Mean Corpuscular Hemoglobin 30.3 pg (27.0-34.0); Mean Corpuscular Volume 91.3 fL (80.0-100.0); Mean Platelet Volume 9.3 fL (7.0-11.0); Mono # (Auto) 1.2 th/mm3 (0.0-0.9); Mono % (Auto) 10.3 % (0.0-8.0); Neut # (Auto) 8.1 th/mm3 (1.8-7.7); Neut % (Auto) 68.5 % (16.0-70.0); Platelet Count 228 th/mm3 (150-450); Red Cell Distribution Width 15.9 % (11.6-17.2); White Blood Count 11.8 th/mm3 (4.0-11.0)
[2018-04-15 06:46] LABS: Alanine Aminotransferase 27 U/L (12-78)
[2018-04-15 06:50] LABS: Alkaline Phosphatase 82 U/L (45-117); Total Protein 6.7 g/dL (6.4-8.2)
[2018-04-15 06:55] LABS: Albumin 3.5 g/dL (3.4-5.0); Anion Gap 3 meq/L (5-15); Blood Urea Nitrogen 20 mg/dL (7-18); Calcium 8.8 mg/dL (8.5-10.1); Chloride 104 meq/L (98-107); Glomerular Filtration Rate Greater Than 89 mL/min (>89); Glucose,Random 110 mg/dL (74-106); Sodium 143 meq/L (136-145)
[2018-04-15 06:59] LABS: Aspartate Aminotransferase 30 U/L (15-37); Potassium 3.8 meq/L (3.5-5.1)
--- NOTE | 2018-04-15 07:20 | ED ---
HPI General Chief Complaint: Shortness of Breath/Dyspnea Stated Complaint: SOB Time Seen by Provider: 04/15/18 05:33 Source: patient and EMS Mode of arrival: EMS Limitations: no limitations History of Present Illness pt has severe SOB reaction sudden onset that awoke him , arrives EVAC non rebreather and appear using accessory muscles and retraction , took HFA without relief, EN route got Nebs and Solumedrol 125mg IVP , placed Immediately on CBIPAP in ER then O2 sat 99% Pt asking for something to help him relax he feels shaky and doesnt wasnt to be on BIPAP withotu ativan, He tolerates BiPAP and greatly improved no CP NO trauma no dizziness , Only resp distress MD Complaint: shortness of breath Onset (ago): minute(s) Severity: severe Consistency/Duration: constant Relieving factors: nothing Exacerbating factors: lying flat Known history of: COPD Related Data Home oxygen amount: 2 liters Home Medications Medication Instructions Recorded Confirmed albuterol sulfate 2 puff INHALATION Q4H PRN 03/22/18 04/15/18 budesonide-formoterol [Symbicort] 2 puff INHALATION Q12H 03/22/18 04/15/18 cyclobenzaprine 10 mg PO BID 03/22/18 04/15/18 fluticasone 1 spray INTRANASAL BID 03/22/18 04/15/18 furosemide 20 mg PO DAILY 03/22/18 04/15/18 hydrocodone-acetaminophen [[place]] 1 tab PO TID PRN 03/22/18 04/15/18 ipratropium bromide 0.5 mg INHALATION Q4H PRN 03/22/18 04/15/18 ipratropium-albuterol 3 ml INHALATION Q6H 03/22/18 04/15/18 pramipexole 1 mg PO DAILY 03/22/18 04/15/18 prednisone 5 mg PO DAILY 03/22/18 04/15/18 ranitidine HCl 150 mg PO BID 03/22/18 04/15/18 tiotropium bromide 1 cap INHALATION DAILY 03/22/18 04/15/18 warfarin 5 mg PO QTUTHSASU 03/22/18 04/15/18 Previous Rx's Medication Instructions Recorded aspirin 81 mg PO DAILY tab 03/24/18 diltiazem HCl [DILT-XR] 180 mg PO DAILY #30 cap 03/24/18 metoprolol tartrate 50 mg PO BID #60 tab 03/24/18 prednisone 10 mg PO DAILY #20 tab 04/04/18 Allergies Allergy/AdvReac Type Severity Reaction Status Date / Time gabapentin Allergy Severe Shortness Verified 03/22/18 07:24 of Breath penicillin G Allergy Severe "ALL Verified 03/22/18 07:24 CILLINS" PER PT amoxicillin Allergy Unknown unknown Verified 03/22/18 07:24 ALL CILLINS Allergy Unknown unknown Uncoded 03/22/18 02:25 Review of Systems [facility] Social History Social History Substance History: No History of Abuse Second Hand Smoke Exposure: Yes Smoking Status: Current every day smoker Tobacco Type: Cigarettes How Often Do You Have a Drink Containing Alcohol: 2 to 3 times a week Recent Travel in [facility] within the Last 8 Weeks: No Recent Out of Country Travel within the Last 8 Weeks: No Immunization History Tetanus Immunization: Unsure Exam Narrative Exam Narrative: GENERAL: pt appears very tachypnic and using accessory muscle SKIN: Warm and dry. HEAD: Atraumatic. Normocephalic. EYES: Pupils equal and round. No scleral icterus. No injection or drainage. ENT: No nasal bleeding or discharge. Mucous membranes pink and moist. NECK: Trachea midline. No JVD. CARDIOVASCULAR: Regular rate and rhythm. RESPIRATORY: ++accessory muscle use. Wheeze diffuse bilaterally. GASTROINTESTINAL: Abdomen soft, non-tender, nondistended. Hepatic and splenic margins not palpable. MUSCULOSKELETAL: Extremities without clubbing, cyanosis, or edema. No obvious deformities. NEUROLOGICAL: Awake and alert. No obvious cranial nerve deficits. Motor grossly within normal limits. Five out of 5 muscle strength in the arms and legs. Normal speech. PSYCHIATRIC: Appropriate mood and affect; insight and judgment normal. Course Initial Documented Vital Signs Temperature 98.0 F 04/15/18 05:34 Pulse Rate 80 04/15/18 05:34 Respiratory Rate 24 04/15/18 05:34 Blood Pressure 135/77 04/15/18 05:34 Pulse Oximetry 100 04/15/18 05:34 Last Documented Vital Signs Temperature 98.0 F 04/16/18 16:00 Pulse Rate 89 04/16/18 18:00 Respiratory Rate 23 04/16/18 16:00 Blood Pressure 121/74 04/16/18 16:00 Pulse Oximetry 93 L 04/16/18 16:00 Medical Decision Making MDM Narrative Medical decision making narrative: laced Immediately on CBIPAP in ER then O2 sat 99% Pt asking for something to help him relax he feels shaky and doesnt wasnt to be on BIPAP withotu ativan, He tolerates BiPAP and greatly improved no CP NO trauma no dizziness , stablized admit to ICU Differential Diagnosis Differential Diagnosis: COPD exacerbation vs viral bronchitis vs asthma vs CHF vs PNA vs panic attack other Lab Data Result diagrams: 04/16/18 08:29 04/16/18 08:29 Lab Results 04/15/18 04/15/18 04/15/18 Range/Units 05:45 05:45 05:45 WBC 11.8 H (4.0-11.0) th/mm3 RBC 4.20 L (4.50-5.90) mil/mm3 Hgb 12.7 L (13.0-17.0) gm/dL Hct 38.3 L (39.0-51.0) % MCV 91.3 (80.0-100.0) fL MCH 30.3 (27.0-34.0) pg MCHC 33.2 (32.0-36.0) % RDW 15.9 (11.6-17.2) % Plt Count 228 (150-450) th/mm3 MPV 9.3 (7.0-11.0) fL Neut % (Auto) 68.5 (16.0-70.0) % Lymph % (Auto) 20.3 (9.0-44.0) % Carroll % (Auto) 10.3 H (0.0-8.0) % Eos % (Auto) 0.6 (0.0-4.0) % Baso % (Auto) 0.3 (0.0-2.0) % Neut # (Auto) 8.1 H (1.8-7.7) th/mm3 Lymph # (Auto) 2.4 (1.0-4.8) th/mm3 Carroll # (Auto) 1.2 H (0.0-0.9) th/mm3 Eos # (Auto) 0.1 (0.0-0.4) th/mm3 Baso # (Auto) 0.0 (0.0-0.2) th/mm3 WBC Differential . Differential Comment Auto diff final PT (9.8-11.6) sec INR Ratio Puncture Site Patient Temperature O2 Saturation (90-100) % ABG pH (7.380-7.420) ABG pCO2 (38-42) mmHg ABG pO2 (61-120) mmHg ABG HCO3 (22-26) mmol/L ABG O2 Content (12.0-20.0) Vol % ABG Base Excess (-2-2) mmol/L ABG Methemoglobin (0-2) % Reji Test Hemoglobin (12.0-16.0) G/DL Carboxyhemoglobin (0-4) % O2 Delivery Device Vent Setting Inspired O2 % Critical Value Sodium 143 (136-145) meq/L Potassium 3.8 (3.5-5.1) meq/L Chloride 104 (98-107) meq/L Carbon Dioxide 36.0 H (21.0-32.0) meq/L Anion Gap 3 L (5-15) meq/L BUN 20 H (7-18) mg/dL Creatinine 0.83 (0.60-1.30) mg/dL Estimated GFR Greater than 89 (>89) mL/min Random Glucose 110 H (74-106) mg/dL Calcium 8.8 (8.5-10.1) mg/dL Total Bilirubin 0.5 (0.2-1.0) mg/dL AST 30 (15-37) U/L ALT 27 (12-78) U/L Alkaline Phosphatase 82 (45-117) U/L Troponin I Less than 0.02 L (0.02-0.05) ng/mL B-Natriuretic Peptide 51 (0-100) pg/mL Total Protein 6.7 (6.4-8.2) g/dL Albumin 3.5 (3.4-5.0) g/dL Nasal Screen MRSA (PCR) (Negative) 04/15/18 04/15/18 04/15/18 Range/Units 05:58 07:20 10:10 WBC (4.0-11.0) th/mm3 RBC (4.50-5.90) mil/mm3 Hgb (13.0-17.0) gm/dL Hct (39.0-51.0) % MCV (80.0-100.0) fL MCH (27.0-34.0) pg MCHC (32.0-36.0) % RDW (11.6-17.2) % Plt Count (150-450) th/mm3 MPV (7.0-11.0) fL Neut % (Auto) (16.0-70.0) % Lymph % (Auto) (9.0-44.0) % Carroll % (Auto) (0.0-8.0) % Eos % (Auto) (0.0-4.0) % Baso % (Auto) (0.0-2.0) % Neut # (Auto) (1.8-7.7) th/mm3 Lymph # (Auto) (1.0-4.8) th/mm3 Carroll # (Auto) (0.0-0.9) th/mm3 Eos # (Auto) (0.0-0.4) th/mm3 Baso # (Auto) (0.0-0.2) th/mm3 WBC Differential Differential Comment PT 26.1 H D (9.8-11.6) sec INR 2.6 Ratio Puncture Site Right radial Patient Temperature 98.6 O2 Saturation 94 (90-100) % ABG pH 7.35 L (7.380-7.420) ABG pCO2 63 H* (38-42) mmHg ABG pO2 112 (61-120) mmHg ABG HCO3 34 H (22-26) mmol/L ABG O2 Content 16.7 (12.0-20.0) Vol % ABG Base Excess 8.1 H (-2-2) mmol/L ABG Methemoglobin 0.7 (0-2) % Reji Test Present Hemoglobin 12.5 (12.0-16.0) G/DL Carboxyhemoglobin 3.6 (0-4) % O2 Delivery Device Bipap Vent Setting [id number] Inspired O2 40 % Critical Value Yes Sodium (136-145) meq/L Potassium (3.5-5.1) meq/L Chloride (98-107) meq/L Carbon Dioxide (21.0-32.0) meq/L Anion Gap (5-15) meq/L BUN (7-18) mg/dL Creatinine (0.60-1.30) mg/dL Estimated GFR (>89) mL/min Random Glucose (74-106) mg/dL Calcium (8.5-10.1) mg/dL Total Bilirubin (0.2-1.0) mg/dL AST (15-37) U/L ALT (12-78) U/L Alkaline Phosphatase (45-117) U/L Troponin I (0.02-0.05) ng/mL B-Natriuretic Peptide (0-100) pg/mL Total Protein (6.4-8.2) g/dL Albumin (3.4-5.0) g/dL Nasal Screen MRSA (PCR) Not detected (Negative) 04/16/18 04/16/18 04/16/18 Range/Units 08:29 08:29 08:29 WBC 11.0 (4.0-11.0) th/mm3 RBC 3.89 L (4.50-5.90) mil/mm3 Hgb 12.0 L (13.0-17.0) gm/dL Hct 35.5 L (39.0-51.0) % MCV 91.4 (80.0-100.0) fL MCH 30.8 (27.0-34.0) pg MCHC 33.7 (32.0-36.0) % RDW 16.0 (11.6-17.2) % Plt Count 185 (150-450) th/mm3 MPV 9.1 (7.0-11.0) fL Neut % (Auto) 91.3 H (16.0-70.0) % Lymph % (Auto) 5.3 L (9.0-44.0) % Carroll % (Auto) 3.4 (0.0-8.0) % Eos % (Auto) 0.0 (0.0-4.0) % Baso % (Auto) 0.0 (0.0-2.0) % Neut # (Auto) 10.0 H (1.8-7.7) th/mm3 Lymph # (Auto) 0.6 L (1.0-4.8) th/mm3 Carroll # (Auto) 0.4 (0.0-0.9) th/mm3 Eos # (Auto) 0.0 (0.0-0.4) th/mm3 Baso # (Auto) 0.0 (0.0-0.2) th/mm3 WBC Differential . Differential Comment Auto diff final PT 29.7 H (9.8-11.6) sec INR 2.9 Ratio Puncture Site Patient Temperature O2 Saturation (90-100) % ABG pH (7.380-7.420) ABG pCO2 (38-42) mmHg ABG pO2 (61-120) mmHg ABG HCO3 (22-26) mmol/L ABG O2 Content (12.0-20.0) Vol % ABG Base Excess (-2-2) mmol/L ABG Methemoglobin (0-2) % Reji Test Hemoglobin (12.0-16.0) G/DL Carboxyhemoglobin (0-4) % O2 Delivery Device Vent Setting Inspired O2 % Critical Value Sodium 143 (136-145) meq/L Potassium 3.9 (3.5-5.1) meq/L Chloride 109 H (98-107) meq/L Carbon Dioxide 29.4 (21.0-32.0) meq/L Anion Gap 5 (5-15) meq/L BUN 17 (7-18) mg/dL Creatinine 0.62 (0.60-1.30) mg/dL Estimated GFR Greater than 89 (>89) mL/min Random Glucose 117 H (74-106) mg/dL Calcium 8.4 L (8.5-10.1) mg/dL Total Bilirubin 0.5 (0.2-1.0) mg/dL AST 11 L (15-37) U/L ALT 21 (12-78) U/L Alkaline Phosphatase 52 (45-117) U/L Troponin I (0.02-0.05) ng/mL B-Natriuretic Peptide (0-100) pg/mL Total Protein 6.1 L D (6.4-8.2) g/dL Albumin 3.2 L (3.4-5.0) g/dL Nasal Screen MRSA (PCR) (Negative) Imaging Data Radiologist's impression: Chest X-Ray 04/15/18 05:33 CONCLUSION: 1. No acute abnormality or significant interval change. Chest X-Ray 04/16/18 06:00 CONCLUSION: No significant change. Discharge Plan Discharge Disposition Patient Disposition: 30 Still Patient Physicians Team ED Provider: Kirit Murray Primary Care Provider: [facility] Attending Provider: Marija Kearns Other Providers: Eduar Medina ; Som Goldberg V Discharge Interventions Interventions: ED Discharge Assessment Last Done: 04/15/18 09:42 Vital Signs Last Done: 04/15/18 09:42 Status ED Status: Left Department Discharge Information Discharge Date/Time: 04/15/18 09:43
[2018-04-15 08:57] LABS: INR 2.6 Ratio; Prothrombin Time 26.1 sec (9.8-11.6)
[2018-04-15] MEDS ORDERED: Enoxaparin Inj 40 MG/0.4 ML Syringe SQ SCH (09:00)
[2018-04-15] MEDS ORDERED: Furosemide 20 MG Tablet PO SCH (09:00)
[2018-04-15] MEDS: Sod Chloride 0.9% Inj 1,000 ML IV.CONT SCH ×2 (09:00→22:55)
[2018-04-15] MEDS ORDERED: Warfarin Consult Pharmacy 1 EACH OTHER SCH (09:00)
[2018-04-15] MEDS: MethylPREDNISolone Sod Succinate Inj 125 MG/2 ML Vial IV.PUSH SCH ×2 (09:29→20:25)
[2018-04-15] MEDS: Famotidine PF Inj 20 MG/2 ML Vial IV.PUSH SCH ×2 (10:28→20:24)
[2018-04-15] MEDS: dilTIAZem CD 180 MG Capsule PO SCH (10:28)
[2018-04-15] MEDS: Metoprolol Tartrate 50 MG Tablet PO SCH ×2 (10:28→20:23)
--- NOTE | 2018-04-15 10:42 | P.HPCC ---
History of Present Illness Primary Care Physician: [facility] Chief Complaint: Severe shortness of breath History of Present Illness: Patient is a 57-year-old male with history of COPD, continued tobacco use, chronic atrial fibrillation on Coumadin who presented to the emergency department with severe shortness of breath. All history is obtained from ED physician and review of chart as the patient is unable to give me any history due to severe shortness of breath. He cannot tolerate being off BiPAP at this time. According to ER notes patient woke up severely short of breath, on EMS arrival patient was using accessory muscles with chest wall retractions. He was placed on nonrebreather, was given [id number] breathing treatments, and Solu-Medrol 125 mg IV push. In the ER he was very dyspneic and tachypneic. Immediately placed on BiPAP 12/5 with some improvement in symptoms. Chest x- ray did not show any acute infiltrates. I have seen the patient in the emergency department. He feels that he is slightly subjectively improved but remains quite short of breath on BiPAP. I will continue the IV steroids, scheduled DuoNeb every 4 hours and as needed. Empiric Levaquin 500 mg daily. If not sufficiently improved on BiPAP will need endotracheal intubation - Diagnosis (1) Acute chronic obstructive pulmonary disease with respiratory failure (2) Chronic atrial fibrillation Inpatient Certification: I certify that the inpatient services were ordered in accordance with Medicare regulations governing the order. This includes certification that hospital inpatient services are reasonable and necessary and in the case of services not specified as inpatient-only under 42 CFR 419.22(n), that they are appropriately provided as inpatient services in accordance to with the 2-midnight benchmark under 43 CFR 412.3(e) Estimated Total Length of Stay (Days): 4 Plans for Post Hospital Care: Not yet determined Review of Systems All other systems reviewed negative except as stated in HPI, other (Difficult to obtain detailed history due to severe shortness of breath off ) PMFSH - History History Provided By: Patient - Medical / Surgical Hx Neg / Unobtainable Surgical History: Unable to Obtain - Medical History Medical History: Medical History (Last Reviewed 04/15/18 @ 10:44 by Marija Kearns MD) DDD (degenerative disc disease) (Acute) COPD (chronic obstructive pulmonary disease) (Acute) Chronic atrial fibrillation with RVR (Acute) - Tobacco History Second Hand Smoke Exposure: Yes Tobacco Use In Past 30 Days: Yes Smoking Status: Current every day smoker Tobacco Type: Cigarettes - Alcohol History How Often Do You Have a Drink Containing Alcohol: 2 to 3 times a week - Substance Use History Substance History: No History of Abuse - Travel History Recent Travel in the [place] Within the Last 8 Weeks: No Recent Travel Out of the Country Within the Last 8 Weeks: No - Immunization History Tetanus Immunization: Unsure Medications and Allergies Active Medications: Active Medications Hydrocodone Bitart/Acetaminophen ([place] 10/325) 1 tab PO TID PRN PRN Reason: PAIN 1-5 Albuterol (Duoneb Neb (Prn)) 1 ampul NEB Q4HR NEB PRN PRN Reason: SHORTNESS OF BREATH Last Admin: 04/15/18 08:31 Dose: 1 ampul Albuterol (Duoneb Neb (Dusty)) 1 ampul NEB Q4HR NEB DUSTY Aspirin (Ecotrin) 81 mg PO DAILY [facility] Last Admin: 04/15/18 10:28 Dose: 81 mg Budesonide/Formoterol Fumarate (Symbicort 80/4.5 Mcg Inh) 2 puff INH Q12H [facility] Chlorhexidine Gluconate (Chlorhexidine 2% Cloth) 3 pack TOPICAL DAILY@0400 DUSTY Stop: 04/21/18 03:59 Chlorhexidine Gluconate (Chlorhexidine 2% Cloth) 3 pack TOPICAL DAILY@0400 PRN PRN Reason: Extra cloth needed Stop: 04/21/18 03:59 Cyclobenzaprine HCl (Flexeril) 10 mg PO BID [facility] Last Admin: 04/15/18 10:29 Dose: 10 mg Diltiazem HCl (Cardizem Cd 24hr) 180 mg PO DAILY [facility] Last Admin: 04/15/18 10:28 Dose: 180 mg Enoxaparin Sodium (Lovenox Inj) 40 mg SQ Q24H [facility] Last Admin: 04/15/18 10:28 Dose: 40 mg Famotidine (Pepcid Pf Inj) 20 mg IV.PUSH Q12HR [facility] Last Admin: 04/15/18 10:28 Dose: 20 mg Fluticasone Propionate (Flonase Nasal Abrams) 1 spray EACH NARE BID [facility] Furosemide (Lasix) 20 mg PO DAILY [facility] Last Admin: 04/15/18 10:29 Dose: 20 mg Sodium Chloride (Ns Inj) 1,000 mls @ 75 mls/hr IV.CONT .[id number] [facility] Last Admin: 04/15/18 09:00 Dose: 75 mls/hr Levofloxacin/Dextrose (Levaquin 500 Mg Premix Inj) 500 mg in 100 mls @ 100 mls/ hr IV.SIG Q24H [facility] Pharmacy Profile Note (Coumadin Consult Pharmacy) 0 mls @ 0 mls/hr OTHER UNSCH [facility] Methylprednisolone Sodium Succinate (Solumedrol Inj) 60 mg IV.PUSH Q12HR [facility] Last Admin: 04/15/18 09:29 Dose: Not Given Metoprolol Tartrate (Lopressor) 50 mg PO BID [facility] Last Admin: 04/15/18 10:28 Dose: 50 mg Morphine Sulfate (Morphine Inj) 2 mg IV.PUSH Q2H PRN PRN Reason: PAIN SCALE 6 TO 10 Pramipexole Dihydrochloride (Mirapex) 1 mg PO DAILY [facility] Tiotropium [place] (Spiriva 18 Mcg Inh) 18 mcg INH DAILY [facility] Warfarin Sodium (Coumadin) 5 mg PO SuTuThSa@1600 [facility] Warfarin Sodium (Coumadin) 2.5 mg PO MoWeFr@1600 [facility] Allergies Allergy/AdvReac Type Severity Reaction Status Date / Time gabapentin Allergy Severe Shortness Verified 03/22/18 07:24 of Breath penicillin G Allergy Severe "ALL Verified 03/22/18 07:24 CILLINS" PER PT amoxicillin Allergy Unknown unknown Verified 03/22/18 07:24 ALL CILLINS Allergy Unknown unknown Uncoded 03/22/18 02:25 Home Medications Medication Instructions Recorded Confirmed Type albuterol sulfate 2 puff INHALATION Q4H PRN 03/22/18 04/15/18 History budesonide-formoterol [Symbicort] 2 puff INHALATION Q12H 03/22/18 04/15/18 History cyclobenzaprine 10 mg PO BID 03/22/18 04/15/18 History fluticasone 1 spray INTRANASAL BID 03/22/18 04/15/18 History furosemide 20 mg PO DAILY 03/22/18 04/15/18 History hydrocodone-acetaminophen [[place]] 1 tab PO TID PRN 03/22/18 04/15/18 History ipratropium bromide 0.5 mg INHALATION Q4H PRN 03/22/18 04/15/18 History ipratropium-albuterol 3 ml INHALATION Q6H 03/22/18 04/15/18 History pramipexole 1 mg PO DAILY 03/22/18 04/15/18 History prednisone 5 mg PO DAILY 03/22/18 04/15/18 History ranitidine HCl 150 mg PO BID 03/22/18 04/15/18 History tiotropium bromide 1 cap INHALATION DAILY 03/22/18 04/15/18 History warfarin 5 mg PO QTUTHSASU 03/22/18 04/15/18 History Results - Labs CBC & Chem 7: 04/15/18 05:45 04/15/18 05:45 Labs: Short CBC 04/15/18 Range/Units 05:45 WBC 11.8 H (4.0-11.0) th/mm3 Hgb 12.7 L (13.0-17.0) gm/dL Hct 38.3 L (39.0-51.0) % Plt Count 228 (150-450) th/mm3 BMP 04/15/18 05:45 Sodium 143 Potassium 3.8 Chloride 104 Carbon Dioxide 36.0 H BUN 20 H Creatinine 0.83 Calcium 8.8 Cardiac Enzymes 04/15/18 Range/Units 05:45 Troponin I Less than 0.02 L (0.02-0.05) ng/mL Liver Function 04/15/18 Range/Units 05:45 Total Bilirubin 0.5 (0.2-1.0) mg/dL AST 30 (15-37) U/L ALT 27 (12-78) U/L Alkaline Phosphatase 82 (45-117) U/L Albumin 3.5 (3.4-5.0) g/dL - Imaging Impressions Chest X-Ray 04/15/18 05:33 CONCLUSION: 1. No acute abnormality or significant interval change. Exam Vital signs: Vital Signs 04/15/18 05:34 04/15/18 05:35 04/15/18 05:38 Temperature 98.0 F 98.0 F Pulse Rate 80 80 Respiratory Rate 24 16 Blood Pressure 135/77 135/77 Pulse Oximetry 100 100 100 04/15/18 05:50 04/15/18 07:36 04/15/18 08:04 Temperature Pulse Rate 73 Respiratory Rate 14 Blood Pressure 113/77 Pulse Oximetry 10 L 100 99 04/15/18 08:34 04/15/18 08:55 04/15/18 09:42 Temperature Pulse Rate 83 74 75 Respiratory Rate 22 24 20 Blood Pressure 120/85 112/73 Pulse Oximetry 99 97 04/15/18 10:03 Temperature Pulse Rate Respiratory Rate Blood Pressure Pulse Oximetry 97 Intake & Output 04/14/18 04/15/18 04/15/18 18:59 06:59 18:59 Weight 74.843 kg Narrative: ? GENERAL: Patient lying in the ED gabi, currently on BiPAP remains tachypneic SKIN: Warm and dry. HEAD: Atraumatic. Normocephalic. EYES: Pupils equal and round. ENT: BiPAP mask limits exam. Patient not tolerating taking time off BiPAP NECK: Trachea midline. No JVD. CARDIOVASCULAR: Regular rate and rhythm. No murmurs RESPIRATORY: Positive accessory muscle use. Diffuse bilateral expiratory wheezing GASTROINTESTINAL: Abdomen soft, non-tender, nondistended. MUSCULOSKELETAL: Extremities without clubbing, cyanosis, or edema. No obvious deformities. NEUROLOGICAL: Awake and alert. No obvious cranial nerve deficits. Motor grossly within normal limits. Septic Shock Reassessment Septic shock perfusion: reassessment completed Caprini VTE Risk Assessment Caprini VTE Risk Assessment: Moderate/High Risk (score >= 2) Caprini Risk Assessment Model: Point Value = 1 Point Value = 2 Point Value = 3 Point Value = 5 Age 41-60 Minor surgery BMI > 25 kg/m2 Swollen legs Varicose veins or History of unexplained or recurrent spontaneous Oral contraceptives or hormone replacement Sepsis (< 1 month) Serious lung disease, including pneumonia (< 1 month) Abnormal pulmonary function Acute myocardial infarction Congestive heart failure (< 1 month) History of inflammatory bowel disease Medical patient at bed rest Age 61-74 Arthroscopic surgery Major open surgery (> 45 min) Laparoscopic surgery (> 45 min) Malignancy Confined to bed (> 72 hours) Immobilizing plaster cast Central venous access Age >= 75 History of VTE Family history of VTE Factor V Leiden Prothrombin [id number] Lupus anticoagulant Anticardiolipin antibodies Elevated serum homocysteine Heparin-induced thrombocytopenia Other congenital or acquired thrombophilia Stroke (< 1 month) Elective arthroplasty Hip, pelvis, or leg fracture Acute spinal cord injury (< 1 month) Prophylaxis Regimen: Total Risk Factor Score Risk Level Prophylaxis Regimen 0-1 Low Early ambulation 2 Moderate Order ONE of the following: *Sequential Compression Device (SCD) *Heparin 5000 units SQ BID 3-4 Higher Order ONE of the following medications: *Heparin 5000 units SQ TID *Enoxaparin/Lovenox 40 mg SQ daily (WT < 150 kg, CrCl > 30 mL/min) *Enoxaparin/Lovenox 30 mg SQ daily (WT < 150 kg, CrCl > 10-29 mL/min) *Enoxaparin/Lovenox 30 mg SQ BID (WT < 150 kg, CrCl > 30 mL/min) AND/OR *Sequential Compression Device (SCD) 5 or more Highest Order ONE of the following medications: *Heparin 5000 units SQ TID (Preferred with Epidurals) *Enoxaparin/Lovenox 40 mg SQ daily (WT < 150 kg, CrCl > 30 mL/min) *Enoxaparin/Lovenox 30 mg SQ daily (WT < 150 kg, CrCl > 10-29 mL/min) *Enoxaparin/Lovenox 30 mg SQ BID (WT < 150 kg, CrCl > 30 mL/min) AND *Sequential Compression Device (SCD) Assessment and Plan - Problem List (1) Acute chronic obstructive pulmonary disease with respiratory failure Code(s): J96.00 - Acute respiratory failure, unspecified whether with hypoxia or hypercapnia; J44.9 - Chronic obstructive pulmonary disease, unspecified Status: Acute (2) Chronic atrial fibrillation Code(s): I48.2 - Chronic atrial fibrillation Status: Acute - Assessment and Plan Plan: NEURO: -Minimize sedation -Home Lortab as needed for pain RESP: Acute COPD exacerbation Respiratory failure -BiPAP 12/5, wean FiO2 to keep oxygen saturation more than 90% -Received 125 mg of IV Solu-Medrol, continue IV Solu-Medrol 60 every 8hr -DuoNeb every 4 hours scheduled and as needed -Continue Symbicort, Spiriva -If not clinically improving may need endotracheal intubation -Counseled to stop smoking CV: Chronic atrial fibrillation -Normal saline IV fluids, -Monitor heart rate and blood pressure closely -Continue warfarin and pharmacy to dose GI: -N.p.o., IV famotidine : -Monitor renal function closely. ID: -Empiric Levaquin -Check sputum culture HEME: -Monitor CBC, coags -Monitor INR closely while on Levaquin, now 2.6 ENDO: -Electrolyte replacement per protocol -Sliding scale insulin if needed PROPH: -Bilateral lower extremity SCDs. Warfarin pharmacy to dose/famotidine LINES: -Utilize peripheral IVs, central line if needed CC time 35 min Code Status: Full Discussed Condition With: Dr. Murray
[2018-04-15] MEDS: Budesonide-Formoterol 80/4.5 MCG 6.9 GM Inhaler INH SCH ×2 (10:56→20:25)
[2018-04-15] MEDS: Tiotropium Bromide 18 MCG/ACT Inhaler INH SCH (10:57)
[2018-04-15] MEDS: Morphine Inj 4 MG/ML Vial IV.PUSH PRN ×2 (17:08→20:26)
[2018-04-16] MEDS ORDERED: Chlorhexidine Gluconate 2% 1 Pack (2 Cloths) TOPICAL PRN (04:00)
[2018-04-16] MEDS: Chlorhexidine Gluconate 2% 1 Pack (2 Cloths) TOPICAL SCH (04:27)
--- NOTE | 2018-04-16 05:20 | XR ---
EXAM DATE: 04/16/2018 5:15 AM EDT AGE/SEX: 57 years / Male INDICATIONS: Shortness of breath, possible pulmonary disease. CLINICAL DATA: This is the patient's subsequent encounter. Patient reports that signs and symptoms h ave been present for 2 days and indicates a pain score of 0/10. MEDICAL/SURGICAL HISTORY: None. None. COMPARISON: [facility] – [place] 1V SINGLE AP, 04/15/2018. . FINDINGS: A single AP erect view of the chest was obtained and demonstrates mild hazy opacity at the lung bases right greater than left. There is apparent bullous change in the upper lobes and mild hyperinflation . The heart size remains within normal limits with no pulmonary vascular distribution. There is no ef fusion. The bony thorax remains intact. CONCLUSION: No significant change. Electronically signed by: Eduar Vidal MD 04/16/2018 5:19 AM EDT
[2018-04-16] MEDS: Morphine Inj 4 MG/ML Vial IV.PUSH PRN (07:56)
--- NOTE | 2018-04-16 08:25 | P.PNCC ---
Subjective Subjective Remarks/Hospital Course: Patient is a 57-year-old male with history of COPD, continued tobacco use, chronic atrial fibrillation on Coumadin who presented to the emergency department with severe shortness of breath. All history is obtained from ED physician and review of chart as the patient is unable to give me any history due to severe shortness of breath. He cannot tolerate being off BiPAP at this time. According to ER notes patient woke up severely short of breath, on EMS arrival patient was using accessory muscles with chest wall retractions. He was placed on nonrebreather, was given xrum-[id number] breathing treatments, and Solu-Medrol 125 mg IV push. In the ER he was very dyspneic and tachypneic. Immediately placed on BiPAP 08/22 with some improvement in symptoms. Chest x- ray did not show any acute infiltrates. I have seen the patient in the emergency department. He feels that he is slightly subjectively improved but remains quite short of breath on BiPAP. I will continue the IV steroids, scheduled DuoNeb every 4 hours and as needed. Empiric Levaquin 500 mg daily. If not sufficiently improved on BiPAP will need endotracheal intubation 04/16 Patient is on 2L oxygen with good sats. Off BIPAP. Afebrile. Objective Vital Signs / I&O: Vital Signs 04/15/18 08:34 04/15/18 08:55 04/15/18 09:42 Temperature Pulse Rate 83 74 75 Respiratory Rate 22 24 20 Blood Pressure 120/85 112/73 Pulse Oximetry 99 97 04/15/18 09:52 04/15/18 09:55 04/15/18 10:00 Temperature 96.8 F L Pulse Rate 83 81 87 Respiratory Rate 26 H 27 H Blood Pressure 124/79 124/79 Pulse Oximetry 94 L 92 L 89 L 04/15/18 10:03 04/15/18 10:55 04/15/18 11:00 Temperature Pulse Rate 73 74 Respiratory Rate 19 22 Blood Pressure 111/75 112/76 Pulse Oximetry 97 100 99 04/15/18 11:29 04/15/18 11:30 04/15/18 12:00 Temperature 97.1 F L Pulse Rate 72 71 76 Respiratory Rate 14 24 18 Blood Pressure 123/77 110/79 Pulse Oximetry 100 100 04/15/18 12:30 04/15/18 13:00 04/15/18 13:23 Temperature Pulse Rate 78 80 78 Respiratory Rate 20 21 Blood Pressure 111/76 105/73 Pulse Oximetry 98 96 04/15/18 14:00 04/15/18 14:31 04/15/18 14:35 Temperature Pulse Rate 73 78 Respiratory Rate 19 21 Blood Pressure 106/73 114/73 Pulse Oximetry 99 100 95 04/15/18 15:00 04/15/18 15:30 04/15/18 16:00 Temperature 98.1 F Pulse Rate 75 72 72 Respiratory Rate 20 19 20 Blood Pressure 102/71 110/69 107/74 Pulse Oximetry 93 L 91 L 93 L 04/15/18 16:07 04/15/18 16:30 04/15/18 17:00 Temperature Pulse Rate 75 74 81 Respiratory Rate 21 22 25 H Blood Pressure 113/77 111/77 Pulse Oximetry 92 L 94 L 04/15/18 17:30 04/15/18 18:00 04/15/18 19:00 Temperature Pulse Rate 77 71 70 Respiratory Rate 23 22 21 Blood Pressure 113/78 106/73 114/77 Pulse Oximetry 94 L 94 L 94 L 04/15/18 20:00 04/15/18 20:01 04/15/18 20:34 Temperature 97.9 F Pulse Rate 70 75 Respiratory Rate 20 20 18 Blood Pressure 110/76 Pulse Oximetry 95 95 04/15/18 21:00 04/15/18 22:00 04/15/18 23:00 Temperature Pulse Rate 71 67 66 Respiratory Rate 22 22 16 Blood Pressure 112/74 112/72 105/66 Pulse Oximetry 95 96 95 04/16/18 00:00 04/16/18 00:05 04/16/18 01:00 Temperature 97.9 F Pulse Rate 66 69 66 Respiratory Rate 17 18 19 Blood Pressure 93/61 L 110/75 Pulse Oximetry 95 95 04/16/18 02:00 04/16/18 03:00 04/16/18 04:00 Temperature 97.9 F Pulse Rate 63 68 76 Respiratory Rate 17 21 22 Blood Pressure 96/68 L 107/67 103/72 Pulse Oximetry 95 94 L 92 L 04/16/18 04:07 04/16/18 05:00 04/16/18 06:00 Temperature Pulse Rate 61 74 67 Respiratory Rate 18 16 22 Blood Pressure 109/77 93/59 L Pulse Oximetry 95 96 04/16/18 07:00 04/16/18 08:00 04/16/18 08:05 Temperature Pulse Rate 66 67 Respiratory Rate 24 18 Blood Pressure 99/55 L Pulse Oximetry 96 94 L Intake & Output 04/15/18 04/16/18 04/16/18 18:59 06:59 18:59 Intake Total 1150 / 1150 Output Total 275 / 275 800 / 800 Balance -275 / -275 350 / 350 Weight 77.3 kg Intake: IV 1150 / 1150 NS Inj 1,000 ML @ 75 mls/hr IV. 1000 / 1000 CONT .[id number] [facility] Rx#:[id number] Output: Urine 275 / 275 800 / 800 Other: Date of Last Bowel Movement 04/14/18 04/14/18 # Bowel Movements 0 Result Diagrams: 04/16/18 08:29 04/16/18 08:29 Other Results: Abnormal Lab Results 04/15/18 04/15/18 07:20 10:10 PT 26.1 H D INR 2.6 Nasal Screen MRSA (PCR) Not detected Imaging: Chest X-Ray 04/16/18 06:00 CONCLUSION: No significant change. Objective Remarks: GENERAL: Patient is 57 yo lying in bed in NAD SKIN: Warm and dry. HEAD: Normocephalic. EYES: No scleral icterus. No injection or drainage. NECK: Supple, trachea midline. No JVD or lymphadenopathy. CARDIOVASCULAR: Regular rate and rhythm without murmurs, gallops, or rubs. RESPIRATORY: Breath sounds equal bilaterally. No accessory muscle use. GASTROINTESTINAL: Abdomen soft, non-tender, nondistended. MUSCULOSKELETAL: No cyanosis, or edema. Neuro: Awake and alert Assessment and Plan - Problem List (1) Acute chronic obstructive pulmonary disease with respiratory failure Code(s): J96.00 - Acute respiratory failure, unspecified whether with hypoxia or hypercapnia; J44.9 - Chronic obstructive pulmonary disease, unspecified Status: Acute (2) Chronic atrial fibrillation Code(s): I48.2 - Chronic atrial fibrillation Status: Acute - Assessment and Plan Plan: NEURO: -Awake and alert -Home Lortab as needed for pain RESP: Acute COPD exacerbation Respiratory failure -Continue with oxygen keep sats >92% -Continue IV Solu-Medrol 60 every 8hr -DuoNeb every 4 hours scheduled and as needed -Continue Symbicort, Spiriva -BIPAP PRN for resp distress CV: Chronic atrial fibrillation -Monitor HR and BP keep MAP>65mmHg - On ASA, Cardizem CD 180mg daily, Lopressor 50mg BID GI: - IV famotidine -Start heart healthy diet : -Monitor renal function , I/O's, electrolytes replacement per protocol D/c Lasix ID: -Continue empiric Levaquin monitor for signs of infections ( Fever, WBC) -Check sputum culture HEME: -Monitor CBC, coags -Monitor INR closely while on Levaquin, 2.6 on 04/15 ENDO: -Electrolyte replacement per protocol -Sliding scale insulin if needed PROPH: -Bilateral lower extremity SCDs. Warfarin pharmacy to dose/famotidine INR 2.6 on 04/15, check INR today, d/c Lovenox LINES: -Utilize peripheral IVs, Will sign off and transfer care to HEP Level 2
[2018-04-16 09:03] LABS: Hematocrit 35.5 % (39.0-51.0); Lymph # (Auto) 0.6 th/mm3 (1.0-4.8); Lymph % (Auto) 5.3 % (9.0-44.0); Mean Corpuscular HGB Conc 33.7 % (32.0-36.0); Mean Corpuscular Hemoglobin 30.8 pg (27.0-34.0); Mean Corpuscular Volume 91.4 fL (80.0-100.0); Mean Platelet Volume 9.1 fL (7.0-11.0); Mono # (Auto) 0.4 th/mm3 (0.0-0.9); Mono % (Auto) 3.4 % (0.0-8.0); Neut % (Auto) 91.3 % (16.0-70.0); Platelet Count 185 th/mm3 (150-450); Red Blood Count 3.89 mil/mm3 (4.50-5.90)
[2018-04-16] MEDS: MethylPREDNISolone Sod Succinate Inj 125 MG/2 ML Vial IV.PUSH SCH (09:10)
[2018-04-16] MEDS: Metoprolol Tartrate 50 MG Tablet PO SCH ×2 (09:10→22:00)
[2018-04-16] MEDS: Famotidine PF Inj 20 MG/2 ML Vial IV.PUSH SCH ×2 (09:10→22:00)
[2018-04-16] MEDS: dilTIAZem CD 180 MG Capsule PO SCH (09:10)
[2018-04-16] MEDS: Tiotropium Bromide 18 MCG/ACT Inhaler INH SCH (09:11)
[2018-04-16] MEDS: Budesonide-Formoterol 80/4.5 MCG 6.9 GM Inhaler INH SCH ×2 (09:11→22:02)
[2018-04-16] MEDS: Levofloxacin 500 mg Premix Inj 500 MG/100 ML PIGGYBACK IV.SIG SCH (09:11)
[2018-04-16 09:18] LABS: INR 2.9 Ratio; Prothrombin Time 29.7 sec (9.8-11.6)
[2018-04-16 09:24] LABS: Albumin 3.2 g/dL (3.4-5.0); Anion Gap 5 meq/L (5-15); Aspartate Aminotransferase 11 U/L (15-37); Blood Urea Nitrogen 17 mg/dL (7-18); Calcium 8.4 mg/dL (8.5-10.1); Carbon Dioxide 29.4 meq/L (21.0-32.0); Chloride 109 meq/L (98-107); Glomerular Filtration Rate Greater Than 89 mL/min (>89); Glucose,Random 117 mg/dL (74-106); Potassium 3.9 meq/L (3.5-5.1); Sodium 143 meq/L (136-145)
[2018-04-16 09:25] LABS: Alanine Aminotransferase 21 U/L (12-78)
[2018-04-16 09:28] LABS: Alkaline Phosphatase 52 U/L (45-117); Total Protein 6.1 g/dL (6.4-8.2)
--- NOTE | 2018-04-16 17:39 | P.PNWCN ---
Wound Care Nurse Consult Description: Consult for wound management of arms and legs per Ivonne Martinez/Dr Kearns. Communicated with: Patient RN Recommendation: 2nd and 3rd digits on right hand are dry; may continue to cover with bandaids PRN Left hand wound is dry and may be left open to air Left loja sutures are dry and may be left open to air Additional information: Patient see on IMC for dry non draining non open wounds.
--- NOTE | 2018-04-16 19:45 | MB ---
cc: Tawana Porras MD DATE: 04/16/2018 REASON FOR CONSULTATION: COPD and respiratory failure. HISTORY OF PRESENT ILLNESS: This is a 57-year-old man with a history of COPD and longstanding history of smoking and atrial fibrillation. He was seen in the emergency room with shortness of breath. The patient was in acute respiratory distress, was hypercapnic and was on a nonrebreather and had to be placed on BiPAP and FiO2 of 50%. Chest x-ray was clear but had hyperinflation. After being on BiPAP he did improve. He was started on antibiotic therapy, IV steroids and subsequently transferred to the intensive care unit. The patient is presently still somewhat short of breath, but denies any chest pain, denies hemoptysis. Has no fevers or chills, but has a cough. PAST HISTORY: Includes COPD with emphysema and a history of chronic atrial fibrillation on Coumadin, history of anxiety. PAST SURGICAL HISTORY: Denies any other significant history of surgery. HABITS: The patient smoked 1/2 to 1 pack per day for over 30 years. He had quit last year, but restarted smoking this year after his mother . Alcohol use: Occasional. FAMILY HISTORY: Noncontributory. ALLERGIES: ALLERGIES TO PENICILLIN AND GABAPENTIN. MEDICATIONS: List included: 1. Symbicort 160/4.5 two puffs b.i.d. 2. Lasix 20 mg daily. 3. Coumadin 5 mg a day. 4. Spiriva 1 capsule a day. 5. Pramipexole 1 mg daily. 6. Prednisone 5 mg a day. 7. Zantac 150 mg b.i.d. 8. DuoNeb neb q.i.d. 9. Mentone 1 tablet t.i.d. p.r.n. REVIEW OF SYSTEMS: The patient has lost weight, has dizziness, postnasal drip. He has cough and wheezing, epigastric distress and reflux. He has no leg swelling or calf muscle pain. He has had some abrasions on his fingers from recent fall and has had some anxiety attacks. PHYSICAL EXAMINATION: GENERAL: Averagely built, middle-aged, white male whose face is plethoric. VITAL SIGNS: Blood pressure 130/70, pulse was 100, respirations 22, temperature 98. HEENT: Head is normocephalic. Pupils are reactive and equal. Tongue is moist. Throat is injected. Nasal mucosa edematous. NECK: No bruits, thyroid enlargement or lymphadenopathy. CHEST: Distant breath sounds with occasional wheezes in the upper lung pederson. HEART: Heart sounds were irregularly irregular. S1 and S2 with no murmur. ABDOMEN: Soft, nontender. Bowel sounds are active. No organomegaly. EXTREMITIES: Varicosities and minimal edema. Decreased peripheral pulses. Reflexes are 1+ with no gross motor deficits. Cranial nerves are grossly intact. RECTAL: Deferred. SKIN: No lesions. IMPRESSION: 1. Acute on chronic respiratory failure. 2. Chronic obstructive pulmonary disease with acute exacerbation. 3. Chronic atrial fibrillation on Coumadin. 4. Anxiety disorder. PLAN: The patient will be maintained on O2 at 3 liters and if he desaturates, he will be placed back on BiPAP tonight 12 5 cm. Nebulized DuoNeb solution continued q. 6 hours and p.r.n. and we will continue with Solu-Medrol at 40 mg IV q.6 hours. The patient will have a PFT performed in the a.m. and Symbicort will be maintained at 160/4.5 mcg 2 puffs twice a day. Thank you Dr. Kearns for this consultation. Tawana Porras MD VJD/KITTY , 07:09 PM , 07:23 PM
[2018-04-16] MEDS: MethylPREDNISolone Sod Succinate Inj 40 MG/ML Vial IV.PUSH SCH (21:59)
[2018-04-16] MEDS: ALPRAZolam 0.25 MG Tablet PO SCH (22:01)
[2018-04-17] MEDS: MethylPREDNISolone Sod Succinate Inj 40 MG/ML Vial IV.PUSH SCH ×4 (02:00→21:00)
[2018-04-17 04:43] LABS: Hematocrit 36.9 % (39.0-51.0); Hemoglobin 12.3 gm/dL (13.0-17.0); Lymph # (Auto) 0.3 th/mm3 (1.0-4.8); Mean Corpuscular HGB Conc 33.2 % (32.0-36.0); Mean Corpuscular Hemoglobin 30.3 pg (27.0-34.0); Mean Corpuscular Volume 91.3 fL (80.0-100.0); Mean Platelet Volume 9.5 fL (7.0-11.0); Mono # (Auto) 0.5 th/mm3 (0.0-0.9); Mono % (Auto) 3.8 % (0.0-8.0); Neut # (Auto) 12.7 th/mm3 (1.8-7.7); Neut % (Auto) 94.2 % (16.0-70.0); Platelet Count 196 th/mm3 (150-450); Red Blood Count 4.04 mil/mm3 (4.50-5.90); White Blood Count 13.5 th/mm3 (4.0-11.0)
[2018-04-17 04:46] LABS: INR 3.9 Ratio; Prothrombin Time 39.6 sec (9.8-11.6)
[2018-04-17 05:03] LABS: Alanine Aminotransferase 22 U/L (12-78); Albumin 3.1 g/dL (3.4-5.0); Anion Gap 5 meq/L (5-15); Aspartate Aminotransferase 12 U/L (15-37); Blood Urea Nitrogen 24 mg/dL (7-18); Calcium 8.5 mg/dL (8.5-10.1); Chloride 107 meq/L (98-107); Glomerular Filtration Rate Greater Than 89 mL/min (>89); Glucose,Random 137 mg/dL (74-106); Magnesium 2.7 mg/dL (1.5-2.5); Potassium 3.8 meq/L (3.5-5.1); Sodium 142 meq/L (136-145)
[2018-04-17 05:06] LABS: Alkaline Phosphatase 54 U/L (45-117); Total Protein 6.2 g/dL (6.4-8.2)
[2018-04-17] MEDS: Chlorhexidine Gluconate 2% 1 Pack (2 Cloths) TOPICAL SCH (06:11)
[2018-04-17] MEDS: ALPRAZolam 0.25 MG Tablet PO SCH ×3 (06:13→21:00)
[2018-04-17] MEDS: dilTIAZem CD 180 MG Capsule PO SCH (09:05)
[2018-04-17] MEDS: Metoprolol Tartrate 50 MG Tablet PO SCH ×2 (09:06→21:00)
[2018-04-17] MEDS: Famotidine PF Inj 20 MG/2 ML Vial IV.PUSH SCH ×2 (09:06→21:00)
[2018-04-17] MEDS: Tiotropium Bromide 18 MCG/ACT Inhaler INH SCH (09:06)
[2018-04-17] MEDS: Levofloxacin 500 mg Premix Inj 500 MG/100 ML PIGGYBACK IV.SIG SCH (09:06)
[2018-04-17] MEDS: Budesonide-Formoterol 80/4.5 MCG 6.9 GM Inhaler INH SCH ×2 (09:07→21:01)
--- NOTE | 2018-04-17 11:32 | P.PNIM ---
Subjective Interval history: The patient was resting comfortably in a chair. He said he has not required BiPAP overnight. He believes cleaning out the rabbit cages what triggered his shortness of breath episode. He says he does not smoke cigarettes anymore. He has been ambulatory. Discussed with nursing at the bedside. Physical Exam Vital signs: Vital Signs 04/16/18 11:33 04/16/18 12:00 04/16/18 14:00 Temperature 97.6 F Pulse Rate 69 68 84 Respiratory Rate 18 21 Blood Pressure 115/71 Pulse Oximetry 97 04/16/18 15:37 04/16/18 16:00 04/16/18 18:00 Temperature 98.0 F Pulse Rate 87 89 89 Respiratory Rate 18 23 Blood Pressure 121/74 Pulse Oximetry 93 L 04/16/18 20:00 04/16/18 22:00 04/16/18 23:32 Temperature 97.8 F Pulse Rate 85 77 79 Respiratory Rate 22 18 Blood Pressure 122/77 Pulse Oximetry 97 04/17/18 00:00 04/17/18 02:00 04/17/18 03:22 Temperature 97.3 F L Pulse Rate 74 66 82 Respiratory Rate 17 18 Blood Pressure 96/52 L Pulse Oximetry 96 04/17/18 04:00 04/17/18 06:00 04/17/18 08:03 Temperature 97.9 F Pulse Rate 63 64 70 Respiratory Rate 20 16 Blood Pressure 108/70 Pulse Oximetry 96 96 04/17/18 09:05 Temperature Pulse Rate Respiratory Rate 24 Blood Pressure Pulse Oximetry Intake & Output 04/16/18 04/17/18 04/17/18 18:59 06:59 18:59 Intake Total 600 / 600 400 / 400 Output Total 600 / 600 300 / 300 Balance 0 / 0 100 / 100 Weight 79 kg Intake: IV 100 / 100 Levaquin 500 mg Premix Inj 500 100 / 100 mg In 100 ml @ 100 mls/hr IV. SIG Q24H [facility] Rx#:[id number] Oral 600 / 600 300 / 300 Output: Urine 600 / 600 300 / 300 Other: # Voids 2 2 Date of Last Bowel Movement 04/14/18 04/14/18 04/14/18 # Bowel Movements 0 Narrative: GENERAL: NAD SKIN: Warm and dry. HEAD: Normocephalic. EYES: No scleral icterus. No injection or drainage. NECK: Supple, trachea midline. No JVD or lymphadenopathy. CARDIOVASCULAR: Regular rate and rhythm without murmurs, gallops, or rubs. RESPIRATORY: Decreased breath sounds bilaterally. GASTROINTESTINAL: Abdomen soft, non-tender, nondistended. MUSCULOSKELETAL: No cyanosis, or edema. Neuro: Awake and alert Results - Labs CBC & Chem 7: 04/17/18 04:20 04/17/18 03:42 Laboratory Results - last 24 hr 04/17/18 04/17/18 04/17/18 03:42 03:42 04:20 WBC 13.5 H RBC 4.04 L Hgb 12.3 L Hct 36.9 L MCV 91.3 MCH 30.3 MCHC 33.2 RDW 16.0 Plt Count 196 MPV 9.5 Neut % (Auto) 94.2 H Lymph % (Auto) 2.0 L [place] % (Auto) 3.8 Eos % (Auto) 0.0 Baso % (Auto) 0.0 Neut # (Auto) 12.7 H Lymph # (Auto) 0.3 L [place] # (Auto) 0.5 Eos # (Auto) 0.0 Baso # (Auto) 0.0 WBC Differential . Differential Comment Auto diff final PT 39.6 H INR 3.9 Sodium 142 Potassium 3.8 Chloride 107 Carbon Dioxide 30.0 Anion Gap 5 BUN 24 H Creatinine 0.68 Estimated GFR Greater than 89 Random Glucose 137 H Calcium 8.5 Phosphorus 3.0 Magnesium 2.7 H Total Bilirubin 0.3 AST 12 L ALT 22 Alkaline Phosphatase 54 Total Protein 6.2 L Albumin 3.1 L Assessment and Plan - Plan Acute COPD exacerbation/Respiratory failure Required BiPAP in the ED. Currently on NM. Pulmonology consult appreciated. -Continue with oxygen keep sats >92%. -Continue IV Solu-Medrol. -DuoNeb every 4 hours scheduled and as needed. -Continue Symbicort, Spiriva. -BIPAP PRN for resp distress. -Continue Levaquin. -follow cultures. -PT, incentive spirometry. Chronic atrial fibrillation Rate controlled. -On ASA, Cardizem CD 180mg daily, Lopressor 50mg BID. -Coumadin per pharmacy. PPx: Coumadin Discharge Planning: Transfer to floor
--- NOTE | 2018-04-17 19:26 | P.PN ---
Subjective Interval history: Feels better to day and on O2 2l. Refused BiPAP last PM. Sputum is clear. Physical Exam Vital signs: Vital Signs 04/16/18 20:00 04/16/18 22:00 04/16/18 23:32 Temperature 97.8 F Pulse Rate 85 77 79 Respiratory Rate 22 18 Blood Pressure 122/77 Pulse Oximetry 97 04/17/18 00:00 04/17/18 02:00 04/17/18 03:22 Temperature 97.3 F L Pulse Rate 74 66 82 Respiratory Rate 17 18 Blood Pressure 96/52 L Pulse Oximetry 96 04/17/18 04:00 04/17/18 06:00 04/17/18 08:00 Temperature 97.9 F 97.6 F Pulse Rate 63 64 69 Respiratory Rate 20 22 Blood Pressure 108/70 121/81 Pulse Oximetry 96 96 04/17/18 08:03 04/17/18 09:00 04/17/18 09:05 Temperature Pulse Rate 70 72 Respiratory Rate 16 24 Blood Pressure Pulse Oximetry 96 04/17/18 10:00 04/17/18 11:28 04/17/18 12:00 Temperature 97.4 F L Pulse Rate 67 62 61 Respiratory Rate 20 18 Blood Pressure 113/82 Pulse Oximetry 95 04/17/18 14:00 04/17/18 15:52 04/17/18 16:00 Temperature 97.9 F Pulse Rate 72 69 69 Respiratory Rate 22 19 Blood Pressure 126/87 Pulse Oximetry 95 04/17/18 18:00 Temperature Pulse Rate 67 Respiratory Rate Blood Pressure Pulse Oximetry Intake & Output 04/17/18 04/17/18 04/18/18 06:59 18:59 06:59 Intake Total 400 / 400 600 / 600 Output Total 300 / 300 830 / 830 Balance 100 / 100 -230 / -230 Weight 79 kg Intake: IV 100 / 100 Levaquin 500 mg Premix Inj 500 100 / 100 mg In 100 ml @ 100 mls/hr IV. SIG Q24H [facility] Rx#:[id number] Oral 300 / 300 600 / 600 Output: Urine 300 / 300 830 / 830 Other: # Voids 2 3 Date of Last Bowel Movement 04/14/18 04/14/18 # Bowel Movements 0 Narrative: GENERAL: Mid aged W/M in acute distress. SKIN: Warm and dry. HEAD: Normocephalic. EYES: No scleral icterus. No injection or drainage. NECK: Supple, trachea midline. No JVD or lymphadenopathy. CARDIOVASCULAR: Regular rate and rhythm without murmurs, gallops, or rubs. RESPIRATORY: Decreased breath sounds bilaterally. Few wheezes scattered GASTROINTESTINAL: Abdomen soft, non-tender, nondistended. MUSCULOSKELETAL: No cyanosis, or edema. Neuro: Awake and alert. No focal deficits. Results - Labs CBC & Chem 7: 04/17/18 04:20 04/17/18 03:42 Laboratory Results - last 24 hr 04/17/18 04/17/18 04/17/18 03:42 03:42 04:20 WBC 13.5 H RBC 4.04 L Hgb 12.3 L Hct 36.9 L MCV 91.3 MCH 30.3 MCHC 33.2 RDW 16.0 Plt Count 196 MPV 9.5 Neut % (Auto) 94.2 H Lymph % (Auto) 2.0 L [place] % (Auto) 3.8 Eos % (Auto) 0.0 Baso % (Auto) 0.0 Neut # (Auto) 12.7 H Lymph # (Auto) 0.3 L [place] # (Auto) 0.5 Eos # (Auto) 0.0 Baso # (Auto) 0.0 WBC Differential . Differential Comment Auto diff final PT 39.6 H INR 3.9 Sodium 142 Potassium 3.8 Chloride 107 Carbon Dioxide 30.0 Anion Gap 5 BUN 24 H Creatinine 0.68 Estimated GFR Greater than 89 Random Glucose 137 H Calcium 8.5 Phosphorus 3.0 Magnesium 2.7 H Total Bilirubin 0.3 AST 12 L ALT 22 Alkaline Phosphatase 54 Total Protein 6.2 L Albumin 3.1 L Assessment and Plan - Assessment (1) Acute respiratory failure with hypoxia and hypercapnia Code(s): J96.01 - Acute respiratory failure with hypoxia; J96.02 - Acute respiratory failure with hypercapnia Status: Acute (2) Nicotine dependence Code(s): F17.200 - Nicotine dependence, unspecified, uncomplicated Status: Acute (3) Chest pain Code(s): R07.9 - Chest pain, unspecified Status: Acute (4) Paroxysmal atrial fibrillation with rapid ventricular response Code(s): I48.0 - Paroxysmal atrial fibrillation Status: Acute (5) Hypoxemia Code(s): R09.02 - Hypoxemia Status: Acute (6) Asthma with exacerbation Code(s): J45.901 - Unspecified asthma with (acute) exacerbation Status: Acute - Plan 1. O2 at 2 L N/C 2. Continue antibiotics , Rocephin / Zithromax 3. Solumedrol 40 mg IV q8H 4. PFT with Bronchodilators 5. Duoneb nebs qid. 6. IS q3h 7. Symbicort 160/4.5 mcg , 2puffs BID 8. CBC,BMP in am (3) Chest pain Qualifiers: Chest pain type: precordial pain Qualified Code(s): R07.2 - Precordial pain (6) Asthma with exacerbation Qualifiers: Asthma severity: moderate Asthma persistence: unspecified Qualified Code(s) : J45.901 - Unspecified asthma with (acute) exacerbation
[2018-04-18] MEDS: MethylPREDNISolone Sod Succinate Inj 40 MG/ML Vial IV.PUSH SCH (05:01)
[2018-04-18] MEDS: ALPRAZolam 0.25 MG Tablet PO SCH (05:02)
[2018-04-18 07:26] LABS: INR 2.6 Ratio; Prothrombin Time 25.8 sec (9.8-11.6)
--- NOTE | 2018-04-18 09:47 | P.DCO ---
- Physical Therapy Order: Evaluate and treat, Improve ambulation, Strength and gait training - Home Health Nursing Order: Medical education, Signs/symptoms of disease process, Oxygen administration education, Medication education-adverse effect, Nursing assessment with vital signs - Certification I have seen patient Som Goss on 04/18/18. My clinical findings support the need for the requested home health care services because: Limited mobility due to disease progression, Patient has SOB I certify that my clinical findings support that this patient is homebound because: Hx COPD - exertion dyspnea/weakness
[2018-04-18] MEDS: Chlorhexidine Gluconate 2% 1 Pack (2 Cloths) TOPICAL SCH (10:10)
[2018-04-18] MEDS: Levofloxacin 500 mg Premix Inj 500 MG/100 ML PIGGYBACK IV.SIG SCH (10:17)
[2018-04-18] MEDS: dilTIAZem CD 180 MG Capsule PO SCH (10:17)
[2018-04-18] MEDS: Metoprolol Tartrate 50 MG Tablet PO SCH (10:18)
[2018-04-18] MEDS: Tiotropium Bromide 18 MCG/ACT Inhaler INH SCH (10:18)
[2018-04-18] MEDS: Famotidine PF Inj 20 MG/2 ML Vial IV.PUSH SCH (10:18)
[2018-04-18] MEDS: Budesonide-Formoterol 80/4.5 MCG 6.9 GM Inhaler INH SCH (10:18)
--- NOTE | 2018-04-18 11:27 | P.DS ---
Date of admission: 04/15/18 08:53 Primary care physician: [facility] Anticipated date of discharge: 04/18/18 Brief History from admission: Patient is a 57-year-old male with history of COPD, continued tobacco use, chronic atrial fibrillation on Coumadin who presented to the emergency department with severe shortness of breath. All history is obtained from ED physician and review of chart as the patient is unable to give me any history due to severe shortness of breath. He cannot tolerate being off BiPAP at this time. According to ER notes patient woke up severely short of breath, on EMS arrival patient was using accessory muscles with chest wall retractions. He was placed on nonrebreather, was given [id number] breathing treatments, and Solu-Medrol 125 mg IV push. In the ER he was very dyspneic and tachypneic. Immediately placed on BiPAP 12/5 with some improvement in symptoms. Chest x- ray did not show any acute infiltrates. I have seen the patient in the emergency department. He feels that he is slightly subjectively improved but remains quite short of breath on BiPAP. I will continue the IV steroids, scheduled DuoNeb every 4 hours and as needed. Empiric Levaquin 500 mg daily. If not sufficiently improved on BiPAP will need endotracheal intubation DS: Diagnosis - Discharge Diagnosis (1) Hypoxemia Status: Acute (2) Acute chronic obstructive pulmonary disease with respiratory failure Status: Acute DS: Medications - Discharge Medications Prescriptions: albuterol sulfate 2 puff INHALATION Q4H PRN #3 inhaler PRN Reason: SOB alprazolam [Xanax] 0.25 mg PO Q8HR #9 tab ipratropium-albuterol 3 ml INHALATION Q6H #90 ml levofloxacin [Levaquin] 750 mg PO DAILY #3 tab prednisone See Taper PO DAILY #20 tab prednisone 5 mg PO DAILY #30 tab DS: Summary Hospital Course: Acute COPD exacerbation/ Respiratory failure Required BiPAP. He was monitored in the ICU. Pulmonology was consulted. He was transitioned to nasal cannula. He received IV Solumedrol, DuoNebs every 4 hours scheduled and as needed and was continued on Symbicort and Spiriva. We started IV Levaquin. He worked with PT and utilized incentive spirometry. He will complete a prednisone taper and will complete a course of Levaquin. He will continue home oxygen. He will follow up with pulmonology as an outpt. He was provided with prescriptions for nebulizers and inhalers. He also received anxiety medications as needed. Chronic atrial fibrillation Rate controlled. On ASA, Cardizem CD and Lopressor. His Coumadin was managed by pharmacy. He will follow up with his PCP. - Time Spent with Patient Total time spent providing and/or coordinating discharge services: Greater than 30 minutes Exam Vital signs: Vital Signs 04/17/18 11:28 04/17/18 12:00 04/17/18 14:00 Temperature 97.4 F L Pulse Rate 62 61 72 Respiratory Rate 20 18 Blood Pressure 113/82 Pulse Oximetry 95 04/17/18 15:52 04/17/18 16:00 04/17/18 18:00 Temperature 97.9 F Pulse Rate 69 69 67 Respiratory Rate 22 19 Blood Pressure 126/87 Pulse Oximetry 95 04/17/18 19:53 04/17/18 20:00 04/17/18 23:57 Temperature 99.2 F Pulse Rate 81 75 71 Respiratory Rate 22 22 22 Blood Pressure 127/82 Pulse Oximetry 95 94 L 04/18/18 00:00 04/18/18 04:00 04/18/18 04:20 Temperature 98.7 F 99.3 F Pulse Rate 64 67 66 Respiratory Rate 19 20 18 Blood Pressure 124/78 113/70 Pulse Oximetry 100 96 04/18/18 05:01 04/18/18 08:00 04/18/18 08:01 Temperature 98.3 F Pulse Rate 66 65 Respiratory Rate 18 20 19 Blood Pressure 101/63 Pulse Oximetry 96 98 04/18/18 09:00 04/18/18 09:01 04/18/18 11:18 Temperature Pulse Rate 72 72 78 Respiratory Rate 43 H 31 H 18 Blood Pressure 115/85 Pulse Oximetry 94 L 94 L Intake & Output 04/17/18 04/18/18 04/18/18 18:59 06:59 18:59 Intake Total 700 / 700 200 / 200 Output Total 830 / 830 900 / 900 Balance -130 / -130 -700 / -700 Intake: IV 100 / 100 Levaquin 500 mg Premix Inj 500 100 / 100 mg In 100 ml @ 100 mls/hr IV. SIG Q24H [facility] Rx#:[id number] Oral 600 / 600 200 / 200 Output: Urine 830 / 830 900 / 900 Other: # Voids 3 3 Date of Last Bowel Movement 04/14/18 04/14/18 04/14/18 # Bowel Movements 0 Narrative: GENERAL: NAD SKIN: Warm and dry. HEAD: Normocephalic. EYES: No scleral icterus. No injection or drainage. NECK: Supple, trachea midline. No JVD or lymphadenopathy. CARDIOVASCULAR: Regular rate and rhythm without murmurs, gallops, or rubs. RESPIRATORY: Decreased breath sounds bilaterally. GASTROINTESTINAL: Abdomen soft, non-tender, nondistended. MUSCULOSKELETAL: No cyanosis, or edema. Neuro: Awake and alert Results Procedures completed during hospitalization: None Labs on day of discharge: Labs from last 24 hours 04/18/18 06:10 PT 25.8 H D INR 2.6 - Impressions ITS Impressions Chest X-Ray 04/16/18 06:00 CONCLUSION: No significant change. Discharge Plan - Discharge Disposition Patient Disposition: /Home Health Service - Discharge Condition Condition: Stable - Discharge Order Discharge Orders: Discharge Order (Routine); Ordered 04/18/18 Ordered By: Eduar Medina - Discharge Details Anticipated Discharge Date: 04/18/18 - Physicians Team Primary Care Provider: [facility],Physician 's Attending Provider: Eduar Medina Other Providers: Som Goldberg MD
--- NOTE | 2018-04-18 12:06 | P.PN ---
Subjective Interval history: Doing well .On o2 2L. Will go home. Physical Exam Vital signs: Vital Signs 04/17/18 14:00 04/17/18 15:52 04/17/18 16:00 Temperature 97.9 F Pulse Rate 72 69 69 Respiratory Rate 22 19 Blood Pressure 126/87 Pulse Oximetry 95 04/17/18 18:00 04/17/18 19:53 04/17/18 20:00 Temperature 99.2 F Pulse Rate 67 81 75 Respiratory Rate 22 22 Blood Pressure 127/82 Pulse Oximetry 95 94 L 04/17/18 23:57 04/18/18 00:00 04/18/18 04:00 Temperature 98.7 F 99.3 F Pulse Rate 71 64 67 Respiratory Rate 22 19 20 Blood Pressure 124/78 113/70 Pulse Oximetry 100 96 04/18/18 04:20 04/18/18 05:01 04/18/18 08:00 Temperature 98.3 F Pulse Rate 66 66 Respiratory Rate 18 18 20 Blood Pressure 101/63 Pulse Oximetry 96 04/18/18 08:01 04/18/18 09:00 04/18/18 09:01 Temperature Pulse Rate 65 72 72 Respiratory Rate 19 43 H 31 H Blood Pressure 115/85 Pulse Oximetry 98 94 L 94 L 04/18/18 11:18 Temperature Pulse Rate 78 Respiratory Rate 18 Blood Pressure Pulse Oximetry Intake & Output 04/17/18 04/18/18 04/18/18 18:59 06:59 18:59 Intake Total 700 / 700 200 / 200 Output Total 830 / 830 900 / 900 Balance -130 / -130 -700 / -700 Intake: IV 100 / 100 Levaquin 500 mg Premix Inj 500 100 / 100 mg In 100 ml @ 100 mls/hr IV. SIG Q24H [facility] Rx#:[id number] Oral 600 / 600 200 / 200 Output: Urine 830 / 830 900 / 900 Other: # Voids 3 3 Date of Last Bowel Movement 04/14/18 04/14/18 04/14/18 # Bowel Movements 0 Narrative: GENERAL: Mid aged W/M in no distress. SKIN: Warm and dry. HEAD: Normocephalic. EYES: No scleral icterus. No injection or drainage. NECK: Supple, trachea midline. No JVD or lymphadenopathy. CARDIOVASCULAR: Regular rate and rhythm without murmurs, gallops, or rubs. RESPIRATORY: Decreased breath sounds bilaterally. wheezes scattered GASTROINTESTINAL: Abdomen soft, non-tender, nondistended. MUSCULOSKELETAL: No cyanosis, or edema. Neuro: Awake and alert. No focal deficits. Results - Labs CBC & Chem 7: 04/17/18 04:20 04/17/18 03:42 Laboratory Results - last 24 hr 04/18/18 06:10 PT 25.8 H D INR 2.6 - Procedures None Assessment and Plan - Assessment (1) Acute respiratory failure with hypoxia and hypercapnia Code(s): J96.01 - Acute respiratory failure with hypoxia; J96.02 - Acute respiratory failure with hypercapnia Status: Acute (2) Nicotine dependence Code(s): F17.200 - Nicotine dependence, unspecified, uncomplicated Status: Acute (3) Chest pain Code(s): R07.9 - Chest pain, unspecified Status: Acute (4) Paroxysmal atrial fibrillation with rapid ventricular response Code(s): I48.0 - Paroxysmal atrial fibrillation Status: Acute (5) Hypoxemia Code(s): R09.02 - Hypoxemia Status: Acute (6) Asthma with exacerbation Code(s): J45.901 - Unspecified asthma with (acute) exacerbation Status: Acute - Plan 1. O2 at 2 L N/C 2. D/C antibiotics IV and add levaquin PO X 5 days 3. D/C Solumedrol 4. Add predniosne 20 mg BID and taper over 2 weeks 5. Duoneb nebs qid. 6. Will see as OP in 3 weeks 7. Symbicort 160/4.5 mcg , 2puffs BID 8. Home today (3) Chest pain Qualifiers: Chest pain type: precordial pain Qualified Code(s): R07.2 - Precordial pain (6) Asthma with exacerbation Qualifiers: Asthma severity: moderate Asthma persistence: unspecified Qualified Code(s) : J45.901 - Unspecified asthma with (acute) exacerbation
[2018-04-18 12:18] VITALS: PULSE 77; RESP 30; TEMP 99.3; O2SAT 97
[2018-04-18 12:19] VITALS: BP 115/85
== END 2018-04-18 13:45 | disposition home health service (06) ==
LOC: NEPE 05:23 → NEDA 08:53 → HIMC 09:45
PROVIDERS: ADMIT Hospitalist; ATTEND Hospitalist